=== PATIENT | male | born 1965 | race African-American/Black ===

== ENCOUNTER 2016-10-30 20:41 | Emergency (ER) | payer SELFPAY ==
[2016-10-31 00:26] LABS: ABSOLUTE LYMPHOCYTES (AUTO) 1.7 10^3/uL (0.5-4.7); ABSOLUTE MONOCYTES (AUTO) 0.7 10^3/uL (0.1-1.4); ABSOLUTE NEUT (AUTO) 7.3 10^3/uL (1.7-8.2); BASOPHILS % (AUTO) 0.4 % (0-2); EOSINOPHILS % (AUTO) 0.1 % (0-6); HEMOGLOBIN 15.7 g/dL (13.5-17.0); HGB HCT DIFFERENCE 2.1; LYMPHOCYTES % (AUTO) 17.1 % (13-45); MEAN CORPUSCULAR HEMOGLOBIN 32.5 pg (27.0-33.4); MEAN CORPUSCULAR HGB CONC 34.8 g/dL (32.0-36.0); MEAN CORPUSCULAR VOLUME 93 fl (80-97); MONOCYTES % (AUTO) 7.4 % (3-13); RED BLOOD COUNT 4.83 10^6/uL (4.35-5.55); RED CELL DISTRIBUTION WIDTH 14.6 % (11.5-14.0); WHITE BLOOD COUNT 9.8 10^3/uL (4.0-10.5)
[2016-10-31 00:48] LABS: ALANINE AMINOTRANSFERASE 27 U/L (21-72); ALBUMIN 4.7 g/dL (3.5-5.0); ALKALINE PHOSPHATASE 91 U/L (38-126); ANION GAP 13 (5-19); ASPARTATE AMINO TRANSFERASE 24 U/L (17-59); BILIRUBIN,DIRECT 0.2 mg/dL (0.0-0.4); BILIRUBIN,TOTAL 0.9 mg/dL (0.2-1.3); BLOOD UREA NITROGEN 14 mg/dL (7-20); CALCIUM 10.4 mg/dL (8.4-10.2); CARBON DIOXIDE 29 mmol/L (22-30); CHLORIDE 95 mmol/L (98-107); CREATINE KINASE 149 U/L (55-170); CREATININE RESULT 1.24 mg/dL (0.52-1.25); GLUCOSE 182 mg/dL (75-110); POTASSIUM 3.9 mmol/L (3.6-5.0); SODIUM 136.6 mmol/L (137-145); TOTAL PROTEIN 8.2 g/dL (6.3-8.2)
[2016-10-31 00:56] LABS: CREATINE KINASE MB 0.85 ng/mL (<4.55)
[2016-10-31 01:10] LABS: TROPONIN I 0.093 ng/mL
[2016-10-31] MEDS ORDERED: NORMAL SALINE 1000 ML 1,000 ML IV ONE (02:14)
[2016-10-31] MEDS ORDERED: ONDANSETRON HCL INJ/PF 4 MG/2 ML SDV IV ONE (02:18)
[2016-10-31] MEDS ORDERED: HYDROMORPHONE HCL INJ/PF 2 MG/ML AMPULE IV ONE (02:18)
[2016-10-31 02:29] LABS: LIPASE 417.6 U/L (23-300)
--- NOTE | 2016-10-31 03:04 | ER Document Report ---
ED General - General Chief Complaint: Chest Pain Stated Complaint: CHEST AND ABDOMINAL PAIN TRAVEL OUTSIDE OF THE [place] IN LAST 30 DAYS: No - Related Data Allergies/Adverse Reactions: No Known Allergies Allergy (Verified 10/30/16 22:40) Past Medical History - Social History Smoking Status: Current Every Day Smoker Family History: Reviewed & Not Pertinent Patient has suicidal ideation: No Patient has homicidal ideation: No - Past Medical History Cardiac Medical History: Reports: Hx Hypertension Renal/ Medical History: Denies: Hx Peritoneal Dialysis GI Medical History: Reports: Hx Gastroesophageal Reflux Disease, Hx Ulcer Psychiatric Medical History: Denies: Hx Depression Surgical Hx: Negative - Immunizations Immunizations up to date: Yes Hx Diphtheria, Pertussis, Tetanus Vaccination: Yes Physical Exam - Vital signs Vitals: Temp Pulse Resp BP Pulse Ox 98.2 F 75 14 133/89 H 98 10/30/16 22:41 10/30/16 22:41 10/30/16 22:41 10/30/16 22:41 10/30/16 22:41 Course - Vital Signs Vital signs: Temp Pulse Resp BP Pulse Ox 98.2 F 75 14 137/88 H 95 10/30/16 22:41 10/30/16 22:41 10/31/16 04:34 10/31/16 04:34 10/31/16 04:34 - Laboratory Result Diagrams: 10/31/16 00:07 10/31/16 00:07 Laboratory results interpreted by me: 10/31/16 10/31/16 10/31/16 00:07 00:07 00:07 RDW 14.6 H Sodium 136.6 L Chloride 95 L Glucose 182 H Calcium 10.4 H Lipase 417.6 H Discharge - Discharge Clinical Impression: Alcohol abuse, Gastritis and duodenitis Pancreatitis Qualifiers: Chronicity: acute Pancreatitis type: alcohol induced Acute pancreatitis complication: no infection or necrosis Qualified Code(s): K85.20 - Alcohol induced acute pancreatitis without necrosis or infection Condition: Stable Disposition: HOME, SELF-CARE Instructions: Clear Liquid Diet ([facility]), Prilosec (Acid Pump Inhibitor) ([facility]) Additional Instructions: Pancreatitis Pancreatitis is an inflammation of the pancreas, an organ at the back of your abdomen. The pancreas produces insulin and enzymes that digest your food. Pancreatitis can be caused by gallstones in the bile duct, by alcohol or viruses, or by excess fat or calcium in the blood stream. Occasionally, pancreatitis occurs when a stomach ulcer maxwell through into the pancreas. We try to find the cause of pancreatitis, but some tests can't be done until the pancreas heals. The usual symptoms of pancreatitis are pain in the pit of the stomach that goes straight through to the back, vomiting, and low-grade fever. Severe cases require hospital admission, but many patients with mild pancreatitis do well at home. You will probably need medicine for pain and for vomiting. Sometimes we prescribe medicine to decrease stomach acid secretion and to decrease flow of pancreatic juices. Start with a diet of clear liquids (soda pop, juices). When the pain is decreasing, you can add some simple starches (potato, toast, applesauce). Avoid proteins and fats until you are completely painfree. When you're better, your doctor may suggest treatment to prevent future pancreatitis (such as gallbladder removal). Avoid alcohol forever. Get immediate treatment for any future episodes. Contact your doctor at once or return here if you have increasing pain, shortness of breath, general swelling, increasing size of the abdomen, continued vomiting, muscle spasms, or other new symptoms. Gastritis You have an inflammation of the stomach called gastritis. This commonly causes upper abdominal pain, nausea, and vomiting. In severe cases, bleeding of the stomach lining can occur. Gastritis can be caused by bacteria or viruses , alcohol, or stomach-irritating drugs. Begin with sips of clear liquids. Take increasing amounts of fluid over the first 24 hours. Then start small amounts of bland foods (such as dry toast , applesauce, mashed potato). Gradually resume your usual diet. You should take antacids every two hours until the pain has subsided. Acid -suppressing drugs may be prescribed as well. Avoid aspirin, caffeine, tobacco , and alcohol. If the abdominal pain worsens, or there is evidence of major bleeding in the stomach (such as black, tarry stool, bloody or black vomit, or lightheadedness), you should return immediately. Call the doctor if you aren't improved in 24 to 36 hours. Prescriptions: Tramadol HCl 50 mg PO Q4HP PRN #30 tablet PRN Reason: Ondansetron [Zofran Odt 4 mg Tablet] 1 tab PO Q8HP PRN #15 tab.rapdis PRN Reason: For Nausea/Vomiting Omeprazole 40 mg PO DAILY #30 capsule.
[2016-10-31] MEDS ORDERED: LANSOPRAZOLE 30 MG TAB.RAP.DR PO ONE (04:43)
[2016-10-31] MEDS ORDERED: TRAMADOL HCL 50 MG TABLET PO ONE (04:43)
[2016-10-31 05:26] VITALS: BP 138/89
--- NOTE | 2016-10-31 22:10 | EKG REPORT ---
SEVERITY:- ABNORMAL ECG - SINUS RHYTHM PROBABLE LEFT ATRIAL ABNORMALITY NONSPECIFIC T ABNORMALITIES, DIFFUSE LEADS : Confirmed by: Marly Ko MD 31-Oct-2016 22:09:24
--- NOTE | 2016-11-01 15:35 | EKG REPORT ---
SEVERITY:- ABNORMAL ECG - SINUS RHYTHM PROBABLE LEFT ATRIAL ABNORMALITY NONSPECIFIC T ABNORMALITIES, ANT-LAT LEADS : Confirmed by: Marly Ko MD 01-Nov-2016 15:34:19
== END 2016-10-31 05:25 | disposition home or self-care (01) ==
LOC: ER 20:41
DX: K85.20 Alcohol induced acute pancreatitis without necrosis or infection (principal); F10.10 Alcohol abuse, uncomplicated; K29.70 Gastritis, unspecified, without bleeding; K29.80 Duodenitis without bleeding; R10.9 Unspecified abdominal pain; F17.200 Nicotine dependence, unspecified, uncomplicated
CPT/HCPCS: 93005 ×2; 99285; 96374; 96375; 36415; 82553; 82150; 82550; 83690; 85025; 80053; 84484; 71020; 74177; 93010 ×2; J1170; J2405; J7030

== ENCOUNTER 2016-12-31 10:31 | Emergency (ER) | payer SELFPAY ==
[2016-12-31] MEDS ORDERED: ONDANSETRON 4 MG TAB.RAPDIS PO ONE (10:51)
[2016-12-31] MEDS ORDERED: NORMAL SALINE 1000 ML 1,000 ML IV ONE (10:52)
--- NOTE | 2016-12-31 10:53 | ER Document Report ---
ED Medical Screen (RME) - General Chief Complaint: Epigastric Pain Stated Complaint: CHEST PAIN Time Seen by Provider: 12/31/16 10:50 Mode of Arrival: Ambulatory Information source: Patient Notes: 28-year-old male presents to ED for chest pain stomach pain taking a nausea and vomiting decreased urine and bowel movement due to nausea and vomiting. States that he stays in the stomach. He has a history of pancreatitis but has been drinking over the weekend. This has not had follow-up since his pancreatitis. I have greeted and performed a rapid initial assessment of this patient. A comprehensive ED assessment and evaluation of the patient, analysis of test results and completion of medical decision making process will be conducted by an additional ED providers. TRAVEL OUTSIDE OF THE [place] IN LAST 30 DAYS: No - Related Data Allergies/Adverse Reactions: No Known Allergies Allergy (Verified 12/31/16 10:35) Past Medical History - Past Medical History Cardiac Medical History: Reports: Hx Hypertension Renal/ Medical History: Denies: Hx Peritoneal Dialysis GI Medical History: Reports: Hx Gastroesophageal Reflux Disease, Hx Ulcer Psychiatric Medical History: Denies: Hx Depression - Immunizations Immunizations up to date: Yes Hx Diphtheria, Pertussis, Tetanus Vaccination: Yes Physical Exam - Vital signs Vitals: Temp Pulse Resp BP Pulse Ox 98.0 F 77 20 140/97 H 97 12/31/16 10:35 12/31/16 10:35 12/31/16 10:35 12/31/16 10:35 12/31/16 10:35 Course - Vital Signs Vital signs: Temp Pulse Resp BP Pulse Ox 98.0 F 77 20 140/97 H 97 12/31/16 10:35 12/31/16 10:35 12/31/16 10:35 12/31/16 10:35 12/31/16 10:35
--- NOTE | 2016-12-31 11:40 | RADIOLOGY REPORT (SQ) ---
EXAM DESCRIPTION: ACUTE ABDOMEN SERIES COMPLETED DATE/TIME: 12/31/2016 11:21 am REASON FOR STUDY: abdominal pain chest pain pancreatitis COMPARISON: None. NUMBER OF VIEWS: Three views. TECHNIQUE: Frontal chest, supine abdomen and upright abdomen radiographic images acquired. LIMITATIONS: None. FINDINGS: CHEST: Lungs clear of infiltrates. FREE AIR: None. No abnormal gas collections. BOWEL GAS PATTERN: Nonobstructive pattern. No dilated loops or air fluid levels. CALCIFICATIONS: No suspicious calcifications. HARDWARE: None in the abdomen. SOFT TISSUES: No gross mass or suggestion of organomegaly. BONES: No acute fracture. No worrisome bone lesions. OTHER: No other significant finding. IMPRESSION: NO RADIOGRAPHIC EVIDENCE FOR ACUTE ABDOMINAL DISEASE. TECHNICAL DOCUMENTATION: JOB ID: [id number] [employer]- All Rights Reserved
[2016-12-31 12:16] LABS: ABSOLUTE LYMPHOCYTES (AUTO) 2.1 10^3/uL (0.5-4.7); ABSOLUTE MONOCYTES (AUTO) 1.2 10^3/uL (0.1-1.4); ABSOLUTE NEUT (AUTO) 9.8 10^3/uL (1.7-8.2); BASOPHILS % (AUTO) 0.3 % (0-2); EOSINOPHILS % (AUTO) 0.4 % (0-6); HEMATOCRIT 48.3 % (37.9-51.0); HEMOGLOBIN 16.2 g/dL (13.5-17.0); HGB HCT DIFFERENCE 0.3; LYMPHOCYTES % (AUTO) 15.8 % (13-45); MEAN CORPUSCULAR HEMOGLOBIN 32.9 pg (27.0-33.4); MEAN CORPUSCULAR HGB CONC 33.5 g/dL (32.0-36.0); MEAN CORPUSCULAR VOLUME 98 fl (80-97); MONOCYTES % (AUTO) 8.9 % (3-13); RED BLOOD COUNT 4.92 10^6/uL (4.35-5.55); RED CELL DISTRIBUTION WIDTH 14.2 % (11.5-14.0); SEGMENTED NEUTROPHILS % (AUTO) 74.6 % (42-78); WHITE BLOOD COUNT 13.1 10^3/uL (4.0-10.5)
[2016-12-31 12:36] LABS: ALANINE AMINOTRANSFERASE 26 U/L (21-72); ALBUMIN 4.5 g/dL (3.5-5.0); ALKALINE PHOSPHATASE 94 U/L (38-126); ANION GAP 16 (5-19); ASPARTATE AMINO TRANSFERASE 21 U/L (17-59); BILIRUBIN,DIRECT 0.4 mg/dL (0.0-0.4); BILIRUBIN,TOTAL 1.1 mg/dL (0.2-1.3); BLOOD UREA NITROGEN 11 mg/dL (7-20); CALCIUM 10.3 mg/dL (8.4-10.2); CARBON DIOXIDE 27 mmol/L (22-30); CHLORIDE 96 mmol/L (98-107); CREATINE KINASE 105 U/L (55-170); CREATININE RESULT 1.06 mg/dL (0.52-1.25); GLUCOSE 112 mg/dL (75-110); LIPASE 357.7 U/L (23-300); POTASSIUM 4.1 mmol/L (3.6-5.0); SODIUM 138.9 mmol/L (137-145); TOTAL PROTEIN 8.6 g/dL (6.3-8.2)
[2016-12-31 12:43] LABS: APPEARANCE,URINE SLIGHTLY-CLOUDY; BILIRUBIN,URINE NEGATIVE (NEGATIVE); GLUCOSE, URINE NEGATIVE (NEGATIVE); KETONES,URINE 20 mg/dL (NEGATIVE); LEUKOCYTE ESTERASE,URINE NEGATIVE (NEGATIVE); NITRITE,URINE NEGATIVE (NEGATIVE); PROTEIN,URINE >=500 mg/dL (NEGATIVE); URINE SPECIFIC GRAVITY 1.029; UROBILINOGEN,URINE NEGATIVE mg/dL (<2.0)
[2016-12-31 12:47] LABS: CREATINE KINASE MB 0.98 ng/mL (<4.55)
[2016-12-31 12:49] LABS: TROPONIN I 0.098 ng/mL
[2016-12-31] MEDS ORDERED: MORPHINE SULFATE 10 MG/ML INJ IV ONE ×2 (14:16→16:05)
[2016-12-31] MEDS ORDERED: ONDANSETRON HCL INJ/PF 4 MG/2 ML SDV IV ONE (14:22)
--- NOTE | 2016-12-31 14:23 | ER Document Report ---
ED GI/ - General Chief Complaint: Epigastric Pain Stated Complaint: CHEST PAIN Time Seen by Provider: 12/31/16 10:50 Mode of Arrival: Ambulatory Information source: Patient Notes: Patient is a 51-year-old -Swedish male with a history of pancreatitis who presents to the ER today for upper abdominal pain and nausea and vomiting he denies any 4 days. Patient states that he drank 3 shots this week and has not been drinking for a long time which he thinks caused his symptoms. Abnormal bowel movements, diarrhea. He denies any fevers or chills. TRAVEL OUTSIDE OF THE [place] IN LAST 30 DAYS: No - Related Data Allergies/Adverse Reactions: No Known Allergies Allergy (Verified 12/31/16 10:35) Past Medical History - General Information source: Patient - Social History Smoking Status: Former Smoker Chew tobacco use (# tins/day): No Frequency of alcohol use: None Drug Abuse: None Family History: Reviewed & Not Pertinent Patient has suicidal ideation: No Patient has homicidal ideation: No - Past Medical History Cardiac Medical History: Reports: Hx Hypertension Renal/ Medical History: Denies: Hx Peritoneal Dialysis GI Medical History: Reports: Hx Gastroesophageal Reflux Disease, Hx Ulcer Psychiatric Medical History: Denies: Hx Depression - Immunizations Immunizations up to date: Yes Hx Diphtheria, Pertussis, Tetanus Vaccination: Yes Review of Systems - Review of Systems Constitutional: No symptoms reported EENT: No symptoms reported Cardiovascular: No symptoms reported Respiratory: No symptoms reported Gastrointestinal: See HPI Genitourinary: No symptoms reported Male Genitourinary: No symptoms reported Musculoskeletal: No symptoms reported Skin: No symptoms reported Hematologic/Lymphatic: No symptoms reported Neurological/Psychological: No symptoms reported Physical Exam - Vital signs Vitals: Temp Pulse Resp BP Pulse Ox 98.0 F 77 20 140/97 H 97 12/31/16 10:35 12/31/16 10:35 12/31/16 10:35 12/31/16 10:35 12/31/16 10:35 - Notes Notes: PHYSICAL EXAMINATION: GENERAL: Uncomfortable appearing, but in no acute distress. HEAD: Atraumatic, normocephalic. EYES: Pupils equal round and reactive to light, extraocular movements intact, sclera anicteric, conjunctiva are normal. NECK: Normal range of motion, supple without lymphadenopathy LUNGS: CTAB and equal. No wheezes rales or rhonchi. HEART: Regular rate and rhythm without murmurs ABDOMEN: Soft, right upper quadrant, left upper quadrant epigastric no tenderness. No guarding, no rebound BACK: no vertebral tenderness, normal ROM GI/: no CVA tenderness EXTREMITIES: Normal range of motion, no pitting edema. No cyanosis. NEUROLOGICAL: Cranial nerves grossly intact. Normal sensory/motor exams. PSYCH: Normal mood, normal affect. SKIN: Warm, Dry, normal turgor, no rashes or lesions noted Course - Re-evaluation Re-evalutation: 12/31/16 16:07 Troponin is elevated at 0.098, however this is patient's norm compared to all previous troponins. His lipase is elevated and he is tender in the epigastric, left upper quadrant, right upper quadrant area. Due to right upper quadrant tenderness and patient still having his gallbladder I did do a right upper quadrant ultrasound which was negative for any acute pathology to the gallbladder. Patient feels much better after pain medication and nausea medication. He passed the p.o. challenge. I educated him about a clear liquid diet for a couple of days for this. 12/31/16 16:08 - Vital Signs Vital signs: Temp Pulse Resp BP Pulse Ox 98.0 F 79 20 140/97 H 97 12/31/16 10:36 12/31/16 10:36 12/31/16 10:36 12/31/16 10:36 12/31/16 10:36 - Laboratory Result Diagrams: 12/31/16 12:00 12/31/16 12:00 Laboratory results interpreted by me: 12/31/16 12/31/16 12/31/16 12:00 12:00 12:00 WBC 13.1 H MCV 98 H RDW 14.2 H Absolute Neutrophils 9.8 H Chloride 96 L Glucose 112 H Calcium 10.3 H Total Protein 8.6 H Lipase 357.7 H Urine Protein >=500 H Urine Ketones 20 H Discharge - Discharge Clinical Impression: Pancreatitis Qualifiers: Chronicity: acute Pancreatitis type: alcohol induced Qualified Code(s): K85.2 - Alcohol induced acute pancreatitis Condition: Stable Disposition: HOME, SELF-CARE Instructions: Pancreatitis ([facility]) Additional Instructions: Return immediately for any new or worsening symptoms. Follow up with primary care provider, call tomorrow to make followup appointment. Prescriptions: Ondansetron [Zofran Odt 4 mg Tablet] 1 - 2 tab PO Q4H PRN #30 tab.rapdis PRN Reason: For Nausea/Vomiting Oxycodone HCl/Acetaminophen [Percocet 5-325 mg Tablet] 1 - 2 tab PO Q4H PRN #15 tablet PRN Reason: Referrals: [facility] [Provider Group] - Follow up as needed
--- NOTE | 2016-12-31 15:27 | RADIOLOGY REPORT (SQ) ---
EXAM DESCRIPTION: U/S ABDOMEN LIMITED W/O DOP COMPLETED DATE/TIME: 12/31/2016 3:05 pm REASON FOR STUDY: ruq pain, pancreatitis COMPARISON: 01/16/2016 TECHNIQUE: Dynamic and static grayscale images acquired of the abdomen and recorded on PACS. Myriamo cam selected color Doppler and spectral images recorded. LIMITATIONS: None. FINDINGS: PANCREAS: The pancreas is slightly heterogeneous. The pancreatic duct is dilated, measuri ng 5.4 mm at its largest. LIVER: 17 cm. No masses. Echotexture normal. LIVER VASCULATURE: Normal directional flow of the main portal vein and hepatic veins. GALLBLADDER: No stones. Normal wall thickness. No pericholecystic fluid. ULTRASOUND-DETECTED THOMAS'S SIGN: Negative. INTRAHEPATIC DUCTS AND COMMON DUCT: The common bile duct is borderline at 6 mm. INFERIOR VENA CAVA: Normal flow. AORTA: No aneurysm. RIGHT KIDNEY: Normal size, 12 cm. Normal echogenicity. No solid or suspicious masses. No hydronephro sis. No calcifications. PERITONEAL AND RIGHT PLEURAL SPACE: No ascites or effusions. OTHER: No other significant findings. IMPRESSION: 1. There is dilatation of the pancreatic duct once again. Consider CT for further eval uation if clinically indicated. 2. The common bile duct is borderline. TECHNICAL DOCUMENTATION: JOB ID: [id number] [employer]- All Rights Reserved
[2016-12-31 16:51] VITALS: BP 151/99
== END 2016-12-31 16:47 | disposition home or self-care (01) ==
LOC: ER 10:31
DX: K85.20 Alcohol induced acute pancreatitis without necrosis or infection (principal); R10.13 Epigastric pain; R11.2 Nausea with vomiting, unspecified; R19.7 Diarrhea, unspecified; Z87.891 Personal history of nicotine dependence; I10 Essential (primary) hypertension
CPT/HCPCS: 96376; 99284; 96374; 96375; 36415; 82553; 82550; 83690; 85025; 80053; 81001; 84484; 74022; 76705; S0119; J2270; J2405; J7030

== ENCOUNTER 2017-03-01 20:32 | Emergency (ER) | payer SELFPAY ==
[2017-03-01] MEDS ORDERED: NORMAL SALINE 1000 ML 1,000 ML IV ONE (22:17)
[2017-03-01] MEDS ORDERED: MORPHINE SULFATE 10 MG/ML INJ IV ONE (22:17)
[2017-03-01] MEDS ORDERED: DIAZEPAM INJ 10 MG/2 ML DISP.SYRIN IV ONE (22:18)
--- NOTE | 2017-03-01 22:19 | ER Document Report ---
ED GI/ - General Mode of Arrival: Ambulatory Information source: Patient TRAVEL OUTSIDE OF THE [place] IN LAST 30 DAYS: No - HPI Patient complains to provider of: Groin pain Onset: Other - x3 days Timing/Duration: Persistent Pain Level: 4 Location: Other - right groin Associated symptoms: None Similar symptoms previously: Yes <DAVE HICKMAN - Last Filed: 03/01/17 22:13> <LESLY BLAKE - Last Filed: 03/01/17 23:28> - General Chief Complaint: Groin Pain Stated Complaint: ABDOMINAL PAIN Time Seen by Provider: 03/01/17 22:06 Notes: Patient is a 51 year old male that presents to the emergency department today with complaints of "large hernia" in the right groin. Patient states that he has had the hernia for approximately 4 years but it had been easily reducible. Patient states that it would "come out" every couple weeks but recently it has been a daily occurrence. Patient states for the last three days he has been unable to reduce the hernia and he has had associated pain. 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 Lives with: Family Family History: Reviewed & Not Pertinent Patient has suicidal ideation: No Patient has homicidal ideation: No - Past Medical History Cardiac Medical History: Reports: Hx Hypertension - no meds GI Medical History: Reports: Hx Gastroesophageal Reflux Disease, Hx Ulcer Surgical Hx: Negative - Immunizations Immunizations up to date: Yes Hx Diphtheria, Pertussis, Tetanus Vaccination: Yes <DAVE HICKMAN - Last Filed: 03/01/17 22:13> Review of Systems - Review of Systems Constitutional: No symptoms reported EENT: No symptoms reported Cardiovascular: No symptoms reported Respiratory: No symptoms reported Gastrointestinal: See HPI, Other - right groin pain, hernia Genitourinary: No symptoms reported Male Genitourinary: No symptoms reported Musculoskeletal: No symptoms reported Skin: No symptoms reported Hematologic/Lymphatic: No symptoms reported Neurological/Psychological: No symptoms reported -: Yes All other systems reviewed and negative <DAVE HICKMAN - Last Filed: 03/01/17 22:13> Physical Exam <DAVE HICKMAN - Last Filed: 03/01/17 22:13> <LESLY BLAKE - Last Filed: 03/01/17 23:28> - Vital signs Vitals: Temp Pulse Resp BP Pulse Ox 98.3 F 64 12 168/114 H 99 03/01/17 21:20 03/01/17 21:20 03/01/17 21:20 03/01/17 21:20 03/01/17 21:20 - Notes Notes: Physical Exam: General: Alert, appears well. HEENT: Normocephalic. Atraumatic. PERRL. Extraocular movements intact. Oropharynx clear. Neck: Supple. Non-tender. Respiratory: No respiratory distress. Clear and equal breath sounds bilaterally. Cardiovascular: Regular rate and rhythm. Abdominal: No distension. Normal Bowel Sounds. Large, firm, irreducible tubular mass to right groin extending into right scrotum. Tenderness with palpation over the mass. Male Genitourinary: No testicular swelling or tenderness. Back: Non-tender. No deformity or step off. Extremities: Moves all four extremities. Upper extremities: Normal inspection. Normal ROM. Lower extremities: Normal inspection. No edema. Normal ROM. Neurological: Normal cognition. AAOx4. Normal speech. Psychological: Normal affect. Normal Mood. Skin: Warm. Dry. Normal color. (DAVE HICKMAN) Course - Consults Surgery Time consulted: 22:19 Consulted provider: will come to ER - Dr. Nam - requests pain meds, will come see patient <DAVE HICKMAN - Last Filed: 03/01/17 22:13> - Laboratory Result Diagrams: 03/01/17 22:48 03/01/17 22:48 <LESLY BLAKE - Last Filed: 03/01/17 23:28> - Re-evaluation Re-evalutation: 03/01/17 23:13 The patient was given pain medication and some Valium to help relax his muscles. Dr. Nam saw the patient and was eventually able to reduce the hernia. He requests that the patient follow up with [facility] Saturday morning. (LESLY BLAKE) - Vital Signs Vital signs: Temp Pulse Resp BP Pulse Ox 98.3 F 64 12 168/114 H 99 03/01/17 21:20 03/01/17 21:20 03/01/17 21:20 03/01/17 21:20 03/01/17 21:20 - Laboratory Laboratory results interpreted by me: 03/01/17 22:48 MCH 33.6 H RDW 14.5 H Discharge <DAVE HICKMAN - Last Filed: 03/01/17 22:13> <LESLY BLAKE - Last Filed: 03/01/17 23:28> - Discharge Clinical Impression: Right inguinal hernia High blood pressure Qualifiers: Hypertension type: essential hypertension Qualified Code(s): I10 - Essential ( primary) hypertension Condition: Stable Disposition: HOME, SELF-CARE Additional Instructions: Hernia: You have a hernia. A hernia forms at a weak spot in the abdominal wall. Bowel slips out of the abdominal cavity into the weak spot. Hernias tend to occur in the groin (especially in males), the fold of the thigh, the naval, or at a surgical scar. Surgical repair of the defect is usually necessary. The problem tends to get worse. It's important that you follow up as recommended. For now, you should avoid straining, heavy lifting, and vigorous exercise. Complications occur if the hernia becomes tightly stuck. You should come back immediately if the area becomes increasingly painful, swollen, or discolored, or if you develop abdominal pain and vomiting. High Blood Pressure, Requiring Treatment: Your blood pressure is high. This is called "hypertension." Your history and exam suggest that this is not a temporary problem. You need treatment of your blood pressure. If left untreated, high blood pressure greatly increases your risk of heart attack and stroke. Please don't ignore this problem. If you have blood pressure medicine but aren't using it regularly, start taking it again. Some simple things you can do to help are: Get some aerobic exercise for at least 20 minutes on a daily basis. (See your doctor before beginning any new exercise program.) Eat a low-fat diet. Lose excess weight. Avoid salty foods and avoid adding salt to any of the foods you eat. Avoid diet pills, decongestants, "energizing" herbs, and other medicines that elevate blood pressure. There are many different medicines that treat blood pressure. If your medication causes unpleasant side effects, call your doctor. There are others you can try. Treating hypertension is a life-long investment in your health. TAKE THE MEDICATION PRESCRIBED FOR HIGH BLOOD PRESSURE. FOLLOW UP WITH A LOCAL MEDICAL DOCTOR TO MANAGE YOUR HIGH BLOOD PRESSURE. DO NOT LET THE HERNIA REMAIN OUT WHEN YOU FIRST NOTICE IT DESCENDING. CALL [facility] SATURDAY MORNING FOR AN APPOINTMENT THIS WEEK. RETURN TO THE EMERGENCY ROOM IF ANY NEW OR WORSENING SYMPTOMS. Prescriptions: Lisinopril [Prinivil 10 mg Tablet] 10 mg PO DAILY #30 tablet Referrals: [facility] [Provider Group] - 03/04/17 Scribe Attestation: 03/01/17 23:15 I personally performed the services described in the documentation, reviewed and edited the documentation which was dictated to the scribe in my presence, and it accurately records my words and actions. (LESLY BLAKE) Scribe Documentation - Scribe Written by Mitra:: Mitra Wright, 03/01/2017 2222 acting as scribe for :: Cielo <DAVE HICKMAN - Last Filed: 03/01/17 22:13>
[2017-03-01] MEDS ORDERED: HYDROMORPHONE HCL INJ/PF 2 MG/ML AMPULE ONE (22:54)
[2017-03-01] MEDS ORDERED: LORAZEPAM INJ 2 MG/1 ML VIAL ONE (22:56)
[2017-03-01 23:17] LABS: ABSOLUTE EOSINOPHILS # (AUTO) 0.1 10^3/uL (0.0-0.6); ABSOLUTE LYMPHOCYTES (AUTO) 2.1 10^3/uL (0.5-4.7); ABSOLUTE MONOCYTES (AUTO) 0.6 10^3/uL (0.1-1.4); ABSOLUTE NEUT (AUTO) 5.1 10^3/uL (1.7-8.2); BASOPHILS % (AUTO) 0.4 % (0-2); EOSINOPHILS % (AUTO) 1.5 % (0-6); HEMATOCRIT 45.7 % (37.9-51.0); HGB HCT DIFFERENCE 2.3; LYMPHOCYTES % (AUTO) 26.5 % (13-45); MEAN CORPUSCULAR HEMOGLOBIN 33.6 pg (27.0-33.4); MEAN CORPUSCULAR VOLUME 96 fl (80-97); MONOCYTES % (AUTO) 7.7 % (3-13); RED BLOOD COUNT 4.76 10^6/uL (4.35-5.55); RED CELL DISTRIBUTION WIDTH 14.5 % (11.5-14.0); SEGMENTED NEUTROPHILS % (AUTO) 63.9 % (42-78); WHITE BLOOD COUNT 7.9 10^3/uL (4.0-10.5)
[2017-03-01] MEDS ORDERED: LISINOPRIL 10 MG TABLET PO ONE (23:27)
[2017-03-01 23:50] LABS: ALANINE AMINOTRANSFERASE 21 U/L (21-72); ALBUMIN 3.8 g/dL (3.5-5.0); ALKALINE PHOSPHATASE 99 U/L (38-126); ANION GAP 9 (5-19); ASPARTATE AMINO TRANSFERASE 22 U/L (17-59); BILIRUBIN,DIRECT 0.3 mg/dL (0.0-0.4); BILIRUBIN,TOTAL 0.6 mg/dL (0.2-1.3); BLOOD UREA NITROGEN 11 mg/dL (7-20); CALCIUM 9.4 mg/dL (8.4-10.2); CARBON DIOXIDE 27 mmol/L (22-30); CHLORIDE 105 mmol/L (98-107); GLUCOSE 127 mg/dL (75-110); POTASSIUM 3.8 mmol/L (3.6-5.0); SODIUM 141.3 mmol/L (137-145); TOTAL PROTEIN 7.3 g/dL (6.3-8.2)
--- NOTE | 2017-03-02 00:17 | CONSULTATION REPORT E ---
Consultation Report NAME: BEKAH HEIN : 1965 AGE: 51Y DATE: 03/01/2017 TO: WILMAN DOS SANTOS M.D. FROM: LESLY BLAKE M.D. Requesting Physician REASON FOR CONSULTATION: Incarcerated right inguinal hernia that the ER was unable to reduce. HISTORY OF PRESENT ILLNESS: This is a 51-year-old -Filipino male who has known right inguinal hernia for the past 5 years. In the past he would notice a lump in the right groin but he could easily push it back in. In the past 3 days, however, he was unable to reduce and it is getting to get bigger and with a lot of pain, that is why he came to the emergency room. The ER doctor tried to reduce it, was unable to reduce it and he consulted me. PAST HISTORY: History of alcoholic pancreatitis. ALLERGIES: None known. PAST SURGERIES: No previous operations in the past. SOCIAL HISTORY: He smokes about a half a pack a day. Drinks about half a pint of gin everyday, but denies any history of withdrawal when he stops drinking. Denies recreational drug use. 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 FAMILY HISTORY: Noncontributory. REVIEW OF SYSTEMS: Occasional cough but nonproductive. No visual problems or hearing problems. No chest pains, no shortness of breath. GI: Pains in the right groin for the past 3 days but no nausea or vomiting. No diarrhea, no constipation. No dysuria. The rest of the systems unremarkable. PHYSICAL EXAMINATION: GENERAL: Well-developed, well-nourished, 51-year-old male alert and oriented complaining of pains in the right groin. HEENT: Neck is supple, no thyromegaly. LUNGS: Clear. HEART: Regular sinus rhythm. ABDOMEN: Soft. The right inguinal area has a moderately enlarged incarcerated inguinal hernia that is quite tender. IMPRESSION: Incarcerated right inguinal hernia. PLAN: The patient was given IV morphine and valium. The patient then was placed on Trendelenburg position. With gentle manipulation and after several minutes the hernia was finally reduced. The patient was advised not to do any lifting or straining. If it comes back then just go back to the emergency room otherwise just go to the surgical clinic Saturday, will schedule as an elective repair of the right inguinal hernia. Incidental findings is that his blood pressure is 177/115. He said he takes lisinopril 2.5 mg daily. Blood pressure will be managed by the ER physician. DICTATING PHYSICIAN: WILMAN DOS SANTOS M.D. [id number] PHY#: [id number] ID: [id number] JOB#: [id number] ACCT: [id number] cc:WILMAN DOS SANTOS M.D. >
[2017-03-02 00:25] VITALS: BP 165/98
== END 2017-03-01 23:28 | disposition home or self-care (01) ==
LOC: ER 20:32
DX: K40.90 Unilateral inguinal hernia, without obstruction or gangrene, not specified as recurrent (principal); I10 Essential (primary) hypertension; F17.210 Nicotine dependence, cigarettes, uncomplicated
CPT/HCPCS: 99284; 96361; 96374; 96375; 36415; 85025; 80053; J3360; J2270; J7030

== ENCOUNTER 2018-01-06 08:06 | Observation (INO) | payer SELFPAY ==
[2018-01-06 09:17] LABS: ABSOLUTE LYMPHOCYTES (AUTO) 1.7 10^3/uL (0.5-4.7); ABSOLUTE MONOCYTES (AUTO) 0.5 10^3/uL (0.1-1.4); ABSOLUTE NEUT (AUTO) 6.7 10^3/uL (1.7-8.2); BASOPHILS % (AUTO) 0.2 % (0-2); EOSINOPHILS % (AUTO) 0.2 % (0-6); HEMATOCRIT 45.4 % (37.9-51.0); HEMOGLOBIN 15.9 g/dL (13.5-17.0); LYMPHOCYTES % (AUTO) 18.9 % (13-45); MEAN CORPUSCULAR HEMOGLOBIN 34.2 pg (27.0-33.4); MEAN CORPUSCULAR HGB CONC 34.9 g/dL (32.0-36.0); MEAN CORPUSCULAR VOLUME 98 fl (80-97); MONOCYTES % (AUTO) 5.2 % (3-13); PLATELET COUNT 305 10^3/uL (150-450); RED BLOOD COUNT 4.64 10^6/uL (4.35-5.55); RED CELL DISTRIBUTION WIDTH 13.2 % (11.5-14.0); SEGMENTED NEUTROPHILS % (AUTO) 75.5 % (42-78); TOTAL CELLS COUNTED % (AUTO) 100 %; WHITE BLOOD COUNT 8.9 10^3/uL (4.0-10.5)
[2018-01-06 09:33] LABS: APPEARANCE,URINE CLEAR; BILIRUBIN,URINE NEGATIVE (NEGATIVE); COLOR,URINE AMBER; GLUCOSE, URINE NEGATIVE (NEGATIVE); KETONES,URINE 20 mg/dL (NEGATIVE); LEUKOCYTE ESTERASE,URINE NEGATIVE (NEGATIVE); NITRITE,URINE NEGATIVE (NEGATIVE); PROTEIN,URINE >=500 mg/dL (NEGATIVE)
[2018-01-06 09:40] LABS: ALANINE AMINOTRANSFERASE 18 U/L (21-72); ALBUMIN 4.4 g/dL (3.5-5.0); ALKALINE PHOSPHATASE 70 U/L (38-126); ANION GAP 15 (5-19); ASPARTATE AMINO TRANSFERASE 20 U/L (17-59); BILIRUBIN,DIRECT 0.5 mg/dL (0.0-0.4); BILIRUBIN,TOTAL 0.9 mg/dL (0.2-1.3); BLOOD UREA NITROGEN 13 mg/dL (7-20); CALCIUM 10.8 mg/dL (8.4-10.2); CARBON DIOXIDE 30 mmol/L (22-30); CHLORIDE 98 mmol/L (98-107); GLUCOSE 122 mg/dL (75-110); LIPASE 168.6 U/L (23-300); POTASSIUM 3.8 mmol/L (3.6-5.0); SODIUM 142.7 mmol/L (137-145); TOTAL PROTEIN 7.9 g/dL (6.3-8.2)
--- NOTE | 2018-01-06 10:06 | ER Document Report ---
ED GI/ - General Chief Complaint: Groin Pain Stated Complaint: ABDOMINAL PAIN Time Seen by Provider: 01/06/18 09:54 Notes: Patient is complaining of pain in a hernia that he has in the right groin. He says he has had this hernia for about 3 years. It used to be easily reduced by the patient whenever it will come out with coughing or pushing a lawn more or straining with bowel movement. However, about 2-3 months ago, patient found the hernia would not go back again completely to flat location. Then, in the past 4 or 5 days, he has had abdominal pain on the right side as well as vomiting 4 or 5 times a day over the weekend. Patient says his last bowel movement was Saturday. He is unable to reduce the hernia at all now. Patient has had no prior abdominal surgeries. TRAVEL OUTSIDE OF THE [place] IN LAST 30 DAYS: No - Related Data Allergies/Adverse Reactions: No Known Allergies Allergy (Verified 01/06/18 08:06) Past Medical History - Social History Smoking Status: Current Every Day Smoker Frequency of alcohol use: Occasional Drug Abuse: Cocaine Family History: Reviewed & Not Pertinent Patient has suicidal ideation: No Patient has homicidal ideation: No - Past Medical History Cardiac Medical History: Reports: Hx Hypertension - no meds GI Medical History: Reports: Hx Gastroesophageal Reflux Disease, Hx Ulcer Past Surgical History: Denies: Hx Abdominal Surgery - Immunizations Immunizations up to date: Yes Hx Diphtheria, Pertussis, Tetanus Vaccination: Yes Review of Systems - Review of Systems Notes: REVIEW OF SYSTEMS: CONSTITUTIONAL : Denies fever. EENT: Denies eye, ear, nose or mouth or throat pain or other symptoms. CARDIOVASCULAR: Denies chest pain. RESPIRATORY: Denies cough, chest congestion, or shortness of breath. GASTROINTESTINAL: See HPI. GENITOURINARY: Denies difficulty or painful urinating, urinary frequency, blood in urine. MUSCULOSKELETAL: Denies back or neck pain. Denies joint pain or swelling. SKIN: Denies rash or skin lesions. NEUROLOGICAL: Denies LOC or altered mental status. Denies headache. Denies sensory loss or motor deficits. ALL OTHER SYSTEMS REVIEWED AND NEGATIVE. Physical Exam - Vital signs Vitals: Temp Pulse Resp BP Pulse Ox 97.9 F 74 14 170/99 H 99 01/06/18 08:10 01/06/18 08:10 01/06/18 08:10 01/06/18 08:10 01/06/18 08:10 Interpretation: Hypertensive - Mild - Notes Notes: PHYSICAL EXAMINATION: GENERAL: Well-appearing, in no acute distress. Slightly hypertensive, otherwise vital signs are normal. HEAD: Atraumatic, normocephalic. EYES: Pupils equal round and reactive to light, extraocular movements intact. NECK: Normal range of motion, supple. LUNGS: Breath sounds clear and equal bilaterally. HEART: Regular rate and rhythm without murmurs. ABDOMEN: Soft, mild tenderness on the right side of the abdomen. No guarding or rebound. No masses. Patient has a fairly large right inguinal hernia which is soft to the touch, but I cannot reduce it with gentle firm constant pressure. Testicles are nontender. BACK: No tenderness throughout entire back. EXTREMITIES: Normal range of motion without pain. NEUROLOGICAL: Normal speech, normal gait. Normal sensory, motor, and reflex exams. Awake, alert, and oriented x3. Cranial nerves normal. PSYCH: Normal mood, normal affect. SKIN: Warm, dry, no rashes. Course - Re-evaluation Re-evalutation: 01/06/18 10:10 Spoke with surgeon traffic sign erection supervisor, Dr. Carlisle, and he will see the patient. 01/06/18 10:[address] Carlisle and he will be going to the operating room. - Vital Signs Vital signs: Temp Pulse Resp BP Pulse Ox 97.9 F 74 14 170/99 H 99 01/06/18 08:10 01/06/18 08:10 01/06/18 08:10 01/06/18 08:10 01/06/18 08:10 - Laboratory Result Diagrams: 01/06/18 08:48 01/06/18 08:48 Laboratory results interpreted by me: 01/06/18 01/06/18 01/06/18 08:48 08:48 08:48 MCV 98 H MCH 34.2 H Glucose 122 H Calcium 10.8 H Direct Bilirubin 0.5 H ALT 18 L Urine Protein >=500 H Urine Ketones 20 H Urine Urobilinogen 4.0 H Discharge - Discharge Clinical Impression: Incarcerated right inguinal hernia Condition: Stable Disposition: ADMITTED INPATIENT Admitting Provider: Surgicalist Unit Admitted: OR
[2018-01-06] MEDS ORDERED: RINGERS SOLUTION,LACTATED 1,000 ML IV PRN (10:30)
[2018-01-06] MEDS ORDERED: CEFAZOLIN 1 GM/D5W RTU 1 GM/50 ML RTUPB IV PRN (10:30)
[2018-01-06] MEDS ORDERED: FENTANYL CITRATE INJ/PF 100 MCG/2 ML AMPUL ONE (10:40)
[2018-01-06] MEDS ORDERED: PROPOFOL INJ 200 MG/20 ML VIAL IV ONE (10:40)
[2018-01-06] MEDS ORDERED: MIDAZOLAM 2 MG/2 ML INJ ONE (10:40)
--- NOTE | 2018-01-06 10:40 | PDOC H&P ---
History of Present Illness Patient complains of: Abdominal pain nausea vomiting History of Present Illness: BEKAH HEIN is a 52 year old male Who presents to the emergency department via ground rescue complaining of a 3 day history of abdominal pain nausea vomiting and inability to reduce the known right inguinal hernia. Patient has a remote history of pancreatitis. He does drink alcohol daily but none for the last 3 days. Had 8 episodes of vomiting and has had nothing to eat or drink for approximately 3 days. He is seen in the emergency department where he is found to have. He is hemodynamically stable. Surgery was consulted and he was advised admission. Patient is never had a colonoscopy Past Medical History Cardiac Medical History: Reports: Hypertension - no meds Pulmonary Medical History: Reports: Other - Chronic smoker GI Medical History: Reports: None, Gastroesophageal Reflux Disease, Other - History of pancreatitis GI History Note: Never had a colonoscopy Past Surgical History Past Surgical History: Reports: None Social History Smoking Status: Current Every Day Smoker Frequency of Alcohol Use: Social Amount of Alcoholic Beverages Per Day: Drinks a few shots after work during the week daily Hx Recreational Drug Use: No Hx Prescription Drug Abuse: No Family History Family History: Reviewed & Not Pertinent Parental Family History Reviewed: Yes Children Family History Reviewed: Yes Sibling(s) Family History Reviewed.: Yes Medication/Allergy Home Medications: Amlodipine Besylate [Norvasc 10 mg Tablet] 10 mg PO DAILY #30 tablet 10/29/15 Lisinopril [Prinivil 10 mg Tablet] 10 mg PO DAILY #30 tablet 10/29/15 Oxycodone HCl/Acetaminophen [Percocet 5-325 mg Tablet] 1 tab PO Q4HP PRN #12 tablet 10/29/15 Ondansetron [Zofran Odt 4 mg Tablet] 4 mg PO Q4HP PRN #30 tab.rapdis 01/16/16 Oxycodone HCl 5 mg PO Q6 #20 tablet 01/16/16 Omeprazole 40 mg PO DAILY #30 capsule. 10/31/16 Ondansetron [Zofran Odt 4 mg Tablet] 1 tab PO Q8HP PRN #15 tab.rapdis 10/31/16 Tramadol HCl 50 mg PO Q4HP PRN #30 tablet 10/31/16 Ondansetron [Zofran Odt 4 mg Tablet] 1 - 2 tab PO Q4H PRN #30 tab.rapdis Oxycodone HCl/Acetaminophen [Percocet 5-325 mg Tablet] 1 - 2 tab PO Q4H PRN #15 tablet 12/31/16 Lisinopril [Prinivil 10 mg Tablet] 10 mg PO DAILY #30 tablet 03/01/17 Allergies/Adverse Reactions: No Known Allergies Allergy (Verified 01/06/18 08:06) Review of Systems Constitutional: ABSENT: chills, fever(s), headache(s), weight gain, weight loss Eyes: ABSENT: visual disturbances Ears: ABSENT: hearing changes Gastrointestinal: PRESENT: as per HPI, bloating Neurological: ABSENT: abnormal gait, abnormal speech, confusion, dizziness, focal weakness, syncope Psychiatric: ABSENT: anxiety, depression, homidical ideation, suicidal ideation Physical Exam Vital Signs: Temp Pulse Resp BP Pulse Ox 97.9 F 74 14 170/99 H 99 01/06/18 08:10 01/06/18 08:10 01/06/18 08:10 01/06/18 08:10 01/06/18 08:10 Intake & Output 01/05/18 01/06/18 01/07/18 06:59 06:59 06:59 Weight 76.4 kg General appearance: PRESENT: no acute distress Head exam: PRESENT: normocephalic Eye exam: PRESENT: EOMI Neck exam: PRESENT: full ROM Respiratory exam: PRESENT: clear to auscultation malini Cardiovascular exam: PRESENT: RRR Pulses: PRESENT: normal carotid pulses, normal radial pulses, normal femoral pulses GI/Abdominal exam: PRESENT: soft - Soft, nontender no peritoneal signs no rigidity. Rectal exam: PRESENT: deferred Gentrourinary exam: PRESENT: other - Chronically incarcerated right inguinal hernia; unable to reduce with patient relaxed in supine position. Neurological exam: PRESENT: alert, awake, oriented to person, oriented to place , oriented to time Psychiatric exam: PRESENT: appropriate affect Results Laboratory Results: 01/06/18 08:48 01/06/18 08:48 01/06/18 01/06/18 01/06/18 08:48 08:48 08:48 WBC 8.9 RBC 4.64 Hgb 15.9 Hct 45.4 MCV 98 H MCH 34.2 H MCHC 34.9 RDW 13.2 Plt Count 305 Seg Neutrophils % 75.5 Lymphocytes % 18.9 Monocytes % 5.2 Eosinophils % 0.2 Basophils % 0.2 Absolute Neutrophils 6.7 Absolute Lymphocytes 1.7 Absolute Monocytes 0.5 Absolute Eosinophils 0.0 Absolute Basophils 0.0 Sodium 142.7 Potassium 3.8 Chloride 98 Carbon Dioxide 30 Anion Gap 15 BUN 13 Creatinine 1.01 Est GFR ( Amer) > 60 Est GFR (Non-Af Amer) > 60 Glucose 122 H Calcium 10.8 H Total Bilirubin 0.9 AST 20 ALT 18 L Alkaline Phosphatase 70 Total Protein 7.9 Albumin 4.4 Lipase 168.6 Urine Color GENEVIEVE Urine Appearance CLEAR Urine pH 5.0 Ur Specific [place] 1.040 Urine Protein >=500 H Urine Glucose (UA) NEGATIVE Urine Ketones 20 H Urine Blood NEGATIVE Urine Nitrite NEGATIVE Ur Leukocyte Esterase NEGATIVE Urine WBC (Auto) 1 Urine RBC (Auto) 1 Assessment & Plan - Diagnosis (1) Incarcerated right inguinal hernia Is this a current diagnosis for this admission?: Yes Plan: Patient is found physical examination to have a incarcerated, nonreducible right inguinal. Gastrointestinal symptoms of abdominal pain nausea vomiting right inguinal hernia. Low clinical suspicion for other intra-abdominal pathology. Recommendations: 1. Admit, keep n.p.o. IV fluid hydration. 2. Set patient up for operative repair, open, general anesthesia, with postoperative Exparel. Risks benefits and alternatives of planned procedure were explained to the patient. He believes he understands and agrees to proceed. (2) Hypertension Qualifiers: Hypertension type: essential hypertension Qualified Code(s): I10 - Essential (primary) hypertension Is this a current diagnosis for this admission?: Yes (3) Alcohol consumption four to six days per week Is this a current diagnosis for this admission?: Yes (4) Smoker Is this a current diagnosis for this admission?: Yes - Time Time Spent: 50 to 70 Minutes Critical Time spent with patient: 15-24 minutes Medications reviewed and adjusted accordingly: Yes Anticipated discharge: Home - Inpatient Certification Based on my medical assessment, after consideration of the patient's comorbidities, presenting symptoms, or acuity I expect that the services needed warrant INPATIENT care.: Yes I certify that my determination is in accordance with my understanding of Medicare's requirements for reasonable and necessary INPATIENT services [42 CFR 412.3e].: Yes Medical Necessity: Need For IV Fluids, Need for Pain Control, Need for IV Antibiotics, Need for Surgery
[2018-01-06] MEDS ORDERED: ACETAMINOPHEN 1,000 MG/100 ML RTUPB IV ONE (10:41)
[2018-01-06] MEDS ORDERED: MORPHINE SULFATE 10 MG/ML INJ ONE (10:41)
[2018-01-06] MEDS ORDERED: BUPIVACAINE INJ/PF LIPOSOME/PF 266 MG/20 ML SDV ONE (10:42)
[2018-01-06] MEDS ORDERED: BUPIVACAINE HCL 0.25 % INJ/PF (2.5 MG/1 ML) 30 ML VIAL ONE (10:42)
[2018-01-06] MEDS ORDERED: CEFAZOLIN INJ 1 GM VIAL ONE (10:57)
--- NOTE | 2018-01-06 11:18 | RADIOLOGY REPORT (SQ) ---
EXAM DESCRIPTION: CHEST 2 VIEWS COMPLETED DATE/TIME: 01/06/2018 10:58 am REASON FOR STUDY: Preop COMPARISON: Two-view chest 10/31/2016 AP chest 10/24/2015 EXAM PARAMETERS: NUMBER OF VIEWS: two views TECHNIQUE: Digital Frontal and Lateral radiographic views of the chest acquired. RADIATION DOSE: NA LIMITATIONS: none FINDINGS: LUNGS AND PLEURA: No opacities, masses or pneumothorax. No pleural effusion. MEDIASTINUM AND HILAR STRUCTURES: No masses or contour abnormalities. HEART AND VASCULAR STRUCTURES: Heart normal size. No evidence for failure. BONES: No acute findings. HARDWARE: None in the chest. OTHER: No other significant finding. IMPRESSION: NO ACUTE RADIOGRAPHIC FINDING IN THE CHEST. TECHNICAL DOCUMENTATION: JOB ID: [id number] [employer]- All Rights Reserved Reading location - IP/workstation name: [email or web address]
[2018-01-06] MEDS ORDERED: PROMETHAZINE HCL INJ 25 MG/1 ML VIAL IV PRN (12:09)
[2018-01-06] MEDS ORDERED: FENTANYL CITRATE INJ/PF 100 MCG/2 ML AMPUL IV PRN ×3 (12:09)
[2018-01-06] MEDS ORDERED: DIPHENHYDRAMINE HCL 50 MG/ML VIAL IV PRN (12:09)
[2018-01-06] MEDS ORDERED: MICROFIBRILLAR COLLAGEN 1 GM PACK ONE (12:44)
[2018-01-06] MEDS ORDERED: KETOROLAC TROMETHAMINE 10 MG TABLET PO PRN (13:44)
[2018-01-06] MEDS ORDERED: ONDANSETRON HCL INJ/PF 4 MG/2 ML SDV IV PRN (13:44)
--- NOTE | 2018-01-06 13:58 | Operative Report ---
Operative Report DATE OF SURGERY: 01/06/18 PREOPERATIVE DIAGNOSIS: Incarcerated right inguinal hernia symptomatic POSTOPERATIVE DIAGNOSIS: Same, sliding, indirect OPERATION: 1. Right inguinal exploration. 2. Appendectomy. 3. Right inguinal herniorrhaphy with plug and overlay mesh repair SURGEON: JAYLENE BELL ANESTHESIA: GA TISSUE REMOVED OR ALTERED: Fragments of hernia sac; appendix COMPLICATIONS: None ESTIMATED BLOOD LOSS: 50 cc INTRAOPERATIVE FINDINGS: See below PROCEDURE: Right inguinal area was marked in the preop holding area; patient was then taken to the main operating room where general anesthesia was induced. Attention was directed to the right inguinal area. Using a combination of [place], and gentle but consistent pressure, we were able to nearly completely reduce the incarcerated right inguinal hernia. Bilateral testicles could be appreciated. The right inguinal area was clipped of hair, prepped and draped sterile fashion. Surgical plan surgical timeout were conducted. Anatomical landmarks identified, skin anesthetized with quarter percent Marc[place]. A standard 5 cm right inguinal herniorrhaphy incision was made with a knife. Subcutaneous tissue, Hilary's fascia divided as encountered. External oblique aponeurosis any status quarter percent Marcaine. Fibers open along the direction of their anatomic orientation, with the ilioinguinal nerve immediately identified and spared throughout the dissection. This was an extremely dense large fibrotic mass of tissue occupying the contents of the inguinal floor, extending down to the right hemiscrotum. Using a combination of blunt, sharp, and gentle electrocautery dissection, I was able to bluntly mobilize all of these structures. Once we had them wrapped within a Nel loop drain, I was able to begin interrogating the contents therein. there was a significant amount of scar tissue, as manifested by varying layers of dense longitudinally oriented fibrotic tissue. Amongst this tissue was in fact the indirect hernia sac. We identified it, and began to isolated from the after mentioned scar tissue which took a fair amount of time. Eventually we had the hernia sac suspended from its point of origination, that was lateral to the epigastric vessels. There was a very large mouth hernia. During the process, the sac was opened. It was found to contain a sliding component including the cecum, with the attendant appendix. The appendix was not acutely inflamed but it was elongated. These 2 structures were intimately adhesed to the peritoneal lining making up the wall of the hernia. Therefore I felt that amputation of the appendix was the most appropriate thing to free it up from the hernia wall, as well as mobilizing the lateral and posterior attachments of the cecum. The appendix was grasped with [place], mesoappendix taken down between 2-0 Vicryl sutures clamps. The appendix was amputated at its base between 2 also clamps, and stump oversewed with 3-0 PDS suture. Meticulous clearing of the lateral posterior cecal attachments continued until we have enough of the lateral and posterior peritoneal wall to complete closure. The terminal ileum and cecum were in good shape, so he proceeded to tack those structures back into the peritoneal cavity. We now secured the hernia sac by amputating two thirds of it and passing off to pathology. The rim of peritoneum was motorized as there was a significant amount of odorous oozing throughout the dissection. The peritoneal opening was now closed with a running 2-0 Vicryl suture. I now interrogated the floor the inguinal canal. Medially the floor was intact. [place] that a plug overlay mesh combination prosthesis would be appropriate for the repair. There was no evidence of contamination foul smell pus stool etc. so I felt that a pelvic mass would be appropriate A medium size Bard plug and mesh prosthesis were brought onto the field after checking for expiration. The plug component was inverted into the 4 of the inguinal to the inferior epigastric vessels, in opposition to the oversewn stump of the peritoneum. It was secured to the floor the inguinal canal with 3-0 PDS sutures. We now turned the overlying mesh to the appropriate configuration, and sewed to Poupart's ligament, conjoined tendon with the 2 leaves abutting each other laterally, with the opening designed to accommodate the cord structures and residual scar tissue. The new internal ring was felt to be of satisfactory tension and size without too much compression on the cord structures. Of note due to the significant amount of ooze throughout the dissection primarily due to the extensive scar tissue, I did use some Avitene throughout the mesh fixation. External oblique aponeurosis was closed with a 2-0 Vicryl Hilary's fascia with 2-0 Vicryl skin with 3-0 Vicryl, Dermabond glue applied. 20 cc of full-strength Exparel deployed into subcutaneous tissues. Patient tolerated the procedure well, extubated, taken recovery in stable condition.
[2018-01-06] MEDS ORDERED: HYDRALAZINE HCL INJ/PF 20 MG/1 ML SDV IV PRN (16:28)
[2018-01-06] MEDS: DOCUSATE SODIUM 100 MG CAPSULE PO SCH (17:29)
[2018-01-06] MEDS ORDERED: PANTOPRAZOLE SODIUM 40 MG VIAL IV SCH (18:00)
[2018-01-06] MEDS ORDERED: LISINOPRIL 10 MG TABLET PO SCH (18:00)
--- NOTE | 2018-01-06 20:12 | PDOC CONSULTATION ---
Consultation Consult Date: 01/06/18 Consult reason:: Hypertension History of Present Illness Admission Date/PCP: 01/06/18 10:46 Patient complains of: Abdominal pain History of Present Illness: BEKAH HEIN is a 52 year old male With past medical history significant for pancreatitis secondary to alcohol abuse, alcohol abuse, GERD, hypertension and tobacco abuse. Patient presented with abdominal pain and ultimately received a hernia repair per surgery. He describes ongoing alcohol use and drinking up to half a pint of gin per day. Describes ongoing tobacco use with smoking half a pack of cigarettes per day. Patient's blood pressure is roughly 160s over 90s at present. He also has proteinuria on his urinalysis. He admits to being on lisinopril in the past. This would be an ideal drug for him. He did not have a good reason why he discontinued this. Also complains of burning sensation and discomfort consistent with his acid reflux history. We will start pantoprazole on him for this. He was counseled at length about his drinking history and his single episode of acute pancreatitis at this point. Alcoholics Anonymous was encouraged. Will monitor patient's blood pressure on his new lisinopril and make recommendations for dose titration or other medications. Past Medical History Cardiac Medical History: Reports: Hypertension Pulmonary Medical History: Reports: Other - Chronic smoker GI Medical History: Reports: None, Gastroesophageal Reflux Disease, Other - History of pancreatitis GI History Note: History of acute pancreatitis Past Surgical History Past Surgical History: Status post hernia repair, boil removal procedure described Past Surgical History: Reports: None Social History Lives with: Family Smoking Status: Current Every Day Smoker Frequency of Alcohol Use: Social Amount of Alcoholic Beverages Per Day: History of half a pint of gin per day, describes decreasing this somewhat Hx Recreational Drug Use: Yes - Daily marijuana use Drugs: Marijuana Hx Prescription Drug Abuse: No - Advance Directive Resuscitation Status: Full Code Family History Family History: Hypertension Family History: Father had hypertension and mother had breast cancer and renal failure. Parental Family History Reviewed: Yes Children Family History Reviewed: No Sibling(s) Family History Reviewed.: No Medication/Allergy Home Medications: No Home Medications 01/06/18 Allergies/Adverse Reactions: No Known Allergies Allergy (Verified 01/06/18 08:06) Review of Systems Constitutional: ABSENT: fever(s), headache(s), night sweats Eyes: ABSENT: visual disturbances Ears: ABSENT: hearing changes Nose, Mouth, and Throat: ABSENT: mouth pain, sore throat Cardiovascular: ABSENT: edema, orthropnea Respiratory: ABSENT: dyspnea, hemoptysis Gastrointestinal: ABSENT: abdominal pain, diarrhea, hematemesis Genitourinary: ABSENT: difficulty urinating, dysuria Musculoskeletal: ABSENT: deformity, joint swelling Integumentary: ABSENT: lesions, pruritus Neurological: ABSENT: focal weakness, frequent falls, memory loss Psychiatric: ABSENT: anxiety, depression Endocrine: ABSENT: cold intolerance, heat intolerance Hematologic/Lymphatic: ABSENT: easy bruising, lymphadenopathy Physical Exam Vital Signs: Temp Pulse Resp BP Pulse Ox 98.3 F 75 16 159/97 H 98 01/06/18 18:48 01/06/18 18:48 01/06/18 18:48 01/06/18 18:48 01/06/18 18:48 Intake & Output 01/05/18 01/06/18 01/07/18 06:59 06:59 06:59 Intake Total 1250 Output Total 550 Balance 700 General appearance: PRESENT: no acute distress, cooperative Head exam: PRESENT: atraumatic, normocephalic Eye exam: PRESENT: EOMI, nystagmus, PERRLA Ear exam: PRESENT: normal external ear exam. ABSENT: bleeding Mouth exam: PRESENT: moist, neck supple Throat exam: ABSENT: tonsillar exudate, tonsillogmegaly Neck exam: PRESENT: full ROM. ABSENT: JVD, tenderness Respiratory exam: PRESENT: symmetrical. ABSENT: crackles, prolonged expiratory phas, rales, rhonchi, wheezes Cardiovascular exam: PRESENT: RRR, +S1, +S2 Pulses: PRESENT: normal carotid pulses, normal dorsalis pedis pul Vascular exam: PRESENT: normal capillary refill. ABSENT: pallor GI/Abdominal exam: PRESENT: soft, other - Mild tenderness around surgical site. ABSENT: ascites, distended, firm, rebound, rigid Extremities exam: ABSENT: calf tenderness, joint swelling Musculoskeletal exam: PRESENT: ambulatory, full ROM Neurological exam: PRESENT: alert, oriented to person, oriented to place, oriented to time, oriented to situation Psychiatric exam: ABSENT: agitated, anxious, flat affect Focused psych exam: ABSENT: catatonic, delusional Skin exam: ABSENT: dry, pallor, petechiae Results Impressions: Chest X-Ray 01/06/18 10:30 IMPRESSION: NO ACUTE RADIOGRAPHIC FINDING IN THE CHEST. Assessment & Plan - Diagnosis (1) Hypertension Qualifiers: Hypertension type: essential hypertension Qualified Code(s): I10 - Essential (primary) hypertension Is this a current diagnosis for this admission?: Yes Plan: Starting lisinopril, monitor his blood pressure. Patient with proteinuria on his urinalysis. prn hydralazine IV with use parameters (2) Alcohol consumption four to six days per week Is this a current diagnosis for this admission?: Yes Plan: Monitor for any signs of withdrawal. Mentating well during exam. Denies history of DTs or seizures with alcohol stopping (3) Incarcerated right inguinal hernia Is this a current diagnosis for this admission?: Yes Plan: Surgery is his primary team. Status post hernia repair now. (4) Smoker Is this a current diagnosis for this admission?: Yes Plan: Nicotine patch. Encourage to stop smoking. (5) Pancreatitis Qualifiers: Chronicity: acute Pancreatitis type: alcohol induced Plan: Alcohol cessation encouraged. Patient without any significant epigastric tenderness during exam. Diet per surgical team. (6) GERD (gastroesophageal reflux disease) Plan: We will give patient daily pantoprazole. - Time Time Spent: 30 to 50 Minutes - Inpatient Certification Based on my medical assessment, after consideration of the patient's comorbidities, presenting symptoms, or acuity I expect that the services needed warrant INPATIENT care.: Yes I certify that my determination is in accordance with my understanding of Medicare's requirements for reasonable and necessary INPATIENT services [42 CFR 412.3e].: Yes Medical Necessity: Need for Surgery
[2018-01-06] MEDS: KETOROLAC TROMETHAMINE INJ/PF 30 MG/1 ML SDV IV PRN (20:18)
[2018-01-07] MEDS: KETOROLAC TROMETHAMINE INJ/PF 30 MG/1 ML SDV IV PRN (04:54)
[2018-01-07 09:01] VITALS: BP 139/84
[2018-01-07] MEDS: DOCUSATE SODIUM 100 MG CAPSULE PO SCH (09:09)
--- NOTE | 2018-01-07 11:45 | PDOC PROGRESS REPORT ---
Subjective Progress Note for:: 01/07/18 Subjective:: Feels well. Tolerating a diet well. No nausea or vomiting. Mild right groin discomfort. Reason For Visit: INCARCERATED RIGHT INGUINAL HERNIA Physical Exam Vital Signs: Temp Pulse Resp BP Pulse Ox 98.1 F 70 18 139/84 H 99 01/07/18 08:00 01/07/18 08:00 01/07/18 08:00 01/07/18 08:00 01/07/18 08:00 Intake & Output 01/06/18 01/07/18 01/08/18 06:59 06:59 06:59 Intake Total 1750 Output Total 550 Balance 1200 Weight 95.3 kg General appearance: PRESENT: no acute distress, cooperative Respiratory exam: PRESENT: clear to auscultation malini Cardiovascular exam: PRESENT: RRR GI/Abdominal exam: PRESENT: other - Soft, nondistended, nontender to palpation other than mild groin tenderness. Dressings are intact there is no surrounding erythema there is some diffuse right groin swelling along with right scrotal swelling. Patient does have mild right testicular swelling as well. Extremities exam: PRESENT: other - No swelling and no tenderness Results Impressions: Chest X-Ray 01/06/18 10:30 IMPRESSION: NO ACUTE RADIOGRAPHIC FINDING IN THE CHEST. Assessment & Plan - Diagnosis (1) Incarcerated right inguinal hernia Is this a current diagnosis for this admission?: Yes Plan: Sliding variety. Involving cecum and appendix. Status post appendectomy and hernia repair with mesh. Patient looks very good. Will discharge patient home.
[2018-01-07] MEDS ORDERED: SUCCINYLCHOLINE CHLORIDE INJ 200 MG/10 ML VIAL ONE ×2 (12:03→12:04)
[2018-01-07] MEDS ORDERED: ONDANSETRON HCL INJ/PF 4 MG/2 ML SDV ONE ×2 (12:03→12:04)
[2018-01-07] MEDS ORDERED: LIDOCAINE 2% INJ-PF (20 MG/ML) 2 ML AMPUL ONE ×2 (12:03→12:04)
[2018-01-07] MEDS ORDERED: PHENYLEPHRINE HCL INJ/PF 10 MG/1 ML SDV ONE (12:03)
[2018-01-07] MEDS ORDERED: ROCURONIUM BROMIDE INJ 50 MG/5 ML VIAL IV ONE (12:04)
--- NOTE | 2018-01-07 12:25 | DISCHARGE SUMMARY E ---
Discharge Summary NAME: BEKAH HEIN : 1965 AGE: 52Y ADMITTED: 01/06/2018 DISCHARGED: 01/07/2018 FINAL DIAGNOSES: 1. Sliding incarcerated right inguinal hernia. 2. Hypertension. 3. Alcohol dependency. 4. Gastroesophageal reflux disease. PROCEDURE PERFORMED DURING HOSPITALIZATION: Appendectomy and right inguinal hernia repair with mesh, performed by Dr. Avi Carlisle on 01/06/2018. HOSPITAL COURSE: The patient underwent the above-mentioned procedure. He was noted with hypertension, for which he was placed on Lisinopril 10 mg daily. Alcohol counseling was made to the patient. Hospitalist had seen the patient in consultation and felt that he was stable from a medical standpoint to go home. The patient was tolerating a diet well with some postoperative swelling of his right groin as well as his right scrotum and his right testicle at the time of discharge, but he was feeling quite well. The patient has now been discharged to home in good condition. He will follow up at caregiver clinic in 1 week for his hypertension. He is also recommended to follow up with caregiver clinic in about a month to check up on his urine to reevaluate his proteinuria. His is to follow up with Dr. Carlisle or Mckayla Carrion next week. He was encouraged to stay active, but avoid strenuous activity. He is to keep the scrotum elevated when he is lying in bed. He may shower tomorrow. He is to follow a low-sodium diet. DISCHARGE MEDICATIONS: His discharge medications are: 1. Lisinopril 10 mg daily. 2. Colace. 3. Pantoprazole 40 mg daily. 4. Percocet 1 p.o. q. 4 hours p.r.n. pain. DICTATING PHYSICIAN: OLIVER MEZA M.D. [id number] PHY#: [id number] ID: [id number] JOB#: [id number] ACCT: [id number] cc:AVI CARLISLE M.D. OLIVER MEZA M.D. VICENTE YOUNG M.D. >
--- NOTE | 2018-01-07 19:08 | PDOC PROGRESS REPORT ---
Subjective Progress Note for:: 01/07/18 Subjective:: OK to d/c home from Medicine's point of view. Placed Lisinopril, Pantoprazole and docusate on chart for d/c. Pain medicine per surgery. Instructed patient to f/u with Care clinic in the next 7 days for BP monitoring. Needs a UA in one month for proteinuria. Reason For Visit: INCARCERATED RIGHT INGUINAL HERNIA Physical Exam Vital Signs: Temp Pulse Resp BP Pulse Ox 98.1 F 70 18 139/84 H 99 01/07/18 08:00 01/07/18 08:00 01/07/18 08:00 01/07/18 08:00 01/07/18 08:00 Intake & Output 01/06/18 01/07/18 01/08/18 06:59 06:59 06:59 Intake Total 1750 Output Total 550 Balance 1200 Weight 95.3 kg General appearance: PRESENT: no acute distress, cooperative Head exam: PRESENT: atraumatic, normocephalic Eye exam: PRESENT: EOMI, PERRLA. ABSENT: nystagmus Ear exam: PRESENT: normal external ear exam. ABSENT: bleeding Mouth exam: PRESENT: moist, neck supple Throat exam: ABSENT: tonsillar erythema, tonsillar exudate Neck exam: PRESENT: full ROM. ABSENT: tenderness, thyromegaly Respiratory exam: ABSENT: accessory muscle use, rales, rhonchi, wheezes Cardiovascular exam: PRESENT: RRR, +S1, +S2 Pulses: PRESENT: normal radial pulses, normal dorsalis pedis pul Vascular exam: PRESENT: normal capillary refill. ABSENT: pallor GI/Abdominal exam: PRESENT: normal bowel sounds, soft. ABSENT: ascites, mass, rigid Extremities exam: ABSENT: calf tenderness, joint swelling, pedal edema Musculoskeletal exam: PRESENT: full ROM, normal inspection Neurological exam: PRESENT: alert, oriented to person, oriented to place, oriented to time, oriented to situation Psychiatric exam: ABSENT: agitated, anxious, flat affect Focused psych exam: ABSENT: catatonic, delusional, pressured speech Skin exam: PRESENT: normal color. ABSENT: mottled Results Impressions: Chest X-Ray 01/06/18 10:30 IMPRESSION: NO ACUTE RADIOGRAPHIC FINDING IN THE CHEST. Assessment & Plan - Diagnosis (1) Hypertension Qualifiers: Hypertension type: essential hypertension Qualified Code(s): I10 - Essential (primary) hypertension Is this a current diagnosis for this admission?: Yes Plan: improved control today. continue Lisinopril 10mg daily, f/u with PCP in one week for BP monitoring. f/u with PCP in one month for check on his proteinuria. (2) Alcohol consumption four to six days per week Is this a current diagnosis for this admission?: Yes Plan: no signs of alcohol withdrawal. (3) Incarcerated right inguinal hernia Is this a current diagnosis for this admission?: Yes Plan: s/p hernia repair, doing well. No significant pain described during exam today. (4) Smoker Is this a current diagnosis for this admission?: Yes Plan: encouraged cessation (5) Pancreatitis Qualifiers: Chronicity: acute Pancreatitis type: alcohol induced Is this a current diagnosis for this admission?: Yes Plan: encouraged alcohol cessation. (6) GERD (gastroesophageal reflux disease) Is this a current diagnosis for this admission?: Yes Plan: Will give pantoprazole for home use. - Time Time Spent with patient: 15-24 minutes - Inpatient Certification Based on my medical assessment, after consideration of the patient's comorbidities, presenting symptoms, or acuity I expect that the services needed warrant INPATIENT care.: Yes I certify that my determination is in accordance with my understanding of Medicare's requirements for reasonable and necessary INPATIENT services [42 CFR 412.3e].: Yes - Plan Summary Plan Summary: ok to go home with 1 week f/u with her PCP for BP monitoring. 1 month f/u recommended for assessment of proteinuria.
== END 2018-01-07 12:30 | disposition home or self-care (01) ==
LOC: ER 08:06 → EH 10:46 → INTOOBSV 10:46 → 2N 14:22
PROVIDERS: ATTEND Surgery
PROC: 0DTJ0ZZ Resection of Appendix, Open Approach (ICD-10-PCS; 2018-01-06)
PROC: 0YU50JZ Supplement Right Inguinal Region with Synthetic Substitute, Open Approach (ICD-10-PCS; principal; 2018-01-06 11:00)
DX: K40.30 Unilateral inguinal hernia, with obstruction, without gangrene, not specified as recurrent (principal); I10 Essential (primary) hypertension; F10.20 Alcohol dependence, uncomplicated; K21.9 Gastro-esophageal reflux disease without esophagitis; R80.9 Proteinuria, unspecified; K36 Other appendicitis; F17.210 Nicotine dependence, cigarettes, uncomplicated; K85.20 Alcohol induced acute pancreatitis without necrosis or infection; F14.10 Cocaine abuse, uncomplicated; Z84.1 Family history of disorders of kidney and ureter; Z82.49 Family history of ischemic heart disease and other diseases of the circulatory system; Z79.899 Other long term (current) drug therapy; Z87.11 Personal history of peptic ulcer disease
CPT/HCPCS: 49507; 44950; 99284; 36415; 83690; 85025; 80053; 81001; 88302 ×2; 88304 ×2; 71046; G0378 ×3; C1781; J2250; J0690; J3010; J0360; J1885 ×2; J2270; J2370; S0164; J0330; J2405; J3490 ×2; J2704; J0131; C9290; 840

== ENCOUNTER 2018-03-18 12:04 | Inpatient (IN) | payer SELFPAY ==
[2018-03-18] MEDS ORDERED: ASPIRIN 81 MG TABLET, CHEWABLE PO ONE (12:15)
[2018-03-18] MEDS ORDERED: ONDANSETRON 4 MG TAB.RAPDIS PO ONE (13:27)
--- NOTE | 2018-03-18 13:28 | ER Document Report ---
ED Medical Screen (RME) - General Chief Complaint: Abdominal Pain Stated Complaint: NAUSEA Time Seen by Provider: 03/18/18 13:01 TRAVEL OUTSIDE OF THE [place] IN LAST 30 DAYS: No - HPI Notes: 03/18/18 13:27 n/v this am then developed cp. - Related Data Allergies/Adverse Reactions: No Known Allergies Allergy (Verified 01/06/18 08:06) Past Medical History - Social History Chew tobacco use (# tins/day): No Frequency of alcohol use: Social Drug Abuse: None - Past Medical History Cardiac Medical History: Reports: Hx Hypertension Renal/ Medical History: Denies: Hx Peritoneal Dialysis GI Medical History: Reports: Hx Gastroesophageal Reflux Disease, Hx Ulcer Psychiatric Medical History: Past Surgical History: Denies: Hx Abdominal Surgery - Immunizations Immunizations up to date: Yes Hx Diphtheria, Pertussis, Tetanus Vaccination: Yes History of Influenza Vaccine for 04/2017 - 09/2017 Season: No Review of Systems - Review of Systems Cardiovascular: Chest pain Gastrointestinal: Abdominal pain, Nausea, Vomiting Physical Exam - Vital signs Vitals: Temp Pulse Resp BP Pulse Ox 98 F 64 20 153/93 H 98 03/18/18 12:24 03/18/18 12:24 03/18/18 12:24 03/18/18 12:24 03/18/18 12:24 - General General appearance: Appears well In distress: None - Respiratory Respiratory status: No respiratory distress Chest status: Nontender Breath sounds: Normal Chest palpation: Normal Course - Vital Signs Vital signs: Temp Pulse Resp BP Pulse Ox 98 F 64 20 153/93 H 98 03/18/18 12:24 03/18/18 12:24 03/18/18 12:24 03/18/18 12:24 03/18/18 12:24
[2018-03-18 13:45] LABS: ABSOLUTE MONOCYTES (AUTO) 0.4 10^3/uL (0.1-1.4); BASOPHILS % (AUTO) 0.3 % (0-2); EOSINOPHILS % (AUTO) 0.1 % (0-6); HEMATOCRIT 43.7 % (37.9-51.0); HEMOGLOBIN 14.9 g/dL (13.5-17.0); LYMPHOCYTES % (AUTO) 8.7 % (13-45); MEAN CORPUSCULAR HEMOGLOBIN 33.4 pg (27.0-33.4); MEAN CORPUSCULAR VOLUME 98 fl (80-97); MONOCYTES % (AUTO) 3.5 % (3-13); PLATELET COUNT 293 10^3/uL (150-450); RED BLOOD COUNT 4.45 10^6/uL (4.35-5.55); RED CELL DISTRIBUTION WIDTH 13.9 % (11.5-14.0); SEGMENTED NEUTROPHILS % (AUTO) 87.4 % (42-78); TOTAL CELLS COUNTED % (AUTO) 100 %; WHITE BLOOD COUNT 11.4 10^3/uL (4.0-10.5)
--- NOTE | 2018-03-18 13:50 | RADIOLOGY REPORT (SQ) ---
EXAM DESCRIPTION: CHEST SINGLE VIEW COMPLETED DATE/TIME: 03/18/2018 1:17 pm REASON FOR STUDY: rme COMPARISON: Chest film 10/31/2016, 12/31/2016, 01/06/2018 EXAM PARAMETERS: NUMBER OF VIEWS: One view. TECHNIQUE: Single frontal radiographic view of the chest acquired. RADIATION DOSE: NA LIMITATIONS: None. FINDINGS: LUNGS AND PLEURA: No opacities, masses or pneumothorax. No pleural effusion. MEDIASTINUM AND HILAR STRUCTURES: No masses. Contour normal. HEART AND VASCULAR STRUCTURES: Heart normal in size. Normal vasculature. BONES: No acute findings. HARDWARE: None in the chest. OTHER: No other significant finding. IMPRESSION: NO ACUTE RADIOGRAPHIC FINDING IN THE CHEST. TECHNICAL DOCUMENTATION: JOB ID: [id number] [employer]- All Rights Reserved Reading location - IP/workstation name: [email or web address]
[2018-03-18 13:51] LABS: APPEARANCE,URINE CLEAR; BILIRUBIN,URINE NEGATIVE (NEGATIVE); COLOR,URINE YELLOW; GLUCOSE, URINE 150 mg/dL (NEGATIVE); KETONES,URINE NEGATIVE (NEGATIVE); LEUKOCYTE ESTERASE,URINE NEGATIVE (NEGATIVE); NITRITE,URINE NEGATIVE (NEGATIVE); PROTEIN,URINE 30 mg/dL (NEGATIVE); URINE SPECIFIC GRAVITY 1.016; UROBILINOGEN,URINE NEGATIVE mg/dL (<2.0)
[2018-03-18 13:58] LABS: ALANINE AMINOTRANSFERASE 31 U/L (21-72); ALBUMIN 3.8 g/dL (3.5-5.0); ALKALINE PHOSPHATASE 76 U/L (38-126); ANION GAP 14 (5-19); ASPARTATE AMINO TRANSFERASE 33 U/L (17-59); BILIRUBIN,DIRECT 0.3 mg/dL (0.0-0.4); BILIRUBIN,TOTAL 0.5 mg/dL (0.2-1.3); BLOOD UREA NITROGEN 9 mg/dL (7-20); CALCIUM 8.8 mg/dL (8.4-10.2); CARBON DIOXIDE 23 mmol/L (22-30); CHLORIDE 106 mmol/L (98-107); CREATINE KINASE 129 U/L (55-170); GLUCOSE 153 mg/dL (75-110); LIPASE 1964.7 U/L (23-300); POTASSIUM 3.6 mmol/L (3.6-5.0); SODIUM 143.3 mmol/L (137-145); TOTAL PROTEIN 7.3 g/dL (6.3-8.2)
[2018-03-18 14:08] LABS: CREATINE KINASE MB 0.75 ng/mL (<4.55)
[2018-03-18 14:17] LABS: TROPONIN I 0.063 ng/mL
--- NOTE | 2018-03-18 15:05 | ER Document Report ---
ED General - General Chief Complaint: Abdominal Pain Stated Complaint: NAUSEA Time Seen by Provider: 03/18/18 13:01 Mode of Arrival: Ambulatory Information source: Patient, [facility] Records Notes: 52-year-old male with hypertension, reflux, alcohol use, previous history of pancreatitis presents with complaint of abdominal pain, chest pain, nausea and vomiting. Patient states that abdominal pain started this morning. It is located in the epigastric region with radiation up to his left chest. He describes it as a stabbing pain in his abdomen and a pressure-like pain in his chest. Patient states chest pain has been intermittent since vomiting. She has had 3 episodes of vomiting since this morning. He denies any blood in his emesis. Last bowel movement this morning. He denies any black or bloody stools. He does admit to heavy drinking this weekend. She states that he had several shots of liquor. He denies any daily alcohol use or history of alcohol withdrawal. Patient denies fever but admits to chills and sweats. He denies sick contacts, recent travel, recent antibiotic use. TRAVEL OUTSIDE OF THE [place] IN LAST 30 DAYS: No - HPI Onset: This morning Onset/Duration: Gradual, Persistent, Worse Quality of pain: Pressure, Stabbing Severity: Moderate Associated symptoms: Chest pain, Nausea, Vomiting, Sweating. denies: Diarrhea Exacerbated by: Denies Relieved by: Denies Similar symptoms previously: Yes Recently seen / treated by doctor: No - Related Data Allergies/Adverse Reactions: No Known Allergies Allergy (Verified 01/06/18 08:06) Past Medical History - General Information source: Patient, [facility] Records - Social History Smoking Status: Current Every Day Smoker Cigarette use (# per day): Yes - Half pack per day Chew tobacco use (# tins/day): No Smoking Education Provided: Yes - 4 Minutes of smoking cessation provided Frequency of alcohol use: Social Drug Abuse: None Lives with: Family Family History: Hypertension Patient has suicidal ideation: No Patient has homicidal ideation: No - Past Medical History Cardiac Medical History: Reports: Hx Hypertension Renal/ Medical History: Denies: Hx Peritoneal Dialysis GI Medical History: Reports: Hx Gastroesophageal Reflux Disease, Hx Ulcer Psychiatric Medical History: Past Surgical History: Denies: Hx Abdominal Surgery - Immunizations Immunizations up to date: Yes Hx Diphtheria, Pertussis, Tetanus Vaccination: Yes Review of Systems - Review of Systems Notes: REVIEW OF SYSTEMS: CONSTITUTIONAL : Denies fever, Denies recent illness. Denies weight loss, recent hospitalizations. EENT: Denies visual changes, eye pain. Denies nasal or sinus congestion or discharge. Denies sore throat, oral lesions, difficulty swallowing. CARDIOVASCULAR: Denies palpitations. Denies lower extremity edema. RESPIRATORY: Denies cough, cold, or chest congestion. Denies shortness of breath, wheezing. GASTROINTESTINAL: Denies abdominal distention. Denies diarrhea. Denies blood in vomitus, stools, or per rectum. Denies black, tarry stools. Denies constipation. GENITOURINARY: Denies difficulty urinating, painful urination, frequency, blood in urine, or vaginal discharge. MUSCULOSKELETAL: Denies back or neck pain or stiffness. Denies joint pain or swelling. SKIN: Denies rash, lesions or sores. HEMATOLOGIC : Denies easy bruising or bleeding. LYMPHATIC: Denies swollen glands. NEUROLOGICAL: Denies confusion or altered mental status. Denies passing out or loss of consciousness. Denies dizziness or lightheadedness. Denies headache. Denies weakness or paralysis. Denies problems difficulty with ambulation, slurred speech. Denies sensory loss, numbness, or tingling. Denies seizures. PSYCHIATRIC: Denies anxiety or stress. Denies depression, suicidal ideation, or homicidal ideation. Denies visual or auditory hallucinations. Physical Exam - Vital signs Vitals: Temp Pulse Resp BP Pulse Ox 98 F 64 20 153/93 H 98 03/18/18 12:24 03/18/18 12:24 03/18/18 12:24 03/18/18 12:24 03/18/18 12:24 - Notes Notes: PHYSICAL EXAMINATION: GENERAL: Well-appearing, well-nourished and in no acute distress. HEAD: Atraumatic, normocephalic. EYES: Pupils equal round and reactive to light, extraocular movements intact, sclera anicteric, conjunctiva are normal. ENT: Nares patent, oropharynx clear without exudates. Moist mucous membranes. NECK: Normal range of motion, supple without lymphadenopathy LUNGS: Breath sounds clear to auscultation bilaterally and equal. No wheezes rales or rhonchi. HEART: Regular rate and rhythm without murmurs ABDOMEN: Tenderness with palpation in the epigastric region without guarding or rebound. No masses appreciated. Musculoskeletal: Normal range of motion, no pitting or edema. No cyanosis. NEUROLOGICAL: Cranial nerves grossly intact. Normal speech, normal gait. Normal sensory, motor exams PSYCH: Normal mood, normal affect. SKIN: Warm, Dry, normal turgor, no rashes or lesions noted. Course - Re-evaluation Re-evalutation: Laboratory 03/18/18 03/18/18 03/18/18 13:00 13:35 13:35 WBC 11.4 H RBC 4.45 Hgb 14.9 Hct 43.7 MCV 98 H MCH 33.4 MCHC 34.0 RDW 13.9 Plt Count 293 Seg Neutrophils % 87.4 H Lymphocytes % 8.7 L Monocytes % 3.5 Eosinophils % 0.1 Basophils % 0.3 Absolute Neutrophils 10.0 H Absolute Lymphocytes 1.0 Absolute Monocytes 0.4 Absolute Eosinophils 0.0 Absolute Basophils 0.0 Sodium 143.3 Potassium 3.6 Chloride 106 Carbon Dioxide 23 Anion Gap 14 BUN 9 Creatinine 0.83 Est GFR ( Amer) > 60 Est GFR (Non-Af Amer) > 60 Glucose 153 H Calcium 8.8 Total Bilirubin 0.5 Direct Bilirubin 0.3 Neonat Total Bilirubin Not Reportable Neonat Direct Bilirubin Not Reportable Neonat Indirect Bili Not Reportable AST 33 ALT 31 Alkaline Phosphatase 76 Creatine Kinase 129 CK-MB (CK-2) Troponin I Total Protein 7.3 Albumin 3.8 Triglycerides Lipase 1964.7 H Urine Color YELLOW Urine Appearance CLEAR Urine pH 6.0 Ur Specific [place] 1.016 Urine Protein 30 H Urine Glucose (UA) 150 H Urine Ketones NEGATIVE Urine Blood NEGATIVE Urine Nitrite NEGATIVE Urine Bilirubin NEGATIVE Urine Urobilinogen NEGATIVE Ur Leukocyte Esterase NEGATIVE Urine WBC (Auto) 1 Urine RBC (Auto) 1 U Hyaline Cast (Auto) 3 Squamous Epi Cells Auto <1 Urine Mucus (Auto) RARE Urine Ascorbic Acid NEGATIVE 03/18/18 03/18/18 03/18/18 13:35 13:35 16:21 WBC RBC Hgb Hct MCV MCH MCHC RDW Plt Count Seg Neutrophils % Lymphocytes % Monocytes % Eosinophils % Basophils % Absolute Neutrophils Absolute Lymphocytes Absolute Monocytes Absolute Eosinophils Absolute Basophils Sodium Potassium Chloride Carbon Dioxide Anion Gap BUN Creatinine Est GFR ( Amer) Est GFR (Non-Af Amer) Glucose Calcium Total Bilirubin Direct Bilirubin Neonat Total Bilirubin Neonat Direct Bilirubin Neonat Indirect Bili AST ALT Alkaline Phosphatase Creatine Kinase CK-MB (CK-2) 0.75 Troponin I 0.063 0.053 Total Protein Albumin Triglycerides 93 Lipase Urine Color Urine Appearance Urine pH Ur Specific [place] Urine Protein Urine Glucose (UA) Urine Ketones Urine Blood Urine Nitrite Urine Bilirubin Urine Urobilinogen Ur Leukocyte Esterase Urine WBC (Auto) Urine RBC (Auto) U Hyaline Cast (Auto) Squamous Epi Cells Auto Urine Mucus (Auto) Urine Ascorbic Acid 03/18/18 19:40 WBC RBC Hgb Hct MCV MCH MCHC RDW Plt Count Seg Neutrophils % Lymphocytes % Monocytes % Eosinophils % Basophils % Absolute Neutrophils Absolute Lymphocytes Absolute Monocytes Absolute Eosinophils Absolute Basophils Sodium Potassium Chloride Carbon Dioxide Anion Gap BUN Creatinine Est GFR ( Amer) Est GFR (Non-Af Amer) Glucose Calcium Total Bilirubin Direct Bilirubin Neonat Total Bilirubin Neonat Direct Bilirubin Neonat Indirect Bili AST ALT Alkaline Phosphatase Creatine Kinase CK-MB (CK-2) Troponin I 0.059 Total Protein Albumin Triglycerides Lipase Urine Color Urine Appearance Urine pH Ur Specific [place] Urine Protein Urine Glucose (UA) Urine Ketones Urine Blood Urine Nitrite Urine Bilirubin Urine Urobilinogen Ur Leukocyte Esterase Urine WBC (Auto) Urine RBC (Auto) U Hyaline Cast (Auto) Squamous Epi Cells Auto Urine Mucus (Auto) Urine Ascorbic Acid Abdomen Ultrasound 03/18/18 00:00 IMPRESSION: The pancreas is slightly heterogeneous. There is no peripancreatic fluid. Pancreatitis cannot be diagnosed on this basis. Consider CT if clinically indicated. Chest X-Ray 03/18/18 12:15 IMPRESSION: NO ACUTE RADIOGRAPHIC FINDING IN THE CHEST. 03/18/18 23:37 52-year-old male with hypertension, reflux, alcohol use, previous history of pancreatitis presents with complaint of abdominal pain, chest pain, nausea and vomiting. Patient states that abdominal pain started this morning. It is located in the epigastric region with radiation up to his left chest. He describes it as a stabbing pain in his abdomen and a pressure-like pain in his chest. Patient states chest pain has been intermittent since vomiting. She has had 3 episodes of vomiting since this morning. He denies any blood in his emesis. Last bowel movement this morning. He denies any black or bloody stools. He does admit to heavy drinking this weekend. She states that he had several shots of liquor. He denies any daily alcohol use or history of alcohol withdrawal. Patient denies fever but admits to chills and sweats. No signs reviewed upon arrival. Patient is afebrile, hypertensive. Patient has mild epigastric abdominal tenderness with palpation. Significant laboratory findings include a lipase of almost 2000. Patient has an elevated but indeterminate troponin which appears to be his baseline when reviewing previous labs. Patient did receive IV fluids, Dilaudid, Zofran during his ED course. He was accepted by the hospitalist for admission for pancreatitis. 03/18/18 23:37 - Vital Signs Vital signs: Temp Pulse Resp BP Pulse Ox 98.7 F 75 14 165/97 H 99 03/18/18 21:10 03/18/18 21:10 03/18/18 21:10 03/18/18 21:10 03/18/18 21:10 - Laboratory Result Diagrams: 03/18/18 13:35 03/18/18 13:35 Laboratory results interpreted by me: 03/18/18 03/18/18 03/18/18 13:00 13:35 13:35 WBC 11.4 H MCV 98 H Seg Neutrophils % 87.4 H Lymphocytes % 8.7 L Absolute Neutrophils 10.0 H Glucose 153 H Lipase 1964.7 H Urine Protein 30 H Urine Glucose (UA) 150 H - Diagnostic Test Radiology reviewed: Image reviewed, Reports reviewed - EKG Interpretation by Me EKG shows normal: Sinus rhythm Rate: Normal Rhythm: NSR Voltage: Consistant with LVH Discharge - Discharge Clinical Impression: Epigastric abdominal pain, Alcohol use, Tobacco use Pancreatitis Qualifiers: Chronicity: acute Pancreatitis type: alcohol induced Acute pancreatitis complication: unspecified Qualified Code(s): K85.20 - Alcohol induced acute pancreatitis without necrosis or infection Hypertension Qualifiers: Hypertension type: unspecified Qualified Code(s): I10 - Essential (primary) hypertension Nausea & vomiting Qualifiers: Vomiting type: unspecified Vomiting Intractability: non-intractable Qualified Code(s): R11.2 - Nausea with vomiting, unspecified Chest pain Qualifiers: Chest pain type: unspecified Qualified Code(s): R07.9 - Chest pain, unspecified Condition: Good Disposition: ADMITTED INPATIENT Admitting Provider: Hospitalist Unit Admitted: Medical Floor
[2018-03-18] MEDS ORDERED: HYDROMORPHONE HCL INJ/PF 2 MG/ML AMPULE IV ONE (15:10)
[2018-03-18] MEDS ORDERED: METOPROLOL TARTRATE PF/INJ 5 MG/5 ML SDV IV ONE (15:11)
[2018-03-18] MEDS ORDERED: NORMAL SALINE 1000 ML 1,000 ML IV ONE (15:15)
[2018-03-18] MEDS ORDERED: ACETAMINOPHEN 650 MG SUPP.RECT PR PRN (15:36)
[2018-03-18] MEDS ORDERED: DEXTROSE 40% GEL 15 GM TUBE PO PRN ×2 (15:36)
[2018-03-18] MEDS ORDERED: PROMETHAZINE HCL INJ 25 MG/1 ML VIAL IV PRN (15:36)
[2018-03-18] MEDS ORDERED: ONDANSETRON HCL INJ/PF 4 MG/2 ML SDV IV PRN (15:36)
[2018-03-18] MEDS ORDERED: GLUCAGON,HUMAN RECOMB 1 MG INJ SUBCUT PRN (15:36)
[2018-03-18] MEDS ORDERED: DEXTROSE 50%-WATER 25 GM/50 ML DISP.SYRIN IV PRN ×2 (15:36)
[2018-03-18] MEDS: DEXTROSE 5%-LACTATED RINGERS 1,000 ML IV PRN (16:18)
[2018-03-18] MEDS: ENOXAPARIN SODIUM INJ 40 MG/0.4 ML DISP.SYRIN SUBCUT SCH (16:19)
--- NOTE | 2018-03-18 16:29 | PDOC H&P ---
History of Present Illness Admission Date/PCP: 03/18/18 15:29 History of Present Illness: BEKAH HEIN is a 52 year old male who carries a past medical history positive for hypertension and hyperlipidemia. He states that this morning he developed pain in his left side and in the left upper region of his periumbilical area. He has also had diarrhea. He denies fevers or chills. He has had nausea and vomiting. He states that he has had this problem twice before. Once was 1 1/2 years ago and again about 3 months ago following surgery for a hernia surgery. He describes the pain as being sharp, 5-7 in intensity. It does not radiate. There are no palliative of provocative factors. Past Medical History Cardiac Medical History: Reports: Hyperlipidema, Hypertension GI Medical History: Reports: Gastroesophageal Reflux Disease Psychiatric Medical History: Past Surgical History Past Surgical History: Reports: Appendectomy, Herniorrhaphy Social History Information Source: Patient Lives with: Family Smoking Status: Current Every Day Smoker Cigarettes Packs Per Day: 0.5 Amount of Alcoholic Beverages Per Day: 1 pint of hard liquaor every other day. Last Alcohol Use: 03/17/18 Hx Recreational Drug Use: Yes - Daily marijuana use Drugs: Marijuana Hx Prescription Drug Abuse: No Family History Family History: CAD - Father, Hypertension, Other - Mother with cancer Parental Family History Reviewed: Yes Children Family History Reviewed: Yes Sibling(s) Family History Reviewed.: Yes Medication/Allergy Home Medications: Docusate Sodium [Stool Softener] 100 mg PO BID 03/18/18 Lisinopril [Lisinopril] 10 mg PO QPM 03/18/18 Allergies/Adverse Reactions: No Known Allergies Allergy (Verified 01/06/18 08:06) Review of Systems Constitutional: ABSENT: chills, fever(s), weakness Eyes: ABSENT: visual disturbances Ears: ABSENT: hearing changes Nose, Mouth, and Throat: ABSENT: mouth pain, sore throat, vertigo Cardiovascular: PRESENT: chest pain. ABSENT: dyspnea on exertion, orthropnea, palpitations Respiratory: ABSENT: cough, dyspnea, hemoptysis, sputum Gastrointestinal: PRESENT: abdominal pain, diarrhea, nausea, vomiting. ABSENT: constipation, dysphagia, heartburn, hematemesis, hematochezia, melena Genitourinary: ABSENT: dysuria, hematuria, nocturia Musculoskeletal: ABSENT: back pain, deformity, joint swelling Integumentary: ABSENT: erythema, lesions, pruritus Neurological: ABSENT: abnormal gait, confusion, convulsions, dizziness, focal weakness, frequent falls, lack of coordination Psychiatric: ABSENT: anxiety, hallucinations, homidical ideation Endocrine: ABSENT: cold intolerance, flushing, heat intolerance, polydipsia, polyphagia, polyuria Hematologic/Lymphatic: ABSENT: as per HPI Physical Exam Vital Signs: Temp Pulse Resp BP Pulse Ox 98 F 64 15 144/92 H 94 03/18/18 12:24 03/18/18 12:24 03/18/18 15:40 03/18/18 15:40 03/18/18 15:40 General appearance: PRESENT: cooperative, mild distress Head exam: PRESENT: atraumatic, normocephalic Eye exam: PRESENT: EOMI, PERRLA, other - no scleral injection. ABSENT: scleral icterus Ear exam: PRESENT: normal external ear exam. ABSENT: bleeding, drainage Mouth exam: PRESENT: moist, neck supple, tongue midline. ABSENT: laceration Throat exam: ABSENT: post pharyngeal erythema, tonsillar erythema, tonsillar exudate, tonsillogmegaly Neck exam: ABSENT: lymphadenopathy, meningismus, tenderness, thyromegaly, tracheostomy Respiratory exam: PRESENT: other - No increased work of breathing. No wheezes, rales, or rhonchi. No tactile fremtus. ABSENT: accessory muscle use Cardiovascular exam: PRESENT: RRR. ABSENT: diastolic murmur, gallop, rubs, systolic murmur Pulses: PRESENT: normal carotid pulses, normal femoral pulses, normal dorsalis pedis pul GI/Abdominal exam: PRESENT: organolmegaly, soft, tenderness - upper left quadrant of periumbilical area.. ABSENT: mass, Ochoa's sign Rectal exam: PRESENT: deferred Extremities exam: ABSENT: clubbing, pedal edema, tenderness Musculoskeletal exam: PRESENT: normal inspection. ABSENT: dislocation, tenderness Neurological exam: PRESENT: alert, awake, oriented to person, oriented to place , oriented to time, oriented to situation, CN II-XII grossly intact, motor sensory deficit. ABSENT: abnormal gait Skin exam: PRESENT: dry, intact, warm Results Impressions: Chest X-Ray 03/18/18 12:15 IMPRESSION: NO ACUTE RADIOGRAPHIC FINDING IN THE CHEST. Assessment & Plan - Diagnosis (1) Alcohol use Is this a current diagnosis for this admission?: Yes (2) Chest pain Qualifiers: Chest pain type: unspecified Qualified Code(s): R07.9 - Chest pain, unspecified Is this a current diagnosis for this admission?: Yes (3) Epigastric abdominal pain Is this a current diagnosis for this admission?: Yes (4) Hypertension Qualifiers: Hypertension type: unspecified Qualified Code(s): I10 - Essential (primary ) hypertension Is this a current diagnosis for this admission?: Yes (5) Nausea & vomiting Qualifiers: Vomiting type: unspecified Vomiting Intractability: non-intractable Qualified Code(s): R11.2 - Nausea with vomiting, unspecified Is this a current diagnosis for this admission?: Yes (6) Pancreatitis Qualifiers: Chronicity: acute Pancreatitis type: alcohol induced Acute pancreatitis complication: unspecified Qualified Code(s): K85.20 - Alcohol induced acute pancreatitis without necrosis or infection Is this a current diagnosis for this admission?: Yes - Time Time Spent: 50 to 70 Minutes Medications reviewed and adjusted accordingly: Yes Anticipated discharge: Home
[2018-03-18] MEDS: HYDRALAZINE HCL 25 MG TABLET PO PRN (18:16)
[2018-03-18] MEDS: HYDROMORPHONE HCL INJ/PF 2 MG/ML AMPULE IV PRN ×2 (19:11→23:12)
--- NOTE | 2018-03-18 22:18 | EKG REPORT ---
SEVERITY:- ABNORMAL ECG - SINUS RHYTHM PROBABLE LEFT ATRIAL ABNORMALITY LVH WITH SECONDARY REPOLARIZATION ABNORMALITY : Confirmed by: Christi Castillo 18-Mar-2018 22:18:37
--- NOTE | 2018-03-18 22:26 | RADIOLOGY REPORT (SQ) ---
EXAM DESCRIPTION: U/S ABDOMEN LIMITED W/O DOP COMPLETED DATE/TIME: 03/18/2018 9:45 pm REASON FOR STUDY: pancreatitis COMPARISON: 12/31/2016 TECHNIQUE: Dynamic and static grayscale images acquired of the abdomen and recorded on PACS. Willa levy selected color Doppler and spectral images recorded. LIMITATIONS: None. FINDINGS: PANCREAS: The pancreas of slightly heterogeneous. There is no peripancreatic fluid. No m ass is seen. LIVER: No masses. Echotexture normal. LIVER VASCULATURE: Normal directional flow of the main portal vein and hepatic veins. GALLBLADDER: No stones. Normal wall thickness. No pericholecystic fluid. ULTRASOUND-DETECTED THOMAS'S SIGN: Negative. INTRAHEPATIC DUCTS AND COMMON DUCT: CBD and intrahepatic ducts normal caliber. No filling defects. INFERIOR VENA CAVA: Not imaged. AORTA: Proximal and mid aorta are normal. The distal aorta was obscured by gas. RIGHT KIDNEY: Normal size. Normal echogenicity. No solid or suspicious masses. No hydronephrosis. No calcifications. PERITONEAL AND RIGHT PLEURAL SPACE: No ascites or effusions. OTHER: No other significant findings. IMPRESSION: The pancreas is slightly heterogeneous. There is no peripancreatic fluid. Pancreatitis cannot be diagnosed on this basis. Consider CT if clinically indicated. TECHNICAL DOCUMENTATION: JOB ID: [id number] [employer]- All Rights Reserved Reading location - IP/workstation name: [email or web address] [email or web address]
[2018-03-19] MEDS: HYDROMORPHONE HCL INJ/PF 2 MG/ML AMPULE IV PRN ×5 (04:06→23:59)
[2018-03-19] MEDS: DEXTROSE 5%-LACTATED RINGERS 1,000 ML IV PRN ×3 (04:07→22:32)
[2018-03-19 07:44] LABS: ABSOLUTE LYMPHOCYTES (AUTO) 1.7 10^3/uL (0.5-4.7); ABSOLUTE MONOCYTES (AUTO) 0.9 10^3/uL (0.1-1.4); ABSOLUTE NEUT (AUTO) 9.6 10^3/uL (1.7-8.2); BASOPHILS % (AUTO) 0.2 % (0-2); EOSINOPHILS % (AUTO) 0.1 % (0-6); HEMATOCRIT 41.7 % (37.9-51.0); HEMOGLOBIN 14.4 g/dL (13.5-17.0); LYMPHOCYTES % (AUTO) 13.6 % (13-45); MEAN CORPUSCULAR HEMOGLOBIN 34.1 pg (27.0-33.4); MEAN CORPUSCULAR HGB CONC 34.6 g/dL (32.0-36.0); MEAN CORPUSCULAR VOLUME 98 fl (80-97); MONOCYTES % (AUTO) 7.4 % (3-13); PLATELET COUNT 279 10^3/uL (150-450); RED BLOOD COUNT 4.24 10^6/uL (4.35-5.55); RED CELL DISTRIBUTION WIDTH 14.1 % (11.5-14.0); SEGMENTED NEUTROPHILS % (AUTO) 78.7 % (42-78); TOTAL CELLS COUNTED % (AUTO) 100 %; WHITE BLOOD COUNT 12.2 10^3/uL (4.0-10.5)
[2018-03-19 08:02] LABS: ALANINE AMINOTRANSFERASE 25 U/L (21-72); ALBUMIN 3.5 g/dL (3.5-5.0); ALKALINE PHOSPHATASE 70 U/L (38-126); ANION GAP 11 (5-19); ASPARTATE AMINO TRANSFERASE 18 U/L (17-59); BILIRUBIN,DIRECT 0.2 mg/dL (0.0-0.4); BILIRUBIN,TOTAL 0.7 mg/dL (0.2-1.3); BLOOD UREA NITROGEN 5 mg/dL (7-20); CARBON DIOXIDE 28 mmol/L (22-30); CHLORIDE 99 mmol/L (98-107); CHOLESTEROL 149.03 mg/dL (0-200); GLUCOSE 127 mg/dL (75-110); POTASSIUM 3.3 mmol/L (3.6-5.0); SODIUM 138.3 mmol/L (137-145); TOTAL PROTEIN 6.7 g/dL (6.3-8.2); TRIGLYCERIDES 75 mg/dL (<150)
[2018-03-19 08:13] LABS: DIRECT LDL 81 mg/dL (<100)
[2018-03-19 08:14] LABS: LIPASE 2953.1 U/L (23-300)
[2018-03-19] MEDS: ENOXAPARIN SODIUM INJ 40 MG/0.4 ML DISP.SYRIN SUBCUT SCH (11:06)
[2018-03-19] MEDS: HYDRALAZINE HCL 25 MG TABLET PO PRN (17:01)
--- NOTE | 2018-03-19 18:10 | PDOC PROGRESS REPORT ---
Subjective Progress Note for:: 03/19/18 Subjective:: The patient states that although his pain is better than upon presentation in the ED, he continues to have severe abdominal pain. he does not want to advance his diet. Reason For Visit: PANCREATITIS Physical Exam Vital Signs: Temp Pulse Resp BP Pulse Ox 100.2 F 72 20 160/98 H 98 03/19/18 16:51 03/19/18 16:51 03/19/18 16:51 03/19/18 16:51 03/19/18 16:51 Intake & Output 03/18/18 03/19/18 03/20/18 06:59 06:59 06:59 Intake Total 1320 1050 Output Total 600 Balance 720 1050 Weight 76.9 kg General appearance: PRESENT: no acute distress, cooperative, well-developed, well-nourished Respiratory exam: PRESENT: other - No increased work of breathing. No wheezes, rales, or rhonchi. No tactile fremitus. Cardiovascular exam: PRESENT: RRR, other - No lateral PMI. No thrills.. ABSENT : gallop, rubs, systolic murmur Pulses: PRESENT: normal dorsalis pedis pul GI/Abdominal exam: PRESENT: distended, guarding, hypoactive bowel sounds, tenderness. ABSENT: hernia, mass, organolmegaly Rectal exam: PRESENT: deferred Musculoskeletal exam: PRESENT: normal inspection. ABSENT: deformity, dislocation, tenderness Neurological exam: PRESENT: alert, awake, oriented to person, oriented to place , oriented to time, oriented to situation, CN II-XII grossly intact. ABSENT: motor sensory deficit Psychiatric exam: PRESENT: appropriate affect, normal mood Skin exam: PRESENT: dry, intact, warm Results Laboratory Results: 03/19/18 06:46 03/19/18 06:46 03/19/18 03/19/18 06:46 06:46 WBC 12.2 H RBC 4.24 L Hgb 14.4 Hct 41.7 MCV 98 H MCH 34.1 H MCHC 34.6 RDW 14.1 H Plt Count 279 Seg Neutrophils % 78.7 H Lymphocytes % 13.6 Monocytes % 7.4 Eosinophils % 0.1 Basophils % 0.2 Absolute Neutrophils 9.6 H Absolute Lymphocytes 1.7 Absolute Monocytes 0.9 Absolute Eosinophils 0.0 Absolute Basophils 0.0 Sodium 138.3 Potassium 3.3 L Chloride 99 Carbon Dioxide 28 Anion Gap 11 BUN 5 L Creatinine 0.86 Est GFR ( Amer) > 60 Est GFR (Non-Af Amer) > 60 Glucose 127 H Calcium 9.0 Magnesium 1.4 L Total Bilirubin 0.7 AST 18 ALT 25 Alkaline Phosphatase 70 Total Protein 6.7 Albumin 3.5 Triglycerides 75 Cholesterol 149.03 LDL Cholesterol Direct 81 VLDL Cholesterol 15.0 HDL Cholesterol 52 Lipase 2953.1 H 03/18/18 03/18/18 03/19/18 16:21 19:40 01:30 Troponin I 0.053 0.059 0.062 03/19/18 06:46 Sodium 138.3 Potassium 3.3 L Chloride 99 Carbon Dioxide 28 Anion Gap 11 BUN 5 L Creatinine 0.86 Est GFR (Non-Af Amer) > 60 Glucose 127 H Calcium 9.0 Magnesium 1.4 L Total Bilirubin 0.7 Direct Bilirubin 0.2 AST 18 ALT 25 Alkaline Phosphatase 70 Total Protein 6.7 Albumin 3.5 Triglycerides 75 Cholesterol 149.03 LDL Cholesterol Direct 81 VLDL Cholesterol 15.0 HDL Cholesterol 52 Lipase 2953.1 H Impressions: Abdomen Ultrasound 03/18/18 00:00 IMPRESSION: The pancreas is slightly heterogeneous. There is no peripancreatic fluid. Pancreatitis cannot be diagnosed on this basis. Consider CT if clinically indicated. Chest X-Ray 03/18/18 12:15 IMPRESSION: NO ACUTE RADIOGRAPHIC FINDING IN THE CHEST. Assessment & Plan - Diagnosis (1) Alcohol use Is this a current diagnosis for this admission?: Yes Plan: Possibly behind pancreatitis. (2) Chest pain Qualifiers: Chest pain type: unspecified Qualified Code(s): R07.9 - Chest pain, unspecified Is this a current diagnosis for this admission?: Yes Plan: Actually due to epigastric abdominal pain from pancreatitis. (3) Epigastric abdominal pain Is this a current diagnosis for this admission?: Yes Plan: The patient continues to require IV narcotics. (4) Hypertension Qualifiers: Hypertension type: essential hypertension Qualified Code(s): I10 - Essential (primary) hypertension Is this a current diagnosis for this admission?: Yes Plan: Stable on current regimen. (5) Nausea & vomiting Qualifiers: Vomiting type: unspecified Vomiting Intractability: non-intractable Qualified Code(s): R11.2 - Nausea with vomiting, unspecified Is this a current diagnosis for this admission?: Yes Plan: Resolved. (6) Pancreatitis Qualifiers: Chronicity: acute Pancreatitis type: alcohol induced Acute pancreatitis complication: unspecified Qualified Code(s): K85.20 - Alcohol induced acute pancreatitis without necrosis or infection Is this a current diagnosis for this admission?: Yes Plan: Continue NPO status for now. - Time Time Spent with patient: 25-34 minutes
[2018-03-20] MEDS: DEXTROSE 5%-LACTATED RINGERS 1,000 ML IV PRN (06:40)
[2018-03-20] MEDS: HYDROMORPHONE HCL INJ/PF 2 MG/ML AMPULE IV PRN ×2 (06:40→23:58)
[2018-03-20] MEDS: HYDRALAZINE HCL 25 MG TABLET PO PRN (11:35)
[2018-03-20 11:38] LABS: ALANINE AMINOTRANSFERASE 25 U/L (21-72); ALBUMIN 3.1 g/dL (3.5-5.0); ALKALINE PHOSPHATASE 66 U/L (38-126); ANION GAP 11 (5-19); ASPARTATE AMINO TRANSFERASE 17 U/L (17-59); BILIRUBIN,DIRECT 0.3 mg/dL (0.0-0.4); BLOOD UREA NITROGEN 5 mg/dL (7-20); CALCIUM 9.1 mg/dL (8.4-10.2); CARBON DIOXIDE 30 mmol/L (22-30); CHLORIDE 96 mmol/L (98-107); GLUCOSE 105 mg/dL (75-110); LIPASE 584.4 U/L (23-300); POTASSIUM 3.4 mmol/L (3.6-5.0); SODIUM 136.8 mmol/L (137-145); TOTAL PROTEIN 6.4 g/dL (6.3-8.2)
[2018-03-20] MEDS ORDERED: MAGNESIUM SULFATE INJ 8 MEQ/2 ML IV ONE (12:43)
[2018-03-20] MEDS ORDERED: MAGNESIUM SULFATE/D5W 1 GM/100 ML RTUPB IV ONE ×2 (13:30→16:59)
--- NOTE | 2018-03-20 17:34 | PDOC PROGRESS REPORT ---
Subjective Progress Note for:: 03/20/18 Subjective:: The patient states that he is feeling better and that he is interested in a clear liquid diet. Reason For Visit: PANCREATITIS Physical Exam Vital Signs: Temp Pulse Resp BP Pulse Ox 99.3 F 74 16 144/73 H 97 03/20/18 16:00 03/20/18 16:00 03/20/18 16:00 03/20/18 16:00 03/20/18 16:00 Intake & Output 03/19/18 03/20/18 03/21/18 06:59 06:59 06:59 Intake Total 1320 3050 536 Output Total 600 Balance 720 3050 536 Weight 76.9 kg General appearance: PRESENT: no acute distress, cooperative GI/Abdominal exam: PRESENT: normal bowel sounds, soft. ABSENT: distended, hernia, mass, organolmegaly, tenderness Extremities exam: ABSENT: clubbing, pedal edema, tenderness Musculoskeletal exam: PRESENT: full ROM, normal inspection. ABSENT: deformity, dislocation, tenderness Neurological exam: PRESENT: alert, awake, oriented to person, oriented to place , oriented to time, oriented to situation, CN II-XII grossly intact. ABSENT: motor sensory deficit Psychiatric exam: PRESENT: appropriate affect, normal mood Skin exam: PRESENT: dry, intact, warm Results Laboratory Results: 03/19/18 06:46 03/20/18 10:43 03/20/18 10:43 Sodium 136.8 L Potassium 3.4 L Chloride 96 L Carbon Dioxide 30 Anion Gap 11 BUN 5 L Creatinine 0.89 Est GFR ( Amer) > 60 Est GFR (Non-Af Amer) > 60 Glucose 105 Calcium 9.1 Total Bilirubin 1.0 AST 17 ALT 25 Alkaline Phosphatase 66 Total Protein 6.4 Albumin 3.1 L Lipase 584.4 H 03/18/18 03/18/18 03/19/18 16:21 19:40 01:30 Troponin I 0.053 0.059 0.062 03/19/18 03/20/18 06:46 10:43 Sodium 138.3 136.8 L Potassium 3.3 L 3.4 L Chloride 99 96 L Carbon Dioxide 28 30 Anion Gap 11 11 BUN 5 L 5 L Creatinine 0.86 0.89 Est GFR (Non-Af Amer) > 60 > 60 Glucose 127 H 105 Calcium 9.0 9.1 Magnesium 1.4 L Total Bilirubin 0.7 1.0 Direct Bilirubin 0.2 0.3 AST 18 17 ALT 25 25 Alkaline Phosphatase 70 66 Total Protein 6.7 6.4 Albumin 3.5 3.1 L Triglycerides 75 Cholesterol 149.03 LDL Cholesterol Direct 81 VLDL Cholesterol 15.0 HDL Cholesterol 52 Lipase 2953.1 H 584.4 H Impressions: Abdomen Ultrasound 03/18/18 00:00 IMPRESSION: The pancreas is slightly heterogeneous. There is no peripancreatic fluid. Pancreatitis cannot be diagnosed on this basis. Consider CT if clinically indicated. Chest X-Ray 03/18/18 12:15 IMPRESSION: NO ACUTE RADIOGRAPHIC FINDING IN THE CHEST. Assessment & Plan - Diagnosis (1) Alcohol use Is this a current diagnosis for this admission?: Yes Plan: Possibly behind pancreatitis. (2) Chest pain Qualifiers: Chest pain type: unspecified Qualified Code(s): R07.9 - Chest pain, unspecified Is this a current diagnosis for this admission?: Yes Plan: Actually due to epigastric abdominal pain from pancreatitis. (3) Epigastric abdominal pain Is this a current diagnosis for this admission?: Yes Plan: Resolved. Start clear liquid diet. (4) Hypertension Qualifiers: Hypertension type: essential hypertension Qualified Code(s): I10 - Essential (primary) hypertension Is this a current diagnosis for this admission?: Yes Plan: Stable on current regimen. (5) Nausea & vomiting Qualifiers: Vomiting type: unspecified Vomiting Intractability: non-intractable Qualified Code(s): R11.2 - Nausea with vomiting, unspecified Is this a current diagnosis for this admission?: Yes Plan: Resolved. (6) Pancreatitis Qualifiers: Chronicity: acute Pancreatitis type: alcohol induced Acute pancreatitis complication: unspecified Qualified Code(s): K85.20 - Alcohol induced acute pancreatitis without necrosis or infection Is this a current diagnosis for this admission?: Yes Plan: Continue NPO status for now. - Time Time Spent with patient: 25-34 minutes Medications reviewed and adjusted accordingly: Yes - Plan Summary Plan Summary: Advance diet as tolerated.
[2018-03-20] MEDS: ENOXAPARIN SODIUM INJ 40 MG/0.4 ML DISP.SYRIN SUBCUT SCH (18:28)
[2018-03-20] MEDS: POTASSI CL 20 MEQ/50 ML RIDER 20 MEQ/50 ML RTUPB IV SCH ×3 (19:39→23:59)
[2018-03-20] MEDS ORDERED: POTASSI CL 20 MEQ/50 ML RIDER 20 MEQ/50 ML RTUPB IV ONE ×2 (20:38→23:54)
[2018-03-21] MEDS: DEXTROSE 5%-LACTATED RINGERS 1,000 ML IV PRN (00:01)
[2018-03-21] MEDS: HYDROMORPHONE HCL INJ/PF 2 MG/ML AMPULE IV PRN (05:30)
[2018-03-21] MEDS: ENOXAPARIN SODIUM INJ 40 MG/0.4 ML DISP.SYRIN SUBCUT SCH (10:00)
[2018-03-21] MEDS: HYDRALAZINE HCL 25 MG TABLET PO PRN (12:53)
[2018-03-21] MEDS: HYDROCODONE/ACETAMINOPHEN 7.5-325 MG TABLET PO PRN ×3 (12:53→23:33)
--- NOTE | 2018-03-21 15:24 | Physician Advisory Note ---
Physician Advisor ProgressNote .: [facility] have reviewed the medical record for this patient. Physician Advisor Statement: Nice documentation of Cp due to epigastric pain due to acute pancreatitis due to EtOH, w/associated N/V. Causality nicely spelled out. Denies daily EtOH, but admits to 1 pint of liquor every 2 days, along w/daily THC/tobacco. Please consider documenting, if you agree: 1. "suspected protein-calorie malnutrition [state mild, mod, or severe] with BMI 24.8, low Mag/K/Na/BUN/albumin & Alcoholism, ____[?wt loss, ?appetite loss , ]" [if possible, give specifics on intake, wt loss, loss of SQ fat & muscle mass, diminished hand cupola tapper strength, & clinical importance such as (A) nutritional assessment ordered, (B) modified diet or supplements ordered, (C) additional labs ordered, (D) prolonged wound healing time, (E) delayed infxn clearance] 2. Do you believe pt has "Alcohol dependence", or ...? Thanks! CK
[2018-03-22] MEDS: HYDROCODONE/ACETAMINOPHEN 7.5-325 MG TABLET PO PRN ×2 (03:41→16:57)
--- NOTE | 2018-03-22 06:09 | PDOC PROGRESS REPORT ---
Subjective Progress Note for:: 03/21/18 Subjective:: The patient's abdominal pain continues to improve. No new complaints. Reason For Visit: PANCREATITIS Physical Exam Vital Signs: Temp Pulse Resp BP Pulse Ox 98.2 F 59 L 20 159/97 H 97 03/22/18 00:05 03/22/18 00:05 03/22/18 00:05 03/22/18 00:05 03/22/18 00:05 Intake & Output 03/20/18 03/21/18 03/22/18 06:59 06:59 06:59 Intake Total 3050 2005 165 Balance 3050 2005 165 Weight 80.6 kg General appearance: PRESENT: no acute distress, cooperative Respiratory exam: PRESENT: other - No increased work of breathing.. ABSENT: rales, rhonchi, wheezes Cardiovascular exam: PRESENT: RRR. ABSENT: gallop, rubs, systolic murmur GI/Abdominal exam: PRESENT: normal bowel sounds, soft. ABSENT: hernia, mass, organolmegaly, tenderness Rectal exam: PRESENT: deferred Extremities exam: ABSENT: clubbing, tenderness, +1 edema Musculoskeletal exam: PRESENT: normal inspection. ABSENT: deformity, dislocation, tenderness Results Laboratory Results: 03/19/18 06:46 03/20/18 10:43 03/18/18 03/18/18 03/19/18 16:21 19:40 01:30 Troponin I 0.053 0.059 0.062 Impressions: Abdomen Ultrasound 03/18/18 00:00 IMPRESSION: The pancreas is slightly heterogeneous. There is no peripancreatic fluid. Pancreatitis cannot be diagnosed on this basis. Consider CT if clinically indicated. Chest X-Ray 03/18/18 12:15 IMPRESSION: NO ACUTE RADIOGRAPHIC FINDING IN THE CHEST. Assessment & Plan - Diagnosis (1) Alcohol use Is this a current diagnosis for this admission?: Yes (2) Chest pain Qualifiers: Chest pain type: unspecified Qualified Code(s): R07.9 - Chest pain, unspecified Is this a current diagnosis for this admission?: Yes (3) Epigastric abdominal pain Is this a current diagnosis for this admission?: Yes Plan: Resolved. Continue to advance diet. (4) Hypertension Qualifiers: Hypertension type: essential hypertension Qualified Code(s): I10 - Essential (primary) hypertension Is this a current diagnosis for this admission?: Yes (5) Nausea & vomiting Qualifiers: Vomiting type: unspecified Vomiting Intractability: non-intractable Qualified Code(s): R11.2 - Nausea with vomiting, unspecified Is this a current diagnosis for this admission?: Yes (6) Pancreatitis Qualifiers: Chronicity: acute Pancreatitis type: alcohol induced Acute pancreatitis complication: unspecified Qualified Code(s): K85.20 - Alcohol induced acute pancreatitis without necrosis or infection Is this a current diagnosis for this admission?: Yes Plan: Advance diet as tolerated. At the current time, without evidence for hypertriglyceridemia or medication as a cause of the patient's pancreatitis, I must advise abstinence from alcohol to try to avoid future recurrences. - Time Time Spent with patient: 25-34 minutes Medications reviewed and adjusted accordingly: Yes
[2018-03-22] MEDS: ENOXAPARIN SODIUM INJ 40 MG/0.4 ML DISP.SYRIN SUBCUT SCH (11:05)
[2018-03-22] MEDS ORDERED: DOCUSATE SODIUM 100 MG CAPSULE PO ONE (14:30)
[2018-03-22] MEDS ORDERED: BISACODYL 10 MG SUPP.RECT PR ONE (14:30)
[2018-03-22 18:15] VITALS: BP 148/90
--- NOTE | 2018-03-22 19:04 | PDOC DISCHARGE SUMMARY ---
General - Admit/Disc Date/PCP Admission Date/Primary Care Provider: 03/18/18 15:29 Discharge Date: 03/22/18 - Discharge Diagnosis (1) Alcohol use Is this a current diagnosis for this admission?: Yes (2) Chest pain Is this a current diagnosis for this admission?: Yes (3) Epigastric abdominal pain Is this a current diagnosis for this admission?: Yes (4) Hypertension Is this a current diagnosis for this admission?: Yes (5) Nausea & vomiting Is this a current diagnosis for this admission?: Yes (6) Pancreatitis Is this a current diagnosis for this admission?: Yes - Additional Information Resuscitation Status: Full Code Discharge Diet: As Tolerated, Regular Discharge Activity: Activity As Tolerated, Balance Activity w/Rest, Slowly Increase Activity History of Present Illness History of Present Illness: BEKAH HEIN is a 52 year old male who carries a past medical history positive for hypertension and hyperlipidemia. He states that this morning he developed pain in his left side and in the left upper region of his periumbilical area. He has also had diarrhea. He denies fevers or chills. He has had nausea and vomiting. He states that he has had this problem twice before. Once was 1 1/2 years ago and again about 3 months ago following surgery for a hernia surgery. He describes the pain as being sharp, 5-7 in intensity. It does not radiate. There are no palliative of provocative factors. Hospital Course Hospital Course: The patient was admitted to a medical bed. He as made NPO. He was given antiemetics and pain control. A lipid panel was checked and his triglycerides were only 75. The patient's diet was advanced to clears once his requirements for IV narcotics declined. He was then advanced as tolerated and taken off of IV narcotics. Today the patient was tolerating a regular diet. He did reveal that he had not had a BM for 3 days. He was given stool softeners and he has had a BM . He will be discharged to home in good condition. The patient did reveal to me on our first meeting that he drinks quite a bit. I do believe that this is the likely cause of the patient's recurrent pancreatitis. Physical Exam Vital Signs: Temp Pulse Resp BP Pulse Ox 98.4 F 55 L 16 148/90 H 97 03/22/18 18:08 03/22/18 18:08 03/22/18 18:08 03/22/18 18:08 03/22/18 18:08 Intake & Output 03/21/18 03/22/18 03/23/18 06:59 06:59 06:59 Intake Total 2005 1649 Balance 2005 1649 Weight 80.6 kg 88.56 kg General appearance: PRESENT: no acute distress, cooperative Respiratory exam: PRESENT: other - No increased work of breathing. No wheezes, rales, or rhonchi. Cardiovascular exam: PRESENT: RRR. ABSENT: gallop, rubs, systolic murmur GI/Abdominal exam: PRESENT: normal bowel sounds, soft. ABSENT: hernia, mass, Ochoa's sign, organolmegaly, tenderness Extremities exam: ABSENT: clubbing, pedal edema, tenderness Musculoskeletal exam: PRESENT: normal inspection. ABSENT: deformity, dislocation, tenderness Neurological exam: PRESENT: alert, awake, oriented to person, oriented to place , oriented to time, oriented to situation, CN II-XII grossly intact. ABSENT: motor sensory deficit Skin exam: PRESENT: dry, intact, warm Results Laboratory Results: 03/19/18 06:46 03/20/18 10:43 03/18/18 03/18/18 03/19/18 16:21 19:40 01:30 Troponin I 0.053 0.059 0.062 Impressions: Abdomen Ultrasound 03/18/18 00:00 IMPRESSION: The pancreas is slightly heterogeneous. There is no peripancreatic fluid. Pancreatitis cannot be diagnosed on this basis. Consider CT if clinically indicated. Chest X-Ray 03/18/18 12:15 IMPRESSION: NO ACUTE RADIOGRAPHIC FINDING IN THE CHEST. Qualifiers - * PATIENT BEING DISCHARGED WITH ANY OF THE FOLLOWING DIAGNOSIS: No
== END 2018-03-22 18:55 | disposition home or self-care (01) | DRG 440 ==
LOC: ER 12:04 → EH 15:29 → 4W 20:45 → 5 03-20 17:19
PROVIDERS: ADMIT Internal Medicine; ATTEND Internal Medicine
DX: K85.20 Alcohol induced acute pancreatitis without necrosis or infection (principal); I10 Essential (primary) hypertension; E78.5 Hyperlipidemia, unspecified; K21.9 Gastro-esophageal reflux disease without esophagitis; F17.210 Nicotine dependence, cigarettes, uncomplicated; Z82.49 Family history of ischemic heart disease and other diseases of the circulatory system; Z90.49 Acquired absence of other specified parts of digestive tract; Z79.899 Other long term (current) drug therapy; Z72.89 Other problems related to lifestyle
CPT/HCPCS: 36415; 71045; 76705; 80053; 80061; 81001; 82550; 82553; 83690; 83735; 84478; 84484; 85025; 93005; 93010; 96374; 96375; 99285; 99406; J1170; J1650; J2405; J3480; J3490; J7030; S0119

== ENCOUNTER 2018-07-24 07:53 | Inpatient (IN) | payer SELFPAY ==
[2018-07-24 08:41] LABS: ABSOLUTE LYMPHOCYTES (AUTO) 1.7 10^3/uL (0.5-4.7); ABSOLUTE MONOCYTES (AUTO) 0.8 10^3/uL (0.1-1.4); ABSOLUTE NEUT (AUTO) 9.6 10^3/uL (1.7-8.2); BASOPHILS % (AUTO) 0.4 % (0-2); HEMATOCRIT 43.6 % (37.9-51.0); HEMOGLOBIN 15.3 g/dL (13.5-17.0); LYMPHOCYTES % (AUTO) 13.9 % (13-45); MEAN CORPUSCULAR HEMOGLOBIN 33.9 pg (27.0-33.4); MEAN CORPUSCULAR VOLUME 97 fl (80-97); MONOCYTES % (AUTO) 6.4 % (3-13); PLATELET COUNT 258 10^3/uL (150-450); RED BLOOD COUNT 4.51 10^6/uL (4.35-5.55); RED CELL DISTRIBUTION WIDTH 13.9 % (11.5-14.0); SEGMENTED NEUTROPHILS % (AUTO) 79.3 % (42-78); TOTAL CELLS COUNTED % (AUTO) 100 %; WHITE BLOOD COUNT 12.2 10^3/uL (4.0-10.5)
[2018-07-24 09:02] LABS: ALANINE AMINOTRANSFERASE 20 U/L (21-72); ALBUMIN 4.3 g/dL (3.5-5.0); ALKALINE PHOSPHATASE 94 U/L (38-126); ANION GAP 9 (5-19); APPEARANCE,URINE SLIGHTLY-CLOUDY; ASPARTATE AMINO TRANSFERASE 37 U/L (17-59); BILIRUBIN,DIRECT 0.3 mg/dL (0.0-0.4); BILIRUBIN,URINE SMALL (NEGATIVE); BLOOD UREA NITROGEN 12 mg/dL (7-20); CALCIUM 9.8 mg/dL (8.4-10.2); CARBON DIOXIDE 30 mmol/L (22-30); CHLORIDE 99 mmol/L (98-107); COLOR,URINE AMBER; GLUCOSE 137 mg/dL (75-110); GLUCOSE, URINE NEGATIVE (NEGATIVE); KETONES,URINE 20 mg/dL (NEGATIVE); LEUKOCYTE ESTERASE,URINE NEGATIVE (NEGATIVE); NITRITE,URINE NEGATIVE (NEGATIVE); POTASSIUM 3.7 mmol/L (3.6-5.0); PROTEIN,URINE >=500 mg/dL (NEGATIVE); TOTAL PROTEIN 8.2 g/dL (6.3-8.2); URINE SPECIFIC GRAVITY 1.035
[2018-07-24] MEDS ORDERED: NORMAL SALINE 1000 ML 1,000 ML IV ONE (09:11)
[2018-07-24] MEDS ORDERED: MORPHINE SULFATE 10 MG/ML INJ IV ONE ×3 (09:21→15:01)
[2018-07-24] MEDS ORDERED: ONDANSETRON HCL INJ/PF 4 MG/2 ML SDV IV ONE (09:21)
[2018-07-24] MEDS ORDERED: LISINOPRIL 10 MG TABLET PO ONE (09:22)
[2018-07-24 09:25] LABS: LIPASE 6282.6 U/L (23-300)
--- NOTE | 2018-07-24 10:23 | EKG REPORT ---
SEVERITY:- ABNORMAL ECG - SINUS RHYTHM PROBABLE LEFT ATRIAL ABNORMALITY LEFT VENTRICULAR HYPERTROPHY : Confirmed by: Christi Castillo 24-Jul-2018 10:22:00
--- NOTE | 2018-07-24 10:25 | RADIOLOGY REPORT (SQ) ---
EXAM DESCRIPTION: ACUTE ABDOMEN SERIES COMPLETED DATE/TIME: 07/24/2018 10:10 am REASON FOR STUDY: epig, RUQ pain COMPARISON: None. NUMBER OF VIEWS: Three views. TECHNIQUE: Frontal chest, supine abdomen and upright/decubitus abdomen radiographic images acquired. LIMITATIONS: None. FINDINGS: CHEST: Lungs clear of infiltrates. FREE AIR: None. No abnormal gas collections. BOWEL GAS PATTERN: Nonobstructive pattern. No dilated loops or air fluid levels. CALCIFICATIONS: No suspicious calcifications. HARDWARE: None in the abdomen. SOFT TISSUES: No gross mass or suggestion of organomegaly. BONES: No acute fracture. No worrisome bone lesions. OTHER: No other significant finding. IMPRESSION: NO RADIOGRAPHIC EVIDENCE FOR ACUTE ABDOMINAL DISEASE. TECHNICAL DOCUMENTATION: JOB ID: [id number] [employer]- All Rights Reserved Reading location - IP/workstation name: [email or web address]
--- NOTE | 2018-07-24 10:26 | ER Document Report ---
ED GI/ - General Chief Complaint: Vomiting Stated Complaint: STOMACH AND CHEST PAIN Time Seen by Provider: 07/24/18 08:06 Mode of Arrival: Ambulatory Information source: Patient Notes: Patient presents with a 2-day history of epigastric abdominal pain and nausea and vomiting. Patient states she is vomited 9 times today. Patient states he has a history of pancreatitis and suspects the same today. Patient does acknowledge a history of alcohol use but states that he only drinks on the we ekends now. Patient denies any diarrhea symptoms. Patient denies any fever. TRAVEL OUTSIDE OF THE [place] IN LAST 30 DAYS: No - HPI Patient complains to provider of: Abdominal pain, Vomiting Onset: Other - 2 days Timing/Duration: Worse Quality of pain: No pain Pain Level: 5 Location: Epigastric, RUQ Associated symptoms: Nausea, Vomiting. denies: Diarrhea, Fever, Urinary hesitancy, Urinary frequency Exacerbated by: Denies Relieved by: Denies Similar symptoms previously: Yes Recently seen / treated by doctor: No - Related Data Allergies/Adverse Reactions: No Known Allergies Allergy (Verified 07/24/18 07:56) Past Medical History - General Information source: Patient - Social History Smoking Status: Current Every Day Smoker Chew tobacco use (# tins/day): No Frequency of alcohol use: Occasional Drug Abuse: Marijuana Occupation: [employer] Family History: Hypertension Patient has suicidal ideation: No Patient has homicidal ideation: No - Past Medical History Cardiac Medical History: Reports: Hx Hypercholesterolemia, Hx Hypertension Renal/ Medical History: Denies: Hx Peritoneal Dialysis GI Medical History: Reports: Hx Gastroesophageal Reflux Disease, Hx Ulcer Psychiatric Medical History: Past Surgical History: Reports: Hx Abdominal Surgery - hernia repair, Hx Appendectomy, Hx Herniorrhaphy - Immunizations Immunizations up to date: Yes Hx Diphtheria, Pertussis, Tetanus Vaccination: Yes Review of Systems - Review of Systems Constitutional: No symptoms reported. denies: Fever, Recent illness EENT: No symptoms reported Cardiovascular: No symptoms reported. denies: Chest pain Respiratory: No symptoms reported. denies: Cough, Short of breath Gastrointestinal: Abdominal pain, Nausea, Vomiting, Poor fluid intake. denies: Diarrhea, Constipation Genitourinary: No symptoms reported. denies: Dysuria Male Genitourinary: No symptoms reported Musculoskeletal: No symptoms reported. denies: Back pain Skin: No symptoms reported Hematologic/Lymphatic: No symptoms reported Neurological/Psychological: No symptoms reported Physical Exam - Vital signs Vitals: Temp Pulse Resp BP Pulse Ox 98.1 F 75 16 175/102 H 100 07/24/18 07:58 07/24/18 07:58 07/24/18 07:58 07/24/18 07:58 07/24/18 07:58 - General General appearance: Appears well, Alert In distress: Mild - HEENT Head: Normocephalic, Atraumatic Eyes: Normal Conjunctiva: Normal Nasal: Normal Mouth/Lips: Normal Mucous membranes: Dry Neck: Normal, Supple. No: Lymphadenopathy - Respiratory Respiratory status: No respiratory distress Chest status: Nontender Breath sounds: Normal. No: Rales, Rhonchi, Stridor, Wheezing Chest palpation: Normal - Cardiovascular Rhythm: Regular Heart sounds: S1 appreciated, S2 appreciated Murmur: No - Abdominal Inspection: Normal Distension: No distension Bowel sounds: Normal Tenderness: Tender - epigastric, RUQ Organomegaly: No organomegaly - Back Back: Normal, Nontender. No: CVA tenderness - Extremities General upper extremity: Normal inspection, Nontender, Normal ROM General lower extremity: Normal inspection, Nontender, Normal ROM - Neurological Neuro grossly intact: Yes Cognition: Normal [place] Coma Scale Eye Opening: Spontaneous [place] Coma Scale Verbal: Oriented Rmeedios Coma Scale Motor: Obeys Commands Remedios Coma Scale Total: 15 - Psychological Associated symptoms: Normal affect, Normal mood - Skin Skin Temperature: Warm Skin Moisture: Dry Skin Color: Normal Course - Re-evaluation Re-evalutation: 07/24/18 12:[address] Briones regarding patient presentation and ultrasound report. Recommends consultation with radiologist to see if they noted any pancreatic ductal dilatation on his previous ultrasound report. Consulted with Dr. Marino who states that patient's previous ultrasound was not a good study and she could not assess whether or not patient had pancreatic ductal dilatation on his previous ultrasound. Recommend CT imaging with IV contrast to further evaluate the pancreas. Patient does have elevated troponin in the indeterminate range, patient chronically has elevated troponin and suspect that this is likely a result of his chronic untreated hypertension. Patient denies any chest pain symptoms. 07/24/18 13:[address] Sanchez but regarding patient presentation and need for admission. Agrees to accept patient to the telemetry floor. 07/24/18 18:13 - Vital Signs Vital signs: Temp Pulse Resp BP Pulse Ox 98.6 F 75 18 154/95 H 97 07/24/18 15:55 07/24/18 15:55 07/24/18 15:55 07/24/18 15:55 07/24/18 15:55 - Laboratory Result Diagrams: 07/24/18 08:30 07/24/18 08:30 Laboratory results interpreted by me: 07/24/18 07/24/18 07/24/18 08:30 08:30 08:30 WBC 12.2 H MCH 33.9 H Seg Neutrophils % 79.3 H Absolute Neutrophils 9.6 H Glucose 137 H ALT 20 L Lipase 6282.6 H Urine Protein >=500 H Urine Ketones 20 H Urine Bilirubin SMALL H Urine Urobilinogen 2.0 H 07/24/18 13:13 Labs- Entire Visit 07/24/18 07/24/18 07/24/18 08:30 08:30 08:30 WBC 12.2 H RBC 4.51 Hgb 15.3 Hct 43.6 MCV 97 MCH 33.9 H MCHC 35.0 RDW 13.9 Plt Count 258 Seg Neutrophils % 79.3 H Lymphocytes % 13.9 Monocytes % 6.4 Eosinophils % 0.0 Basophils % 0.4 Absolute Neutrophils 9.6 H Absolute Lymphocytes 1.7 Absolute Monocytes 0.8 Absolute Eosinophils 0.0 Absolute Basophils 0.0 Sodium 138.0 Potassium 3.7 Chloride 99 Carbon Dioxide 30 Anion Gap 9 BUN 12 Creatinine 0.81 Est GFR ( Amer) > 60 Est GFR (Non-Af Amer) > 60 Glucose 137 H Calcium 9.8 Total Bilirubin 1.0 Direct Bilirubin 0.3 Neonat Total Bilirubin Not Reportable Neonat Direct Bilirubin Not Reportable Neonat Indirect Bili Not Reportable AST 37 ALT 20 L Alkaline Phosphatase 94 Troponin I 0.072 Total Protein 8.2 Albumin 4.3 Lipase 6282.6 H Urine Color Urine Appearance Urine pH Ur Specific [place] Urine Protein Urine Glucose (UA) Urine Ketones Urine Blood Urine Nitrite Urine Bilirubin Urine Urobilinogen Ur Leukocyte Esterase Urine WBC (Auto) Urine RBC (Auto) U Hyaline Cast (Auto) Urine Mucus (Auto) Urine Ascorbic Acid 07/24/18 08:30 WBC RBC Hgb Hct MCV MCH MCHC RDW Plt Count Seg Neutrophils % Lymphocytes % Monocytes % Eosinophils % Basophils % Absolute Neutrophils Absolute Lymphocytes Absolute Monocytes Absolute Eosinophils Absolute Basophils Sodium Potassium Chloride Carbon Dioxide Anion Gap BUN Creatinine Est GFR ( Amer) Est GFR (Non-Af Amer) Glucose Calcium Total Bilirubin Direct Bilirubin Neonat Total Bilirubin Neonat Direct Bilirubin Neonat Indirect Bili AST ALT Alkaline Phosphatase Troponin I Total Protein Albumin Lipase Urine Color GENEVIEVE Urine Appearance SLIGHTLY-CLOUDY Urine pH 5.0 Ur Specific [place] 1.035 Urine Protein >=500 H Urine Glucose (UA) NEGATIVE Urine Ketones 20 H Urine Blood NEGATIVE Urine Nitrite NEGATIVE Urine Bilirubin SMALL H Urine Urobilinogen 2.0 H Ur Leukocyte Esterase NEGATIVE Urine WBC (Auto) 2 Urine RBC (Auto) 10 U Hyaline Cast (Auto) 2 Urine Mucus (Auto) MANY Urine Ascorbic Acid NEGATIVE - Diagnostic Test Radiology reviewed: Reports reviewed Discharge - Discharge Clinical Impression: Epigastric abdominal pain Pancreatitis Qualifiers: Chronicity: acute Pancreatitis type: alcohol induced Acute pancreatitis complication: unspecified Qualified Code(s): K85.20 - Alcohol induced acute pancreatitis without necrosis or infection Nausea & vomiting Qualifiers: Vomiting type: unspecified Vomiting Intractability: non-intractable Qualified C ode(s): R11.2 - Nausea with vomiting, unspecified Condition: Stable Disposition: ADMITTED INPATIENT Admitting Provider: Hospitalist Unit Admitted: Telemetry
--- NOTE | 2018-07-24 11:22 | RADIOLOGY REPORT (SQ) ---
EXAM DESCRIPTION: U/S ABDOMEN LIMITED W/O DOP COMPLETED DATE/TIME: 07/24/2018 11:10 am REASON FOR STUDY: epig pain, RUQ pain COMPARISON: 03/18/2018 TECHNIQUE: Dynamic and static grayscale images acquired of the abdomen and recorded on PACS. Willa levy selected color Doppler and spectral images recorded. LIMITATIONS: None. FINDINGS: PANCREAS: No masses. No peripancreatic inflammatory changes. . Pancreatic duct is dilat ed at 6.2 mm. LIVER: No masses. Echotexture normal. LIVER VASCULATURE: Normal directional flow of the main portal vein and hepatic veins. GALLBLADDER: No stones. Normal wall thickness. No pericholecystic fluid. ULTRASOUND-DETECTED THOMAS'S SIGN: Negative. INTRAHEPATIC DUCTS AND COMMON DUCT: CBD and intrahepatic ducts normal caliber. No filling defects. INFERIOR VENA CAVA: Normal flow. AORTA: No aneurysm. RIGHT KIDNEY: Normal size. Normal echogenicity. No solid or suspicious masses. No hydronephrosis. No calcifications. PERITONEAL AND RIGHT PLEURAL SPACE: No ascites or effusions. OTHER: No other significant findings. IMPRESSION: Pancreatic duct dilatation. No masses or inflammatory changes. TECHNICAL DOCUMENTATION: JOB ID: [id number] [employer]- All Rights Reserved Reading location - IP/workstation name: [email or web address]
--- NOTE | 2018-07-24 12:57 | RADIOLOGY REPORT (SQ) ---
EXAM DESCRIPTION: CT ABD/PELVIS WITH IV ONLY COMPLETED DATE/TIME: 07/24/2018 12:46 pm REASON FOR STUDY: pancreatitis, dilated pancreatic duct COMPARISON: None. TECHNIQUE: CT scan of the abdomen and pelvis performed using helical scanning technique with dynamic intravenous contrast injection. No oral contrast. Images reviewed with lung, soft tissue, and bone windows. Reconstructed coronal and sagittal MPR images reviewed. Delayed images for evaluation of the urinary system also acquired. All images stored on PACS. All CT scanners at this facility use dose modulation, iterative reconstruction, and/or weight based d osing when appropriate to reduce radiation dose to as low as reasonably achievable (ALARA). [facility]: Dose Right [facility]: CareDose [facility]: Dose Right [facility]: Teradose 4D [facility]: The Daily Caller CONTRAST TYPE AND DOSE: contrast/concentration: Isovue 350.00 mg/ml; Total Contrast Delivered: 94.0 ml; Total Saline Delivered: 71.0 ml RENAL FUNCTION: GFR > 60. RADIATION DOSE: CT Rad equipment meets quality standard of care and radiation dose reduction techniq ues were employed. CTDIvol: 5.9 - 8.2 mGy. DLP: 756 mGy-cm.. LIMITATIONS: None. FINDINGS: LOWER CHEST: No significant findings. No nodules or infiltrates. LIVER: Normal size. No masses. No dilated ducts. SPLEEN: Normal size. No focal lesions. PANCREAS: Punctate calcification pancreatic head. Peripancreatic inflammatory changes. Mild dilatat ion of the pancreatic duct. No pancreatic mass or pseudocyst. GALLBLADDER: No identified stones by CT criteria. No inflammatory changes to suggest cholecystitis. ADRENAL GLANDS: No significant masses or asymmetry. RIGHT KIDNEY AND URETER: No solid masses. No significant calcifications. No hydronephrosis or hyd roureter. LEFT KIDNEY AND URETER: No solid masses. No significant calcifications. No hydronephrosis or hydr oureter. AORTA AND VESSELS: No aneurysm. No dissection. Renal arteries, SMA, celiac without stenosis. RETROPERITONEUM: No retroperitoneal adenopathy, hemorrhage or masses. BOWEL AND PERITONEAL CAVITY: No masses or inflammatory changes. No free fluid or peritoneal masses. APPENDIX: Surgically absent. PELVIS: No mass. No free fluid. Normal bladder. ABDOMINAL WALL: No masses. No hernias. BONES: No significant or acute findings. OTHER: No other significant finding. IMPRESSION: Acute on chronic pancreatitis. TECHNICAL DOCUMENTATION: JOB ID: [id number] Quality ID # [id number]: Final reports with documentation of one or more dose reduction techniques (e.g., Au tomated exposure control, adjustment of the mA and/or kV according to patient size, use of iterative reconstruction technique) 2010 [employer]- All Rights Reserved Reading location - IP/workstation name: [email or web address]
[2018-07-24] MEDS ORDERED: ONDANSETRON HCL INJ/PF 4 MG/2 ML SDV IV PRN (13:41)
[2018-07-24] MEDS ORDERED: NICOTINE 21 MG/24 HR PATCH.TD24 TD ONE (13:49)
[2018-07-24] MEDS ORDERED: LORAZEPAM INJ 2 MG/1 ML VIAL IV PRN (13:50)
--- NOTE | 2018-07-24 14:11 | PDOC H&P ---
History of Present Illness Admission Date/PCP: 07/24/2018 History of Present Illness: BEKAH HEIN is a 52 year old male history of alcohol abuse, previous admissions for pancreatitis, hypertension came to the emergency room with complaints of severe abdominal pain since last night. According to the patient pain started on Saturday that was 3 days ago initially slow in onset the pain is gradually worsening and which was so intense last night he started throwing up nauseated having the hiccups pain scale according to him is 14 / 10 and he decided to come to the emergency room for further evaluation. He admitted drinking little bit amount of alcohol on that is on . Denies any chest pains denies any shortness of breath denies any cough. Has any headaches denies any loss of consciousness. Has any anxiety spells. In the emergency room ultrasound of the abdomen was done and later on CT abdomen was done and confirmed to have acute on chronic pancreatitis. Medical consult was called for admission. I went to talk to the patient in the emergency room patient is alert and awake communicating very well able to give a complete proper history. Past Medical History Cardiac Medical History: Reports: Hyperlipidema, Hypertension GI Medical History: Reports: Gastroesophageal Reflux Disease Psychiatric Medical History: Past Surgical History Past Surgical History: Reports: Appendectomy, Herniorrhaphy Social History Smoking Status: Current Every Day Smoker Frequency of Alcohol Use: Heavy Hx Recreational Drug Use: Yes Drugs: Marijuana Hx Prescription Drug Abuse: No - Advance Directive Resuscitation Status: Full Code Family History Family History: Hypertension Parental Family History Reviewed: Yes Children Family History Reviewed: Yes Sibling(s) Family History Reviewed.: Yes Medication/Allergy Home Medications: No Home Medications 07/24/18 Allergies/Adverse Reactions: No Known Allergies Allergy (Verified 07/24/18 07:56) Review of Systems Constitutional: ABSENT: fever(s), headache(s), weight gain, weight loss Eyes: ABSENT: visual disturbances Ears: ABSENT: hearing changes Nose, Mouth, and Throat: ABSENT: sore throat Cardiovascular: ABSENT: chest pain, orthropnea, palpitations Respiratory: ABSENT: cough, dyspnea, hemoptysis Gastrointestinal: PRESENT: nausea, vomiting, other - Complains of persistent nausea and vomiting's but denies any blood in the vomitus.. ABSENT: coffee ground emesis, diarrhea, dysphagia, heartburn Neurological: ABSENT: confusion, dizziness, focal weakness, frequent falls, paresthesias Psychiatric: PRESENT: anxiety. ABSENT: depression, hallucinations Physical Exam Vital Signs: Temp Pulse Resp BP Pulse Ox 98.1 F 57 L 15 169/108 H 100 07/24/18 07:58 07/24/18 10:31 07/24/18 12:01 07/24/18 12:01 07/24/18 12:01 Intake & Output 07/23/18 07/24/18 07/25/18 06:59 06:59 06:59 Intake Total 1000 Balance 1000 Weight 81.8 kg General appearance: PRESENT: mild distress Head exam: PRESENT: atraumatic Eye exam: PRESENT: PERRLA Neck exam: ABSENT: carotid bruit, JVD, lymphadenopathy, thyromegaly Respiratory exam: PRESENT: clear to auscultation malini. ABSENT: rales, rhonchi, wheezes Cardiovascular exam: PRESENT: RRR. ABSENT: diastolic murmur, rubs, systolic murmur GI/Abdominal exam: PRESENT: normal bowel sounds, other - On palpation complaining of severe pain in the epigastric region even with gentle palpation is complaining of pain 10 x 10 and with associated voluntary guarding and rigidity. Neurological exam: PRESENT: alert, awake, oriented to person, oriented to place, oriented to time, oriented to situation, CN II-XII grossly intact. ABSENT: motor sensory deficit Psychiatric exam: PRESENT: appropriate affect, normal mood. ABSENT: homicidal ideation, suicidal ideation Results Laboratory Results: 07/24/18 08:30 07/24/18 08:30 07/24/18 07/24/18 07/24/18 08:30 08:30 08:30 WBC 12.2 H RBC 4.51 Hgb 15.3 Hct 43.6 MCV 97 MCH 33.9 H MCHC 35.0 RDW 13.9 Plt Count 258 Seg Neutrophils % 79.3 H Lymphocytes % 13.9 Monocytes % 6.4 Eosinophils % 0.0 Basophils % 0.4 Absolute Neutrophils 9.6 H Absolute Lymphocytes 1.7 Absolute Monocytes 0.8 Absolute Eosinophils 0.0 Absolute Basophils 0.0 Sodium 138.0 Potassium 3.7 Chloride 99 Carbon Dioxide 30 Anion Gap 9 BUN 12 Creatinine 0.81 Est GFR ( Amer) > 60 Est GFR (Non-Af Amer) > 60 Glucose 137 H Calcium 9.8 Total Bilirubin 1.0 AST 37 ALT 20 L Alkaline Phosphatase 94 Total Protein 8.2 Albumin 4.3 Lipase 6282.6 H Urine Color GENEVIEVE Urine Appearance SLIGHTLY-CLOUDY Urine pH 5.0 Ur Specific [place] 1.035 Urine Protein >=500 H Urine Glucose (UA) NEGATIVE Urine Ketones 20 H Urine Blood NEGATIVE Urine Nitrite NEGATIVE Ur Leukocyte Esterase NEGATIVE Urine WBC (Auto) 2 Urine RBC (Auto) 10 07/24/18 08:30 Troponin I 0.072 Impressions: Abdomen Ultrasound 07/24/18 09:20 IMPRESSION: Pancreatic duct dilatation. No masses or inflammatory changes. Acute Abdomen Series 07/24/18 09:21 IMPRESSION: NO RADIOGRAPHIC EVIDENCE FOR ACUTE ABDOMINAL DISEASE. Abdomen/Pelvis CT 07/24/18 12:06 IMPRESSION: Acute on chronic pancreatitis. Assessment & Plan - Diagnosis (1) Acute on chronic pancreatitis Is this a current diagnosis for this admission?: Yes Plan: 07/24/2018-the plan for acute on chronic pancreatitis is to keep the patient n.p.o. plan to put him in telemetry as inpatient. He is going to be on IV fluids normal saline 125 cc/h, IV Dilaudid 2 mg every 6 hours as needed for pain. Going to follow-up with regular lipase levels. Initial lipase is 6280. I am going to check his alcohol levels. Started him on a banana bag. I also placed him on Ativan 1 mg IV every 6 as needed for anxiety and agitation. CT abdomen and pelvis shows acute on chronic pancreatitis but there is no evidence of pseudocyst. Watch for DTs. (2) Hypertension Qualifiers: Hypertension type: essential hypertension Qualified Code(s): I10 - Es sential (primary) hypertension Is this a current diagnosis for this admission?: Yes Plan: 07/24/2018 patient has history of hypertension. He is not following up with any primary care physician he is off the antihypertensive medications for more than 2 years. I am going to put him on hydralazine 10 mg IV every 6 as needed to manage the blood pressure. Patient's latest blood pressure is 169/108. The high blood pressure may be secondary to the pain patient is having right now. Blood pressures can be well controlled with better pain management and hydralazine IV as needed (3) Smoker Is this a current diagnosis for this admission?: Yes Plan: 07/24/2018-patient is a patient has history of chronic smoking. He is requesting nicotine patches. I put the order for nicotine patch daily. - Time Time Spent: 50 to 70 Minutes Critical Time spent with patient: 15-24 minutes Medications reviewed and adjusted accordingly: Yes Anticipated discharge: Home
[2018-07-24] MEDS: HYDRALAZINE HCL INJ/PF 20 MG/1 ML SDV IV PRN (15:06)
[2018-07-24] MEDS: NORMAL SALINE 1000 ML 1,000 ML IV PRN ×2 (15:08→15:35)
[2018-07-24] MEDS ORDERED: ENOXAPARIN SODIUM INJ 40 MG/0.4 ML DISP.SYRIN SUBCUT ONE (16:00)
[2018-07-24] MEDS: HYDROMORPHONE HCL INJ/PF 2 MG/ML AMPULE IV SCH ×2 (17:41→23:46)
[2018-07-24] MEDS ORDERED: NORMAL SALINE 1000 ML 1,000 ML with POTASSIUM CHLORIDE 20 MEQ, MAGNESIUM SULFATE 8 MEQ,... IV SCH ×5 (18:00)
[2018-07-24 21:19] LABS: URINE AMPHETAMINES SCREEN NEGATIVE; URINE BARBITURATES SCREEN NEGATIVE; URINE BENZODIAZEPINES SCREEN NEGATIVE; URINE COCAINE SCREEN NEGATIVE; URINE METHADONE SCREEN NEGATIVE; URINE PHENCYCLIDINE SCREEN NEGATIVE
[2018-07-24 21:31] LABS: URINE MARIJUANA (THC) SCREEN UNCONFIRMED POSITIVE
[2018-07-24] MEDS: PANTOPRAZOLE SODIUM 40 MG VIAL IV SCH (21:37)
[2018-07-25 03:20] LABS: ABSOLUTE LYMPHOCYTES (AUTO) 1.6 10^3/uL (0.5-4.7); ABSOLUTE MONOCYTES (AUTO) 0.8 10^3/uL (0.1-1.4); BASOPHILS % (AUTO) 0.3 % (0-2); EOSINOPHILS % (AUTO) 0.1 % (0-6); HEMATOCRIT 41.7 % (37.9-51.0); HEMOGLOBIN 14.5 g/dL (13.5-17.0); LYMPHOCYTES % (AUTO) 14.3 % (13-45); MEAN CORPUSCULAR HEMOGLOBIN 33.5 pg (27.0-33.4); MEAN CORPUSCULAR HGB CONC 34.8 g/dL (32.0-36.0); MEAN CORPUSCULAR VOLUME 96 fl (80-97); MONOCYTES % (AUTO) 7.1 % (3-13); PLATELET COUNT 219 10^3/uL (150-450); RED BLOOD COUNT 4.34 10^6/uL (4.35-5.55); RED CELL DISTRIBUTION WIDTH 13.9 % (11.5-14.0); SEGMENTED NEUTROPHILS % (AUTO) 78.2 % (42-78); TOTAL CELLS COUNTED % (AUTO) 100 %; WHITE BLOOD COUNT 11.5 10^3/uL (4.0-10.5)
[2018-07-25 04:00] LABS: AMYLASE 501 U/L (30-110); ANION GAP 8 (5-19); BLOOD UREA NITROGEN 12 mg/dL (7-20); CALCIUM 9.1 mg/dL (8.4-10.2); CARBON DIOXIDE 28 mmol/L (22-30); CHLORIDE 102 mmol/L (98-107); CHOLESTEROL 193.25 mg/dL (0-200); GLUCOSE 117 mg/dL (75-110); POTASSIUM 3.6 mmol/L (3.6-5.0); SODIUM 137.5 mmol/L (137-145); TRIGLYCERIDES 106 mg/dL (<150)
[2018-07-25 04:09] LABS: LIPASE 2381.7 U/L (23-300)
[2018-07-25 04:11] LABS: DIRECT LDL 135 mg/dL (<100)
[2018-07-25 04:35] LABS: INTERNATIONAL RATION (INR) 0.86; PROTHROMBIN TIME 12.2 SEC (11.4-15.4)
[2018-07-25] MEDS: HYDROMORPHONE HCL INJ/PF 2 MG/ML AMPULE IV SCH ×4 (05:32→23:46)
[2018-07-25] MEDS: PANTOPRAZOLE SODIUM 40 MG VIAL IV SCH ×2 (11:00→21:11)
[2018-07-25] MEDS: ENOXAPARIN SODIUM INJ 40 MG/0.4 ML DISP.SYRIN SUBCUT SCH (11:00)
--- NOTE | 2018-07-25 14:08 | PDOC PROGRESS REPORT ---
Subjective Progress Note for:: 07/25/18 Subjective:: [id number] male admitted for acute on chronic pancreatitis. No acute events in the last 24 hours. Patient is afebrile. Reason For Visit: ACUTE ON CHRONIC PANCREATITIS Physical Exam Vital Signs: Temp Pulse Resp BP Pulse Ox 97.9 F 73 19 133/83 H 98 07/25/18 12:22 07/25/18 12:22 07/25/18 12:22 07/25/18 12:22 07/25/18 12:22 Intake & Output 07/24/18 07/25/18 07/26/18 06:59 06:59 06:59 Intake Total 2056 Output Total 400 Balance 1656 Weight 81.8 kg General appearance: PRESENT: no acute distress Head exam: PRESENT: atraumatic Eye exam: PRESENT: PERRLA Mouth exam: PRESENT: moist Neck exam: ABSENT: carotid bruit, JVD, lymphadenopathy, thyromegaly Respiratory exam: PRESENT: clear to auscultation malini. ABSENT: rales, rhonchi, wheezes Cardiovascular exam: PRESENT: RRR. ABSENT: diastolic murmur, rubs, systolic murmur GI/Abdominal exam: PRESENT: other - Abdominal examination on gentle palpation of the epigastric region is complaining of moderate to severe tenderness. Neurological exam: PRESENT: alert, awake, oriented to person, oriented to place, oriented to time, oriented to situation, CN II-XII grossly intact. ABSENT: motor sensory deficit Psychiatric exam: PRESENT: appropriate affect, normal mood. ABSENT: homicidal ideation, suicidal ideation Results Laboratory Results: 07/25/18 03:14 07/25/18 03:14 07/25/18 07/25/18 03:14 03:14 WBC 11.5 H RBC 4.34 L Hgb 14.5 Hct 41.7 MCV 96 MCH 33.5 H MCHC 34.8 RDW 13.9 Plt Count 219 Seg Neutrophils % 78.2 H Lymphocytes % 14.3 Monocytes % 7.1 Eosinophils % 0.1 Basophils % 0.3 Absolute Neutrophils 9.0 H Absolute Lymphocytes 1.6 Absolute Monocytes 0.8 Absolute Eosinophils 0.0 Absolute Basophils 0.0 Sodium 137.5 Potassium 3.6 Chloride 102 Carbon Dioxide 28 Anion Gap 8 BUN 12 Creatinine 0.87 Est GFR ( Amer) > 60 Est GFR (Non-Af Amer) > 60 Glucose 117 H Calcium 9.1 Magnesium 1.6 Triglycerides 106 Cholesterol 193.25 LDL Cholesterol Direct 135 H VLDL Cholesterol 21.0 HDL Cholesterol 43 Amylase 501 H Lipase 2381.7 H 07/24/18 07/24/18 07/24/18 08:30 15:14 21:17 Troponin I 0.072 0.067 0.058 07/25/18 03:14 Troponin I 0.063 Impressions: Abdomen Ultrasound 07/24/18 09:20 IMPRESSION: Pancreatic duct dilatation. No masses or inflammatory changes. Acute Abdomen Series 07/24/18 09:21 IMPRESSION: NO RADIOGRAPHIC EVIDENCE FOR ACUTE ABDOMINAL DISEASE. Abdomen/Pelvis CT 07/24/18 12:06 IMPRESSION: Acute on chronic pancreatitis. Assessment & Plan - Diagnosis (1) Acute on chronic pancreatitis Is this a current diagnosis for this admission?: Yes Plan: 07/24/2018-the plan for acute on chronic pancreatitis is to keep the patient n.p.o. plan to put him in telemetry as inpatient. He is going to be on IV fluids normal saline 125 cc/h, IV Dilaudid 2 mg every 6 hours as needed for pain. Going to follow-up with regular lipase levels. Initial lipase is 6280. I am going to check his alcohol levels. Started him on a banana bag. I also placed him on Ativan 1 mg IV every 6 as needed for anxiety and agitation. CT abdomen and pelvis shows acute on chronic pancreatitis but there is no evidence of pseudocyst. Watch for DTs. 07/25/2018-initial lipase is 6400 and repeat lipase today came down to 2300. We are going to do the daily lipase levels. Patient is n.p.o. still and is on IV Ativan 1 mg every 6 for anxiety and also on Dilaudid 2 mg every 6 as needed for pain. At 125 cc/h. To continue the present management. (2) Hypertension Qualifiers: Hypertension type: essential hypertension Qualified Code(s): I10 - Essential (primary) hypertension Is this a current diagnosis for this admission?: Yes Plan: 07/24/2018 patient has history of hypertension. He is not following up with any primary care physician he is off the antihypertensive medications for more than 2 years. I am going to put him on hydralazine 10 mg IV every 6 as needed to manage the blood pressure. Patient's latest blood pressure is 169/108. The high blood pressure may be secondary to the pain patient is having right now. Blood pressures can be well controlled with better pain management and hydralazine IV as needed 07/25/2018-blood pressure today is 141/89. Pulse rate is 70. Patient is on hydralazine 10 mg IV every 6 as needed for high blood pressure more than 150/90. (3) Smoker Is this a current diagnosis for this admission?: Yes Plan: 07/24/2018-patient is a patient has history of chronic smoking. He is requesting nicotine patches. I put the order for nicotine patch daily. 07/25/2018 patient history of chronic smoking smokes more than a pack per day. Smoking counseling was provided for more than 10 minutes. - Time Time Spent with patient: 15-24 minutes Smoking Cessation Education: over 10 minutes Medications reviewed and adjusted accordingly: Yes Anticipated discharge: Home
[2018-07-25] MEDS: NORMAL SALINE 1000 ML 1,000 ML IV PRN (17:42)
[2018-07-25] MEDS ORDERED: NICOTINE 14 MG/24 HR PATCH.TD24 TD PRN (18:44)
[2018-07-25] MEDS: NICOTINE 21 MG/24 HR PATCH.TD24 TD SCH (19:58)
[2018-07-25] MEDS: HYDRALAZINE HCL INJ/PF 20 MG/1 ML SDV IV PRN (21:14)
[2018-07-26] MEDS: HYDROMORPHONE HCL INJ/PF 2 MG/ML AMPULE IV SCH ×2 (05:08→12:06)
[2018-07-26 05:50] LABS: ABSOLUTE LYMPHOCYTES (AUTO) 1.6 10^3/uL (0.5-4.7); ABSOLUTE MONOCYTES (AUTO) 1.1 10^3/uL (0.1-1.4); ABSOLUTE NEUT (AUTO) 9.3 10^3/uL (1.7-8.2); BASOPHILS % (AUTO) 0.3 % (0-2); EOSINOPHILS % (AUTO) 0.3 % (0-6); HEMOGLOBIN 13.2 g/dL (13.5-17.0); LYMPHOCYTES % (AUTO) 13.4 % (13-45); MEAN CORPUSCULAR HGB CONC 34.7 g/dL (32.0-36.0); MEAN CORPUSCULAR VOLUME 98 fl (80-97); MONOCYTES % (AUTO) 9.4 % (3-13); PLATELET COUNT 218 10^3/uL (150-450); RED BLOOD COUNT 3.89 10^6/uL (4.35-5.55); RED CELL DISTRIBUTION WIDTH 13.7 % (11.5-14.0); SEGMENTED NEUTROPHILS % (AUTO) 76.6 % (42-78); TOTAL CELLS COUNTED % (AUTO) 100 %; WHITE BLOOD COUNT 12.1 10^3/uL (4.0-10.5)
[2018-07-26 06:08] LABS: AMYLASE 179 U/L (30-110); ANION GAP 10 (5-19); BLOOD UREA NITROGEN 9 mg/dL (7-20); CARBON DIOXIDE 28 mmol/L (22-30); CHLORIDE 99 mmol/L (98-107); GLUCOSE 86 mg/dL (75-110); POTASSIUM 3.2 mmol/L (3.6-5.0); SODIUM 136.5 mmol/L (137-145)
[2018-07-26] MEDS: NICOTINE 21 MG/24 HR PATCH.TD24 TD SCH (09:01)
[2018-07-26] MEDS: ENOXAPARIN SODIUM INJ 40 MG/0.4 ML DISP.SYRIN SUBCUT SCH (09:01)
[2018-07-26] MEDS: PANTOPRAZOLE SODIUM 40 MG VIAL IV SCH (09:02)
[2018-07-26] MEDS: NORMAL SALINE 1000 ML 1,000 ML IV PRN (09:09)
[2018-07-26] MEDS ORDERED: LORAZEPAM INJ 2 MG/1 ML VIAL IV PRN (12:33)
--- NOTE | 2018-07-26 12:35 | PDOC PROGRESS REPORT ---
Subjective Progress Note for:: 07/26/18 Subjective:: [id number]-old male admitted for acute on chronic pancreatitis. No acute events in the last 24 hours. Patient is afebrile. 07/26/2018-no acute events in the last 24 hours. Lipase levels came down to 490. She is afebrile. No evidence of any alcohol withdrawal symptoms. Reason For Visit: ACUTE ON CHRONIC PANCREATITIS Physical Exam Vital Signs: Temp Pulse Resp BP Pulse Ox 97.9 F 80 16 144/84 H 99 07/26/18 07:50 07/26/18 07:50 07/26/18 07:50 07/26/18 07:50 07/26/18 07:50 Intake & Output 07/25/18 07/26/18 07/27/18 06:59 06:59 06:59 Intake Total 2055 2022 Output Total 400 Balance 1655 2022 Weight 81.8 kg 81.8 kg General appearance: PRESENT: no acute distress Head exam: PRESENT: atraumatic Eye exam: PRESENT: PERRLA Mouth exam: PRESENT: moist Neck exam: ABSENT: carotid bruit, JVD, lymphadenopathy, thyromegaly Respiratory exam: PRESENT: clear to auscultation malini. ABSENT: rales, rhonchi, wheezes Cardiovascular exam: PRESENT: RRR. ABSENT: diastolic murmur, rubs, systolic murmur GI/Abdominal exam: PRESENT: normal bowel sounds, soft. ABSENT: distended, guarding, mass, organolmegaly, rebound, tenderness Neurological exam: PRESENT: alert, awake, oriented to person, oriented to place, oriented to time, oriented to situation, CN II-XII grossly intact. ABSENT: motor sensory deficit Psychiatric exam: PRESENT: appropriate affect, normal mood. ABSENT: homicidal ideation, suicidal ideation Results Laboratory Results: 07/26/18 04:14 07/26/18 04:14 07/26/18 07/26/18 04:14 04:14 WBC 12.1 H RBC 3.89 L Hgb 13.2 L Hct 38.0 MCV 98 H MCH 34.0 H MCHC 34.7 RDW 13.7 Plt Count 218 Seg Neutrophils % 76.6 Lymphocytes % 13.4 Monocytes % 9.4 Eosinophils % 0.3 Basophils % 0.3 Absolute Neutrophils 9.3 H Absolute Lymphocytes 1.6 Absolute Monocytes 1.1 Absolute Eosinophils 0.0 Absolute Basophils 0.0 Sodium 136.5 L Potassium 3.2 L Chloride 99 Carbon Dioxide 28 Anion Gap 10 BUN 9 Creatinine 0.85 Est GFR ( Amer) > 60 Est GFR (Non-Af Amer) > 60 Glucose 86 Calcium 9.0 Magnesium 1.7 Amylase 179 H Lipase 493.0 H 07/24/18 07/24/18 07/24/18 08:30 15:14 21:17 Troponin I 0.072 0.067 0.058 07/25/18 03:14 Troponin I 0.063 Impressions: Abdomen Ultrasound 07/24/18 09:20 IMPRESSION: Pancreatic duct dilatation. No masses or inflammatory changes. Acute Abdomen Series 07/24/18 09:21 IMPRESSION: NO RADIOGRAPHIC EVIDENCE FOR ACUTE ABDOMINAL DISEASE. Abdomen/Pelvis CT 07/24/18 12:06 IMPRESSION: Acute on chronic pancreatitis. Assessment & Plan - Diagnosis (1) Acute on chronic pancreatitis Is this a current diagnosis for this admission?: Yes Plan: 07/24/2018-the plan for acute on chronic pancreatitis is to keep the patient n.p.o. plan to put him in telemetry as inpatient. He is going to be on IV fluids normal saline 125 cc/h, IV Dilaudid 2 mg every 6 hours as needed for pain. Going to follow-up with regular lipase levels. Initial lipase is 6280. I am going to check his alcohol levels. Started him on a banana bag. I also placed him on Ativan 1 mg IV every 6 as needed for anxiety and agitation. CT abdomen and pelvis shows acute on chronic pancreatitis but there is no evidence of pseudocyst. Watch for DTs. 07/25/2018-initial lipase is 6400 and repeat lipase today came down to 2300. We are going to do the daily lipase levels. Patient is n.p.o. still and is on IV Ativan 1 mg every 6 for anxiety and also on Dilaudid 2 mg every 6 as needed for pain. At 125 cc/h. To continue the present management. 07/26/2018-latest lipase level is 493. Patient is afebrile. Pain is much improved. Plan is to discontinue IV fluids, start on cardiac diet, decrease his pain medication from 2 mg IV every 6 hours to 1 mg IV every 8 hours. I am also going to decrease the dose of IV Ativan. If the symptoms are continued to improve may be I will discharge him tomorrow. (2) Hypertension Qualifiers: Hypertension type: essential hypertension Qualified Code(s): I10 - Essential (primary) hypertension Is this a current diagnosis for this admission?: Yes Plan: 07/24/2018 patient has history of hypertension. He is not following up with any primary care physician he is off the antihypertensive medications for more than 2 years. I am going to put him on hydralazine 10 mg IV every 6 as needed to manage the blood pressure. Patient's latest blood pressure is 169/108. The high blood pressure may be secondary to the pain patient is having right now. Blood pressures can be well controlled with better pain management and hydralazine IV as needed 07/25/2018-blood pressure today is 141/89. Pulse rate is 70. Patient is on hydralazine 10 mg IV every 6 as needed for high blood pressure more than 150/90. 07/26/2018 patient blood pressure today is 144/84. He is on lisinopril 10 mg p.o. daily at home. I am going to restart the lisinopril today. Also stop IV fluids today. Hopefully his blood pressures will be improved by tomorrow. (3) Smoker Is this a current diagnosis for this admission?: Yes Plan: 07/24/2018-patient is a patient has history of chronic smoking. He is requesting nicotine patches. I put the order for nicotine patch daily. 07/25/2018 patient history of chronic smoking smokes more than a pack per day. Smoking counseling was provided for more than 10 minutes. 07/26/2018 patient is a chronic smoker and counseling was provided about smoking cessation. (4) Alcohol use Is this a current diagnosis for this admission?: Yes Plan: 07/26/2018-patient has long history of alcohol abuse. Counseling was provided about cutting down the alcohol intake. Also advised him to follow-up with AA classes. - Time Time Spent with patient: 15-24 minutes Smoking Cessation Education: over 10 minutes Medications reviewed and adjusted accordingly: Yes Anticipated discharge: Home
[2018-07-26] MEDS: HYDROMORPHONE HCL INJ/PF 2 MG/ML AMPULE IV PRN (18:32)
[2018-07-26] MEDS: FAMOTIDINE 20 MG TABLET PO SCH (21:55)
[2018-07-27] MEDS: HYDROMORPHONE HCL INJ/PF 2 MG/ML AMPULE IV PRN (02:01)
[2018-07-27 06:01] LABS: ABSOLUTE EOSINOPHILS # (AUTO) 0.1 10^3/uL (0.0-0.6); ABSOLUTE LYMPHOCYTES (AUTO) 1.5 10^3/uL (0.5-4.7); ABSOLUTE MONOCYTES (AUTO) 0.7 10^3/uL (0.1-1.4); ABSOLUTE NEUT (AUTO) 5.5 10^3/uL (1.7-8.2); BASOPHILS % (AUTO) 0.4 % (0-2); EOSINOPHILS % (AUTO) 1.6 % (0-6); HEMATOCRIT 34.3 % (37.9-51.0); HEMOGLOBIN 12.2 g/dL (13.5-17.0); LYMPHOCYTES % (AUTO) 18.6 % (13-45); MEAN CORPUSCULAR HEMOGLOBIN 34.6 pg (27.0-33.4); MEAN CORPUSCULAR HGB CONC 35.5 g/dL (32.0-36.0); MEAN CORPUSCULAR VOLUME 98 fl (80-97); MONOCYTES % (AUTO) 9.4 % (3-13); PLATELET COUNT 223 10^3/uL (150-450); RED BLOOD COUNT 3.52 10^6/uL (4.35-5.55); RED CELL DISTRIBUTION WIDTH 13.5 % (11.5-14.0); TOTAL CELLS COUNTED % (AUTO) 100 %; WHITE BLOOD COUNT 7.9 10^3/uL (4.0-10.5)
[2018-07-27 06:29] LABS: AMYLASE 78 U/L (30-110); ANION GAP 8 (5-19); BLOOD UREA NITROGEN 9 mg/dL (7-20); CALCIUM 9.1 mg/dL (8.4-10.2); CARBON DIOXIDE 31 mmol/L (22-30); CHLORIDE 98 mmol/L (98-107); GLUCOSE 100 mg/dL (75-110); LIPASE 329.1 U/L (23-300); POTASSIUM 3.4 mmol/L (3.6-5.0); SODIUM 136.6 mmol/L (137-145)
[2018-07-27] MEDS ORDERED: POTASSIUM CHLORIDE 10 MEQ CAPSULE.ER PO ONE ×2 (09:27→10:00)
[2018-07-27] MEDS: NICOTINE 21 MG/24 HR PATCH.TD24 TD SCH (09:45)
[2018-07-27] MEDS: FAMOTIDINE 20 MG TABLET PO SCH (09:45)
[2018-07-27] MEDS: ENOXAPARIN SODIUM INJ 40 MG/0.4 ML DISP.SYRIN SUBCUT SCH (09:46)
[2018-07-27] MEDS ORDERED: LISINOPRIL 10 MG TABLET PO SCH (10:00)
[2018-07-27] MEDS ORDERED: OXYCODONE-ACETAMINOPHEN 5-325 MG TABLET PO PRN (11:40)
[2018-07-27] MEDS ORDERED: PROMETHAZINE HCL 25 MG TABLET PO PRN (11:46)
[2018-07-27 12:16] VITALS: BP 142/97
[2018-07-27] MEDS: HYDRALAZINE HCL INJ/PF 20 MG/1 ML SDV IV PRN (12:27)
--- NOTE | 2018-07-27 15:56 | PDOC DISCHARGE SUMMARY ---
General - Admit/Disc Date/PCP Admission Date/Primary Care Provider: 07/24/18 13:59 Discharge Date: 07/27/18 - Discharge Diagnosis (1) Acute on chronic pancreatitis Is this a current diagnosis for this admission?: Yes Summary: 07/24/2018-the plan for acute on chronic pancreatitis is to keep the patient n.p.o. plan to put him in telemetry as inpatient. He is going to be on IV flui ds normal saline 125 cc/h, IV Dilaudid 2 mg every 6 hours as needed for pain. Going to follow-up with regular lipase levels. Initial lipase is 6280. I am going to check his alcohol levels. Started him on a banana bag. I also placed him on Ativan 1 mg IV every 6 as needed for anxiety and agitation. CT abdomen and pelvis shows acute on chronic pancreatitis but there is no evidence of pseudocyst. Watch for DTs. 07/25/2018-initial lipase is 6400 and repeat lipase today came down to 2300. We are going to do the daily lipase levels. Patient is n.p.o. still and is on IV Ativan 1 mg every 6 for anxiety and also on Dilaudid 2 mg every 6 as needed for pain. At 125 cc/h. To continue the present management. 07/26/2018-latest lipase level is 493. Patient is afebrile. Pain is much impro radha. Plan is to discontinue IV fluids, start on cardiac diet, decrease his pain medication from 2 mg IV every 6 hours to 1 mg IV every 8 hours. I am also going to decrease the dose of IV Ativan. If the symptoms are continued to improve may be I will discharge him tomorrow. 07/27/2018-patient was admitted with acute on chronic pancreatitis. Pain was much improved. Able to tolerate oral feeds. We will gradually taper off the IV fluids and pain medications. He is going home on Percocet 10/325 mg every 4 as needed for pain for 3 days. Advised him to follow-up with primary care physician. Also advised to cut down alcohol intake. (2) Hypertension Is this a current diagnosis for this admission?: Yes Summary: 07/24/2018 patient has history of hypertension. He is not following up with any primary care physician he is off the antihypertensive medications for more than 2 years. I am going to put him on hydralazine 10 mg IV every 6 as needed to manage the blood pressure. Patient's latest blood pressure is 169/108. The high blood pressure may be secondary to the pain patient is having right now. Blood pressures can be well controlled with better pain management and hydralazine IV as needed 07/25/2018-blood pressure today is 141/89. Pulse rate is 70. Patient is on hydralazine 10 mg IV every 6 as needed for high blood pressure more than 150/90. 07/26/2018 patient blood pressure today is 144/84. He is on lisinopril 10 mg p.o. daily at home. I am going to restart the lisinopril today. Also stop IV fluids today. Hopefully his blood pressures will be improved by tomorrow. 07/27/2018-patient blood pressure is 144/100. He was on lisinopril 10 mg daily it was increased to 20 mg p.o. daily. I gave the prescription for lisinopril. Low-salt diet was advised. And advised him to follow-up with primary care physician in 3-5 days. (3) Smoker Is this a current diagnosis for this admission?: Yes Summary: 07/24/2018-patient is a patient has history of chronic smoking. He is requesting nicotine patches. I put the order for nicotine patch daily. 07/25/2018 patient history of chronic smoking smokes more than a pack per day. Smoking counseling was provided for more than 10 minutes. 07/26/2018 patient is a chronic smoker and counseling was provided about smoking cessation. 07/27/2018-smoking counseling was provided for more than 10 minutes. Strongly advised him to quit smoking. (4) Alcohol use Is this a current diagnosis for this admission?: Yes Summary: 07/26/2018-patient has long history of alcohol abuse. Counseling was provided about cutting down the alcohol intake. Also advised him to follow-up with AA classes. 07/27/2018-patient was strongly advised to cut down alcohol intake. Also advised him to follow-up with the alcohol Anonymous classes. - Additional Information Resuscitation Status: Full Code Discharge Diet: Cardiac Discharge Activity: Activity As Tolerated Prescriptions: Lisinopril [Prinivil 10 mg Tablet] 20 mg PO DAILY #30 tablet Oxycodone HCl/Acetaminophen [Percocet 5-325 mg Tablet] 2 tab PO Q6HP PRN #20 tablet PRN Reason: Promethazine HCl [Phenergan 25 mg Tablet] 12.5 mg PO Q4HP PRN #20 tablet PRN Reason: Home Medications: Lisinopril [Prinivil 10 mg Tablet] 20 mg PO DAILY #30 tablet 07/27/18 Oxycodone HCl/Acetaminophen [Percocet 5-325 mg Tablet] 2 tab PO Q6HP PRN #20 tablet 07/27/18 Promethazine HCl [Phenergan 25 mg Tablet] 12.5 mg PO Q4HP PRN #20 tablet History of Present Illness History of Present Illness: BEKAH HEIN is a 52 year old male history of alcohol abuse, previous admissions for pancreatitis, hypertension came to the emergency room with complaints of severe abdominal pain since last night. According to the patient pain started on Saturday that was 3 days ago initially slow in onset the pain is gradually worsening and which was so intense last night he started throwing up nauseated having the hiccups pain scale according to him is 14 / 10 and he decided to come to the emergency room for further evaluation. He admitted drinking little bit amount of alcohol on that is on . Denies any chest pains denies any shortness of breath denies any cough. Has any headaches denies any loss of consciousness. Has any anxiety spells. In the emergency room ultrasound of the abdomen was done and later on CT abdomen was done and confirmed to have acute on chronic pancreatitis. Medical consult was called for admission. I went to talk to the patient in the emergency room patient is alert and awake communicating very well able to give a complete proper history. Physical Exam Vital Signs: Temp Pulse Resp BP Pulse Ox 97.9 F 73 16 142/97 H 100 07/27/18 13:00 07/27/18 13:00 07/27/18 13:00 07/27/18 13:00 07/27/18 13:00 Intake & Output 07/26/18 07/27/18 07/28/18 06:59 06:59 06:59 Intake Total 2022 1580 840 Balance 2022 1580 840 Weight 81.8 kg 79.4 kg General appearance: PRESENT: no acute distress Head exam: PRESENT: atraumatic Eye exam: PRESENT: PERRLA Mouth exam: PRESENT: moist Neck exam: ABSENT: carotid bruit, JVD, lymphadenopathy, thyromegaly Respiratory exam: PRESENT: clear to auscultation malini. ABSENT: rales, rhonchi, wheezes Cardiovascular exam: PRESENT: RRR. ABSENT: diastolic murmur, rubs, systolic murmur GI/Abdominal exam: PRESENT: normal bowel sounds, soft. ABSENT: distended, guarding, mass, organolmegaly, rebound, tenderness Neurological exam: PRESENT: alert, awake, oriented to person, oriented to place, oriented to time, oriented to situation, CN II-XII grossly intact. ABSENT: motor sensory deficit Psychiatric exam: PRESENT: appropriate affect, normal mood. ABSENT: homicidal ideation, suicidal ideation Results Laboratory Results: 07/27/18 04:34 07/27/18 04:34 07/27/18 07/27/18 04:34 04:34 WBC 7.9 RBC 3.52 L Hgb 12.2 L Hct 34.3 L MCV 98 H MCH 34.6 H MCHC 35.5 RDW 13.5 Plt Count 223 Seg Neutrophils % 70.0 Lymphocytes % 18.6 Monocytes % 9.4 Eosinophils % 1.6 Basophils % 0.4 Absolute Neutrophils 5.5 Absolute Lymphocytes 1.5 Absolute Monocytes 0.7 Absolute Eosinophils 0.1 Absolute Basophils 0.0 Sodium 136.6 L Potassium 3.4 L Chloride 98 Carbon Dioxide 31 H Anion Gap 8 BUN 9 Creatinine 0.90 Est GFR ( Amer) > 60 Est GFR (Non-Af Amer) > 60 Glucose 100 Calcium 9.1 Magnesium 1.7 Amylase 78 Lipase 329.1 H 07/24/18 07/24/18 07/24/18 08:30 15:14 21:17 Troponin I 0.072 0.067 0.058 07/25/18 03:14 Troponin I 0.063 Impressions: Abdomen Ultrasound 07/24/18 09:20 IMPRESSION: Pancreatic duct dilatation. No masses or inflammatory changes. Acute Abdomen Series 07/24/18 09:21 IMPRESSION: NO RADIOGRAPHIC EVIDENCE FOR ACUTE ABDOMINAL DISEASE. Abdomen/Pelvis CT 07/24/18 12:06 IMPRESSION: Acute on chronic pancreatitis. Qualifiers - * PATIENT BEING DISCHARGED WITH ANY OF THE FOLLOWING DIAGNOSIS: No VTE patient discharged on overlapping Therapy?: Yes
[2018-07-28] MEDS ORDERED: LISINOPRIL 10 MG TABLET PO SCH (10:00)
== END 2018-07-27 13:37 | disposition home or self-care (01) | DRG 440 ==
LOC: ER 07:53 → EH 13:59 → 4S 15:27
PROVIDERS: ADMIT Internal Medicine; ATTEND Internal Medicine
PROC: HZ2ZZZZ Detoxification Services for Substance Abuse Treatment (ICD-10-PCS; principal; 2018-07-24)
PROC: 3E0234Z Introduction of Serum, Toxoid and Vaccine into Muscle, Percutaneous Approach (ICD-10-PCS; 2018-07-27)
PROC: 3E02340 Introduction of Influenza Vaccine into Muscle, Percutaneous Approach (ICD-10-PCS; 2018-07-27)
DX: K85.20 Alcohol induced acute pancreatitis without necrosis or infection (principal); K86.0 Alcohol-induced chronic pancreatitis; I10 Essential (primary) hypertension; F10.10 Alcohol abuse, uncomplicated; Y90.0 Blood alcohol level of less than 20 mg/100 ml; E78.00 Pure hypercholesterolemia, unspecified; K21.9 Gastro-esophageal reflux disease without esophagitis; F17.210 Nicotine dependence, cigarettes, uncomplicated; Z23 Encounter for immunization; Z79.899 Other long term (current) drug therapy; Z82.49 Family history of ischemic heart disease and other diseases of the circulatory system
CPT/HCPCS: 36415; 71045; 74022; 74177; 76705; 80048; 80053; 80061; 80307; 81001; 82150; 83690; 83735; 84484; 85025; 85610; 90471; 90686; 93005; 93010; 96361; 96374; 96375; 96376; 99285; G0008; J0360; J1170; J1650; J2270; J2405; J3411; J3475; J3480; J3490; J7030; S0164

== ENCOUNTER → 2018-08-21 | Outpatient (CLI) | payer OTHER ==
[2018-08-21 11:25] LABS: ALANINE AMINOTRANSFERASE 17 U/L (21-72); ALBUMIN 3.8 g/dL (3.5-5.0); ALKALINE PHOSPHATASE 70 U/L (38-126); ANION GAP 8 (5-19); ASPARTATE AMINO TRANSFERASE 19 U/L (17-59); BILIRUBIN,DIRECT 0.1 mg/dL (0.0-0.4); BILIRUBIN,TOTAL 0.5 mg/dL (0.2-1.3); BLOOD UREA NITROGEN 15 mg/dL (7-20); CALCIUM 9.5 mg/dL (8.4-10.2); CARBON DIOXIDE 26 mmol/L (22-30); CHLORIDE 106 mmol/L (98-107); GLUCOSE 157 mg/dL (75-110); PHOSPHORUS 3.3 mg/dL (2.5-4.5); POTASSIUM 4.7 mmol/L (3.6-5.0); SODIUM 139.9 mmol/L (137-145); TOTAL PROTEIN 6.7 g/dL (6.3-8.2)
[2018-08-21 12:30] LABS: FOLATE 5.58 ng/mL (>2.76)
== END ==
LOC: CCC 09:48
DX: E61.2 Magnesium deficiency (principal); I10 Essential (primary) hypertension; D75.89 Other specified diseases of blood and blood-forming organs
CPT/HCPCS: 36415; 80048; 80076; 82607; 82746; 83036; 83735; 84100

== ENCOUNTER 2018-09-17 13:56 | Inpatient (IN) | payer SELFPAY ==
--- NOTE | 2018-09-17 15:20 | ER Document Report ---
ED Medical Screen (RME) - General Chief Complaint: Chest Pain Stated Complaint: BACK PAIN Time Seen by Provider: 09/17/18 15:15 Primary Care Provider: [facility] [Primary Care Provider] - Follow up as needed Mode of Arrival: Ambulatory Information source: Patient, [facility] Records Notes: 53-year-old male with hypertension, hyperlipidemia, GERD, alcoholism, history of pancreatitis presents with epigastric abdominal pain that started 1 day prior to arrival. Patient describes the pain as sharp, constant with radiation to his back. He has had multiple episodes of nausea, vomiting. He describes his emesis as green and black. He denies any black or bloody stools. He does admit to recent drinking 3 days ago. I have greeted and performed a rapid initial assessment of this patient. A comprehensive ED assessment and evaluation of the patient, analysis of test results and completion of medical decision making process we will be contacted by additional ED providers. PHYSICAL EXAMINATION: Vital signs reviewed GENERAL: Well-appearing, well-nourished and in no acute distress. LUNGS: No respiratory distress Musculoskeletal: Normal range of motion NEUROLOGICAL: Normal speech, normal gait. PSYCH: Normal mood, normal affect. SKIN: Warm, Dry, normal turgor, no rashes or lesions noted. TRAVEL OUTSIDE OF THE [place] IN LAST 30 DAYS: No - HPI Onset: Yesterday Onset/Duration: Sudden Quality of pain: Sharp, Stabbing Severity: Moderate Associated Symptoms: Abdominal pain, Nausea, Vomiting Exacerbated by: Food Relieved by: Denies Similar symptoms previously: Yes Recently seen / treated by doctor: No - Related Data Smoking: Cigarettes Frequency of alcohol use: Heavy Drug Abuse: Marijuana Allergies/Adverse Reactions: No Known Allergies Allergy (Verified 09/17/18 14:01) Past Medical History - Social History Chew tobacco use (# tins/day): No Frequency of alcohol use: Heavy Drug Abuse: Marijuana - Past Medical History Cardiac Medical History: Reports: Hx Hypercholesterolemia, Hx Hypertension Renal/ Medical History: Denies: Hx Peritoneal Dialysis GI Medical History: Reports: Hx Gastroesophageal Reflux Disease, Hx Ulcer Psychiatric Medical History: Past Surgical History: Reports: Hx Abdominal Surgery - hernia repair, Hx Appendectomy, Hx Herniorrhaphy - Immunizations Immunizations up to date: Yes Hx Diphtheria, Pertussis, Tetanus Vaccination: Yes History of Influenza Vaccine for 04/2017 - 09/2017 Season: No Physical Exam - Vital signs Vitals: Temp Pulse Resp BP Pulse Ox 99.1 F 85 16 133/96 H 98 09/17/18 14:15 09/17/18 14:15 09/17/18 14:15 09/17/18 14:15 09/17/18 14:15 Course - Vital Signs Vital signs: Temp Pulse Resp BP Pulse Ox 99.1 F 85 16 133/96 H 98 09/17/18 14:15 09/17/18 14:15 09/17/18 14:15 09/17/18 14:15 09/17/18 14:15 Doctor's Discharge - Discharge Referrals: [facility] [Primary Care Provider] - Follow up as needed
[2018-09-17] MEDS ORDERED: NORMAL SALINE 1000 ML 1,000 ML IV ONE (15:22)
[2018-09-17] MEDS ORDERED: ONDANSETRON HCL INJ/PF 4 MG/2 ML SDV IV ONE ×2 (15:23→19:28)
[2018-09-17] MEDS ORDERED: PANTOPRAZOLE SODIUM 40 MG VIAL IV ONE (15:23)
[2018-09-17 16:28] LABS: ABSOLUTE BASOPHILS # (AUTO) 0.1 10^3/uL (0.0-0.2); ABSOLUTE LYMPHOCYTES (AUTO) 1.1 10^3/uL (0.5-4.7); ABSOLUTE MONOCYTES (AUTO) 0.8 10^3/uL (0.1-1.4); ABSOLUTE NEUT (AUTO) 13.1 10^3/uL (1.7-8.2); BASOPHILS % (AUTO) 0.4 % (0-2); HEMATOCRIT 47.3 % (37.9-51.0); HEMOGLOBIN 16.9 g/dL (13.5-17.0); LYMPHOCYTES % (AUTO) 7.4 % (13-45); MEAN CORPUSCULAR HEMOGLOBIN 34.5 pg (27.0-33.4); MEAN CORPUSCULAR HGB CONC 35.6 g/dL (32.0-36.0); MEAN CORPUSCULAR VOLUME 97 fl (80-97); MONOCYTES % (AUTO) 5.5 % (3-13); PLATELET COUNT 309 10^3/uL (150-450); RED BLOOD COUNT 4.89 10^6/uL (4.35-5.55); RED CELL DISTRIBUTION WIDTH 14.3 % (11.5-14.0); SEGMENTED NEUTROPHILS % (AUTO) 86.7 % (42-78); TOTAL CELLS COUNTED % (AUTO) 100 %; WHITE BLOOD COUNT 15.2 10^3/uL (4.0-10.5)
[2018-09-17 16:31] LABS: APPEARANCE,URINE SLIGHTLY-CLOUDY; BILIRUBIN,URINE NEGATIVE (NEGATIVE); COLOR,URINE AMBER; GLUCOSE, URINE NEGATIVE (NEGATIVE); KETONES,URINE 20 mg/dL (NEGATIVE); LEUKOCYTE ESTERASE,URINE NEGATIVE (NEGATIVE); NITRITE,URINE NEGATIVE (NEGATIVE); PROTEIN,URINE >=500 mg/dL (NEGATIVE); URINE SPECIFIC GRAVITY 1.029
[2018-09-17 16:50] LABS: ALANINE AMINOTRANSFERASE 6 U/L (21-72); ALBUMIN 5.1 g/dL (3.5-5.0); ALKALINE PHOSPHATASE 117 U/L (38-126); ANION GAP 14 (5-19); ASPARTATE AMINO TRANSFERASE 28 U/L (17-59); BILIRUBIN,DIRECT 0.4 mg/dL (0.0-0.4); BILIRUBIN,TOTAL 1.1 mg/dL (0.2-1.3); BLOOD UREA NITROGEN 15 mg/dL (7-20); CALCIUM 10.5 mg/dL (8.4-10.2); CARBON DIOXIDE 32 mmol/L (22-30); CHLORIDE 95 mmol/L (98-107); GLUCOSE 131 mg/dL (75-110); LIPASE 1875.8 U/L (23-300); POTASSIUM 3.7 mmol/L (3.6-5.0); SODIUM 140.7 mmol/L (137-145); TOTAL PROTEIN 8.8 g/dL (6.3-8.2); URINE AMPHETAMINES SCREEN NEGATIVE; URINE BARBITURATES SCREEN NEGATIVE; URINE BENZODIAZEPINES SCREEN NEGATIVE; URINE COCAINE SCREEN UNCONFIRMED POSITIVE; URINE MARIJUANA (THC) SCREEN UNCONFIRMED POSITIVE; URINE METHADONE SCREEN NEGATIVE; URINE PHENCYCLIDINE SCREEN NEGATIVE
[2018-09-17] MEDS ORDERED: MORPHINE SULFATE 10 MG/ML INJ IV ONE (17:00)
--- NOTE | 2018-09-17 18:09 | ER Document Report ---
ED Cardiac - General Chief Complaint: Chest Pain Stated Complaint: BACK PAIN Time Seen by Provider: 09/17/18 18:09 Primary Care Provider: [facility] [Primary Care Provider] - Follow up as needed Mode of Arrival: Ambulatory Information source: Patient Notes: HISTORY OF PRESENT ILLNESS: Patient is a 53-year-old male with a past medical history of hypertension, chronic alcohol abuse, and crack cocaine abuse who presents with chest pain as well as abdominal pain that began 3 days ago. Patient reports drinking "about a shot of liquor every day," reports having several drinks over the weekend when the symptoms started. Location: Left chest, epigastric Onset: Gradual 3 days ago Alleviation: None Provocation: Eating Quality: Burning, tightness Radiation: Around to the back Severity: Moderate Timing: Constant History of CAD: None Associated symptoms: Nausea but no vomiting, denies shortness of breath or cough, no fevers or chills REVIEW OF SYSTEMS: CONSTITUTIONAL : Denies fever or chills, no sweats. Denies recent illness. EENT: Denies eye, ear, throat, or mouth pain or symptoms. Denies nasal or sinus congestion. CARDIOVASCULAR: Positive for chest pain. Denies swelling of the legs. RESPIRATORY: Denies cough, cold, or chest congestion. Denies shortness of breath or difficulty breathing. Denies wheezing. GASTROINTESTINAL: Positive for abdominal pain. Positive for nausea but denies vomiting or diarrhea. Denies constipation. GENITOURINARY: Denies difficulty urinating, painful urination, burning, frequency, or blood in urine. MUSCULOSKELETAL: Denies neck or back pain or joint pain or swelling. SKIN: Denies rash or skin lesions. HEMATOLOGIC : Denies easy bruising or bleeding. LYMPHATIC: Denies swollen, enlarged glands. NEUROLOGICAL: Denies altered mental status or loss of consciousness. Denies headache. Denies weakness or paralysis or loss of use of either side. Denies problems with gait or speech. Denies sensory or motor loss. PSYCHIATRIC: Denies anxiety or stress or depression. All other systems reviewed and negative. PHYSICAL EXAMINATION: GENERAL: Well-appearing, well-nourished and in no acute distress. HEAD: Atraumatic, normocephalic. No scalp deformity, depression, or crepitance. EYES: Pupils are 3 mm and equal/round/reactive to light, extraocular movements intact, sclera anicteric, conjunctiva are normal. ENT: Nares patent bilaterally, oropharynx. Moist mucous membranes. No tonsil hypertrophy. NECK: Normal range of motion, supple without lymphadenopathy. LUNGS: Breath sounds present, equal, and clear to auscultation bilaterally. No wheezes, rales, or rhonchi. HEART: Regular rate and rhythm without murmurs, rubs, or gallops. 2+ peripheral pulses. Normal capillary refill. ABDOMEN: Soft and nondistended, mild to moderate epigastric tenderness without peritoneal signs. Normoactive bowel sounds. No guarding, no rebound. No masses appreciated. BACK: Normal contour, no midline tenderness. Rectal exam deferred. GENITAL/PELVIC: Deferred. EXTREMITIES: Normal range of motion, no pitting or edema. No cyanosis. NEUROLOGICAL: No focal neurological deficits. Moves all extremities s pontaneously and on command. PSYCH: Normal mood, normal affect. No suicidal thoughts/ideations. No homocidal thoughts/ideations. No hallucinations. SKIN: Warm, dry, normal turgor, no rashes or lesions noted. ASSESSMENT AND PLAN: This patient is a 53-year-old male who presents with chest pain and abdominal pain in the setting of being a chronic alcoholic as well as smoking crack cocaine. He denies known history of cardiac workup in the past. 1. Will obtain labs, cardiac enzymes, urine with drug screen, and admit to the hospital. 2. Will give aspirin. TRAVEL OUTSIDE OF THE [place] IN LAST 30 DAYS: No - Related Data Allergies/Adverse Reactions: No Known Allergies Allergy (Verified 09/17/18 14:01) Past Medical History - General Information source: Patient, [facility] Records - Social History Smoking Status: Current Every Day Smoker Chew tobacco use (# tins/day): No Frequency of alcohol use: Heavy Drug Abuse: Cocaine, Marijuana Lives with: Family Family History: Hypertension Patient has suicidal ideation: No Patient has homicidal ideation: No - Past Medical History Cardiac Medical History: Reports: Hx Hypercholesterolemia, Hx Hypertension Pulmonary Medical History: Reports: None EENT Medical History: Reports: None Neurological Medical History: Reports: None Endocrine Medical History: Reports: None Renal/ Medical History: Reports: None. Denies: Hx Peritoneal Dialysis Malignancy Medical History: Reports None GI Medical History: Reports: Hx Gastroesophageal Reflux Disease, Hx Ulcer Musculoskeletal Medical History: Reports None Skin Medical History: Reports None Psychiatric Medical History: Reports: None Traumatic Medical History: Reports: None Infectious Medical History: Reports: None Past Surgical History: Reports: Hx Abdominal Surgery - hernia repair, Hx Jonh endectomy, Hx Herniorrhaphy - Immunizations Immunizations up to date: Yes Hx Diphtheria, Pertussis, Tetanus Vaccination: Yes History of Influenza Vaccine for 04/2017 - 09/2017 Season: No Physical Exam - Vital signs Vitals: Temp Pulse Resp BP Pulse Ox 99.1 F 85 16 133/96 H 98 09/17/18 14:15 09/17/18 14:15 09/17/18 14:15 09/17/18 14:15 09/17/18 14:15 Course - Re-evaluation Re-evalutation: 09/17/18 19:20 Cardiac enzymes are mildly elevated but below the cutoff for an acute AL, there are no EKG changes. Lab work overall is unremarkable other than mildly elevated white blood cell count. Urine drug screen is positive for both marijuana and cocaine. Patient will be admitted to the hospital. - Vital Signs Vital signs: Temp Pulse Resp BP Pulse Ox 99.1 F 85 19 134/94 H 97 09/17/18 14:15 09/17/18 14:15 09/17/18 18:01 09/17/18 18:01 09/17/18 18:01 - Laboratory Result Diagrams: 09/17/18 15:52 09/17/18 15:52 Laboratory results interpreted by me: 09/17/18 09/17/18 09/17/18 15:52 15:52 15:52 WBC 15.2 H MCH 34.5 H RDW 14.3 H Seg Neutrophils % 86.7 H Lymphocytes % 7.4 L Absolute Neutrophils 13.1 H Chloride 95 L Carbon Dioxide 32 H Glucose 131 H Calcium 10.5 H ALT 6 L Total Protein 8.8 H Albumin 5.1 H Lipase 1875.8 H Urine Protein >=500 H Urine Ketones 20 H Urine Urobilinogen 2.0 H - Diagnostic Test Radiology reviewed: Image reviewed, Reports reviewed - EKG Interpretation by Me EKG shows normal: Sinus rhythm Rate: Normal Rhythm: NSR [place]/QRS: No: Right axis deviation, Left axis deviation, RBBB, LBBB, IVCD, LAHB/LAFB, LPHB/LPFB, Bifasicular block Voltage: No: Increased voltage, Consistant with LVH, Decreased voltage, Throughout, Limb leads P Waves: No: KIMI, LAE, Absent, AV Dissociation, Other Heart block present: No: 1st Degree, Mobitz 1, Mobitz 2, CHB (3rd degree block) When compared to previous EKG there are: No significant change - Consults Dr. Saha Time consulted: 20:21 - will admit Consulted provider: will come to ER Discharge - Discharge Clinical Impression: Acute on chronic pancreatitis, Polysubstance abuse Chest pain Qualifiers: Chest pain type: unspecified Qualified Code(s): R07.9 - Chest pain, unspecified Condition: Stable Disposition: ADMITTED INPATIENT Admitting Provider: Hospitalist Unit Admitted: Medical Floor [facility]: [facility] [Primary [facility]] - Follow up as needed
--- NOTE | 2018-09-17 18:41 | EKG REPORT ---
SEVERITY:- BORDERLINE ECG - SINUS RHYTHM PROBABLE LEFT ATRIAL ABNORMALITY : Confirmed by: Bandar Nunez MD 17-Sep-2018 18:40:32
[2018-09-17] MEDS ORDERED: ASPIRIN 325 MG TABLET PO ONE (18:57)
[2018-09-17] MEDS ORDERED: ONDANSETRON HCL INJ/PF 4 MG/2 ML SDV IV PRN (21:03)
[2018-09-17] MEDS ORDERED: MAGNESIUM HYDROXIDE SUSP 30 ML UDCUP PO PRN (21:03)
[2018-09-17] MEDS ORDERED: MAG HYDROX/AL HYDROX/SIMETH SUSP 30 ML UDCUP PO PRN (21:03)
[2018-09-17] MEDS ORDERED: ONDANSETRON 4 MG TAB.RAPDIS PO PRN (21:03)
[2018-09-17] MEDS ORDERED: ACETAMINOPHEN 650 MG SUPP.RECT PR PRN (21:10)
[2018-09-17] MEDS ORDERED: ALBUTEROL SULFATE 0.083% NEB 2.5 MG/3 ML AMPUL NEB PRN (21:10)
[2018-09-17] MEDS ORDERED: LABETALOL HCL INJ 20 MG/4 ML DISP.SYRIN IV PRN (21:10)
[2018-09-17] MEDS ORDERED: NICOTINE 21 MG/24 HR PATCH.TD24 TD PRN (21:10)
[2018-09-17] MEDS ORDERED: NITROGLYCERIN 0.4 MG/TAB 25 TAB/BOTTLE SL PRN (21:10)
[2018-09-17] MEDS ORDERED: HYDRALAZINE HCL INJ/PF 20 MG/1 ML SDV IV PRN (21:10)
[2018-09-17] MEDS ORDERED: ACETAMINOPHEN 325 MG TABLET PO PRN (21:10)
[2018-09-17 22:19] LABS: CREATINE KINASE MB 0.6 ng/mL (<4.55); TROPONIN I 0.074 ng/mL
[2018-09-17] MEDS: NALBUPHINE HCL INJ 10 MG/1 ML AMPULE IV PRN (22:50)
[2018-09-17] MEDS: METOCLOPRAMIDE HCL INJ/PF 10 MG/2 ML SDV IV SCH (22:50)
[2018-09-17] MEDS: FAMOTIDINE INJ/PF 20 MG/2 ML SDV IV SCH (22:50)
[2018-09-17] MEDS: SUCRALFATE SUSP 1 GM/10 ML UDCUP PO SCH (22:51)
[2018-09-17] MEDS: HEPARIN SOD (PORCINE) 5,000 UNIT/ML 1 ML SYRINGE SUBCUT SCH (22:52)
[2018-09-18] MEDS: LEVALBUTEROL HCL NEB 1.25 MG/3 ML AMPUL NEB SCH ×3 (00:16→15:52)
[2018-09-18] MEDS: IPRATROPIUM BROMIDE 0.02% NEB 0.5 MG/2.5 ML AMPUL NEB SCH ×3 (00:16→15:52)
--- NOTE | 2018-09-18 01:55 | PDOC H&P ---
History of Present Illness Admission Date/PCP: 09/17/18 20:36 [facility] Patient complains of: Abdominal pain History of Present Illness: BEKAH HEIN is a 53 year old male who presented to the emergency room with a 4- day history of abdominal pain. Patient admits that he was at a [employer] last Saturday night and drank 5 shots of liquor. He has a history of chronically recurrent alcoholic pancreatitis and on Saturday he developed nausea and vomiting followed shortly thereafter by moderately intense abdominal pain. He has continued to have nausea and vomiting since the onset of symptoms and has been unable to eat due to the nausea and vomiting associated with any oral intake. His abdominal pain has also continued and he describes it now, as a n onradiating, constant, gradually worsening, severely intense gripping pressure sensation in his upper abdomen with pain being present in the area between the nipples from the lower chest down to his belly button. He states that the pain is been so intense that the only relief he is gotten from it has been by smoking marijuana and smoking crack cocaine. He has not identified any other aggravating or ameliorating factors for his pain. He admits several prior similar episodes due to recurrent alcoholic pancreatitis. In the emergency room he was found to have an elevated lipase approximately 1800 and he was noted to have persistent nausea and vomiting requiring IV antiemetics. With these fi ndings patient was admitted for further evaluation and treatment. Past Medical History Cardiac Medical History: Reports: Hyperlipidema, Hypertension Denies: Atrial Fibrillation, Congestive Heart Failure, Coronary Artery Disease Pulmonary Medical History: Denies: Asthma, Chronic Obstructive Pulmonary Disease (COPD) EENT Medical History: Reports: None Neurological Medical History: Denies: Hemorrhagic CVA, Ischemic CVA, Seizures Endocrine Medical History: Denies: Diabetes Mellitus Type 1, Diabetes Mellitus Type 2, Hyperthyroidism, Hypothyroidism Renal/ Medical History: Denies: Chronic Kidney Disease, Nephrolithiasis Malignancy Medical History: Reports: None GI Medical History: Reports: Gastroesophageal Reflux Disease, Other - Pancreatitis Denies: Cirrhosis, Hepatitis Musculoskeltal Medical History: Denies: Arthritis, Gout Skin Medical History: Denies: Eczema, Psoriasis Psychiatric Medical History: Reports: Alcohol Dependency, Substance Abuse, Tobacco Dependency Traumatic Medical History: Reports: None Hematology: Denies: Anemia, Bleeding Tendencies Infectious Medical History: Reports: None Past Surgical History Past Surgical History: Reports: Appendectomy, Herniorrhaphy Social History Information Source: Patient Lives with: Family Smoking Status: Current Every Day Smoker Frequency of Alcohol Use: Heavy - Drinks 1 or 2 shots of hard liquor daily Hx Recreational Drug Use: Yes Drugs: Cocaine - Crack cocaine, Marijuana Hx Prescription Drug Abuse: No - Advance Directive Resuscitation Status: Full Code Surrogate healthcare decision maker:: Taniya Babin Family History Family History: Hypertension, Malignancy. denies: CAD, DM Parental Family History Reviewed: Yes Children Family History Reviewed: No Sibling(s) Family History Reviewed.: Yes Medication/Allergy Home Medications: Hydrochlorothiazide [Hydrodiuril 25 mg Tablet] 25 mg PO DAILY 09/17/18 Lisinopril [Prinivil 10 mg Tablet] 20 mg PO DAILY 09/17/18 Promethazine HCl [Phenergan 25 mg Tablet] 25 mg PO Q4HP PRN 09/17/18 Allergies/Adverse Reactions: No Known Allergies Allergy (Verified 09/17/18 14:01) Review of Systems Constitutional: PRESENT: as per HPI, anorexia. ABSENT: chills, fever(s) Eyes: ABSENT: visual disturbances, other - Eye pain Ears: ABSENT: hearing changes, other - Ear pain Nose, Mouth, and Throat: ABSENT: mouth pain, sore throat Cardiovascular: PRESENT: as per HPI, chest pain. ABSENT: dyspnea on exertion, edema, orthropnea, palpitations Respiratory: ABSENT: cough, dyspnea Gastrointestinal: PRESENT: as per HPI, abdominal pain, nausea, vomiting. ABSENT: constipation, diarrhea Genitourinary: ABSENT: dysuria, hematuria Musculoskeletal: ABSENT: deformity, joint swelling Integumentary: ABSENT: pruritus, rash Neurological: ABSENT: confusion, convulsions, memory loss Psychiatric: ABSENT: anxiety, depression Endocrine: ABSENT: cold intolerance, heat intolerance Hematologic/Lymphatic: ABSENT: easy bleeding, easy bruising Physical Exam Vital Signs: Temp Pulse Resp BP Pulse Ox 99.1 F 85 22 H 139/95 H 96 09/17/18 14:15 09/17/18 14:15 09/17/18 20:01 09/17/18 20:01 09/17/18 20:01 Intake & Output 09/15/18 09/16/18 09/17/18 23:59 23:59 23:59 Intake Total 1999 Balance 1999 Weight 76.9 kg General appearance: PRESENT: cooperative, mild distress - Secondary to abdominal pain Head exam: PRESENT: atraumatic, normocephalic Eye exam: PRESENT: conjunctiva pink, EOMI. ABSENT: scleral icterus Ear exam: PRESENT: normal external ear exam. ABSENT: bleeding, drainage Mouth exam: PRESENT: dry mucosa, neck supple Neck exam: ABSENT: thyromegaly, tracheal deviation Respiratory exam: PRESENT: clear to auscultation malini, symmetrical, unlabored Cardiovascular exam: PRESENT: RRR. ABSENT: clicks, gallop, rubs Pulses: PRESENT: normal radial pulses, normal dorsalis pedis pul Vascular exam: PRESENT: normal capillary refill. ABSENT: pallor GI/Abdominal exam: PRESENT: normal bowel sounds, soft, tenderness - Marked epigastric tenderness on palpation reproducing pain of chief complaint. ABSENT: rebound Rectal exam: PRESENT: deferred Extremities exam: ABSENT: joint swelling, pedal edema Musculoskeletal exam: PRESENT: full ROM, normal inspection Neurological exam: PRESENT: alert, awake, oriented to person, oriented to place, oriented to time, oriented to situation, CN II-XII grossly intact. ABSENT: motor sensory deficit Psychiatric exam: PRESENT: appropriate affect, normal mood Skin exam: PRESENT: dry, intact, warm. ABSENT: jaundice, rash, urticaria Results Laboratory Results: 09/17/18 15:52 09/17/18 15:52 09/17/18 09/17/18 09/17/18 15:52 15:52 15:52 WBC 15.2 H RBC 4.89 Hgb 16.9 Hct 47.3 MCV 97 MCH 34.5 H MCHC 35.6 RDW 14.3 H Plt Count 309 Seg Neutrophils % 86.7 H Lymphocytes % 7.4 L Monocytes % 5.5 Eosinophils % 0.0 Basophils % 0.4 Absolute Neutrophils 13.1 H Absolute Lymphocytes 1.1 Absolute Monocytes 0.8 Absolute Eosinophils 0.0 Absolute Basophils 0.1 Sodium 140.7 Potassium 3.7 Chloride 95 L Carbon Dioxide 32 H Anion Gap 14 BUN 15 Creatinine 1.21 Est GFR ( Amer) > 60 Est GFR (Non-Af Amer) > 60 Glucose 131 H Calcium 10.5 H Total Bilirubin 1.1 AST 28 ALT 6 L Alkaline Phosphatase 117 Total Protein 8.8 H Albumin 5.1 H Lipase 1875.8 H Urine Color GENEVIEVE Urine Appearance SLIGHTLY-CLOUDY Urine pH 5.0 Ur Specific [place] 1.029 Urine Protein >=500 H Urine Glucose (UA) NEGATIVE Urine Ketones 20 H Urine Blood NEGATIVE Urine Nitrite NEGATIVE Ur Leukocyte Esterase NEGATIVE Urine WBC (Auto) 1 Urine RBC (Auto) 2 09/17/18 15:52 Troponin I 0.065 Assessment & Plan - Diagnosis (1) Acute on chronic pancreatitis Is this a current diagnosis for this admission?: Yes Plan: Patient will receive IV fluids and IV antiemetics as well as Nubain 10 mg IV every 3 hours as needed for abdominal pain. He will be treated with early feeding utilizing a low-fat diet and will receive Reglan 10 mg IV 1 hour before meals and at bedtime as well as famotidine 10 mg IV 1 hour before meals and at bedtime and sucralfate 1 g p.o. 1 hour before meals and at bedtime with Pancreaze 10 1 tablet p.o. with the first 1 or 2 bites of each meal. Patient's pancreatic enzymes will be followed on a regular basis daily. (2) Hypertension Qualifiers: Hypertension type: essential hypertension Qualified Code(s): I10 - Essential (primary) hypertension Is this a current diagnosis for this admission?: Yes Plan: Patient will be treated for hypertension utilizing an appropriate antihypertensive regimen. Initially he will be given IV antihypertensive agents with the use of labetalol and/or hydralazine to control his blood pressure. Further intervention will be engaged if required. Once patient is able to tolerate oral medications he will be started on oral antihypertensive agent at the discretion of his hospitalist. (3) Tobacco use disorder, severe, dependence Is this a current diagnosis for this admission?: Yes Plan: Patient has been advised to discontinue use of tobacco products as well as to discontinue the use of alcohol products. Smoking cessation counseling was given briefly and a nicotine patch is available for the patient's use. (4) Polysubstance abuse Is this a current diagnosis for this admission?: Yes Plan: Patient was advised strongly against utilizing tobacco, cocaine and alcohol. Short discussion of patient's health risks associated with such drug use was undertaken and the patient seemed to understand. Despite his understanding and acknowledgment of the potential hazards he did express little hope that he would change his ways. - Time Time Spent: 30 to 50 Minutes Critical Time spent with patient: Less than 15 minutes Smoking Cessation Education: 3 to 10 minutes Medications reviewed and adjusted accordingly: Yes Anticipated discharge: Home - Inpatient Certification Based on my medical assessment, after consideration of the patient's comorbidities, presenting symptoms, or acuity I expect that the services needed warrant INPATIENT care.: Yes I certify that my determination is in accordance with my understanding of Medicare's requirements for reasonable and necessary INPATIENT services [42 CFR 412.3e].: Yes Medical Necessity: Need Close Monitoring Due to Risk of Patient Decompensation, Need For IV Fluids, Need For Continuous Telemetry Monitoring
[2018-09-18 05:03] LABS: ABSOLUTE BASOPHILS # (AUTO) 0.1 10^3/uL (0.0-0.2); ABSOLUTE LYMPHOCYTES (AUTO) 1.9 10^3/uL (0.5-4.7); ABSOLUTE MONOCYTES (AUTO) 1.2 10^3/uL (0.1-1.4); ABSOLUTE NEUT (AUTO) 11.1 10^3/uL (1.7-8.2); BASOPHILS % (AUTO) 0.4 % (0-2); EOSINOPHILS % (AUTO) 0.1 % (0-6); HEMATOCRIT 41.5 % (37.9-51.0); LYMPHOCYTES % (AUTO) 13.4 % (13-45); MEAN CORPUSCULAR HEMOGLOBIN 34.1 pg (27.0-33.4); MEAN CORPUSCULAR HGB CONC 34.7 g/dL (32.0-36.0); MEAN CORPUSCULAR VOLUME 98 fl (80-97); MONOCYTES % (AUTO) 8.1 % (3-13); PLATELET COUNT 242 10^3/uL (150-450); RED BLOOD COUNT 4.23 10^6/uL (4.35-5.55); RED CELL DISTRIBUTION WIDTH 13.9 % (11.5-14.0); TOTAL CELLS COUNTED % (AUTO) 100 %; WHITE BLOOD COUNT 14.2 10^3/uL (4.0-10.5)
[2018-09-18 05:36] LABS: HEMOGLOBIN 14.4 g/dL (13.5-17.0)
[2018-09-18 05:54] LABS: ALANINE AMINOTRANSFERASE 16 U/L (21-72); ALKALINE PHOSPHATASE 83 U/L (38-126); ANION GAP 11 (5-19); ASPARTATE AMINO TRANSFERASE 22 U/L (17-59); BILIRUBIN,DIRECT 0.2 mg/dL (0.0-0.4); BILIRUBIN,TOTAL 0.9 mg/dL (0.2-1.3); BLOOD UREA NITROGEN 16 mg/dL (7-20); CALCIUM 9.1 mg/dL (8.4-10.2); CARBON DIOXIDE 29 mmol/L (22-30); CHLORIDE 98 mmol/L (98-107); CREATINE KINASE 167 U/L (55-170); GLUCOSE 104 mg/dL (75-110); POTASSIUM 3.8 mmol/L (3.6-5.0)
[2018-09-18 06:06] LABS: CREATINE KINASE MB 0.46 ng/mL (<4.55); TROPONIN I 0.072 ng/mL
[2018-09-18 06:17] LABS: FREE T3 3.93 pg/mL (2.77-5.27); FREE T4 (FREE THYROXINE) 1.05 ng/dL (0.78-2.19)
[2018-09-18 06:25] LABS: THYROID STIMULATING HORMONE 1.89 uIU/mL (0.47-4.68)
[2018-09-18] MEDS: HEPARIN SOD (PORCINE) 5,000 UNIT/ML 1 ML SYRINGE SUBCUT SCH ×3 (07:11→21:41)
--- NOTE | 2018-09-18 07:41 | EKG REPORT ---
SEVERITY:- BORDERLINE ECG - SINUS RHYTHM PROBABLE LEFT ATRIAL ABNORMALITY : Confirmed by: Bandar Nunez MD 18-Sep-2018 07:40:34
[2018-09-18] MEDS: FAMOTIDINE INJ/PF 20 MG/2 ML SDV IV SCH ×4 (07:51→21:41)
[2018-09-18] MEDS: NALBUPHINE HCL INJ 10 MG/1 ML AMPULE IV PRN ×3 (07:51→20:32)
[2018-09-18] MEDS: METOCLOPRAMIDE HCL INJ/PF 10 MG/2 ML SDV IV SCH ×4 (07:51→21:42)
[2018-09-18 08:38] LABS: APPEARANCE,URINE SLIGHTLY-CLOUDY; BILIRUBIN,URINE NEGATIVE (NEGATIVE); COLOR,URINE AMBER; GLUCOSE, URINE NEGATIVE (NEGATIVE); KETONES,URINE TRACE mg/dL (NEGATIVE); LEUKOCYTE ESTERASE,URINE NEGATIVE (NEGATIVE); NITRITE,URINE NEGATIVE (NEGATIVE); PROTEIN,URINE 100 mg/dL (NEGATIVE); UROBILINOGEN,URINE NEGATIVE mg/dL (<2.0)
[2018-09-18 08:52] LABS: URINE AMPHETAMINES SCREEN NEGATIVE; URINE BARBITURATES SCREEN NEGATIVE; URINE BENZODIAZEPINES SCREEN NEGATIVE; URINE METHADONE SCREEN NEGATIVE; URINE PHENCYCLIDINE SCREEN NEGATIVE
--- NOTE | 2018-09-18 09:31 | PDOC PROGRESS REPORT ---
Subjective Progress Note for:: 09/18/18 Subjective:: 53-year-old male admitted with acute pancreatitis lipase level is 1872 last night. No acute events since admission. Patient is afebrile. Able to tolerate the low-fat diet. Portably in the bed communicating well. Denies any nausea or vomitings but is still complaining of pain with pain medications as per the patient pain is well controlled. Reason For Visit: ACUTE ALCOHOLIC PANCREATITIS Physical Exam Vital Signs: Temp Pulse Resp BP Pulse Ox 98.4 F 79 20 129/79 H 97 09/18/18 08:08 09/18/18 08:08 09/18/18 08:08 09/18/18 08:08 09/18/18 08:08 Intake & Output 09/17/18 09/18/18 09/19/18 06:59 06:59 06:59 Intake Total 1999 Balance 1999 Weight 78.2 kg General appearance: PRESENT: no acute distress Head exam: PRESENT: atraumatic Eye exam: PRESENT: PERRLA Mouth exam: PRESENT: moist, tongue midline Neck exam: ABSENT: carotid bruit, JVD, lymphadenopathy, thyromegaly Respiratory exam: PRESENT: clear to auscultation malini. ABSENT: rales, rhonchi, wheezes Cardiovascular exam: PRESENT: RRR. ABSENT: diastolic murmur, rubs, systolic murmur GI/Abdominal exam: PRESENT: normal bowel sounds, soft, tenderness, other - Mild epigastric tenderness on palpation present.. ABSENT: distended, guarding, mass, organolmegaly, rebound Extremities exam: PRESENT: full ROM. ABSENT: calf tenderness, clubbing, pedal edema Neurological exam: PRESENT: alert, awake, oriented to person, oriented to place, oriented to time, oriented to situation, CN II-XII grossly intact. ABSENT: motor sensory deficit Psychiatric exam: PRESENT: appropriate affect, normal mood. ABSENT: homicidal ideation, suicidal ideation Results Laboratory Results: 09/18/18 04:18 09/18/18 05:26 09/17/18 09/17/18 09/17/18 15:52 15:52 15:52 WBC 15.2 H RBC 4.89 Hgb 16.9 Hct 47.3 MCV 97 MCH 34.5 H MCHC 35.6 RDW 14.3 H Plt Count 309 Seg Neutrophils % 86.7 H Lymphocytes % 7.4 L Monocytes % 5.5 Eosinophils % 0.0 Basophils % 0.4 Absolute Neutrophils 13.1 H Absolute Lymphocytes 1.1 Absolute Monocytes 0.8 Absolute Eosinophils 0.0 Absolute Basophils 0.1 Sodium 140.7 Potassium 3.7 Chloride 95 L Carbon Dioxide 32 H Anion Gap 14 BUN 15 Creatinine 1.21 Est GFR ( Amer) > 60 Est GFR (Non-Af Amer) > 60 Glucose 131 H Calcium 10.5 H Magnesium Total Bilirubin 1.1 AST 28 ALT 6 L Alkaline Phosphatase 117 Total Protein 8.8 H Albumin 5.1 H Triglycerides Cholesterol LDL Cholesterol Direct VLDL Cholesterol HDL Cholesterol Amylase Lipase 1875.8 H TSH Free T4 Free T3 pg/mL Urine Color GENEVIEVE Urine Appearance SLIGHTLY-CLOUDY Urine pH 5.0 Ur Specific [place] 1.029 Urine Protein >=500 H Urine Glucose (UA) NEGATIVE Urine Ketones 20 H Urine Blood NEGATIVE Urine Nitrite NEGATIVE Ur Leukocyte Esterase NEGATIVE Urine WBC (Auto) 1 Urine RBC (Auto) 2 09/18/18 09/18/18 09/18/18 04:18 04:18 04:18 WBC 14.2 H RBC 4.23 L Hgb 14.4 D Hct 41.5 MCV 98 H MCH 34.1 H MCHC 34.7 RDW 13.9 Plt Count 242 Seg Neutrophils % 78.0 Lymphocytes % 13.4 Monocytes % 8.1 Eosinophils % 0.1 Basophils % 0.4 Absolute Neutrophils 11.1 H Absolute Lymphocytes 1.9 Absolute Monocytes 1.2 Absolute Eosinophils 0.0 Absolute Basophils 0.1 Sodium Cancelled Potassium Cancelled Chloride Cancelled Carbon Dioxide Cancelled Anion Gap Cancelled BUN Cancelled Creatinine Cancelled Est GFR ( Amer) Cancelled Est GFR (Non-Af Amer) Cancelled Glucose Cancelled Calcium Cancelled Magnesium Cancelled Total Bilirubin Cancelled AST Cancelled ALT Cancelled Alkaline Phosphatase Cancelled Total Protein Cancelled Albumin Cancelled Triglycerides Cancelled Cholesterol Cancelled LDL Cholesterol Direct Cancelled VLDL Cholesterol Cancelled HDL Cholesterol Cancelled Amylase Cancelled Lipase Cancelled TSH Cancelled Free T4 Cancelled Free T3 pg/mL Cancelled Urine Color Urine Appearance Urine pH Ur Specific [place] Urine Protein Urine Glucose (UA) Urine Ketones Urine Blood Urine Nitrite Ur Leukocyte Esterase Urine WBC (Auto) Urine RBC (Auto) 09/18/18 09/18/18 09/18/18 05:26 05:26 08:10 WBC RBC Hgb Hct MCV MCH MCHC RDW Plt Count Seg Neutrophils % Lymphocytes % Monocytes % Eosinophils % Basophils % Absolute Neutrophils Absolute Lymphocytes Absolute Monocytes Absolute Eosinophils Absolute Basophils Sodium 138.0 Potassium 3.8 Chloride 98 Carbon Dioxide 29 Anion Gap 11 BUN 16 Creatinine 1.08 Est GFR ( Amer) > 60 Est GFR (Non-Af Amer) > 60 Glucose 104 Calcium 9.1 Magnesium Total Bilirubin 0.9 AST 22 ALT 16 L Alkaline Phosphatase 83 Total Protein 7.0 Albumin 4.0 Triglycerides Cholesterol LDL Cholesterol Direct VLDL Cholesterol HDL Cholesterol Amylase Lipase TSH 1.89 Free T4 1.05 Free T3 pg/mL 3.93 Urine Color GENEVIEVE Urine Appearance SLIGHTLY-CLOUDY Urine pH 5.0 Ur Specific [place] 1.030 Urine Protein 100 H Urine Glucose (UA) NEGATIVE Urine Ketones TRACE H Urine Blood NEGATIVE Urine Nitrite NEGATIVE Ur Leukocyte Esterase NEGATIVE Urine WBC (Auto) 3 Urine RBC (Auto) 3 09/17/18 09/17/18 09/17/18 15:52 21:42 21:42 Creatine Kinase 183 H CK-MB (CK-2) 0.60 Troponin I 0.065 0.074 09/18/18 09/18/18 09/18/18 04:18 04:18 05:26 Creatine Kinase Cancelled 167 CK-MB (CK-2) Cancelled Troponin I Cancelled 09/18/18 05:26 Creatine Kinase CK-MB (CK-2) 0.46 Troponin I 0.072 Assessment & Plan - Diagnosis (1) Acute on chronic pancreatitis Is this a current diagnosis for this admission?: Yes Plan: Patient will receive IV fluids and IV antiemetics as well as Nubain 10 mg IV every 3 hours as needed for abdominal pain. He will be treated with early feeding utilizing a low-fat diet and will receive Reglan 10 mg IV 1 hour before meals and at bedtime as well as famotidine 10 mg IV 1 hour before meals and at bedtime and sucralfate 1 g p.o. 1 hour before meals and at bedtime with Pancreaze 10 1 tablet p.o. with the first 1 or 2 bites of each meal. Patient's pancreatic enzymes will be followed on a regular basis daily. 09/18/2018-patient able to tolerate the low-fat diet this morning he is off the IV fluids. Is getting IV Nubain for pain and antiemetics. As per the patient pain is well controlled. He is also receiving sucralfate 1 g p.o. before meals and at bedtime. And is to repeat the lipase levels tomorrow continue the present management for today and requested for CT abdomen pelvis with p.o. IV contrast for pancreatitis. (2) Hypertension Qualifiers: Hypertension type: essential hypertension Qualified Code(s): I10 - Essential (primary) hypertension Is this a current diagnosis for this admission?: Yes Plan: Patient will be treated for hypertension utilizing an appropriate antihypertensive regimen. Initially he will be given IV antihypertensive agents with the use of labetalol and/or hydralazine to control his blood pressure. Further intervention will be engaged if required. Once patient is able to tolerate oral medications he will be started on oral antihypertensive agent at the discretion of his hospitalist. 09/18/2018-patient has history of hypertension today's blood pressure is 129/79 well controlled. His home medications will be resumed today. Currently is on labetalol/hydralazine IV as needed to control blood pressure. (3) Tobacco use disorder, severe, dependence Is this a current diagnosis for this admission?: Yes Plan: 09/18/2018-patient has history of chronic smoking smoking counseling was provided today patient was strongly advised to quit smoking he is already on nicotine patches. (4) Polysubstance abuse Is this a current diagnosis for this admission?: Yes Plan: Patient was advised strongly against utilizing tobacco, cocaine and alcohol. Short discussion of patient's health risks associated with such drug use was undertaken and the patient seemed to understand. Despite his understanding and acknowledgment of the potential hazards he did express little hope that he would change his ways. 09/18/2018 urine drug screen is positive for cocaine and marijuana. Is also admitted for heavy alcohol consumption. Counseling was provided against using tobacco cocaine and alcohol. - Time Time Spent with patient: 15-24 minutes Smoking Cessation Education: over 10 minutes Medications reviewed and adjusted accordingly: Yes Anticipated discharge: Home
[2018-09-18 09:41] LABS: URINE COCAINE SCREEN UNCONFIRMED POSITIVE; URINE MARIJUANA (THC) SCREEN UNCONFIRMED POSITIVE
[2018-09-18] MEDS ORDERED: LISINOPRIL 10 MG TABLET PO SCH (10:00)
[2018-09-18] MEDS: SUCRALFATE SUSP 1 GM/10 ML UDCUP PO SCH ×4 (10:38→21:41)
[2018-09-18] MEDS: LIPASE/PROTEASE/AMYLASE 1 CAP CAPSULE.DR PO SCH ×3 (10:38→17:39)
[2018-09-18] MEDS: DOCUSATE SODIUM 100 MG CAPSULE PO SCH ×2 (10:38→17:38)
[2018-09-18 11:37] LABS: CREATINE KINASE MB 0.43 ng/mL (<4.55); TROPONIN I 0.069 ng/mL
--- NOTE | 2018-09-18 15:15 | RADIOLOGY REPORT (SQ) ---
EXAM DESCRIPTION: CT ABD/PELVIS WITH IV ORAL COMPLETED DATE/TIME: 09/18/2018 1:15 pm REASON FOR STUDY: pancreatitis COMPARISON: 10/24/2015 07/24/2018 TECHNIQUE: CT scan of the abdomen and pelvis performed using helical scanning technique with dynamic intravenous contrast injection. Oral contrast. Images reviewed with lung, soft tissue, and bone win dows. Reconstructed coronal and sagittal MPR images reviewed. Delayed images for evaluation of the ur inary system also acquired. All images stored on PACS. All CT scanners at this facility use dose modulation, iterative reconstruction, and/or weight based d osing when appropriate to reduce radiation dose to as low as reasonably achievable (ALARA). [facility]: Dose Right [facility]: CareDose [facility]: Dose Right [facility]: Teradose 4D [facility]: Quick Hang CONTRAST TYPE AND DOSE: contrast/concentration: Isovue 350.00 mg/ml; Total Contrast Delivered: 89.0 ml; Total Saline Delivered: 70.0 ml RENAL FUNCTION: BUN 16 creatinine 1.08 RADIATION DOSE: CT Rad equipment meets quality standard of care and radiation dose reduction techniq ues were employed. CTDIvol: 5.4 - 6.3 mGy. DLP: 610 mGy-cm.. LIMITATIONS: None. FINDINGS: LOWER CHEST: No significant findings. No nodules or infiltrates. LIVER: Normal size. No masses. No dilated ducts. SPLEEN: Normal size. No focal lesions. PANCREAS: There is peripancreatic stranding. There is thickening of the anterior renal fascia on the left. No definable fluid collection. No significant pancreatic ductal dilatation. There are few s mall calcifications in the head of the pancreas. GALLBLADDER: No identified stones by CT criteria. No inflammatory changes to suggest cholecystitis. ADRENAL GLANDS: No significant masses or asymmetry. RIGHT KIDNEY AND URETER: No solid masses. No significant calcifications. No hydronephrosis or hyd roureter. LEFT KIDNEY AND URETER: No solid masses. No significant calcifications. No hydronephrosis or hydr oureter. AORTA AND VESSELS: No aneurysm. No dissection. Renal arteries, SMA, celiac without stenosis. RETROPERITONEUM: No retroperitoneal adenopathy, hemorrhage or masses. BOWEL AND PERITONEAL CAVITY: No masses or inflammatory changes. No free fluid or peritoneal masses. APPENDIX: Not identified. PELVIS: No mass. No free fluid. Normal bladder. ABDOMINAL WALL: No masses. No hernias. BONES: No significant or acute findings. OTHER: No other significant finding. IMPRESSION: Acute pancreatitis. There is evidence of chronic pancreatitis. There is no pancreatic pseudocyst. TECHNICAL DOCUMENTATION: JOB ID: [id number] Quality ID # [id number]: Final reports with documentation of one or more dose reduction techniques (e.g., Au tomated exposure control, adjustment of the mA and/or kV according to patient size, use of iterative reconstruction technique) 2010 [employer]- All Rights Reserved Reading location - IP/workstation name: [email or web address]
[2018-09-18] MEDS: POTASSI CL 20 MEQ/NS 1L 1,000 ML IV PRN ×2 (15:44→21:52)
[2018-09-19] MEDS: LEVALBUTEROL HCL NEB 1.25 MG/3 ML AMPUL NEB SCH ×2 (00:07→07:38)
[2018-09-19] MEDS: IPRATROPIUM BROMIDE 0.02% NEB 0.5 MG/2.5 ML AMPUL NEB SCH ×2 (00:07→07:38)
[2018-09-19] MEDS: NALBUPHINE HCL INJ 10 MG/1 ML AMPULE IV PRN ×2 (01:54→08:08)
[2018-09-19 05:27] LABS: ALANINE AMINOTRANSFERASE < 6 U/L (21-72); ALBUMIN 3.1 g/dL (3.5-5.0); ALKALINE PHOSPHATASE 64 U/L (38-126); AMYLASE 90 U/L (30-110); ANION GAP 6 (5-19); ASPARTATE AMINO TRANSFERASE 15 U/L (17-59); BILIRUBIN,DIRECT 0.2 mg/dL (0.0-0.4); BILIRUBIN,TOTAL 0.4 mg/dL (0.2-1.3); BLOOD UREA NITROGEN 8 mg/dL (7-20); CALCIUM 8.6 mg/dL (8.4-10.2); CARBON DIOXIDE 30 mmol/L (22-30); CHLORIDE 102 mmol/L (98-107); GLUCOSE 133 mg/dL (75-110); LIPASE 477.2 U/L (23-300); POTASSIUM 3.6 mmol/L (3.6-5.0); SODIUM 137.5 mmol/L (137-145); TOTAL PROTEIN 5.8 g/dL (6.3-8.2)
[2018-09-19] MEDS: POTASSI CL 20 MEQ/NS 1L 1,000 ML IV PRN (05:33)
[2018-09-19] MEDS: HEPARIN SOD (PORCINE) 5,000 UNIT/ML 1 ML SYRINGE SUBCUT SCH (05:34)
[2018-09-19 07:45] LABS: ABSOLUTE LYMPHOCYTES (AUTO) 1.3 10^3/uL (0.5-4.7); ABSOLUTE NEUT (AUTO) 7.5 10^3/uL (1.7-8.2); BASOPHILS % (AUTO) 0.2 % (0-2); EOSINOPHILS % (AUTO) 0.3 % (0-6); HEMATOCRIT 34.9 % (37.9-51.0); MEAN CORPUSCULAR HEMOGLOBIN 34.2 pg (27.0-33.4); MEAN CORPUSCULAR HGB CONC 34.6 g/dL (32.0-36.0); MEAN CORPUSCULAR VOLUME 99 fl (80-97); MONOCYTES % (AUTO) 9.9 % (3-13); PLATELET COUNT 214 10^3/uL (150-450); RED BLOOD COUNT 3.52 10^6/uL (4.35-5.55); RED CELL DISTRIBUTION WIDTH 13.8 % (11.5-14.0); SEGMENTED NEUTROPHILS % (AUTO) 76.6 % (42-78); TOTAL CELLS COUNTED % (AUTO) 100 %; WHITE BLOOD COUNT 9.7 10^3/uL (4.0-10.5)
[2018-09-19 07:49] LABS: HEMOGLOBIN 12.1 g/dL (13.5-17.0)
[2018-09-19] MEDS ORDERED: HYDROCHLOROTHIAZIDE 12.5 MG TABLET PO SCH (08:00)
[2018-09-19] MEDS: SUCRALFATE SUSP 1 GM/10 ML UDCUP PO SCH (08:07)
[2018-09-19] MEDS: LIPASE/PROTEASE/AMYLASE 1 CAP CAPSULE.DR PO SCH (08:07)
[2018-09-19] MEDS: METOCLOPRAMIDE HCL INJ/PF 10 MG/2 ML SDV IV SCH (08:08)
[2018-09-19] MEDS: FAMOTIDINE INJ/PF 20 MG/2 ML SDV IV SCH (08:08)
[2018-09-19 10:01] VITALS: BP 142/82
--- NOTE | 2018-09-19 11:20 | PDOC DISCHARGE SUMMARY ---
General - Admit/Disc Date/PCP Admission Date/Primary Care Provider: 09/17/18 20:36 [facility] Discharge Date: 09/19/17 - Discharge Diagnosis (1) Acute on chronic pancreatitis Is this a current diagnosis for this admission?: Yes Summary: Patient will receive IV fluids and IV antiemetics as well as Nubain 10 mg IV every 3 hours as needed for abdominal pain. He will be treated with early feeding utilizing a low-fat diet and will receive Reglan 10 mg IV 1 hour before meals and at bedtime as well as famotidine 10 mg IV 1 hour before meals and at bedtime and sucralfate 1 g p.o. 1 hour before meals and at bedtime with Pancreaze 10 1 tablet p.o. with the first 1 or 2 bites of each meal. Patient's pancreatic enzymes will be followed on a regular basis daily. 09/18/2018-patient able to tolerate the low-fat diet this morning he is off the IV fluids. Is getting IV Nubain for pain and antiemetics. As per the patient pain is well controlled. He is also receiving sucralfate 1 g p.o. before meals and at bedtime. And is to repeat the lipase levels tomorrow continue the present management for today and requested for CT abdomen pelvis with p.o. IV contrast for pancreatitis. 09/19/2017-patient was admitted with acute on chronic pancreatitis most likely secondary to heavy alcohol use. His urine drug screen is also positive for cocaine, marijuana, opioids. CT abdomen pelvis was done and it confirmed acute pancreatitis. Lipase came down to 477. Patient is pain-free. Patient is okay to go home today. Given the prescription for Percocet 5/325 every 6 as needed for a few days. Patient was strongly advised to quit alcohol abuse. (2) Hypertension Is this a current diagnosis for this admission?: Yes Summary: Patient will be treated for hypertension utilizing an appropriate antihyperte nsive regimen. Initially he will be given IV antihypertensive agents with the use of labetalol and/or hydralazine to control his blood pressure. Further intervention will be engaged if required. Once patient is able to tolerate oral medications he will be started on oral antihypertensive agent at the discretion of his hospitalist. 09/18/2018-patient has history of hypertension today's blood pressure is 129/79 well controlled. His home medications will be resumed today. Currently is on labetalol/hydralazine IV as needed to control blood pressure. 09/19/2018-patient blood pressure today . Well controlled. Patient is discharged on lisinopril 10 mg p.o. daily. (3) Tobacco use disorder, severe, dependence Is this a current diagnosis for this admission?: Yes Summary: 09/19/2018-patient is a chronic smoker smokes more than 1 pack/day. Strongly advised to quit smoking. Smoking counseling was provided for more than 10 minutes. Offered nicotine patches but patient refused. (4) Polysubstance abuse Is this a current diagnosis for this admission?: Yes Summary: Patient was advised strongly against utilizing tobacco, cocaine and alcohol. Short discussion of patient's health risks associated with such drug use was undertaken and the patient seemed to understand. Despite his understanding and acknowledgment of the potential hazards he did express little hope that he would change his ways. 09/18/2018 urine drug screen is positive for cocaine and marijuana. Is also admitted for heavy alcohol consumption. Counseling was provided against using tobacco cocaine and alcohol. 09/19/2018-urine drug screen is positive for cocaine, marijuana, opioids. He is also admitting heavy alcohol user. Counseling was provided agonist polysubstance use. - Additional Information Resuscitation Status: Full Code Discharge Diet: Cardiac Discharge Activity: Activity As Tolerated Prescriptions: Lipase/Protease/Amylase [Pancreaze-10 Capsule.] 1 cap PO MEALS #30 capsule. Lisinopril [Prinivil 10 mg Tablet] 20 mg PO DAILY #30 tablet Oxycodone HCl/Acetaminophen [Percocet 5-325 mg Tablet] 1 tab PO ASDIR PRN #15 tab PRN Reason: Home Medications: Lisinopril [Prinivil 10 mg Tablet] 20 mg PO DAILY 09/17/18 Promethazine HCl [Phenergan 25 mg Tablet] 25 mg PO Q4HP PRN 09/17/18 Lipase/Protease/Amylase [Pancreaze-10 Capsule.] 1 cap PO MEALS #30 capsule. 09/19/18 Lisinopril [Prinivil 10 mg Tablet] 20 mg PO DAILY #30 tablet 09/19/18 Oxycodone HCl/Acetaminophen [Percocet 5-325 mg Tablet] 1 tab PO ASDIR PRN #15 tab 02/22/19 History of Present Illness History of Present Illness: BEKAH HEIN is a 53 year old male 53 year old male who presented to the emergency room with a 4-day history of abdominal pain. Patient admits that he was at a libertarian last Saturday night and drank 5 shots of liquor. He has a history of chronically recurrent alcoholic pancreatitis and on Saturday he developed nausea and vomiting followed shortly thereafter by moderately intense abdominal pain. He has continued to have nausea and vomiting since the onset of symptoms and has been unable to eat due to the nausea and vomiting associated with any oral intake. His abdominal pain has also continued and he describes it now, as a nonradiating, constant, gradually worsening, severely intense gripping pressure sensation in his upper abdomen with pain being present in the area between the nipples from the lower chest down to his belly button. He states that the pain is been so intense that the only relief he is gotten from it has been by smoking marijuana and smoking crack cocaine. He has not identified any other aggravating or ameliorating factors for his pain. He admits several prior similar episodes due to recurrent alcoholic pancreatitis. In the emergency room he was found to have an elevated lipase approximately 1800 and he was noted to have persistent nausea and vomiting requiring IV antiemetics. With these findings patient was admitted for further evaluation and treatment. Physical Exam Vital Signs: Temp Pulse Resp BP Pulse Ox 98.9 F 74 16 142/82 H 95 09/19/18 09:59 09/19/18 09:59 09/19/18 09:59 09/19/18 09:59 09/19/18 09:59 Intake & Output 09/18/18 09/19/18 09/20/18 06:59 06:59 06:59 Intake Total 1999 2973 Balance 1999 2974 Weight 78.2 kg 78 kg General appearance: PRESENT: no acute distress Head exam: PRESENT: atraumatic Eye exam: PRESENT: PERRLA Mouth exam: PRESENT: moist, tongue midline Neck exam: ABSENT: carotid bruit, JVD, lymphadenopathy, thyromegaly Respiratory exam: PRESENT: clear to auscultation malini. ABSENT: rales, rhonchi, wheezes Cardiovascular exam: PRESENT: RRR. ABSENT: diastolic murmur, rubs, systolic murmur GI/Abdominal exam: PRESENT: normal bowel sounds, soft. ABSENT: distended, guarding, mass, organolmegaly, rebound, tenderness Extremities exam: PRESENT: full ROM. ABSENT: calf tenderness, clubbing, pedal edema Neurological exam: PRESENT: alert, awake, oriented to person, oriented to place, oriented to time, oriented to situation, CN II-XII grossly intact. ABSENT: motor sensory deficit Psychiatric exam: PRESENT: appropriate affect, normal mood. ABSENT: homicidal ideation, suicidal ideation Results Laboratory Results: 09/19/18 07:00 09/19/18 04:29 09/19/18 09/19/18 09/19/18 04:29 04:29 07:00 WBC Cancelled 9.7 RBC Cancelled 3.52 L Hgb Cancelled 12.1 L D Hct Cancelled 34.9 L MCV Cancelled 99 H MCH Cancelled 34.2 H MCHC Cancelled 34.6 RDW Cancelled 13.8 Plt Count Cancelled 214 Seg Neutrophils % Cancelled 76.6 Lymphocytes % Cancelled 13.0 Monocytes % Cancelled 9.9 Eosinophils % Cancelled 0.3 Basophils % Cancelled 0.2 Absolute Neutrophils Cancelled 7.5 Absolute Lymphocytes Cancelled 1.3 Absolute Monocytes Cancelled 1.0 Absolute Eosinophils Cancelled 0.0 Absolute Basophils Cancelled 0.0 Sodium 137.5 Potassium 3.6 Chloride 102 Carbon Dioxide 30 Anion Gap 6 BUN 8 Creatinine 0.98 Est GFR ( Amer) > 60 Est GFR (Non-Af Amer) > 60 Glucose 133 H Calcium 8.6 Magnesium 1.8 Total Bilirubin 0.4 AST 15 L ALT < 6 L Alkaline Phosphatase 64 Total Protein 5.8 L Albumin 3.1 L Amylase 90 Lipase 477.2 H 09/17/18 09/17/18 09/17/18 15:52 21:42 21:42 Creatine Kinase 183 H CK-MB (CK-2) 0.60 Troponin I 0.065 0.074 09/18/18 09/18/18 09/18/18 04:18 04:18 05:26 Creatine Kinase Cancelled 167 CK-MB (CK-2) Cancelled Troponin I Cancelled 09/18/18 09/18/18 09/18/18 05:26 10:35 10:35 Creatine Kinase 150 CK-MB (CK-2) 0.46 0.43 Troponin I 0.072 0.069 Impressions: Abdomen/Pelvis CT 09/18/18 00:00 IMPRESSION: Acute pancreatitis. There is evidence of chronic pancreatitis. There is no pancreatic pseudocyst. Qualifiers - * PATIENT BEING DISCHARGED WITH ANY OF THE FOLLOWING DIAGNOSIS: No VTE patient discharged on overlapping Therapy?: No
== END 2018-09-19 10:10 | disposition home or self-care (01) | DRG 440 ==
LOC: ER 13:56 → EH 20:36 → 4N 22:28
PROVIDERS: ADMIT Emergency Medicine; ATTEND Emergency Medicine
DX: K85.20 Alcohol induced acute pancreatitis without necrosis or infection (principal); K86.0 Alcohol-induced chronic pancreatitis; E78.5 Hyperlipidemia, unspecified; I10 Essential (primary) hypertension; K21.9 Gastro-esophageal reflux disease without esophagitis; F10.20 Alcohol dependence, uncomplicated; F14.10 Cocaine abuse, uncomplicated; F17.200 Nicotine dependence, unspecified, uncomplicated; F12.10 Cannabis abuse, uncomplicated; Z90.49 Acquired absence of other specified parts of digestive tract; Z82.49 Family history of ischemic heart disease and other diseases of the circulatory system; Z83.3 Family history of diabetes mellitus; Z79.899 Other long term (current) drug therapy
CPT/HCPCS: 36415; 74177; 80048; 80053; 80076; 80307; 81001; 82150; 82550; 82553; 83690; 83735; 84439; 84443; 84481; 84484; 85025; 93005; 93010; 94640; 96361; 96374; 96375; 96376; 99285; J1644; J2270; J2300; J2405; J2765; J3480; J3490; J7030; S0028

== ENCOUNTER 2019-02-21 19:23 | Inpatient (IN) | payer SELFPAY ==
[2019-02-21] MEDS ORDERED: NORMAL SALINE 1000 ML 1,000 ML IV ONE (19:48)
--- NOTE | 2019-02-21 19:53 | ER Document Report ---
ED Medical Screen (RME) - General Chief Complaint: Abdominal Pain >50 Stated Complaint: VOMITING, ABDOMINAL PAIN Time Seen by Provider: 02/21/19 19:40 Primary Care Provider: [facility] [Primary Care Provider] - Follow up as needed Notes: Patient is a 53-year-old male who presents the emergency department with a chief complaint of abdominal pain, nausea, and vomiting. His symptoms started and his pain has gotten progressively worse. He states that he has had some right red blood in his stool and coffee-ground emesis. Patient has a history of alcoholic pancreatitis, hypertension, hernia surgery, and appendectomy. Patient's last alcoholic beverage was on . Patient also admits to marijuana use. Exam: Tender mid upper abdomen. I have greeted and performed a rapid initial assessment of this patient. A comprehensive ED assessment and evaluation of the patient, analysis of test results and completion of medical decision making process will be conducted by an additional ED providers. TRAVEL OUTSIDE OF THE [place] IN LAST 30 DAYS: No - Related Data Allergies/Adverse Reactions: No Known Allergies Allergy (Verified 09/17/18 14:01) Past Medical History - Social History Chew tobacco use (# tins/day): No Frequency of alcohol use: Heavy Drug Abuse: Marijuana - Past Medical History Cardiac Medical History: Reports: Hx Hypercholesterolemia, Hx Hypertension Denies: Hx Atrial Fibrillation, Hx Congestive Heart Failure, Hx Coronary Artery Disease Pulmonary Medical History: Denies: Hx Asthma, Hx COPD Neurological Medical History: Denies: Hx Seizures Endocrine Medical History: Denies: Hx Diabetes Mellitus Type 1, Hx Diabetes Mellitus Type 2, Hx Hyperthyroidism, Hx Hypothyroidism Renal/ Medical History: Denies: Hx Peritoneal Dialysis GI Medical History: Reports: Hx Gastroesophageal Reflux Disease, Hx Ulcer. Denies: Hx Cirrhosis, Hx Hepatitis Musculoskeltal Medical History: Denies Hx Arthritis, Denies Hx Gout Skin Medical History: Denies Hx Eczema, Denies Hx Psoriasis Psychiatric Medical History: Infectious Medical History: Denies: Hx Hepatitis Past Surgical History: Reports: Hx Abdominal Surgery - inguinal hernia, Hx Appendectomy, Hx Herniorrhaphy - Immunizations Immunizations up to date: Yes Hx Diphtheria, Pertussis, Tetanus Vaccination: Yes History of Influenza Vaccine for 04/2017 - 09/2017 Season: No Physical Exam - Vital signs Vitals: Temp Pulse Resp BP 98.2 F 58 L 16 151/94 H 02/21/19 19:26 02/21/19 19:26 02/21/19 19:26 02/21/19 19:26 Course - Vital Signs Vital signs: Temp Pulse Resp BP Pulse Ox 98.2 F 58 L 16 151/94 H 02/21/19 19:26 02/21/19 19:26 02/21/19 19:26 02/21/19 19:26 Doctor's Discharge - Discharge Referrals: [facility] [Primary Care Provider] - Follow up as needed
[2019-02-21] MEDS ORDERED: MORPHINE SULFATE 10 MG/ML INJ IV ONE (19:55)
[2019-02-21] MEDS ORDERED: ONDANSETRON HCL INJ/PF 4 MG/2 ML SDV IV ONE (19:55)
[2019-02-21 20:14] LABS: ABSOLUTE BASOPHILS # (AUTO) 0.1 10^3/uL (0.0-0.2); ABSOLUTE LYMPHOCYTES (AUTO) 1.6 10^3/uL (0.5-4.7); ABSOLUTE MONOCYTES (AUTO) 0.5 10^3/uL (0.1-1.4); ABSOLUTE NEUT (AUTO) 8.3 10^3/uL (1.7-8.2); BASOPHILS % (AUTO) 0.6 % (0-2); EOSINOPHILS % (AUTO) 0.1 % (0-6); HEMATOCRIT 44.2 % (37.9-51.0); HEMOGLOBIN 15.5 g/dL (13.5-17.0); MEAN CORPUSCULAR HEMOGLOBIN 34.2 pg (27.0-33.4); MEAN CORPUSCULAR HGB CONC 35.1 g/dL (32.0-36.0); MEAN CORPUSCULAR VOLUME 98 fl (80-97); MONOCYTES % (AUTO) 4.7 % (3-13); PLATELET COUNT 310 10^3/uL (150-450); RED BLOOD COUNT 4.53 10^6/uL (4.35-5.55); RED CELL DISTRIBUTION WIDTH 13.3 % (11.5-14.0); SEGMENTED NEUTROPHILS % (AUTO) 79.6 % (42-78); TOTAL CELLS COUNTED % (AUTO) 100 %; WHITE BLOOD COUNT 10.4 10^3/uL (4.0-10.5)
--- NOTE | 2019-02-21 20:21 | ER Document Report ---
ED GI/ - General Chief Complaint: Abdominal Pain >50 Stated Complaint: VOMITING, ABDOMINAL PAIN Time Seen by Provider: 02/21/19 19:40 Mode of Arrival: Ambulatory Information source: Patient Notes: Patient is a 53-year-old male presented to the emergency department chief complaint of left upper quadrant abdominal pain over the last 3 days. Last night the patient began vomiting which has continued into today. Patient does report a history of pancreatitis, he states he drinks a half a pint of liquor per day. He also reports history of hypertension. He denies any known fever but does report having some chills. He denies any diarrhea. He denies any alleviating or exacerbating factors. His primary care provider is the [facility]. TRAVEL OUTSIDE OF THE [place] IN LAST 30 DAYS: No - Related Data Allergies/Adverse Reactions: No Known Allergies Allergy (Verified 09/17/18 14:01) Past Medical History - General Information source: Patient - Social History Smoking Status: Current Every Day Smoker Chew tobacco use (# tins/day): No Frequency of alcohol use: Heavy Drug Abuse: Marijuana Family History: Hypertension, Malignancy. denies: CAD, DM Patient has suicidal ideation: No Patient has homicidal ideation: No - Past Medical History Cardiac Medical History: Reports: Hx Hypercholesterolemia, Hx Hypertension Denies: Hx Atrial Fibrillation, Hx Congestive Heart Failure, Hx Coronary Artery Disease Pulmonary Medical History: Denies: Hx Asthma, Hx COPD Neurological Medical History: Denies: Hx Seizures Endocrine Medical History: Denies: Hx Diabetes Mellitus Type 1, Hx Diabetes Mellitus Type 2, Hx Hyperthyroidism, Hx Hypothyroidism Renal/ Medical History: Denies: Hx Peritoneal Dialysis GI Medical History: Reports: Hx Gastroesophageal Reflux Disease, Hx Ulcer. Denies: Hx Cirrhosis, Hx Hepatitis Musculoskeletal Medical History: Denies Hx Arthritis, Denies Hx Gout Skin Medical History: Denies Hx Eczema, Denies Hx Psoriasis Psychiatric Medical History: Infectious Medical History: Denies: Hx Hepatitis Past Surgical History: Reports: Hx Abdominal Surgery - inguinal hernia, Hx Appendectomy, Hx Herniorrhaphy - Immunizations Immunizations up to date: Yes Hx Diphtheria, Pertussis, Tetanus Vaccination: Yes Review of Systems - Review of Systems Constitutional: No symptoms reported EENT: No symptoms reported Cardiovascular: No symptoms reported Respiratory: No symptoms reported Gastrointestinal: Abdominal pain, Nausea, Vomiting, Blood in vomit - Possible hematemesis Genitourinary: No symptoms reported Male Genitourinary: No symptoms reported Musculoskeletal: No symptoms reported Skin: No symptoms reported Hematologic/Lymphatic: No symptoms reported Neurological/Psychological: No symptoms reported Physical Exam - Vital signs Vitals: Temp Pulse Resp BP 98.2 F 58 L 16 151/94 H 02/21/19 19:26 02/21/19 19:26 02/21/19 19:26 02/21/19 19:26 - Notes Notes: PHYSICAL EXAMINATION: GENERAL: Well-appearing, well-nourished and in no acute distress. HEAD: Atraumatic, normocephalic. EYES: Pupils equal round and reactive to light, extraocular movements intact, sclera anicteric, conjunctiva are normal. ENT: Nares patent, oropharynx clear without exudates. Moist mucous membranes. NECK: Normal range of motion, supple without lymphadenopathy LUNGS: Breath sounds clear to auscultation bilaterally and equal. No wheezes rales or rhonchi. HEART: Regular rate and rhythm without murmurs ABDOMEN: Soft, tenderness to palpation in the left upper quadrant. Nondistended abdomen. No guarding, no rebound. No masses appreciated. Musculoskeletal: Normal range of motion, no pitting or edema. No cyanosis. NEUROLOGICAL: Cranial nerves grossly intact. Normal speech. Normal sensory, motor exams PSYCH: Normal mood, normal affect. SKIN: Warm, Dry, normal turgor, no rashes or lesions noted. Course - Re-evaluation Re-evalutation: Laboratory 02/21/19 02/21/19 02/21/19 20:00 20:00 20:00 WBC 10.4 RBC 4.53 Hgb 15.5 Hct 44.2 MCV 98 H MCH 34.2 H MCHC 35.1 RDW 13.3 Plt Count 310 Seg Neutrophils % 79.6 H Lymphocytes % 15.0 Monocytes % 4.7 Eosinophils % 0.1 Basophils % 0.6 Absolute Neutrophils 8.3 H Absolute Lymphocytes 1.6 Absolute Monocytes 0.5 Absolute Eosinophils 0.0 Absolute Basophils 0.1 Sodium 136.9 L Potassium 3.4 L Chloride 99 Carbon Dioxide 27 Anion Gap 11 BUN 9 Creatinine 0.91 Est GFR ( Amer) > 60 Est GFR (Non-Af Amer) > 60 Glucose 121 H Calcium 10.1 Total Bilirubin 1.1 Direct Bilirubin 0.4 Neonat Total Bilirubin Not Reportable Neonat Direct Bilirubin Not Reportable Neonat Indirect Bili Not Reportable AST 25 ALT 17 L Alkaline Phosphatase 99 Creatine Kinase 126 CK-MB (CK-2) 0.70 Troponin I 0.075 Total Protein 7.9 Albumin 4.3 Lipase 660.7 H Blood Type Antibody Screen 02/21/19 20:00 WBC RBC Hgb Hct MCV MCH MCHC RDW Plt Count Seg Neutrophils % Lymphocytes % Monocytes % Eosinophils % Basophils % Absolute Neutrophils Absolute Lymphocytes Absolute Monocytes Absolute Eosinophils Absolute Basophils Sodium Potassium Chloride Carbon Dioxide Anion Gap BUN Creatinine Est GFR ( Amer) Est GFR (Non-Af Amer) Glucose Calcium Total Bilirubin Direct Bilirubin Neonat Total Bilirubin Neonat Direct Bilirubin Neonat Indirect Bili AST ALT Alkaline Phosphatase Creatine Kinase CK-MB (CK-2) Troponin I Total Protein Albumin Lipase Blood Type O POSITIVE Antibody Screen NEGATIVE Chest X-Ray 02/21/19 19:47 IMPRESSION: No acute findings. No focal lung consolidation. Abdomen/Pelvis CT 02/21/19 21:00 IMPRESSION: Inflammatory changes and enlargement of the pancreatic head and uncinate process concerning for acute pancreatitis. This appears similar to the previous examination. The possibility of an underlying pancreatic mass cannot be excluded on the basis of this examination. Consider further evaluation with MRI/MRCP. There is persistent ductal dilatation within the pancreas Calcifications in the head of the pancreas consistent with chronic calcific pancreatitis Enlarged prostate Labs as recorded above. Of note patient does have elevated troponin of 0.075, and looking through patient's previous records here at [facility] this appears to be where patient's baseline troponin level is. His lipase is elevated at 660. He continues to complain of pain and nausea despite medicating him here in the emergency department. I did consult hospitalist, Dr. Saha who accepted him for observation on the medical floor. All of this was discussed with patient and his significant other at the bedside, they verbalized understanding and agreement with this plan. - Vital Signs Vital signs: Temp Pulse Resp BP Pulse Ox 98.2 F 58 L 16 151/94 H 02/21/19 19:26 02/21/19 19:26 02/21/19 19:26 02/21/19 19:26 - Laboratory Result Diagrams: 02/21/19 20:00 02/21/19 20:00 Laboratory results interpreted by me: 02/21/19 02/21/19 20:00 20:00 MCV 98 H MCH 34.2 H Seg Neutrophils % 79.6 H Absolute Neutrophils 8.3 H Sodium 136.9 L Potassium 3.4 L Glucose 121 H ALT 17 L Lipase 660.7 H - EKG Interpretation by Me EKG shows normal: Sinus rhythm Rate: Normal When compared to previous EKG there are: No significant change Discharge - Discharge Clinical Impression: Alcoholic pancreatitis Qualifiers: Chronicity: acute Acute pancreatitis complication: unspecified Qualified Code(s): K85.20 - Alcohol induced acute pancreatitis without necrosis or infection Vomiting Qualifiers: Vomiting type: unspecified Vomiting Intractability: unspecified Nausea presence: unspecified Qualified Code(s): R11.10 - Vomiting, unspecified Condition: Stable Disposition: ADMITTED OBSERVATION Admitting Provider: Yifan (Hospitalist) Unit Admitted: Medical Floor
[2019-02-21 20:31] LABS: ALANINE AMINOTRANSFERASE 17 U/L (21-72); ALBUMIN 4.3 g/dL (3.5-5.0); ALKALINE PHOSPHATASE 99 U/L (38-126); ANION GAP 11 (5-19); ASPARTATE AMINO TRANSFERASE 25 U/L (17-59); BILIRUBIN,DIRECT 0.4 mg/dL (0.0-0.4); BILIRUBIN,TOTAL 1.1 mg/dL (0.2-1.3); BLOOD UREA NITROGEN 9 mg/dL (7-20); CALCIUM 10.1 mg/dL (8.4-10.2); CARBON DIOXIDE 27 mmol/L (22-30); CHLORIDE 99 mmol/L (98-107); CREATINE KINASE 126 U/L (55-170); GLUCOSE 121 mg/dL (75-110); POTASSIUM 3.4 mmol/L (3.6-5.0); TOTAL PROTEIN 7.9 g/dL (6.3-8.2)
[2019-02-21 20:43] LABS: CREATINE KINASE MB 0.7 ng/mL (<4.55)
--- NOTE | 2019-02-21 20:52 | RADIOLOGY REPORT (SQ) ---
EXAM DESCRIPTION: XR CHEST 1 VIEW COMPLETED DATE/TME: 02/21/2019 19:47 CLINICAL HISTORY: 53 years, Male, Vomiting Comparison: None FINDINGS: No focal lung consolidation. No pleural effusion. No pneumothorax. Cardiac and mediastinal silhouette is unremarkable. No acute osseous abnormality. Soft tissues are unremarkable. IMPRESSION: No acute findings. No focal lung consolidation.
[2019-02-21 20:55] LABS: TROPONIN I 0.075 ng/mL
[2019-02-21] MEDS ORDERED: HYDROMORPHONE HCL INJ/PF 2 MG/ML AMPULE IV ONE (21:24)
--- NOTE | 2019-02-21 22:21 | RADIOLOGY REPORT (SQ) ---
EXAM DESCRIPTION: CT ABDOMEN PELVIS WITH IV CONTRAST COMPLETED DATE/TME: 02/21/2019 21:00 CLINICAL HISTORY: 53 years Male LUQ pain, vomiting COMPARISON: 09/18/2018. TECHNIQUE: Contiguous axial images obtained through the abdomen and pelvis following IV contrast. Reformatted images obtained. This exam was performed according to our department optimization program which includes automated exposure control, adjustment of the mA and/or kv according to patient size and/or use of iterative reconstruction technique. FINDINGS: The liver appears unremarkable. Spleen is unremarkable. There are calcifications in the pancreas consistent with chronic calcific pancreatitis. There is dilatation of the pancreatic duct and there are inflammatory changes surrounding the head and uncinate process consistent with pancreatitis. This appears similar to the previous examination. No evidence of pancreatic necrosis or pseudocyst. No adrenal masses. The kidneys appear unremarkable. No hydronephrosis. The gallbladder is visualized. No aneurysmal dilatation of the aorta. No bowel obstruction. The appendix is not seen. No significant free fluid noted. Enlarged prostate. IMPRESSION: Inflammatory changes and enlargement of the pancreatic head and uncinate process concerning for acute pancreatitis. This appears similar to the previous examination. The possibility of an underlying pancreatic mass cannot be excluded on the basis of this examination. Consider further evaluation with MRI/MRCP. There is persistent ductal dilatation within the pancreas Calcifications in the head of the pancreas consistent with chronic calcific pancreatitis Enlarged prostate
--- NOTE | 2019-02-21 23:15 | EKG REPORT ---
SEVERITY:- ABNORMAL ECG - SINUS RHYTHM PROBABLE LEFT ATRIAL ABNORMALITY LVH WITH SECONDARY REPOLARIZATION ABNORMALITY : Confirmed by: Christi Castillo 21-Feb-2019 23:14:32
[2019-02-21] MEDS ORDERED: MAG HYDROX/AL HYDROX/SIMETH SUSP 30 ML UDCUP PO PRN (23:45)
[2019-02-21] MEDS ORDERED: ONDANSETRON HCL INJ/PF 4 MG/2 ML SDV IV PRN (23:45)
[2019-02-21] MEDS ORDERED: MAGNESIUM HYDROXIDE SUSP 30 ML UDCUP PO PRN (23:45)
[2019-02-21] MEDS ORDERED: METOPROLOL TARTRATE PF/INJ 5 MG/5 ML SDV IV PRN (23:51)
[2019-02-21] MEDS ORDERED: LEVALBUTEROL HCL NEB 0.63 MG/3 ML AMPUL NEB PRN (23:51)
[2019-02-21] MEDS ORDERED: ACETAMINOPHEN 325 MG TABLET PO PRN (23:51)
[2019-02-21] MEDS ORDERED: NICOTINE 21 MG/24 HR PATCH.TD24 TD PRN (23:51)
[2019-02-21] MEDS ORDERED: DIAZEPAM INJ 10 MG/2 ML DISP.SYRIN IV PRN (23:51)
[2019-02-22] MEDS: NALBUPHINE HCL INJ 10 MG/1 ML AMPULE IV PRN ×5 (01:16→17:00)
[2019-02-22] MEDS: HYDRALAZINE HCL INJ/PF 20 MG/1 ML SDV IV PRN ×2 (02:06→08:16)
[2019-02-22] MEDS: RINGERS SOLUTION,LACTATED 1,000 ML IV PRN (02:10)
--- NOTE | 2019-02-22 02:20 | PDOC H&P ---
History of Present Illness Admission Date/PCP: 02/21/2019 22:59 [facility] Patient complains of: Abdominal pain History of Present Illness: BEKAH HEIN is a 53 year old male who presented to the emergency room with a 3- day history of abdominal pain. Patient admits constant, severe, sharp/boring left upper abdominal pain, without radiation, beginning 3 days ago. Patient ad mits his pain has been accompanied by nausea and vomiting. Patient also admits the associated symptom of episodic chills without fever. He denies other accompanying or associated symptoms. He admits a prior similar episode due to alcoholic pancreatitis. He continues to drink a pint of liquor per day. He has not identified any aggravating or ameliorating factors for his abdominal pain. In the emergency room he was found to have a lipase of 660 and an otherwise unremarkable laboratory evaluation. He was subsequently admitted to observation status for further evaluation and treatment. Past Medical History Cardiac Medical History: Reports: Hyperlipidema, Hypertension Denies: Atrial Fibrillation, Congestive Heart Failure, Coronary Artery Disease Pulmonary Medical History: Denies: Asthma, Chronic Obstructive Pulmonary Disease (COPD) EENT Medical History: Denies: Cataracts, Ears - Hearing aids Neurological Medical History: Denies: Hemorrhagic CVA, Ischemic CVA, Multiple Sclerosis, Seizures Endocrine Medical History: Denies: Diabetes Mellitus Type 1, Diabetes Mellitus Type 2, Hyperthyroidism, Hypothyroidism, Obesity Renal/ Medical History: Denies: Chronic Kidney Disease, Nephrolithiasis Malignancy Medical History: Reports: None GI Medical History: Reports: Gastroesophageal Reflux Disease, Other - Alcoholic pancreatitis Denies: Cirrhosis, Crohn's Disease, Hepatitis, Ulcerative Colitis Musculoskeltal Medical History: Denies: Arthritis, Gout Skin Medical History: Denies: Eczema, Psoriasis Psychiatric Medical History: Reports: Alcohol Dependency, Substance Abuse, Tobacco Dependency Traumatic Medical History: Reports: None Hematology: Denies: Anemia, Bleeding Tendencies Infectious Medical History: Reports: None Past Surgical History Past Surgical History: Reports: Appendectomy, Herniorrhaphy Social History Information Source: Patient Smoking Status: Current Every Day Smoker Frequency of Alcohol Use: Heavy - Drinks 1 pint of hard liquor daily Hx Recreational Drug Use: Yes Drugs: Cocaine - Crack cocaine, Marijuana Hx Prescription Drug Abuse: No - Advance Directive Resuscitation Status: Full Code Surrogate healthcare decision maker:: Taniya Babin Family History Family History: Hypertension, Malignancy. denies: CAD, DM Parental Family History Reviewed: Yes Children Family History Reviewed: No Sibling(s) Family History Reviewed.: Yes Medication/Allergy Home Medications: Lisinopril [Prinivil 10 mg Tablet] 20 mg PO DAILY 09/17/18 Promethazine HCl [Phenergan 25 mg Tablet] 25 mg PO Q4HP PRN 09/17/18 Lipase/Protease/Amylase [Pancreaze-10 Capsule.] 1 cap PO MEALS #30 capsule. 09/19/18 Lisinopril [Prinivil 10 mg Tablet] 20 mg PO DAILY #30 tablet 09/19/18 Oxycodone HCl/Acetaminophen [Percocet 5-325 mg Tablet] 1 tab PO ASDIR PRN #15 tab 09/19/18 Allergies/Adverse Reactions: No Known Allergies Allergy (Verified 09/17/18 14:01) Review of Systems Constitutional: PRESENT: as per HPI, chills. ABSENT: fever(s) Eyes: ABSENT: visual disturbances, other - Eye pain Ears: ABSENT: hearing changes, other - Ear pain Nose, Mouth, and Throat: ABSENT: mouth pain, sore throat Cardiovascular: ABSENT: chest pain, palpitations Respiratory: ABSENT: cough, dyspnea Gastrointestinal: PRESENT: as per HPI, abdominal pain, nausea, vomiting. ABSENT: constipation, diarrhea, hematemesis, hematochezia, melena Genitourinary: ABSENT: dysuria, hematuria Musculoskeletal: ABSENT: back pain, joint swelling, muscle weakness Integumentary: ABSENT: pruritus, rash Neurological: ABSENT: confusion, convulsions, focal weakness, memory loss, syncope Psychiatric: ABSENT: anxiety, depression Endocrine: ABSENT: cold intolerance, heat intolerance Hematologic/Lymphatic: ABSENT: easy bleeding, easy bruising Physical Exam Vital Signs: Temp Pulse Resp BP Pulse Ox 98.2 F 58 L 16 151/94 H 02/21/19 19:26 02/21/19 19:26 02/21/19 19:26 02/21/19 19:26 Intake & Output 02/19/19 02/20/19 02/21/19 23:59 23:59 23:59 Intake Total 1000 Balance 1000 Weight 74 kg General appearance: PRESENT: cooperative, mild distress - Secondary to abdominal pain, other - Seems to be somewhat manipulative and passive-aggressive Head exam: PRESENT: atraumatic, normocephalic Eye exam: PRESENT: conjunctiva pink. ABSENT: conjunctival injection, scleral icterus Ear exam: PRESENT: normal external ear exam. ABSENT: bleeding, drainage Mouth exam: PRESENT: dry mucosa, neck supple Neck exam: ABSENT: JVD, thyromegaly, tracheal deviation Respiratory exam: PRESENT: clear to auscultation malini, symmetrical, unlabored Cardiovascular exam: PRESENT: RRR. ABSENT: clicks, gallop, rubs Pulses: PRESENT: normal radial pulses, normal dorsalis pedis pul Vascular exam: PRESENT: normal capillary refill. ABSENT: pallor GI/Abdominal exam: PRESENT: normal bowel sounds, soft, tenderness - Left upper quadrant and epigastrum with minimal tenderness on palpation Rectal exam: PRESENT: deferred Extremities exam: ABSENT: joint swelling, pedal edema Musculoskeletal exam: PRESENT: full ROM, normal inspection Neurological exam: PRESENT: alert, oriented to person, oriented to place, oriented to time, oriented to situation, CN II-XII grossly intact. ABSENT: motor sensory deficit Psychiatric exam: PRESENT: appropriate affect, normal mood, other - passive- aggressive/manipulative Skin exam: PRESENT: dry, intact, warm. ABSENT: jaundice, rash, urticaria Results Laboratory Results: 02/21/19 20:00 02/21/19 20:00 02/21/19 02/21/19 02/21/19 20:00 20:00 20:00 WBC 10.4 RBC 4.53 Hgb 15.5 Hct 44.2 MCV 98 H MCH 34.2 H MCHC 35.1 RDW 13.3 Plt Count 310 Seg Neutrophils % 79.6 H Lymphocytes % 15.0 Monocytes % 4.7 Eosinophils % 0.1 Basophils % 0.6 Absolute Neutrophils 8.3 H Absolute Lymphocytes 1.6 Absolute Monocytes 0.5 Absolute Eosinophils 0.0 Absolute Basophils 0.1 Sodium 136.9 L Potassium 3.4 L Chloride 99 Carbon Dioxide 27 Anion Gap 11 BUN 9 Creatinine 0.91 Est GFR ( Amer) > 60 Est GFR (Non-Af Amer) > 60 Glucose 121 H Calcium 10.1 Total Bilirubin 1.1 AST 25 ALT 17 L Alkaline Phosphatase 99 Total Protein 7.9 Albumin 4.3 Lipase 660.7 H Blood Type O POSITIVE Antibody Screen NEGATIVE 02/21/19 02/21/19 20:00 20:00 Creatine Kinase 126 CK-MB (CK-2) 0.70 Troponin I 0.075 Impressions: Chest X-Ray 02/21/19 19:47 IMPRESSION: No acute findings. No focal lung consolidation. Abdomen/Pelvis CT 02/21/19 21:00 IMPRESSION: Inflammatory changes and enlargement of the pancreatic head and uncinate process concerning for acute pancreatitis. This appears similar to the previous examination. The possibility of an underlying pancreatic mass cannot be excluded on the basis of this examination. Consider further evaluation with MRI/MRCP. There is persistent ductal dilatation within the pancreas Calcifications in the head of the pancreas consistent with chronic calcific pancreatitis Enlarged prostate Assessment and Plan - Diagnosis (1) Acute on chronic pancreatitis Is this a current diagnosis for this admission?: Yes Plan: Patient's pancreatitis will be treated with IV fluids and supportive and symptomatic therapy. Patient's pain associated with his pancreatitis will be treated with Nubain 10 mg IV every 3 hours PRN basis. Patient will be started on a diet in the morning and will also receive pancreatic enzyme supplementation with gastric acid suppression agents and gastric motility agents in order to mo re rapidly resolve his acute episode. This will be achieved utilizing Pancreaze, Reglan and famotidine. I have some suspicion that the patient is actually here drug-seeking or for other benefit. Daily laboratory evaluation will include a CBC, metabolic profile, magnesium level, lipase and amylase. (2) Alcohol abuse, continuous drinking behavior Is this a current diagnosis for this admission?: Yes Plan: Alcohol use cessation is advised. Patient will be observed closely for any signs of alcohol withdrawal during his hospital course. (3) Tobacco use disorder, severe, dependence Is this a current diagnosis for this admission?: Yes Plan: Smoking cessation is advised and counseled briefly at bedside. A nicotine replacement patch is available for the patient's use. (4) Hypertension Qualifiers: Hypertension type: essential hypertension Qualified Code(s): I10 - Essential (primary) hypertension Is this a current diagnosis for this admission?: Yes Plan: Patient be continued on his usual medications for hypertension. His blood pressure be assessed frequently during his hospital course. - Time Time Spent with patient: 15-24 minutes Smoking Cessation Education: 3 to 10 minutes Medications reviewed and adjusted accordingly: Yes Anticipated discharge: Home - Inpatient Certification Based on my medical assessment, after consideration of the patient's comorbidities, presenting symptoms, or acuity I expect that the services needed warrant INPATIENT care.: No I certify that my determination is in accordance with my understanding of Medicare's requirements for reasonable and necessary INPATIENT services [42 CFR 412.3e].: No Medical Necessity: Need Close Monitoring Due to Risk of Patient Decompensation, Need For IV Fluids, Need for Pain Control
--- NOTE | 2019-02-22 02:20 | ADVANCED CARE ---
- Diagnosis (1) Acute on chronic pancreatitis Diagnosis Current: Yes (2) Alcohol abuse, continuous drinking behavior Diagnosis Current: Yes (3) Tobacco use disorder, severe, dependence Diagnosis Current: Yes (4) Hypertension Diagnosis Current: Yes Attendance: The patient and myself. Resuscitation Status: Full Code Discussion: After brief discussion the patient is determined he wishes to remain full code resuscitation status for this admission. He further has named Taniya Babin to be his designated surrogate medical decision-maker. Care Planning Goals: 1. Patient will be full CODE STATUS for this admission. 2. Taniya Babin is his designated surrogate medical decision-maker. Document(s) Completed: Following entries remainder the patient's permanent medical record, current medical record and current medical orders via EMR entry: 1. Patient will be full CODE STATUS for this admission. 2. Taniya Babin is his designated surrogate medical decision-maker. Time Spent: 3 minutes
[2019-02-22 02:50] LABS: URINE AMPHETAMINES SCREEN NEGATIVE; URINE BARBITURATES SCREEN NEGATIVE; URINE BENZODIAZEPINES SCREEN NEGATIVE; URINE METHADONE SCREEN NEGATIVE
[2019-02-22 02:59] LABS: URINE PHENCYCLIDINE SCREEN NEGATIVE
[2019-02-22 03:02] LABS: URINE COCAINE SCREEN UNCONFIRMED POSITIVE; URINE MARIJUANA (THC) SCREEN UNCONFIRMED POSITIVE
[2019-02-22 05:18] LABS: ABSOLUTE LYMPHOCYTES (AUTO) 1.8 10^3/uL (0.5-4.7); ABSOLUTE MONOCYTES (AUTO) 0.8 10^3/uL (0.1-1.4); BASOPHILS % (AUTO) 0.2 % (0-2); HEMATOCRIT 41.7 % (37.9-51.0); HEMOGLOBIN 14.4 g/dL (13.5-17.0); LYMPHOCYTES % (AUTO) 13.5 % (13-45); MEAN CORPUSCULAR HEMOGLOBIN 33.8 pg (27.0-33.4); MEAN CORPUSCULAR HGB CONC 34.6 g/dL (32.0-36.0); MEAN CORPUSCULAR VOLUME 98 fl (80-97); MONOCYTES % (AUTO) 6.1 % (3-13); PLATELET COUNT 274 10^3/uL (150-450); RED BLOOD COUNT 4.27 10^6/uL (4.35-5.55); SEGMENTED NEUTROPHILS % (AUTO) 80.2 % (42-78); TOTAL CELLS COUNTED % (AUTO) 100 %; WHITE BLOOD COUNT 13.7 10^3/uL (4.0-10.5)
[2019-02-22 05:21] LABS: APPEARANCE,URINE CLEAR; BILIRUBIN,URINE NEGATIVE (NEGATIVE); COLOR,URINE YELLOW; GLUCOSE, URINE NEGATIVE (NEGATIVE); KETONES,URINE 20 mg/dL (NEGATIVE); LEUKOCYTE ESTERASE,URINE NEGATIVE (NEGATIVE); NITRITE,URINE NEGATIVE (NEGATIVE); PROTEIN,URINE 30 mg/dL (NEGATIVE); URINE SPECIFIC GRAVITY 1.049; UROBILINOGEN,URINE NEGATIVE mg/dL (<2.0)
[2019-02-22] MEDS: HEPARIN SOD (PORCINE) 5,000 UNIT/ML 1 ML VIAL SUBCUT SCH ×3 (05:25→21:18)
[2019-02-22 05:40] LABS: ALANINE AMINOTRANSFERASE 17 U/L (21-72); ALBUMIN 3.6 g/dL (3.5-5.0); ALKALINE PHOSPHATASE 82 U/L (38-126); AMYLASE 205 U/L (30-110); ANION GAP 11 (5-19); ASPARTATE AMINO TRANSFERASE 21 U/L (17-59); BILIRUBIN,DIRECT 0.3 mg/dL (0.0-0.4); BILIRUBIN,TOTAL 0.7 mg/dL (0.2-1.3); BLOOD UREA NITROGEN 7 mg/dL (7-20); CALCIUM 9.2 mg/dL (8.4-10.2); CARBON DIOXIDE 26 mmol/L (22-30); CHLORIDE 100 mmol/L (98-107); GLUCOSE 103 mg/dL (75-110); POTASSIUM 3.3 mmol/L (3.6-5.0); TOTAL PROTEIN 6.8 g/dL (6.3-8.2)
[2019-02-22] MEDS: FAMOTIDINE 20 MG TABLET PO SCH ×4 (08:11→21:17)
[2019-02-22] MEDS: DOCUSATE SODIUM 100 MG/10 ML UDC PO SCH ×2 (09:42→17:01)
[2019-02-22] MEDS: LIPASE/PROTEASE/AMYLASE 1 CAP CAPSULE.DR PO SCH ×3 (11:21→17:00)
[2019-02-22] MEDS: METOCLOPRAMIDE HCL 10 MG TABLET PO SCH ×4 (11:22→21:17)
[2019-02-22] MEDS ORDERED: DEXTROSE 40% GEL 15 GM TUBE PO PRN ×2 (12:07)
[2019-02-22] MEDS ORDERED: DEXTROSE 50%-WATER 25 GM/50 ML DISP.SYRIN IV PRN ×2 (12:07)
[2019-02-22] MEDS ORDERED: GLUCAGON,HUMAN RECOMB 1 MG INJ SUBCUT PRN (12:07)
--- NOTE | 2019-02-22 12:09 | Progress Note Acknowledgement ---
Progress Note Acknowledgement Progess Note Acknowledgement: I, the undersigned member of the medical staff with appropriate privileges and with supervisory authority over [ PAC], a dependent practice allied health professional, acknowledge that I have reviewed the progress notes entered on this patient, and in my professional judgment believe that the assessment made and/or any care evidenced was appropriate
--- NOTE | 2019-02-22 12:15 | PDOC PROGRESS REPORT ---
Subjective Progress Note for:: 02/22/19 Subjective:: [birth year]/[id number] male who was admitted last night through the emergency room for acute alcoholic pancreatitis. This is a second bout that the patient has had the first one was in September of this year. Patient states the last time he drank any alcohol was on 2 nights prior to admission. Patient urine drug screen has come positive for marijuana cocaine and opiates. Patient states the Nubain helps but only for about 2 hours. On admission patient's lipase was 660 is now 1078. White count on admission was 10.4 is now 13.7 magnesium levels low at 1.4 Patient had a clear diet on his tray he was made n.p.o. Magnesium will be replaced. Toradol will be added to his medications. CT scan on admission showed pancreatitis. Reason For Visit: ACUTE ON CHRONIC PANCREATITIS Physical Exam Vital Signs: Temp Pulse Resp BP Pulse Ox 98.0 F 73 17 178/99 H 99 02/22/19 09:19 02/22/19 09:19 02/22/19 09:19 02/22/19 09:19 02/22/19 09:19 Intake & Output 02/21/19 02/22/19 02/23/19 06:59 06:59 06:59 Intake Total 1000 Balance 1000 Weight 74.3 kg General appearance: PRESENT: mild distress Head exam: PRESENT: atraumatic, normocephalic Respiratory exam: PRESENT: clear to auscultation malini. ABSENT: rales, rhonchi, wheezes Cardiovascular exam: PRESENT: RRR. ABSENT: diastolic murmur, rubs, systolic murmur GI/Abdominal exam: PRESENT: tenderness - Generalized and epigastric region. ABSENT: guarding, rigid Neurological exam: PRESENT: alert, awake, oriented to person, oriented to place, oriented to time, oriented to situation, CN II-XII grossly intact. ABSENT: motor sensory deficit Psychiatric exam: PRESENT: appropriate affect, normal mood, other - Patient is not demanding at this point. ABSENT: homicidal ideation, suicidal ideation Results Laboratory Results: 02/22/19 04:23 02/22/19 04:23 02/21/19 02/21/19 02/21/19 20:00 20:00 20:00 WBC 10.4 RBC 4.53 Hgb 15.5 Hct 44.2 MCV 98 H MCH 34.2 H MCHC 35.1 RDW 13.3 Plt Count 310 Seg Neutrophils % 79.6 H Lymphocytes % 15.0 Monocytes % 4.7 Eosinophils % 0.1 Basophils % 0.6 Absolute Neutrophils 8.3 H Absolute Lymphocytes 1.6 Absolute Monocytes 0.5 Absolute Eosinophils 0.0 Absolute Basophils 0.1 Sodium 136.9 L Potassium 3.4 L Chloride 99 Carbon Dioxide 27 Anion Gap 11 BUN 9 Creatinine 0.91 Est GFR ( Amer) > 60 Est GFR (Non-Af Amer) > 60 Glucose 121 H Calcium 10.1 Magnesium Total Bilirubin 1.1 AST 25 ALT 17 L Alkaline Phosphatase 99 Total Protein 7.9 Albumin 4.3 Amylase Lipase 660.7 H Urine Color Urine Appearance Urine pH Ur Specific [place] Urine Protein Urine Glucose (UA) Urine Ketones Urine Blood Urine Nitrite Ur Leukocyte Esterase Urine WBC (Auto) Urine RBC (Auto) Blood Type O POSITIVE Antibody Screen NEGATIVE 02/22/19 02/22/19 02/22/19 01:20 04:23 04:23 WBC 13.7 H RBC 4.27 L Hgb 14.4 Hct 41.7 MCV 98 H MCH 33.8 H MCHC 34.6 RDW 13.0 Plt Count 274 Seg Neutrophils % 80.2 H Lymphocytes % 13.5 Monocytes % 6.1 Eosinophils % 0.0 Basophils % 0.2 Absolute Neutrophils 11.0 H Absolute Lymphocytes 1.8 Absolute Monocytes 0.8 Absolute Eosinophils 0.0 Absolute Basophils 0.0 Sodium 137.1 Potassium 3.3 L Chloride 100 Carbon Dioxide 26 Anion Gap 11 BUN 7 Creatinine 0.81 Est GFR ( Amer) > 60 Est GFR (Non-Af Amer) > 60 Glucose 103 Calcium 9.2 Magnesium 1.4 L Total Bilirubin 0.7 AST 21 ALT 17 L Alkaline Phosphatase 82 Total Protein 6.8 Albumin 3.6 Amylase 205 H Lipase 1078.5 H Urine Color YELLOW Urine Appearance CLEAR Urine pH 6.0 Ur Specific [place] 1.049 Urine Protein 30 H Urine Glucose (UA) NEGATIVE Urine Ketones 20 H Urine Blood NEGATIVE Urine Nitrite NEGATIVE Ur Leukocyte Esterase NEGATIVE Urine WBC (Auto) 0 Urine RBC (Auto) 1 Blood Type Antibody Screen 02/21/19 02/21/19 20:00 20:00 Creatine Kinase 126 CK-MB (CK-2) 0.70 Troponin I 0.075 Impressions: Chest X-Ray 02/21/19 19:47 IMPRESSION: No acute findings. No focal lung consolidation. Abdomen/Pelvis CT 02/21/19 21:00 IMPRESSION: Inflammatory changes and enlargement of the pancreatic head and uncinate process concerning for acute pancreatitis. This appears similar to the previous examination. The possibility of an underlying pancreatic mass cannot be excluded on the basis of this examination. Consider further evaluation with MRI/MRCP. There is persistent ductal dilatation within the pancreas Calcifications in the head of the pancreas consistent with chronic calcific pancreatitis Enlarged prostate Assessment and Plan - Diagnosis (1) Substance abuse Is this a current diagnosis for this admission?: Yes Plan: 02/22/2019 patient tested positive for cocaine marijuana and opiates (2) Alcoholic pancreatitis Qualifiers: Chronicity: acute Acute pancreatitis complication: unspecified Qualified Code(s): K85.20 - Alcohol induced acute pancreatitis without necrosis or infection Is this a current diagnosis for this admission?: Yes Plan: 02/22/2019 patient has had a previous episode of pancreatitis back in September of this year. Patient continues to drink alcohol. Last alcohol consumption was 2 days ago. Patient will be treated with IV fluids pain medication and n.p.o. (3) Alcohol use Is this a current diagnosis for this admission?: Yes Plan: 02/22/2019 patient states he drinks GIN. Last time was 2 nights ago - Time Time Spent with patient: 25-34 minutes
[2019-02-22] MEDS: KETOROLAC TROMETHAMINE INJ/PF 30 MG/1 ML SDV IV PRN ×2 (12:47→20:52)
[2019-02-22] MEDS: MAGNESIUM SULFATE/D5W 1 GM/100 ML RTUPB IV SCH ×2 (12:48→14:56)
[2019-02-22] MEDS: LORAZEPAM 1 MG TABLET PO SCH ×2 (14:57→21:17)
[2019-02-23] MEDS: NALBUPHINE HCL INJ 10 MG/1 ML AMPULE IV PRN ×3 (02:03→19:39)
[2019-02-23] MEDS: LORAZEPAM 1 MG TABLET PO SCH ×3 (05:05→21:30)
[2019-02-23] MEDS: KETOROLAC TROMETHAMINE INJ/PF 30 MG/1 ML SDV IV PRN ×3 (05:05→22:48)
[2019-02-23] MEDS: HEPARIN SOD (PORCINE) 5,000 UNIT/ML 1 ML VIAL SUBCUT SCH ×3 (05:06→21:30)
[2019-02-23] MEDS: LIPASE/PROTEASE/AMYLASE 1 CAP CAPSULE.DR PO SCH ×3 (09:30→19:35)
[2019-02-23] MEDS: METOCLOPRAMIDE HCL 10 MG TABLET PO SCH ×4 (09:30→21:30)
[2019-02-23] MEDS: FAMOTIDINE 20 MG TABLET PO SCH ×4 (09:30→21:30)
[2019-02-23] MEDS: DOCUSATE SODIUM 100 MG/10 ML UDC PO SCH (09:30)
[2019-02-23] MEDS ORDERED: LISINOPRIL 10 MG TABLET PO ONE (14:00)
[2019-02-23] MEDS: RINGERS SOLUTION,LACTATED 1,000 ML IV PRN (14:46)
[2019-02-23 15:01] LABS: ABSOLUTE LYMPHOCYTES (AUTO) 1.6 10^3/uL (0.5-4.7); ABSOLUTE MONOCYTES (AUTO) 0.7 10^3/uL (0.1-1.4); ABSOLUTE NEUT (AUTO) 5.7 10^3/uL (1.7-8.2); BASOPHILS % (AUTO) 0.2 % (0-2); EOSINOPHILS % (AUTO) 0.2 % (0-6); HEMATOCRIT 39.3 % (37.9-51.0); HEMOGLOBIN 13.7 g/dL (13.5-17.0); LYMPHOCYTES % (AUTO) 20.2 % (13-45); MEAN CORPUSCULAR HEMOGLOBIN 33.9 pg (27.0-33.4); MEAN CORPUSCULAR HGB CONC 34.9 g/dL (32.0-36.0); MEAN CORPUSCULAR VOLUME 97 fl (80-97); MONOCYTES % (AUTO) 8.6 % (3-13); PLATELET COUNT 252 10^3/uL (150-450); RED BLOOD COUNT 4.05 10^6/uL (4.35-5.55); RED CELL DISTRIBUTION WIDTH 13.3 % (11.5-14.0); SEGMENTED NEUTROPHILS % (AUTO) 70.8 % (42-78); TOTAL CELLS COUNTED % (AUTO) 100 %; WHITE BLOOD COUNT 8.1 10^3/uL (4.0-10.5)
[2019-02-23 15:24] LABS: ANION GAP 7 (5-19); BLOOD UREA NITROGEN 6 mg/dL (7-20); CALCIUM 9.2 mg/dL (8.4-10.2); CARBON DIOXIDE 32 mmol/L (22-30); CHLORIDE 95 mmol/L (98-107); GLUCOSE 102 mg/dL (75-110)
[2019-02-23] MEDS ORDERED: ONDANSETRON HCL INJ/PF 4 MG/2 ML SDV IV PRN (15:30)
[2019-02-23] MEDS: POTASSI CL 20 MEQ/50 ML RIDER 20 MEQ/50 ML RTUPB IV SCH ×2 (19:34→22:43)
[2019-02-23] MEDS: DOCUSATE SODIUM 100 MG CAPSULE PO SCH (19:35)
[2019-02-24] MEDS: HEPARIN SOD (PORCINE) 5,000 UNIT/ML 1 ML VIAL SUBCUT SCH ×3 (05:02→21:53)
[2019-02-24] MEDS: NALBUPHINE HCL INJ 10 MG/1 ML AMPULE IV PRN (05:02)
[2019-02-24] MEDS: LORAZEPAM 1 MG TABLET PO SCH ×3 (05:02→21:53)
--- NOTE | 2019-02-24 06:42 | PDOC PROGRESS REPORT ---
Subjective Progress Note for:: 02/23/19 Subjective:: 02/22/19, 53-year-old male who was admitted last night through the emergency room for acute alcoholic pancreatitis. This is a second bout that the patient has had the first one was in September of this year. Patient states the last time he drank any alcohol was on 2 nights prior to admission. Patient urine drug screen has come positive for marijuana cocaine and opiates. Patient states the Nubain helps but only for about 2 hours. On admission patient's lipase was 660 is now 1078. White count on admission was 10.4 is now 13.7 magnesium levels low at 1.4 Patient had a clear diet on his tray he was made n.p.o. Magnesium will be replaced. Toradol will be added to his medications. CT scan on admission showed pancreatitis. 02/23/2019 blood pressure slightly elevated 166/97 temp 95 sat 99% on room air patient's abdomen is soft much less tender than yesterday. Patient is complaining of being slightly hungry will start with clear liquid diet tonight as tomorrow as tolerated. We will repeat labs today patient is medically stable. Blood pressure will be addressed today. Prinivil 10 mg daily was added he was on this prior to admission Reason For Visit: ACUTE ON CHRONIC PANCREATITIS Physical Exam Vital Signs: Temp Pulse Resp BP Pulse Ox 98.5 F 64 16 166/97 H 99 02/23/19 11:24 02/23/19 11:24 02/23/19 11:24 02/23/19 11:24 02/23/19 11:24 Intake & Output 02/22/19 02/23/19 02/24/19 06:59 06:59 06:59 Intake Total 1000 500 Output Total 1625 900 Balance 1000 1125 -900 Weight 74.3 kg 76.5 kg General appearance: PRESENT: no acute distress, well-developed, well-nourished Respiratory exam: PRESENT: clear to auscultation malini. ABSENT: rales, rhonchi, wheezes Cardiovascular exam: PRESENT: RRR. ABSENT: diastolic murmur, rubs, systolic murmur GI/Abdominal exam: PRESENT: normal bowel sounds, soft. ABSENT: distended, guarding, mass, organolmegaly, rebound, tenderness Neurological exam: PRESENT: alert, awake, oriented to person, oriented to place, oriented to time, oriented to situation, CN II-XII grossly intact. ABSENT: motor sensory deficit Psychiatric exam: PRESENT: appropriate affect, normal mood. ABSENT: homicidal ideation, suicidal ideation Results Laboratory Results: 02/22/19 04:23 02/22/19 04:23 02/21/19 02/21/19 20:00 20:00 Creatine Kinase 126 CK-MB (CK-2) 0.70 Troponin I 0.075 Impressions: Chest X-Ray 02/21/19 19:47 IMPRESSION: No acute findings. No focal lung consolidation. Abdomen/Pelvis CT 02/21/19 21:00 IMPRESSION: Inflammatory changes and enlargement of the pancreatic head and uncinate process concerning for acute pancreatitis. This appears similar to the previous examination. The possibility of an underlying pancreatic mass cannot be excluded on the basis of this examination. Consider further evaluation with MRI/MRCP. There is persistent ductal dilatation within the pancreas Calcifications in the head of the pancreas consistent with chronic calcific pancreatitis Enlarged prostate Assessment and Plan - Diagnosis (1) Substance abuse Is this a current diagnosis for this admission?: Yes Plan: 02/22/2019 patient tested positive for cocaine marijuana and opiates 02/23/2019. Patient is being covered with Ativan for prophylactic alcohol withdrawal (2) Alcoholic pancreatitis Qualifiers: Chronicity: acute Acute pancreatitis complication: unspecified Qualified Code(s): K85.20 - Alcohol induced acute pancreatitis without necrosis or infection Is this a current diagnosis for this admission?: Yes Plan: 02/22/2019 patient has had a previous episode of pancreatitis back in September of this year. Patient continues to drink alcohol. Last alcohol consumption was 2 days ago. Patient will be treated with IV fluids pain medication and n.p.o. 02/23/2019. Patient's diet is being advanced tonight starting with clear liquids and advance tomorrow. Patient's abdomen is soft and with less pain today with palpation (3) Alcohol use Is this a current diagnosis for this admission?: Yes Plan: 02/22/2019 patient states he drinks GIN. Last time was 2 nights ago 02/23/2019 patient is being treated with Ativan every 8 hours prophylactically for alcohol withdrawals. Also for pain management (4) Hypomagnesemia Is this a current diagnosis for this admission?: Yes Plan: 02/23/2018. Patient's magnesium level was found to be low. After consulting with pharmacy patient was given magnesium sulfate IV replacement. Patient was asymptomatic from this problem. - Time Time Spent with patient: 25-34 minutes
[2019-02-24] MEDS: RINGERS SOLUTION,LACTATED 1,000 ML IV PRN (08:46)
[2019-02-24] MEDS: METOCLOPRAMIDE HCL 10 MG TABLET PO SCH ×4 (08:48→21:53)
[2019-02-24] MEDS: LIPASE/PROTEASE/AMYLASE 1 CAP CAPSULE.DR PO SCH ×3 (08:48→18:00)
[2019-02-24] MEDS: FAMOTIDINE 20 MG TABLET PO SCH ×4 (08:48→21:53)
[2019-02-24] MEDS ORDERED: RINGERS SOLUTION,LACTATED 1,000 ML IV PRN (10:41)
[2019-02-24 11:42] LABS: ANION GAP 8 (5-19); BLOOD UREA NITROGEN 7 mg/dL (7-20); CALCIUM 9.5 mg/dL (8.4-10.2); CARBON DIOXIDE 29 mmol/L (22-30); CHLORIDE 98 mmol/L (98-107); GLUCOSE 100 mg/dL (75-110); POTASSIUM 3.2 mmol/L (3.6-5.0)
[2019-02-24] MEDS: DOCUSATE SODIUM 100 MG CAPSULE PO SCH ×2 (12:26→18:00)
[2019-02-24] MEDS: HYDROCODONE/ACETAMINOPHEN 5-325 MG TABLET PO PRN (12:26)
[2019-02-24] MEDS ORDERED: POTASSIUM CHLORIDE 10 MEQ CAPSULE.ER PO ONE (13:00)
[2019-02-24] MEDS: KETOROLAC TROMETHAMINE INJ/PF 30 MG/1 ML SDV IV PRN (18:02)
--- NOTE | 2019-02-24 18:52 | PDOC PROGRESS REPORT ---
Subjective Progress Note for:: 02/24/19 Subjective:: This a 53-year-old male who presented with abdominal pain. He was admitted for acute and chronic pancreatitis. No acute event overnight. He is tolerating clear diet well. His abdominal pain continues to improve. Reduce IV fluids. Will advance to soft diet today. Reason For Visit: ACUTE ON CHRONIC PANCREATITIS Physical Exam Vital Signs: Temp Pulse Resp BP Pulse Ox 97.4 F 68 16 166/99 H 100 02/24/19 11:58 02/24/19 11:58 02/24/19 11:58 02/24/19 11:58 02/24/19 11:58 Intake & Output 02/23/19 02/24/19 02/25/19 06:59 06:59 06:59 Intake Total 1500 1420 500 Output Total 1625 1100 Balance -125 320 500 Weight 168 lb 10.458 oz 167 lb 1.766 oz General appearance: PRESENT: no acute distress, well-developed, well-nourished Head exam: PRESENT: atraumatic, normocephalic Eye exam: PRESENT: conjunctiva pink, EOMI, PERRLA. ABSENT: scleral icterus Ear exam: PRESENT: normal external ear exam Mouth exam: PRESENT: moist, tongue midline Neck exam: ABSENT: carotid bruit, JVD, lymphadenopathy, thyromegaly Respiratory exam: PRESENT: clear to auscultation malini. ABSENT: rales, rhonchi, wheezes Cardiovascular exam: PRESENT: RRR. ABSENT: diastolic murmur, rubs, systolic murmur Pulses: PRESENT: normal dorsalis pedis pul GI/Abdominal exam: PRESENT: normal bowel sounds, soft. ABSENT: distended, guarding, mass, organolmegaly, rebound, tenderness Rectal exam: PRESENT: deferred Extremities exam: PRESENT: full ROM. ABSENT: calf tenderness, clubbing, pedal edema Neurological exam: PRESENT: alert, awake, oriented to person, oriented to place, oriented to time, oriented to situation, CN II-XII grossly intact. ABSENT: motor sensory deficit Results Laboratory Results: 02/23/19 14:19 02/24/19 11:00 02/23/19 02/23/19 02/23/19 14:19 14:19 14:19 WBC 8.1 RBC 4.05 L Hgb 13.7 Hct 39.3 MCV 97 MCH 33.9 H MCHC 34.9 RDW 13.3 Plt Count 252 Seg Neutrophils % 70.8 Lymphocytes % 20.2 Monocytes % 8.6 Eosinophils % 0.2 Basophils % 0.2 Absolute Neutrophils 5.7 Absolute Lymphocytes 1.6 Absolute Monocytes 0.7 Absolute Eosinophils 0.0 Absolute Basophils 0.0 Sodium 134.1 L Potassium 3.0 L* Chloride 95 L Carbon Dioxide 32 H Anion Gap 7 BUN 6 L Creatinine 0.87 Est GFR ( Amer) > 60 Est GFR (Non-Af Amer) > 60 Glucose 102 Calcium 9.2 Magnesium 1.7 Lipase 02/23/19 02/24/19 14:19 11:00 WBC RBC Hgb Hct MCV MCH MCHC RDW Plt Count Seg Neutrophils % Lymphocytes % Monocytes % Eosinophils % Basophils % Absolute Neutrophils Absolute Lymphocytes Absolute Monocytes Absolute Eosinophils Absolute Basophils Sodium 135.4 L Potassium 3.2 L Chloride 98 Carbon Dioxide 29 Anion Gap 8 BUN 7 Creatinine 0.77 Est GFR ( Amer) > 60 Est GFR (Non-Af Amer) > 60 Glucose 100 Calcium 9.5 Magnesium Lipase 262.7 02/21/19 02/21/19 20:00 20:00 Creatine Kinase 126 CK-MB (CK-2) 0.70 Troponin I 0.075 Impressions: Chest X-Ray 02/21/19 19:47 IMPRESSION: No acute findings. No focal lung consolidation. Abdomen/Pelvis CT 02/21/19 21:00 IMPRESSION: Inflammatory changes and enlargement of the pancreatic head and uncinate process concerning for acute pancreatitis. This appears similar to the previous examination. The possibility of an underlying pancreatic mass cannot be excluded on the basis of this examination. Consider further evaluation with MRI/MRCP. There is persistent ductal dilatation within the pancreas Calcifications in the head of the pancreas consistent with chronic calcific pancreatitis Enlarged prostate Assessment and Plan - Diagnosis (1) Acute on chronic pancreatitis Is this a current diagnosis for this admission?: Yes Plan: Improving. Tolerating clear liquids. Will advance to soft diet today. Reduce IV fluids to 50 cc/h. (2) Hypokalemia Is this a current diagnosis for this admission?: Yes Plan: Replace with 40 meqs PO. Repeat potassium after replacement. (3) Hypertension Qualifiers: Hypertension type: essential hypertension Qualified Code(s): I10 - Essential (primary) hypertension Is this a current diagnosis for this admission?: Yes Plan: increase lisinopril to 20 mg daily. - Time Time Spent with patient: 15-24 minutes
[2019-02-25] MEDS: HYDROCODONE/ACETAMINOPHEN 5-325 MG TABLET PO PRN ×2 (03:15→11:27)
[2019-02-25] MEDS: LORAZEPAM 1 MG TABLET PO SCH (06:00)
[2019-02-25] MEDS: HEPARIN SOD (PORCINE) 5,000 UNIT/ML 1 ML VIAL SUBCUT SCH (06:00)
[2019-02-25 06:46] LABS: ANION GAP 7 (5-19); BLOOD UREA NITROGEN 7 mg/dL (7-20); CALCIUM 9.4 mg/dL (8.4-10.2); CARBON DIOXIDE 31 mmol/L (22-30); CHLORIDE 97 mmol/L (98-107); GLUCOSE 100 mg/dL (75-110); POTASSIUM 3.5 mmol/L (3.6-5.0)
[2019-02-25] MEDS: LIPASE/PROTEASE/AMYLASE 1 CAP CAPSULE.DR PO SCH ×2 (08:57→11:28)
[2019-02-25] MEDS: FAMOTIDINE 20 MG TABLET PO SCH ×2 (08:57→11:28)
[2019-02-25] MEDS: METOCLOPRAMIDE HCL 10 MG TABLET PO SCH ×2 (08:57→11:27)
[2019-02-25] MEDS: DOCUSATE SODIUM 100 MG CAPSULE PO SCH (09:18)
[2019-02-25] MEDS ORDERED: LISINOPRIL 10 MG TABLET PO SCH (10:00)
[2019-02-25] MEDS ORDERED: AMLODIPINE BESYLATE 10 MG TABLET PO ONE (12:30)
[2019-02-25 12:52] VITALS: BP 162/78
--- NOTE | 2019-02-25 19:34 | PDOC DISCHARGE SUMMARY ---
General - Admit/Disc Date/PCP Admission Date/Primary Care Provider: 02/21/19 23:45 [facility] Discharge Date: 02/25/19 - Discharge Diagnosis (1) Acute on chronic pancreatitis Is this a current diagnosis for this admission?: Yes (2) Hypokalemia Is this a current diagnosis for this admission?: Yes (3) Hypertension Is this a current diagnosis for this admission?: Yes - Additional Information Resuscitation Status: Full Code Discharge Diet: As Tolerated Discharge Activity: Activity As Tolerated, Balance Activity w/Rest Prescriptions: Amlodipine Besylate [Norvasc 5 mg Tablet] 5 mg PO DAILY #30 tablet Lisinopril [Prinivil] 20 mg PO DAILY #30 tablet Tramadol HCl [Ultram] 50 mg PO Q12HP PRN #8 tablet PRN Reason: for pain Home Medications: Amlodipine Besylate [Norvasc 5 mg Tablet] 5 mg PO DAILY #30 tablet 02/25/19 Lisinopril [Prinivil] 20 mg PO DAILY #30 tablet 02/25/19 Tramadol HCl [Ultram] 50 mg PO Q12HP PRN #8 tablet 02/25/19 History of Present Illness History of Present Illness: Admitting hospitalist's H&P: BEKAH HEIN is a 53 year old male who presented to the emergency room with a 3- day history of abdominal pain. Patient admits constant, severe, sharp/boring left upper abdominal pain, without radiation, beginning 3 days ago. Patient admits his pain has been accompanied by nausea and vomiting. Patient also admits the associated symptom of episodic chills without fever. He denies other accompanying or associated symptoms. He admits a prior similar episode due to alcoholic pancreatitis. He continues to drink a pint of liquor per day. He has not identified any aggravating or ameliorating factors for his abdominal pain. In the emergency room he was found to have a lipase of 660 and an otherwise unremarkable laboratory evaluation. He was subsequently admitted to observation status for further evaluation and treatment. Hospital Course Hospital Course: This a 53-year-old male who presented with abdominal pain. He was admitted for acute and chronic pancreatitis. Patient was initially made n.p.o. He was started on IV fluids and IV pain medications. He did significantly improved. His diet was gradually advanced and he was able to tolerate a solid diet. He was positive for cocaine and he did admit to using cocaine recently. He was counseled in length against cocaine use as it can potentially trigger acute pancreatitis as well. He verba lized understanding. His lisinopril was also increased and amlodipine was added to his regimen for his elevated blood pressures. Physical Exam Vital Signs: Temp Pulse Resp BP Pulse Ox 97.8 F 70 16 162/78 H 97 02/25/19 12:53 02/25/19 12:53 02/25/19 12:53 02/25/19 12:53 02/25/19 12:53 Intake & Output 02/24/19 02/25/19 02/26/19 06:59 06:59 06:59 Intake Total 1420 920 360 Output Total 1100 2200 825 Balance 320 -1280 -465 Weight 167 lb 1.766 oz 169 lb 5.04 oz General appearance: PRESENT: no acute distress, well-developed, well-nourished Head exam: PRESENT: atraumatic, normocephalic Eye exam: PRESENT: conjunctiva pink, EOMI, PERRLA. ABSENT: scleral icterus Ear exam: PRESENT: normal external ear exam Mouth exam: PRESENT: moist, tongue midline Neck exam: ABSENT: carotid bruit, JVD, lymphadenopathy, thyromegaly Respiratory exam: PRESENT: clear to auscultation malini. ABSENT: rales, rhonchi, wheezes Cardiovascular exam: PRESENT: RRR. ABSENT: diastolic murmur, rubs, systolic murmur Pulses: PRESENT: normal dorsalis pedis pul GI/Abdominal exam: PRESENT: normal bowel sounds, soft. ABSENT: distended, guarding, mass, organolmegaly, rebound, tenderness Rectal exam: PRESENT: deferred Extremities exam: PRESENT: full ROM. ABSENT: calf tenderness, clubbing, pedal edema Neurological exam: PRESENT: alert, awake, oriented to person, oriented to place, oriented to time, oriented to situation, CN II-XII grossly intact. ABSENT: motor sensory deficit Results Laboratory Results: 02/23/19 14:19 02/25/19 05:56 02/25/19 05:56 Sodium 135.0 L Potassium 3.5 L Chloride 97 L Carbon Dioxide 31 H Anion Gap 7 BUN 7 Creatinine 0.85 Est GFR ( Amer) > 60 Est GFR (Non-Af Amer) > 60 Glucose 100 Calcium 9.4 02/21/19 02/21/19 20:00 20:00 Creatine Kinase 126 CK-MB (CK-2) 0.70 Troponin I 0.075 Impressions: Chest X-Ray 02/21/19 19:47 IMPRESSION: No acute findings. No focal lung consolidation. Abdomen/Pelvis CT 02/21/19 21:00 IMPRESSION: Inflammatory changes and enlargement of the pancreatic head and uncinate process concerning for acute pancreatitis. This appears similar to the previous examination. The possibility of an underlying pancreatic mass cannot be excluded on the basis of this examination. Consider further evaluation with MRI/MRCP. There is persistent ductal dilatation within the pancreas Calcifications in the head of the pancreas consistent with chronic calcific pancreatitis Enlarged prostate Qualifiers - * PATIENT BEING DISCHARGED WITH ANY OF THE FOLLOWING DIAGNOSIS: No Acute Heart Failure - Is this a Heart Failure Patient?: No LVEF < 40%?: No- if no continue to question #3 3. Anticoagulant therapy for permanect/persistent/paraoxysmal Afib or Aflutter: N/A
== END 2019-02-25 13:02 | disposition home or self-care (01) | DRG 440 ==
LOC: ER 19:23 → EH 23:22 → OBSVTOIN 23:45 → 4N 02-22 02:00
PROVIDERS: ADMIT Emergency Medicine; ATTEND Emergency Medicine
DX: K85.20 Alcohol induced acute pancreatitis without necrosis or infection (principal); K86.0 Alcohol-induced chronic pancreatitis; E78.5 Hyperlipidemia, unspecified; E83.42 Hypomagnesemia; E87.6 Hypokalemia; I10 Essential (primary) hypertension; K21.9 Gastro-esophageal reflux disease without esophagitis; F10.20 Alcohol dependence, uncomplicated; F17.200 Nicotine dependence, unspecified, uncomplicated; F14.10 Cocaine abuse, uncomplicated; F12.10 Cannabis abuse, uncomplicated; F11.10 Opioid abuse, uncomplicated; Z90.49 Acquired absence of other specified parts of digestive tract; Z79.899 Other long term (current) drug therapy
CPT/HCPCS: 36415; 71045; 74177; 80048; 80053; 80307; 81001; 82150; 82550; 82553; 83690; 83735; 84132; 84484; 85025; 86850; 86900; 86901; 93005; 93010; 96361; 96374; 96375; 99285; J0360; J1170; J1644; J1885; J2270; J2300; J2405; J3475; J3480; J3490; J7030; J7120

== ENCOUNTER 2019-03-09 11:41 | Emergency (ER) | payer SELFPAY ==
--- NOTE | 2019-03-09 12:32 | ER Document Report ---
HPI - HPI Patient complains to provider of: htn Time Seen by Provider: 03/09/19 11:59 Onset: This morning Onset/Duration: Better Pain Level: Denies Context: Patient states that he checked his blood pressure today and it was 204/127. Patient states that he had some readings that were lower but became concerned and contacted his doctor who advised him to come here for evaluation. Patient denies any headache, chest pain, back pain, abdominal pain or any other symptoms. Patient reports having a new blood pressure medication added last week. Patient does have an appointment with his primary doctor this week for recheck of his blood pressure. Associated Symptoms: None Exacerbated by: Denies Relieved by: Denies Similar symptoms previously: No Recently seen / treated by doctor: No - ROS ROS below otherwise negative: Yes Systems Reviewed and Negative: Yes All other systems reviewed and negative - NEURO Neurology: DENIES: Headache, Weakness, Vision blurred, Dizzinesss / Vertigo - CARDIOVASCULAR Cardiovascular: DENIES: Chest pain - RESPIRATORY Respiratory: DENIES: Trouble Breathing, Coughing - GASTROINTESTINAL Gastrointestinal: DENIES: Abdominal Pain, Patient vomiting - REPRODUCTIVE Reproductive: DENIES: : - MUSCULOSKELETAL Musculoskeletal: DENIES: Back Pain, Neck Pain - DERM Skin Color: Normal Skin Problems: None Past Medical History - General Information source: Patient - Social History Smoking Status: Current Every Day Smoker Chew tobacco use (# tins/day): No Frequency of alcohol use: Heavy Drug Abuse: None 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 denies: CAD, DM Patient has suicidal ideation: No Patient has homicidal ideation: No - Past Medical History Cardiac Medical History: Reports: Hx Hypercholesterolemia, Hx Hypertension Neurological Medical History: Denies: Hx Seizures Renal/ Medical History: Denies: Hx Peritoneal Dialysis GI Medical History: Reports: Hx Gastroesophageal Reflux Disease, Hx Ulcer Skin Medical History: Denies Hx Eczema, Denies Hx Psoriasis Psychiatric Medical History: Infectious Medical History: Denies: Hx Hepatitis Past Surgical History: Reports: Hx Abdominal Surgery - inguinal hernia, Hx Appendectomy, Hx Herniorrhaphy - Immunizations Immunizations up to date: Yes Hx Diphtheria, Pertussis, Tetanus Vaccination: Yes Vertical Provider Document - CONSTITUTIONAL Agree With Documented VS: Yes Exam Limitations: No Limitations General Appearance: WD/WN, No Apparent Distress - INFECTION CONTROL TRAVEL OUTSIDE OF THE [place] IN LAST 30 DAYS: No - HEENT HEENT: Atraumatic, Normocephalic - NECK Neck: Normal Inspection, Supple. negative: Lymphadenopathy-Left, Lymphadenopathy-Right - RESPIRATORY Respiratory: Breath Sounds Normal, No Respiratory Distress, Chest Non-Tender. negative: Rales, Rhonchi, Wheezing - CARDIOVASCULAR Cardiovascular: Regular Rate, Regular Rhythm, No Murmur. negative: Tachycardia - GI/ABDOMEN Gastrointestinal: Abdomen Soft, Abdomen Non-Tender - BACK Back: Normal Inspection - MUSCULOSKELETAL/EXTREMETIES Musculoskeletal/Extremeties: MAEW, FROM, No Edema - NEURO Level of Consciousness: Awake, Alert, Appropriate Motor/Sensory: No Motor Deficit - DERM Integumentary: Warm, Dry, No Rash Course - Re-evaluation Re-evalutation: 03/09/19 12:29 Patient presents with asymptomatic hypertension. Patient states that he took his blood pressure with a friend's automatic cuff and had readings ranging from 120 systolic to 160, to 204 systolic. Patient states that he was speaking with the office staff from his doctor's office and they advised him to come here for evaluation. Patient's initial blood pressure here was 142/98. Patient denies any headache, chest pain, back pain, abdominal pain, urinary symptoms or visual symptoms. Patient with asymptomatic hypertension. Patient has been compliant with taking his blood pressure medication at home. Patient does have an appointment with his primary doctor this week for blood pressure recheck. Discussed with patient monitoring blood pressure, keeping a log and decrease in sodium in his diet. - Vital Signs Vital signs: Temp Pulse Resp BP Pulse Ox 98.2 F 73 18 142/98 H 98 03/09/19 11:54 03/09/19 11:54 03/09/19 11:54 03/09/19 11:54 03/09/19 11:54 Discharge - Discharge Clinical Impression: Hypertension Qualifiers: Hypertension type: unspecified Qualified Code(s): I10 - Essential (primary) hypertension Condition: Stable Disposition: HOME, SELF-CARE Instructions: High Blood Pressure ([facility]) Additional Instructions: Return immediately for any new or worsening symptoms Followup with your primary care provider, call tomorrow to make a followup appointment Limit sodium intake as well as smoking as both of these things can cause increases in your blood pressure. Keep a log of your blood pressure readings and present to your doctor this week when you see them again. Forms: Smoking Cessation Education, Return to Work Referrals: [facility] [Primary Care Provider] - Follow up in 3-5 days
[2019-03-09 12:54] VITALS: BP 160/120
== END 2019-03-09 12:57 | disposition home or self-care (01) ==
LOC: ER 11:41
DX: I10 Essential (primary) hypertension (principal); F17.200 Nicotine dependence, unspecified, uncomplicated
CPT/HCPCS: 99283

== ENCOUNTER 2019-04-16 02:35 | Emergency (ER) | payer SELFPAY ==
[2019-04-16 02:41] VITALS: BP 152/95
[2019-04-16] MEDS ORDERED: ONDANSETRON HCL INJ/PF 4 MG/2 ML SDV IV ONE (02:59)
[2019-04-16] MEDS ORDERED: ACETAMINOPHEN 325 MG TABLET PO ONE (03:21)
[2019-04-16 03:39] LABS: ABSOLUTE LYMPHOCYTES (AUTO) 1.7 10^3/uL (0.5-4.7); ABSOLUTE MONOCYTES (AUTO) 0.6 10^3/uL (0.1-1.4); ABSOLUTE NEUT (AUTO) 5.7 10^3/uL (1.7-8.2); BASOPHILS % (AUTO) 0.4 % (0-2); EOSINOPHILS % (AUTO) 0.4 % (0-6); HEMATOCRIT 42.3 % (37.9-51.0); HEMOGLOBIN 15.1 g/dL (13.5-17.0); LYMPHOCYTES % (AUTO) 20.7 % (13-45); MEAN CORPUSCULAR HEMOGLOBIN 34.4 pg (27.0-33.4); MEAN CORPUSCULAR HGB CONC 35.7 g/dL (32.0-36.0); MEAN CORPUSCULAR VOLUME 96 fl (80-97); MONOCYTES % (AUTO) 8.1 % (3-13); PLATELET COUNT 278 10^3/uL (150-450); RED BLOOD COUNT 4.39 10^6/uL (4.35-5.55); RED CELL DISTRIBUTION WIDTH 13.6 % (11.5-14.0); SEGMENTED NEUTROPHILS % (AUTO) 70.4 % (42-78); TOTAL CELLS COUNTED % (AUTO) 100 %
[2019-04-16 03:44] LABS: ALBUMIN 4.1 g/dL (3.5-5.0); ALKALINE PHOSPHATASE 93 U/L (38-126); ANION GAP 10 (5-19); ASPARTATE AMINO TRANSFERASE 29 U/L (17-59); BILIRUBIN,DIRECT 0.1 mg/dL (0.0-0.4); BILIRUBIN,TOTAL 1.2 mg/dL (0.2-1.3); BLOOD UREA NITROGEN 10 mg/dL (7-20); CALCIUM 9.9 mg/dL (8.4-10.2); CARBON DIOXIDE 28 mmol/L (22-30); CHLORIDE 99 mmol/L (98-107); GLUCOSE 129 mg/dL (75-110); POTASSIUM 3.2 mmol/L (3.6-5.0); TOTAL PROTEIN 7.3 g/dL (6.3-8.2)
--- NOTE | 2019-04-16 03:50 | ER Document Report ---
ED GI/ - General Chief Complaint: Foreign Body Stated Complaint: POSS FOREIGN BODY IN THROAT Time Seen by Provider: 04/16/19 03:49 Primary Care Provider: [facility] [Primary Care Provider] - Follow up as needed Mode of Arrival: Ambulatory Information source: Patient, Relative Notes: HISTORY OF PRESENT ILLNESS: Patient is a 53-year-old male with a past medical history of GERD and chronic alcohol abuse who presents with difficulty swallowing and the feeling as though something is stuck in his throat for the past couple days. Patient reports that sensation is getting worse, now he feels tenderness when he tries to swallow. He also reports he had a few episodes of bloody vomit that was mostly "phlegm." Location: Throat Onset: 2 days ago Alleviation: None Provocation: Movement Quality: Burning Radiation: None Severity: Mild to moderate Timing: Constant History of abdominal surgery: None Associated symptoms: Denies fevers or chills, no cough or congestion Last bowel movement: Today and normal REVIEW OF SYSTEMS: CONSTITUTIONAL : Denies fever or chills, no sweats. Denies recent illness. EENT: Positive for difficulty swallowing. Denies eye, ear, throat, or mouth pain or symptoms. Denies nasal or sinus congestion. CARDIOVASCULAR: Denies chest pain. Denies swelling of the legs. RESPIRATORY: Denies cough, cold, or chest congestion. Denies shortness of breath or difficulty breathing. Denies wheezing. GASTROINTESTINAL: Denies abdominal pain. Denies nausea, vomiting, or diarrhea. Denies constipation. GENITOURINARY: Denies difficulty urinating, painful urination, burning, frequency, or blood in urine. FEMALE GENITOURINARY: Denies vaginal bleeding, abnormal or irregular periods. MUSCULOSKELETAL: Denies neck or back pain or joint pain or swelling. SKIN: Denies rash or skin lesions. HEMATOLOGIC : Denies easy bruising or bleeding. LYMPHATIC: Denies swollen, enlarged glands. NEUROLOGICAL: Denies altered mental status or loss of consciousness. Denies headache. Denies weakness or paralysis or loss of use of either side. Denies problems with gait or speech. Denies sensory or motor loss. PSYCHIATRIC: Denies anxiety or stress or depression. All other systems reviewed and negative. PHYSICAL EXAMINATION: GENERAL: Well-appearing, well-nourished and in no acute distress. HEAD: Atraumatic, normocephalic. No scalp deformity, depression, or crepitance. EYES: Pupils are 3 mm and equal/round/reactive to light, extraocular movements intact, sclera anicteric, conjunctiva are normal. ENT: Nares patent bilaterally, oropharynx. Moist mucous membranes. No tonsil hypertrophy. NECK: Normal range of motion, supple without lymphadenopathy. LUNGS: Breath sounds present, equal, and clear to auscultation bilaterally. No wheezes, rales, or rhonchi. HEART: Regular rate and rhythm without murmurs, rubs, or gallops. 2+ peripheral pulses. Normal capillary refill. ABDOMEN: Soft, nontender, nondistended. Normoactive bowel sounds. No guarding, no rebound. No masses appreciated. BACK: Normal contour, no midline tenderness. Rectal exam deferred. GENITAL/PELVIC: Deferred. EXTREMITIES: Normal range of motion, no pitting or edema. No cyanosis. NEUROLOGICAL: No focal neurological deficits. Moves all extremities spontaneously and on command. PSYCH: Normal mood, normal affect. No suicidal thoughts/ideations. No homicidal thoughts/ideations. No hallucinations. SKIN: Warm, dry, normal turgor, no rashes or lesions noted. ASSESSMENT AND PLAN: This patient is a 53-year-old male who presents with difficulty swallowing. 1. Will obtain CT scan of the neck. 2. Will reassess. TRAVEL OUTSIDE OF THE [place] IN LAST 30 DAYS: No - HPI Patient complains to provider of: Other - Difficulty swallowing Onset: Yesterday Timing/Duration: Gradual Quality of pain: Achy Severity at maximum: Mild Severity in ED: Mild Pain Level: Denies Location: Other - Throat Sexual history: Active Associated symptoms: Blood in emesis Exacerbated by: Movement Relieved by: Denies Similar symptoms previously: No Recently seen / treated by doctor: No - Related Data Allergies/Adverse Reactions: No Known Allergies Allergy (Verified 03/09/19 11:49) Past Medical History - General Information source: Patient, Relative - Social History Smoking Status: Unknown if Ever Smoked Frequency of alcohol use: Heavy Drug Abuse: None Lives with: Family Family History: Hypertension, Malignancy. denies: CAD, DM Patient has suicidal ideation: No Patient has homicidal ideation: No - Past Medical History Cardiac Medical History: Reports: Hx Hypercholesterolemia, Hx Hypertension Denies: Hx Atrial Fibrillation, Hx Congestive Heart Failure, Hx Coronary Artery Disease Pulmonary Medical History: Reports: None Denies: Hx Asthma, Hx COPD EENT Medical History: Reports: None Neurological Medical History: Reports: None. Denies: Hx Seizures Endocrine Medical History: Reports: None. Denies: Hx Diabetes Mellitus Type 1, Hx Diabetes Mellitus Type 2, Hx Hyperthyroidism, Hx Hypothyroidism Renal/ Medical History: Reports: None. Denies: Hx Peritoneal Dialysis Malignancy Medical History: Reports None GI Medical History: Reports: Hx Gastroesophageal Reflux Disease, Hx Ulcer. Denies: Hx Cirrhosis, Hx Crohn's Disease, Hx Hepatitis, Hx Ulcerative Colitis Musculoskeletal Medical History: Reports None, Denies Hx Arthritis, Denies Hx Gout Skin Medical History: Reports None, Denies Hx Eczema, Denies Hx Psoriasis Psychiatric Medical History: Reports: None Traumatic Medical History: Reports: None Infectious Medical History: Reports: None. Denies: Hx Hepatitis Past Surgical History: Reports: Hx Abdominal Surgery - inguinal hernia, Hx Appendectomy, Hx Herniorrhaphy - Immunizations Immunizations up to date: Yes Hx Diphtheria, Pertussis, Tetanus Vaccination: Yes Review of Systems - Review of Systems Constitutional: No symptoms reported EENT: See HPI, Throat pain, Difficulty swallowing Cardiovascular: No symptoms reported Respiratory: No symptoms reported Gastrointestinal: No symptoms reported Genitourinary: No symptoms reported Male Genitourinary: No symptoms reported Musculoskeletal: No symptoms reported Skin: No symptoms reported Hematologic/Lymphatic: No symptoms reported Neurological/Psychological: No symptoms reported -: Yes All other systems reviewed and negative Physical Exam - Vital signs Vitals: Temp Pulse Resp BP Pulse Ox 98.1 F 78 18 152/95 H 100 04/16/19 02:39 04/16/19 02:39 04/16/19 02:39 04/16/19 02:39 04/16/19 02:39 Interpretation: Normal Course - Re-evaluation Re-evalutation: 04/16/19 06:23 CT scan shows possible fluid collection consistent with likely phlegmon formati on versus early abscess. ENT favors phlegmon given no discrete rim-enhancing abscess formation, plus the patient is nontoxic-appearing with no fever. Plan will be to give the patient IV Unasyn and have him follow-up with ENT in their office today. Will discharge the patient home with strict return precautions and follow-up with ENT. All results were explained to and discussed with the patient, and all questions addressed and answered. The patient voices both understanding and agreeing with the plan. - Vital Signs Vital signs: Temp Pulse Resp BP Pulse Ox 98.1 F 78 18 152/95 H 100 04/16/19 02:39 04/16/19 02:39 04/16/19 02:39 04/16/19 02:39 04/16/19 02:39 - Laboratory Result Diagrams: 04/16/19 03:11 04/16/19 03:11 Laboratory results interpreted by me: 04/16/19 04/16/19 04/16/19 03:11 03:11 04:20 MCH 34.4 H Potassium 3.2 L Glucose 129 H Urine Protein 100 H Urine Ketones 80 H Urine Bilirubin SMALL H Urine Urobilinogen 4.0 H - Diagnostic Test Radiology reviewed: Image reviewed, Reports reviewed - Consults Dr. Silverman (ENT) Time consulted: 06:05 - IV antibiotics and office follow-up today Consulted provider: follow-up in office Discharge - Discharge Clinical Impression: Dysphagia, pharyngeal Condition: Good Disposition: HOME, SELF-CARE Instructions: Dysphagia ([facility]) Additional Instructions: You have been evaluated in the Emergency Department for difficulty swallowing. While here, you had a CAT scan that revealed fluid in your throat that could be an early infection. While here, you received IV antibiotics and it is now safe to be discharged home. Please follow-up with ENT as instructed today in their office. Return to the Emergency Department if you experience difficulty breathing, inability to swallow, high fevers, swelling of the throat, or any other concerning symptoms. Prescriptions: Hydrocodone/Acetaminophen [Lortab 7.5-325 mg/15 ml Oral Soln] 10 ml PO Q6H PRN #200 ml PRN Reason: For Pain Penicillin V Potassium [Penicillin Vk 500 mg Tablet] 500 mg PO QID #28 tablet Referrals: [facility] [Primary Care Provider] - Follow up as needed ERNIE BARRETT MD [ACTIVE STAFF] - Follow up as needed SHERIDAN SILVERMAN DO [ASSOCIATE] - Follow up as needed Print Language: Divehi
[2019-04-16 04:38] LABS: APPEARANCE,URINE CLEAR; BILIRUBIN,URINE SMALL (NEGATIVE); COLOR,URINE AMBER; GLUCOSE, URINE NEGATIVE (NEGATIVE); KETONES,URINE 80 mg/dL (NEGATIVE); LEUKOCYTE ESTERASE,URINE NEGATIVE (NEGATIVE); NITRITE,URINE NEGATIVE (NEGATIVE); PROTEIN,URINE 100 mg/dL (NEGATIVE); URINE SPECIFIC GRAVITY 1.027
--- NOTE | 2019-04-16 05:19 | RADIOLOGY REPORT (SQ) ---
CLINICAL HISTORY: Foreign body sensation COMPARISON: None. TECHNIQUE: CT NECK CHEST WITHOUT IV CONTRAST on 04/16/2019 4:28 AM CDT This exam was performed according to our departmental dose-optimization program, which includes automated exposure control, adjustment of the mA and/or kV according to patient size and/or use of iterative reconstruction technique. FINDINGS: The visualized portions of the brain and orbits are normal. The oral cavity, oropharynx and nasopharynx are normal. There is suggestion of retropharyngeal fluid within the mid and lower neck. The hypopharynx is unremarkable. The parotid and submandibular glands are grossly within normal limits. No intrinsic mass lesions are seen. . The paranasal sinuses and mastoid air cells are clear. No definite pathologically enlarged lymph nodes are identified. The thyroid gland is normal in size and configuration. The thoracic inlet is normal. The superior mediastinum and lung apices are normal. No acute osseous abnormalities are identified. IMPRESSION: Suggestion of retropharyngeal fluid of unclear etiology or clinical significance. No definite radiopaque foreign body.
[2019-04-16] MEDS ORDERED: AMPICILLIN SOD/SULBACTAM 3 GM VIAL IV ONE (06:23)
[2019-04-16] MEDS ORDERED: MORPHINE SULFATE 10 MG/ML INJ IV ONE (06:38)
[2019-04-16] MEDS ORDERED: DEXAMETHASONE SOD PHOS INJ 10 MG/1 ML VIAL IV ONE (06:38)
== END 2019-04-16 08:03 | disposition home or self-care (01) ==
LOC: ER 02:35
DX: R13.13 Dysphagia, pharyngeal phase (principal); R09.89 Other specified symptoms and signs involving the circulatory and respiratory systems; K92.0 Hematemesis; R07.0 Pain in throat; I10 Essential (primary) hypertension; Z87.19 Personal history of other diseases of the digestive system
CPT/HCPCS: 36415; 85025; 80053; 81001; 70490; J0295; J2270; J2405; J1100

== ENCOUNTER 2019-04-22 11:54 | Day surgery (SDC) | payer OTHER ==
--- NOTE | 2019-04-22 11:22 | EKG REPORT ---
SEVERITY:- ABNORMAL ECG - SINUS RHYTHM PROBABLE LEFT ATRIAL ABNORMALITY LEFT VENTRICULAR HYPERTROPHY BORDERLINE T ABNORMALITIES, INFERIOR LEADS : Confirmed by: Christi Castillo 22-Apr-2019 11:21:27
[~2019-04-22 11:54] MED LIST: DEXAMETHASONE SOD PHOSPHATE INJ 4 MG/1 ML VIAL ONE; GLYCOPYRROLATE 1 MG/5 ML VIAL ONE; LIDOCAINE 2% INJ-PF (20 MG/ML) 2 ML AMPUL ONE; NEOSTIGMINE METHYLSULFATE 10 MG/10 ML VIAL ONE; ONDANSETRON HCL INJ/PF 4 MG/2 ML SDV ONE; ROCURONIUM BROMIDE INJ 50 MG/5 ML VIAL IV ONE
[2019-04-22] MEDS ORDERED: FENTANYL CITRATE INJ/PF 250 MCG/5 ML AMPULE ONE (12:43)
[2019-04-22] MEDS ORDERED: PROPOFOL INJ 200 MG/20 ML VIAL IV ONE (12:43)
[2019-04-22] MEDS ORDERED: MIDAZOLAM 2 MG/2 ML INJ ONE (12:43)
[2019-04-22] MEDS ORDERED: FENTANYL CITRATE INJ/PF 100 MCG/2 ML AMPUL IV PRN ×3 (12:45)
[2019-04-22] MEDS ORDERED: MEPERIDINE HCL/PF INJ 25 MG/1 ML DISP.SYRIN IV PRN (12:45)
[2019-04-22] MEDS ORDERED: PROMETHAZINE HCL INJ 25 MG/1 ML VIAL IV PRN ×2 (12:45)
[2019-04-22] MEDS ORDERED: OXYCODONE-ACETAMINOPHEN 5-325 MG TABLET PO PRN ×2 (12:45)
[2019-04-22] MEDS ORDERED: DIPHENHYDRAMINE HCL 50 MG/ML VIAL IV PRN (12:45)
[2019-04-22] MEDS ORDERED: COCAINE HCL 4% TOPICAL SOLN 4 ML ONE (13:01)
[2019-04-22] MEDS ORDERED: OXYMETAZOLINE HCL 0.05% NASAL SPRAY 15 ML BOTTLE ONE (13:01)
[2019-04-22] MEDS ORDERED: TRIAMCINOLONE ACETONIDE INJ 40 MG/1 ML VIAL ONE (13:01)
[2019-04-22] MEDS ORDERED: DEXAMETHASONE SOD PHOS INJ 10 MG/1 ML VIAL ONE (14:11)
[2019-04-22] MEDS ORDERED: HYDROCODONE/ACETAMINOPHEN 5-325 MG TABLET PO PRN (14:25)
[2019-04-22] MEDS ORDERED: ONDANSETRON HCL INJ/PF 4 MG/2 ML SDV IV PRN (14:25)
--- NOTE | 2019-04-22 14:37 | Operative Report ---
Operative Report-[facility] Operative Report: Date: 22 April 2019 History: Patient with leukoplakia right true vocal cord. Patient is a smoker. 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 Micro Direct Laryngoscopy 2. Excision right true vocal cord leukoplakia using the micro-flap technique Surgeon: Jonas Zaragoza MD, FACS, [facility] Anesethinba: GLENN Description of the procedure: After receiving informed consent, the patient was brought to the operating room and placed supine on the operating room table. After successful induction and intubation by anesthesia, the operating room table was turned 90. A head rape was placed. The patient was placed in a sniffing position. A mouthguard was placed to protect the dentition. An operating laryngoscope was placed atrau matically into the laryngeal inlet. The laryngoscope was then placed into suspension. The microscope was brought into the field and the larynx was visualized. Leukoplakia was noted along the superiomedial surface of the anterior one third of the right true vocal cord. Cottonoids soaked in 4% cocaine were placed into the laryngeal inlet to cover the vocal cords, prior to initiation of the procedure. The cottonoid was removed. A sickle knife was used to make an incision on the superior aspect of the right true vocal cord lateral to the area of leukoplakia. The incision extended anterior and posterior to the margins of the leukoplakia. Using a micro dissector a micro-flap was raised in the superficial layer of the lamina propria, superficial to the vocal ligament. This was extended anterior and posterior to the margins of the lesion. The vocal ligament was intact without evidence of invasion. Microscissors were used to incise the vocal cord mucosa posterior and anterior to the leukoplakia, removing the leukoplakia in toto. This will be sent for permanent histopathologic examination. A cottonoid soaked in 4% cocaine was placed over the excision site. Hemostasis was obtained. The patient was taken out of suspension and the laryngoscope removed. The patient was then given back to anesthesia who successfully extubated the patient without any complications. Estimated blood loss: Minimal Fluids: 500 mL The patient tolerated the procedure well without any complications. The patient was then transported to the post anesthesia care unit in stable condition with spontaneous respirations.
[2019-04-22] MEDS ORDERED: HYDROCODONE/ACETAMINOPHEN 5-325 MG TABLET ONE (15:03)
[2019-04-22 16:02] VITALS: BP 146/100
== END 2019-04-22 16:05 | disposition home or self-care (01) ==
LOC: OROUT 11:54
PROVIDERS: ATTEND Otolaryngology
DX: J38.3 Other diseases of vocal cords (principal); R23.4 Changes in skin texture; F17.210 Nicotine dependence, cigarettes, uncomplicated; I10 Essential (primary) hypertension
CPT/HCPCS: 93005; 88305 ×2; 88312 ×2; 93010; 00320; 31535; J2250; J3490 ×5; J1100 ×2; J3010; J2710; J2405; J2704; 320; J3301

== ENCOUNTER 2019-08-12 15:27 | Inpatient (IN) | payer OTHER ==
[2019-08-12] MEDS ORDERED: MORPHINE SULFATE 10 MG/ML INJ IV ONE (15:58)
--- NOTE | 2019-08-12 15:58 | ER Document Report ---
ED Medical Screen (RME) - General Chief Complaint: Chest Pain Stated Complaint: CHEST PAIN/VOMITING Time Seen by Provider: 08/12/19 15:49 Primary Care Provider: JOHN BILLS,JANAE [Primary Care Provider] - Follow up as needed Notes: Patient is a 53-year-old male with a past history of pancreatitis who presents to the emergency department with left-sided chest pain. His symptoms started yesterday. He also admits to vomiting yesterday. Patient admits to alcohol use. Exam: Tender epigastric area. I have greeted and performed a rapid initial assessment of this patient. A comprehensive ED assessment and evaluation of the patient, analysis of test results and completion of medical decision making process will be conducted by an additional ED providers. TRAVEL OUTSIDE OF THE [place] IN LAST 30 DAYS: No - Related Data Allergies/Adverse Reactions: No Known Allergies Allergy (Verified 08/12/19 15:48) Home Medications: PENICILLIN, LISINOPRIL AND LORTAB Past Medical History - Social History Chew tobacco use (# tins/day): No Frequency of alcohol use: Social Drug Abuse: None - Past Medical History Cardiac Medical History: Reports: Hx Hypercholesterolemia, Hx Hypertension Denies: Hx Atrial Fibrillation, Hx Congestive Heart Failure, Hx Coronary Artery Disease, Hx Heart Attack Pulmonary Medical History: Denies: Hx Asthma, Hx Bronchitis, Hx COPD, Hx Pneumonia Neurological Medical History: Denies: Hx Cerebrovascular Accident, Hx Seizures Endocrine Medical History: Denies: Hx Diabetes Mellitus Type 1, Hx Diabetes Mellitus Type 2, Hx Hyperthyroidism, Hx Hypothyroidism Renal/ Medical History: Denies: Hx Peritoneal Dialysis GI Medical History: Reports: Hx Gastroesophageal Reflux Disease, Hx Ulcer. Denies: Hx Cirrhosis, Hx Crohn's Disease, Hx Hepatitis, Hx Ulcerative Colitis Musculoskeltal Medical History: Denies Hx Arthritis, Denies Hx Gout Skin Medical History: Denies Hx Eczema, Denies Hx Psoriasis Psychiatric Medical History: Infectious Medical History: Denies: Hx Hepatitis Past Surgical History: Reports: Hx Abdominal Surgery - inguinal hernia, Hx Appendectomy, Hx Herniorrhaphy - Immunizations Immunizations up to date: Yes Hx Diphtheria, Pertussis, Tetanus Vaccination: Yes Physical Exam - Vital signs Vitals: Temp Pulse Resp BP Pulse Ox 97.4 F 71 18 198/107 H 98 08/12/19 15:36 08/12/19 15:36 08/12/19 15:36 08/12/19 15:36 08/12/19 15:36 Course - Vital Signs Vital signs: Temp Pulse Resp BP Pulse Ox 97.4 F 71 18 198/107 H 98 08/12/19 15:36 08/12/19 15:36 08/12/19 15:36 08/12/19 15:36 08/12/19 15:36 Doctor's Discharge - Discharge Referrals: [facility] [Primary Care Provider] - Follow up as needed
[2019-08-12] MEDS ORDERED: MORPHINE SULFATE 10 MG/ML INJ IM ONE (16:17)
--- NOTE | 2019-08-12 16:25 | RADIOLOGY REPORT (SQ) ---
EXAM DESCRIPTION: CHEST SINGLE VIEW COMPLETED DATE/TIME: 08/12/2019 4:16 pm REASON FOR STUDY: chest pain COMPARISON: AP view of the chest from 02/21/2019. EXAM PARAMETERS: NUMBER OF VIEWS: One view. TECHNIQUE: An AP view of the chest was obtained. RADIATION DOSE: NA LIMITATIONS: None. FINDINGS: LUNGS AND PLEURA: No consolidation, pleural effusion or pneumothorax. MEDIASTINUM AND HILAR STRUCTURES: No mediastinal or hilar contour abnormality. HEART AND VASCULAR STRUCTURES: The cardiac silhouette and pulmonary vasculature are within normal villatoro its. BONES: No acute findings. HARDWARE: None in the chest. OTHER: No other finding. IMPRESSION: No acute cardiopulmonary process. TECHNICAL DOCUMENTATION: JOB ID: [id number] [employer]- All Rights Reserved Reading location - IP/workstation name: [email or web address]
[2019-08-12 16:32] LABS: ABSOLUTE LYMPHOCYTES (AUTO) 1.5 10^3/uL (0.5-4.7); ABSOLUTE MONOCYTES (AUTO) 0.7 10^3/uL (0.1-1.4); ABSOLUTE NEUT (AUTO) 10.4 10^3/uL (1.7-8.2); BASOPHILS % (AUTO) 0.4 % (0-2); EOSINOPHILS % (AUTO) 0.2 % (0-6); HEMATOCRIT 44.7 % (37.9-51.0); HEMOGLOBIN 15.4 g/dL (13.5-17.0); LYMPHOCYTES % (AUTO) 11.5 % (13-45); MEAN CORPUSCULAR HEMOGLOBIN 33.6 pg (27.0-33.4); MEAN CORPUSCULAR HGB CONC 34.4 g/dL (32.0-36.0); MEAN CORPUSCULAR VOLUME 98 fl (80-97); MONOCYTES % (AUTO) 5.6 % (3-13); PLATELET COUNT 293 10^3/uL (150-450); RED BLOOD COUNT 4.57 10^6/uL (4.35-5.55); RED CELL DISTRIBUTION WIDTH 13.9 % (11.5-14.0); SEGMENTED NEUTROPHILS % (AUTO) 82.3 % (42-78); TOTAL CELLS COUNTED % (AUTO) 100 %; WHITE BLOOD COUNT 12.7 10^3/uL (4.0-10.5)
[2019-08-12 16:45] LABS: ALBUMIN 4.3 g/dL (3.5-5.0); ALKALINE PHOSPHATASE 109 U/L (38-126); ANION GAP 12 (5-19); ASPARTATE AMINO TRANSFERASE 30 U/L (17-59); BILIRUBIN,DIRECT 0.3 mg/dL (0.0-0.4); BILIRUBIN,TOTAL 1.1 mg/dL (0.2-1.3); BLOOD UREA NITROGEN 10 mg/dL (7-20); CALCIUM 10.2 mg/dL (8.4-10.2); CARBON DIOXIDE 28 mmol/L (22-30); CHLORIDE 96 mmol/L (98-107); CREATINE KINASE 88 U/L (55-170); GLUCOSE 145 mg/dL (75-110); TOTAL PROTEIN 8.2 g/dL (6.3-8.2)
[2019-08-12] MEDS ORDERED: NORMAL SALINE 1000 ML 2,000 ML IV ONE (17:32)
[2019-08-12] MEDS ORDERED: METOCLOPRAMIDE HCL INJ/PF 10 MG/2 ML SDV IV ONE (18:09)
[2019-08-12] MEDS ORDERED: DIPHENHYDRAMINE HCL 50 MG/ML VIAL IV ONE (18:10)
[2019-08-12] MEDS ORDERED: FENTANYL CITRATE INJ/PF 100 MCG/2 ML AMPUL IV ONE (18:10)
[2019-08-12] MEDS ORDERED: HYDRALAZINE HCL INJ/PF 20 MG/1 ML SDV IV ONE (18:15)
--- NOTE | 2019-08-12 19:14 | RADIOLOGY REPORT (SQ) ---
EXAM DESCRIPTION: CT ABD/PELVIS WITH IV ONLY COMPLETED DATE/TIME: 08/12/2019 7:02 pm REASON FOR STUDY: epig pain/pancreatitis COMPARISON: 02/21/2019 TECHNIQUE: CT scan of the abdomen and pelvis performed using helical scanning technique with dynamic intravenous contrast injection. No oral contrast. Images reviewed with lung, soft tissue, and bone windows. Reconstructed coronal and sagittal MPR images reviewed. Delayed images for evaluation of the urinary system also acquired. All images stored on PACS. All CT scanners at this facility use dose modulation, iterative reconstruction, and/or weight based d osing when appropriate to reduce radiation dose to as low as reasonably achievable (ALARA). [facility]: Dose Right [facility]: CareDose [facility]: Dose Right [facility]: Teradose 4D [facility]: Noteleaf CONTRAST TYPE AND DOSE: contrast/concentration: Isovue 350.00 mg/ml; Total Contrast Delivered: 85.0 ml; Total Saline Delivered: 67.0 ml RENAL FUNCTION: GFR > 60. RADIATION DOSE: CT Rad equipment meets quality standard of care and radiation dose reduction techniq ues were employed. CTDIvol: 5.3 - 7.0 mGy. DLP: 691 mGy-cm.. LIMITATIONS: None. FINDINGS: LOWER CHEST: No significant findings. No nodules or infiltrates. LIVER: Normal size. No masses. No dilated ducts. SPLEEN: Normal size. No focal lesions. PANCREAS: Inflammatory changes consistent with pancreatitis. Calcifications in the pancreatic head. No pseudocyst. No evidence of necrosis. Mild dilatation of the pancreatic duct. GALLBLADDER: No identified stones by CT criteria. No inflammatory changes to suggest cholecystitis. ADRENAL GLANDS: No significant masses or asymmetry. RIGHT KIDNEY AND URETER: No solid masses. No significant calcifications. No hydronephrosis or hyd roureter. LEFT KIDNEY AND URETER: No solid masses. No significant calcifications. No hydronephrosis or hydr oureter. AORTA AND VESSELS: No aneurysm. RETROPERITONEUM: No retroperitoneal adenopathy, hemorrhage or masses. BOWEL AND PERITONEAL CAVITY: No masses or inflammatory changes. No free fluid or peritoneal masses. APPENDIX: Not visualized. PELVIS: No mass. No free fluid. Normal bladder. ABDOMINAL WALL: No masses. No hernias. BONES: No significant or acute findings. OTHER: No other significant finding. IMPRESSION: Acute pancreatitis. TECHNICAL DOCUMENTATION: JOB ID: [id number] Quality ID # [id number]: Final reports with documentation of one or more dose reduction techniques (e.g., Au tomated exposure control, adjustment of the mA and/or kV according to patient size, use of iterative reconstruction technique) 2010 [employer]- All Rights Reserved Reading location - IP/workstation name: [email or web address]
--- NOTE | 2019-08-12 19:57 | ER Document Report ---
ED General - General Chief Complaint: Chest Pain Stated Complaint: CHEST PAIN/VOMITING Time Seen by Provider: 08/12/19 15:49 Primary Care Provider: [facility] [Primary Care Provider] - Follow up as needed TRAVEL OUTSIDE OF THE [place] IN LAST 30 DAYS: No - HPI Patient complains to provider of: epigastric pain Onset: Just prior to arrival Quality of pain: Sharp, Stabbing Severity: Severe Pain Level: 5 Context: 53 year old male with h/o pancreatitis presents with epigastric pain sharp and similar to previous pancreatitis. Drinks Etoh on occaision. No etoh in a day. No trauma. No h/o biliary disease. Exacerbated by: Denies Relieved by: Denies - Related Data Allergies/Adverse Reactions: No Known Allergies Allergy (Verified 08/12/19 15:48) Home Medications: PENICILLIN, LISINOPRIL AND LORTAB Past Medical History - Social History Smoking Status: Current Every Day Smoker Chew tobacco use (# tins/day): No Frequency of alcohol use: Social Drug Abuse: None Family History: Hypertension, Malignancy. denies: CAD, DM Patient has suicidal ideation: No Patient has homicidal ideation: No - Past Medical History Cardiac Medical History: Reports: Hx Hypercholesterolemia, Hx Hypertension Denies: Hx Atrial Fibrillation, Hx Congestive Heart Failure, Hx Coronary Ar nola Disease, Hx Heart Attack Pulmonary Medical History: Denies: Hx Asthma, Hx Bronchitis, Hx COPD, Hx Pneumonia Neurological Medical History: Denies: Hx Cerebrovascular Accident, Hx Seizures Endocrine Medical History: Denies: Hx Diabetes Mellitus Type 1, Hx Diabetes Mellitus Type 2, Hx Hyperthyroidism, Hx Hypothyroidism Renal/ Medical History: Denies: Hx Peritoneal Dialysis GI Medical History: Reports: Hx Gastroesophageal Reflux Disease, Hx Ulcer. Denies: Hx Cirrhosis, Hx Crohn's Disease, Hx Hepatitis, Hx Ulcerative Colitis Musculoskeletal Medical History: Denies Hx Arthritis, Denies Hx Gout Skin Medical History: Denies Hx Eczema, Denies Hx Psoriasis Psychiatric Medical History: Infectious Medical History: Denies: Hx Hepatitis Past Surgical History: Reports: Hx Abdominal Surgery - inguinal hernia, Hx Appendectomy, Hx Herniorrhaphy - Immunizations Immunizations up to date: Yes Hx Diphtheria, Pertussis, Tetanus Vaccination: Yes Review of Systems - Review of Systems Constitutional: No symptoms reported EENT: No symptoms reported Cardiovascular: No symptoms reported Respiratory: No symptoms reported Gastrointestinal: No symptoms reported Genitourinary: No symptoms reported Male Genitourinary: No symptoms reported Musculoskeletal: No symptoms reported Skin: No symptoms reported Hematologic/Lymphatic: No symptoms reported Neurological/Psychological: No symptoms reported Physical Exam - Vital signs Vitals: Temp Pulse Resp BP Pulse Ox 97.4 F 71 18 198/107 H 98 08/12/19 15:36 08/12/19 15:36 08/12/19 15:36 08/12/19 15:36 08/12/19 15:36 Interpretation: Normal - General General appearance: Appears well, Alert - HEENT Head: Normocephalic, Atraumatic Eyes: Normal Pupils: PERRL - Respiratory Respiratory status: No respiratory distress Chest status: Nontender Breath sounds: Normal Chest palpation: Normal - Cardiovascular Rhythm: Regular Heart sounds: Normal auscultation Murmur: No - Abdominal Inspection: Normal Distension: No distension Bowel sounds: Normal Tenderness: Tender - epigastric pain Organomegaly: No organomegaly - Back Back: Normal, Nontender - Extremities General upper extremity: Normal inspection, Nontender, Normal color, Normal ROM, Normal temperature General lower extremity: Normal inspection, Nontender, Normal color, Normal ROM, Normal temperature, Normal weight bearing. No: Petra's sign - Neurological Neuro grossly intact: Yes Cognition: Normal Orientation: AAOx4 [place] Coma Scale Eye Opening: Spontaneous Remedios Coma Scale Verbal: Oriented [place] Coma Scale Motor: Obeys Commands Remedios Coma Scale Total: 15 Speech: Normal Motor strength normal: LUE, RUE, LLE, RLE Sensory: Normal - Psychological Associated symptoms: Normal affect, Normal mood - Skin Skin Temperature: Warm Skin Moisture: Dry Skin Color: Normal Course - Re-evaluation Re-evalutation: 08/12/19 20:04 MDM 53 year old with recurrent pancreatitis. Nontoxic here. I have discussed with Dr. Alonso and he will see. - Vital Signs Vital signs: Temp Pulse Resp BP Pulse Ox 97.4 F 71 12 160/105 H 98 08/12/19 15:36 08/12/19 15:36 08/12/19 17:42 08/12/19 17:42 08/12/19 17:42 - Laboratory Result Diagrams: 08/12/19 16:10 08/12/19 16:10 Laboratory results interpreted by me: 08/12/19 08/12/19 16:10 16:10 WBC 12.7 H MCV 98 H MCH 33.6 H Lymph % (Auto) 11.5 L Absolute Neuts (auto) 10.4 H Seg Neutrophils % 82.3 H Sodium 135.6 L Chloride 96 L Glucose 145 H Lipase 4051.4 H - Diagnostic Test Radiology reviewed: Reports reviewed Discharge - Discharge Clinical Impression: Pancreatitis Qualifiers: Chronicity: acute Pancreatitis type: unspecified pancreatitis type Acute p ancreatitis complication: unspecified Qualified Code(s): K85.90 - Acute pancreatitis without necrosis or infection, unspecified Condition: Good Disposition: ADMITTED OBSERVATION Admitting Provider: Gavin (Hospitalist) Unit Admitted: Telemetry [facility]errals: [facility] [[facility] - Follow up as needed
[2019-08-12] MEDS ORDERED: ENALAPRILAT DIHYDRATE INJ/PF 1.25 MG/1 ML SDV IV ONE (20:06)
[2019-08-12] MEDS ORDERED: PROMETHAZINE HCL INJ 25 MG/1 ML VIAL IV PRN (20:14)
[2019-08-12] MEDS ORDERED: NORMAL SALINE 1000 ML 1,000 ML IV SCH (20:15)
[2019-08-12] MEDS: KETOROLAC TROMETHAMINE INJ/PF 30 MG/1 ML SDV IV PRN (20:40)
[2019-08-12] MEDS: DIAZEPAM 5 MG TABLET PO SCH (20:41)
[2019-08-12] MEDS ORDERED: ENALAPRILAT DIHYDRATE INJ/PF 2.5 MG/2 ML SDV IV ONE (20:45)
[2019-08-12] MEDS ORDERED: HYDROMORPHONE HCL INJ/PF 2 MG/ML AMPULE IV ONE (20:47)
[2019-08-12] MEDS ORDERED: ONDANSETRON HCL INJ/PF 4 MG/2 ML SDV IV ONE (20:47)
[2019-08-12] MEDS: HYDRALAZINE HCL INJ/PF 20 MG/1 ML SDV IV PRN (22:00)
[2019-08-13] MEDS: HEPARIN SOD (PORCINE) 5,000 UNIT/ML 1 ML VIAL SUBCUT SCH ×4 (01:23→21:20)
[2019-08-13] MEDS ORDERED: AMLODIPINE BESYLATE 10 MG TABLET PO ONE (02:00)
[2019-08-13 03:04] LABS: URINE AMPHETAMINES SCREEN NEGATIVE; URINE BARBITURATES SCREEN NEGATIVE; URINE BENZODIAZEPINES SCREEN NEGATIVE; URINE PHENCYCLIDINE SCREEN NEGATIVE
[2019-08-13 03:05] LABS: URINE METHADONE SCREEN NEGATIVE
[2019-08-13 03:12] LABS: URINE COCAINE SCREEN UNCONFIRMED POSITIVE; URINE MARIJUANA (THC) SCREEN UNCONFIRMED POSITIVE
[2019-08-13] MEDS: KETOROLAC TROMETHAMINE INJ/PF 30 MG/1 ML SDV IV PRN ×3 (03:18→17:30)
[2019-08-13] MEDS: NORMAL SALINE 1000 ML 1,000 ML IV PRN ×3 (04:05→17:33)
[2019-08-13] MEDS: DIAZEPAM 5 MG TABLET PO SCH ×3 (05:07→17:30)
[2019-08-13 05:23] LABS: ABSOLUTE LYMPHOCYTES (AUTO) 0.8 10^3/uL (0.5-4.7); ABSOLUTE MONOCYTES (AUTO) 0.7 10^3/uL (0.1-1.4); BASOPHILS % (AUTO) 0.3 % (0-2); EOSINOPHILS % (AUTO) 0.1 % (0-6); HEMATOCRIT 41.2 % (37.9-51.0); HEMOGLOBIN 14.5 g/dL (13.5-17.0); LYMPHOCYTES % (AUTO) 5.4 % (13-45); MEAN CORPUSCULAR HEMOGLOBIN 33.9 pg (27.0-33.4); MEAN CORPUSCULAR HGB CONC 35.2 g/dL (32.0-36.0); MEAN CORPUSCULAR VOLUME 97 fl (80-97); MONOCYTES % (AUTO) 4.5 % (3-13); PLATELET COUNT 240 10^3/uL (150-450); RED BLOOD COUNT 4.27 10^6/uL (4.35-5.55); RED CELL DISTRIBUTION WIDTH 13.7 % (11.5-14.0); SEGMENTED NEUTROPHILS % (AUTO) 89.7 % (42-78); TOTAL CELLS COUNTED % (AUTO) 100 %; WHITE BLOOD COUNT 15.7 10^3/uL (4.0-10.5)
--- NOTE | 2019-08-13 05:23 | PDOC H&P ---
History of Present Illness Admission Date/PCP: 08/12/19 20:14 [facility] Patient complains of: Abdominal pain History of Present Illness: BEKAH HEIN is a 53 year old male with a past medical history of recurrent alcoholic pancreatitis, hypertension, frequent cocaine, marijuana and tobacco use. He presents with 2 days of abdominal pain, nausea and several episodes of vomiting gastric content. He recognizes the symptoms from previous episodes of acute pancreatitis prompting evaluation emergency room where he is found to have uncontrolled hypertension, LFT over 4000 with unremarkable LFTs and a CT suggesting acute on chronic pancreatitis. He received morphine and referred to the hospitalist for admission. Patient admits to medication lifestyle noncompliance. Past Medical History Cardiac Medical History: Reports: Hyperlipidema, Hypertension Denies: Atrial Fibrillation, Congestive Heart Failure, Coronary Artery Disease, Myocardial Infarction Pulmonary Medical History: Denies: Asthma, Bronchitis, Chronic Obstructive Pulmonary Disease (COPD), Pneumonia Neurological Medical History: Denies: Seizures Endocrine Medical History: Denies: Diabetes Mellitus Type 1, Diabetes Mellitus Type 2, Hyperthyroidism, Hypothyroidism GI Medical History: Reports: Gastroesophageal Reflux Disease Denies: Cirrhosis, Crohn's Disease, Hepatitis, Ulcerative Colitis Musculoskeltal Medical History: Denies: Arthritis, Gout Skin Medical History: Denies: Eczema, Psoriasis Psychiatric Medical History: Reports: Alcohol Dependency, Substance Abuse, Tobacco Dependency Hematology: Denies: Anemia, Bleeding Tendencies Past Surgical History Past Surgical History: Reports: Appendectomy, Herniorrhaphy Social History Information Source: Patient Smoking Status: Current Every Day Smoker Electronic Cigarette use?: No Frequency of Alcohol Use: Heavy - Drinks 1 pint of hard liquor daily Hx Recreational Drug Use: Yes Drugs: Cocaine, Marijuana Hx Prescription Drug Abuse: No Family History Family History: Hypertension, Malignancy. denies: CAD, DM Parental Family History Reviewed: Yes Children Family History Reviewed: Yes Sibling(s) Family History Reviewed.: Yes Medication/Allergy Home Medications: Lisinopril [Prinivil] 20 mg PO DAILY #30 tablet 02/25/19 Hydrocodone/Acetaminophen [Lortab 7.5-325 mg/15 ml Oral Soln] 10 ml PO Q6H PRN #200 ml 04/16/19 Penicillin V Potassium [Penicillin Vk 500 mg Tablet] 500 mg PO QID #28 tablet 04/16/19 Allergies/Adverse Reactions: No Known Allergies Allergy (Verified 08/12/19 15:48) Review of Systems Constitutional: PRESENT: anorexia. ABSENT: chills, fever(s), headache(s), weight gain, weight loss Eyes: ABSENT: visual disturbances Ears: ABSENT: hearing changes Cardiovascular: ABSENT: chest pain, dyspnea on exertion, edema, orthropnea, palpitations Respiratory: ABSENT: cough, hemoptysis Gastrointestinal: PRESENT: as per HPI, abdominal pain, bloating, nausea, vomiting. ABSENT: constipation, diarrhea, hematemesis, hematochezia Genitourinary: ABSENT: dysuria, hematuria Musculoskeletal: ABSENT: joint swelling Integumentary: ABSENT: rash, wounds Neurological: ABSENT: abnormal gait, abnormal speech, confusion, dizziness, focal weakness, syncope Psychiatric: ABSENT: anxiety, depression, homidical ideation, suicidal ideation Endocrine: ABSENT: cold intolerance, heat intolerance, polydipsia, polyuria Hematologic/Lymphatic: ABSENT: easy bleeding, easy bruising Physical Exam Vital Signs: Temp Pulse Resp BP Pulse Ox 98.1 F 86 14 172/100 H 100 08/12/19 23:35 08/13/19 02:00 08/12/19 23:14 08/12/19 23:35 08/12/19 23:35 Intake & Output 08/11/19 08/12/19 08/13/19 11:59 11:59 11:59 Intake Total 2000 Output Total 200 Balance 1800 Weight 76.3 kg General appearance: PRESENT: cooperative, disheveled, mild distress, well- developed, well-nourished Head exam: PRESENT: atraumatic, normocephalic Eye exam: PRESENT: conjunctiva pink, EOMI, PERRLA. ABSENT: scleral icterus Ear exam: PRESENT: normal external ear exam Mouth exam: PRESENT: moist, tongue midline Neck exam: ABSENT: carotid bruit, JVD, lymphadenopathy, thyromegaly Respiratory exam: PRESENT: clear to auscultation malini. ABSENT: rales, rhonchi, wheezes Cardiovascular exam: PRESENT: RRR. ABSENT: diastolic murmur, rubs, systolic murmur Pulses: PRESENT: normal dorsalis pedis pul Vascular exam: PRESENT: normal capillary refill GI/Abdominal exam: PRESENT: hypoactive bowel sounds, soft, tenderness. ABSENT: ascites, distended, firm, mass Rectal exam: PRESENT: deferred Extremities exam: PRESENT: full ROM. ABSENT: calf tenderness, clubbing, pedal edema Neurological exam: PRESENT: alert, awake, oriented to person, oriented to place, oriented to time, oriented to situation, CN II-XII grossly intact. ABSENT: motor sensory deficit Psychiatric exam: PRESENT: appropriate affect, normal mood. ABSENT: homicidal ideation, suicidal ideation Skin exam: PRESENT: dry, intact, warm. ABSENT: cyanosis, rash Results Laboratory Results: 08/12/19 08/12/19 16:10 16:10 WBC 12.7 H RBC 4.57 Hgb 15.4 Hct 44.7 MCV 98 H MCH 33.6 H MCHC 34.4 RDW 13.9 Plt Count 293 Seg Neutrophils % 82.3 H Sodium 135.6 L Potassium 4.0 Chloride 96 L Carbon Dioxide 28 Anion Gap 12 BUN 10 Creatinine 0.95 Est GFR ( Amer) > 60 Glucose 145 H Calcium 10.2 Total Bilirubin 1.1 AST 30 Alkaline Phosphatase 109 Total Protein 8.2 Albumin 4.3 Lipase 4051.4 H 08/12/19 08/12/19 16:10 16:10 Creatine Kinase 88 Troponin I 0.087 Impressions: Chest X-Ray 08/12/19 15:56 IMPRESSION: No acute cardiopulmonary process. Abdomen/Pelvis CT 08/12/19 18:08 IMPRESSION: Acute pancreatitis. Assessment and Plan - Diagnosis (1) Acute on chronic pancreatitis Is this a current diagnosis for this admission?: Yes Plan: Secondary to alcoholism, education, nonnarcotic symptom management secondary to substance abuse history. Bowel rest, follow-up LFTs. (2) Alcohol abuse, continuous drinking behavior Is this a current diagnosis for this admission?: Yes Plan: Thiamine, folate, Valium scheduled, as needed Ativan (3) Hypertension Qualifiers: Hypertension type: unspecified Qualified Code(s): I10 - Essential (primary) hypertension Is this a current diagnosis for this admission?: Yes Plan: Norvasc, clonidine, hydralazine as needed (4) Polysubstance abuse Is this a current diagnosis for this admission?: Yes Plan: Education and supportive care - Time Time Spent with patient: 25-34 minutes - Inpatient Certification Medical Necessity: Need Close Monitoring Due to Risk of Patient Decompensation
[2019-08-13 05:42] LABS: ALBUMIN 3.4 g/dL (3.5-5.0); ALKALINE PHOSPHATASE 82 U/L (38-126); ANION GAP 9 (5-19); ASPARTATE AMINO TRANSFERASE 22 U/L (17-59); BILIRUBIN,DIRECT 0.3 mg/dL (0.0-0.4); BLOOD UREA NITROGEN 6 mg/dL (7-20); CALCIUM 8.9 mg/dL (8.4-10.2); CARBON DIOXIDE 24 mmol/L (22-30); CHLORIDE 100 mmol/L (98-107); GLUCOSE 97 mg/dL (75-110); POTASSIUM 3.5 mmol/L (3.6-5.0)
[2019-08-13] MEDS ORDERED: CLONIDINE HCL 0.2 MG TABLET PO SCH (06:00)
[2019-08-13] MEDS ORDERED: POTASSIUM CHLORIDE 10 MEQ TABLET.ER PO ONE (07:45)
[2019-08-13] MEDS ORDERED: PROMETHAZINE HCL INJ 25 MG/1 ML VIAL IV PRN (08:00)
[2019-08-13] MEDS: ACETAMINOPHEN 325 MG TABLET PO PRN ×3 (08:10→21:23)
[2019-08-13] MEDS ORDERED: MAG HYDROX/AL HYDROX/SIMETH SUSP 30 ML UDCUP PO PRN (08:53)
[2019-08-13] MEDS ORDERED: ONDANSETRON HCL INJ/PF 4 MG/2 ML SDV IV PRN (08:58)
[2019-08-13] MEDS ORDERED: LORAZEPAM 1 MG TABLET PO PRN (09:16)
[2019-08-13] MEDS ORDERED: LORAZEPAM INJ 2 MG/1 ML VIAL IV PRN (09:16)
--- NOTE | 2019-08-13 09:25 | PDOC PROGRESS REPORT ---
Subjective Progress Note for:: 08/13/19 Subjective:: Patient still complains of abdominal pain mostly located in epigastric region down to periumbilical. Still felt a little nauseous but would like to try eating some food. Denies fever or chills. Acknowledged that he drank some alcohol on Saturday. States that he drinks only during the weekends for the most part and occasionally a beer once 3 times during the weekday. Reason For Visit: ACUTE AND CHRONIC ALCOHOLIC PANCREATITIS,COCAINE Physical Exam Vital Signs: Temp Pulse Resp BP Pulse Ox 98.3 F 82 16 154/96 H 97 08/13/19 07:20 08/13/19 07:20 08/13/19 07:20 08/13/19 07:20 08/13/19 07:20 Intake & Output 08/12/19 08/13/19 08/14/19 06:59 06:59 06:59 Intake Total 2000 1000 Output Total 800 Balance 1200 1000 Weight 76.3 kg General appearance: PRESENT: no acute distress, cooperative Neck exam: ABSENT: JVD Respiratory exam: PRESENT: clear to auscultation malini, symmetrical, unlabored. ABSENT: tachypnea, wheezes Cardiovascular exam: PRESENT: RRR, +S1, +S2. ABSENT: tachycardia GI/Abdominal exam: PRESENT: normal bowel sounds, soft, tenderness. ABSENT: distended, firm, guarding, rebound, rigid Neurological exam: PRESENT: alert, awake, oriented to person, oriented to place, oriented to time, oriented to situation Results Laboratory Results: 08/13/19 04:02 08/13/19 04:02 08/12/19 08/12/19 08/13/19 16:10 16:10 04:02 WBC 12.7 H 15.7 H RBC 4.57 4.27 L Hgb 15.4 14.5 Hct 44.7 41.2 MCV 98 H 97 MCH 33.6 H 33.9 H MCHC 34.4 35.2 RDW 13.9 13.7 Plt Count 293 240 Seg Neutrophils % 82.3 H 89.7 H Sodium 135.6 L Potassium 4.0 Chloride 96 L Carbon Dioxide 28 Anion Gap 12 BUN 10 Creatinine 0.95 Est GFR ( Amer) > 60 Glucose 145 H Calcium 10.2 Total Bilirubin 1.1 AST 30 Alkaline Phosphatase 109 Total Protein 8.2 Albumin 4.3 Lipase 4051.4 H 08/13/19 04:02 WBC RBC Hgb Hct MCV MCH MCHC RDW Plt Count Seg Neutrophils % Sodium 133.4 L Potassium 3.5 L Chloride 100 Carbon Dioxide 24 Anion Gap 9 BUN 6 L Creatinine 0.70 Est GFR ( Amer) > 60 Glucose 97 Calcium 8.9 Total Bilirubin 1.0 AST 22 Alkaline Phosphatase 82 Total Protein 7.0 Albumin 3.4 L Lipase 08/12/19 08/12/19 16:10 16:10 Creatine Kinase 88 Troponin I 0.087 Impressions: Chest X-Ray 08/12/19 15:56 IMPRESSION: No acute cardiopulmonary process. Abdomen/Pelvis CT 08/12/19 18:08 IMPRESSION: Acute pancreatitis. Assessment and Plan - Diagnosis (1) Acute on chronic pancreatitis Is this a current diagnosis for this admission?: Yes Plan: Secondary to alcoholism Aggressive IV fluids hydration Pain control primarily with Toradol. Low dose of morphine as needed for breakthrough pain. Nausea control with as needed Zofran and Phenergan Start on clear liquid diet (2) History of alcohol abuse Is this a current diagnosis for this admission?: Yes Plan: CIWA monitoring Thiamine Low-dose Valium empirically to prevent withdrawal GI prophylaxis with Pepcid (3) Essential hypertension Is this a current diagnosis for this admission?: Yes Plan: States he takes lisinopril 20 mg daily We will increase lisinopril to 40 mg daily. Pain may also be contributing to the patient's significantly elevated blood pressures. - Time Time Spent with patient: 15-24 minutes
[2019-08-13] MEDS ORDERED: FAMOTIDINE 20 MG TABLET PO SCH (10:00)
[2019-08-13] MEDS: THIAMINE HCL 100 MG, FOLIC ACID 1 MG in NORMAL SALINE 250 ML IV SCH (10:07)
[2019-08-13] MEDS: LISINOPRIL 10 MG TABLET PO SCH (10:07)
[2019-08-13] MEDS: MORPHINE SULFATE 10 MG/ML INJ IV PRN (13:57)
[2019-08-13] MEDS: FAMOTIDINE INJ/PF 20 MG/2 ML SDV IV SCH (21:20)
[2019-08-14] MEDS: NORMAL SALINE 1000 ML 1,000 ML IV PRN ×4 (00:02→19:49)
[2019-08-14] MEDS: KETOROLAC TROMETHAMINE INJ/PF 30 MG/1 ML SDV IV PRN ×3 (00:02→17:23)
[2019-08-14] MEDS: ACETAMINOPHEN 325 MG TABLET PO PRN ×2 (05:28→13:17)
[2019-08-14] MEDS: HEPARIN SOD (PORCINE) 5,000 UNIT/ML 1 ML VIAL SUBCUT SCH ×3 (05:29→21:22)
[2019-08-14] MEDS: HYDRALAZINE HCL INJ/PF 20 MG/1 ML SDV IV PRN (05:29)
[2019-08-14 05:58] LABS: ANION GAP 10 (5-19); BLOOD UREA NITROGEN 9 mg/dL (7-20); CALCIUM 8.7 mg/dL (8.4-10.2); CARBON DIOXIDE 25 mmol/L (22-30); CHLORIDE 100 mmol/L (98-107); GLUCOSE 90 mg/dL (75-110); POTASSIUM 4.2 mmol/L (3.6-5.0)
[2019-08-14] MEDS: LISINOPRIL 10 MG TABLET PO SCH (09:51)
[2019-08-14] MEDS: FAMOTIDINE INJ/PF 20 MG/2 ML SDV IV SCH ×2 (09:51→21:22)
[2019-08-14] MEDS: THIAMINE HCL 100 MG, FOLIC ACID 1 MG in NORMAL SALINE 250 ML IV SCH (09:51)
[2019-08-14] MEDS: DIAZEPAM 5 MG TABLET PO SCH ×2 (09:52→17:20)
[2019-08-14] MEDS ORDERED: AMLODIPINE BESYLATE 5 MG TABLET PO ONE (13:04)
--- NOTE | 2019-08-14 13:10 | PDOC PROGRESS REPORT ---
Subjective Progress Note for:: 08/14/19 Subjective:: Patient still complains of epigastric pain. Was able to tolerate diet yesterday though still feels nauseous. Reason For Visit: ACUTE AND CHRONIC ETOH PANCREATITIS,COCAINE ABUSE Physical Exam Vital Signs: Temp Pulse Resp BP Pulse Ox 99.0 F 85 17 157/94 H 100 08/14/19 07:16 08/14/19 07:16 08/14/19 07:16 08/14/19 07:16 08/14/19 07:16 Intake & Output 08/13/19 08/14/19 08/15/19 06:59 06:59 06:59 Intake Total 1999 4467.2 251.2 Output Total 800 1970 Balance 1200 2497.2 251.2 Weight 76.3 kg 76.2 kg General appearance: PRESENT: no acute distress, cooperative Neck exam: ABSENT: JVD Respiratory exam: PRESENT: clear to auscultation malini, symmetrical, unlabored. ABSENT: tachypnea, wheezes Cardiovascular exam: PRESENT: RRR, +S1, +S2. ABSENT: tachycardia GI/Abdominal exam: PRESENT: normal bowel sounds, soft, tenderness. ABSENT: distended, firm, guarding, rebound, rigid Neurological exam: PRESENT: alert, awake, oriented to person, oriented to place, oriented to time Results Laboratory Results: 08/13/19 04:02 08/14/19 04:06 08/14/19 04:06 Sodium 135.0 L Potassium 4.2 Chloride 100 Carbon Dioxide 25 Anion Gap 10 BUN 9 Creatinine 0.91 Est GFR ( Amer) > 60 Glucose 90 Calcium 8.7 08/12/19 08/12/19 16:10 16:10 Creatine Kinase 88 Troponin I 0.087 Impressions: Chest X-Ray 08/12/19 15:56 IMPRESSION: No acute cardiopulmonary process. Abdomen/Pelvis CT 08/12/19 18:08 IMPRESSION: Acute pancreatitis. Assessment and Plan - Diagnosis (1) Acute on chronic pancreatitis Is this a current diagnosis for this admission?: Yes Plan: Secondary to alcoholism. Counseled on alcohol cessation. Aggressive IV fluids hydration. Rate increased to 200 cc/hr Pain control primarily with Toradol and Tylenol. Low dose of morphine as needed for breakthrough pain. Nausea control with as needed Zofran and Phenergan Diet escalated to full liquid (2) History of alcohol abuse Is this a current diagnosis for this admission?: Yes Plan: CIWA monitoring Thiamine No evidence of withdrawal at this time. Low-dose Valium empirically to prevent withdrawal GI prophylaxis with Pepcid (3) Essential hypertension Is this a current diagnosis for this admission?: Yes Plan: Uncontrolled. Continue lisinopril 40 mg daily. Amlodipine 5 mg daily added. Pain may also be contributing to the patient's elevated blood pressures. Continue monitoring vital signs - Time Time Spent with patient: 15-24 minutes
[2019-08-14] MEDS: MORPHINE SULFATE 10 MG/ML INJ IV PRN (23:05)
[2019-08-15] MEDS: NORMAL SALINE 1000 ML 1,000 ML IV PRN ×4 (00:58→19:32)
[2019-08-15] MEDS: ACETAMINOPHEN 325 MG TABLET PO PRN ×2 (01:43→19:31)
[2019-08-15] MEDS: KETOROLAC TROMETHAMINE INJ/PF 30 MG/1 ML SDV IV PRN (05:00)
[2019-08-15] MEDS: HEPARIN SOD (PORCINE) 5,000 UNIT/ML 1 ML VIAL SUBCUT SCH ×3 (05:00→21:34)
[2019-08-15 05:56] LABS: ABSOLUTE BASOPHILS # (AUTO) 0.1 10^3/uL (0.0-0.2); ABSOLUTE EOSINOPHILS # (AUTO) 0.2 10^3/uL (0.0-0.6); ABSOLUTE LYMPHOCYTES (AUTO) 1.4 10^3/uL (0.5-4.7); ABSOLUTE MONOCYTES (AUTO) 0.8 10^3/uL (0.1-1.4); ABSOLUTE NEUT (AUTO) 7.6 10^3/uL (1.7-8.2); BASOPHILS % (AUTO) 0.5 % (0-2); EOSINOPHILS % (AUTO) 1.7 % (0-6); HEMATOCRIT 38.2 % (37.9-51.0); HEMOGLOBIN 13.3 g/dL (13.5-17.0); LYMPHOCYTES % (AUTO) 13.9 % (13-45); MEAN CORPUSCULAR HEMOGLOBIN 33.9 pg (27.0-33.4); MEAN CORPUSCULAR HGB CONC 34.9 g/dL (32.0-36.0); MEAN CORPUSCULAR VOLUME 97 fl (80-97); MONOCYTES % (AUTO) 7.6 % (3-13); PLATELET COUNT 219 10^3/uL (150-450); RED BLOOD COUNT 3.93 10^6/uL (4.35-5.55); RED CELL DISTRIBUTION WIDTH 13.6 % (11.5-14.0); SEGMENTED NEUTROPHILS % (AUTO) 76.3 % (42-78); TOTAL CELLS COUNTED % (AUTO) 100 %; WHITE BLOOD COUNT 9.9 10^3/uL (4.0-10.5)
[2019-08-15 06:29] LABS: ANION GAP 11 (5-19); BLOOD UREA NITROGEN 6 mg/dL (7-20); CALCIUM 8.7 mg/dL (8.4-10.2); CARBON DIOXIDE 24 mmol/L (22-30); CHLORIDE 98 mmol/L (98-107); GLUCOSE 97 mg/dL (75-110); POTASSIUM 3.4 mmol/L (3.6-5.0)
[2019-08-15] MEDS ORDERED: AMLODIPINE BESYLATE 5 MG TABLET PO SCH (10:00)
[2019-08-15] MEDS ORDERED: AMLODIPINE BESYLATE 5 MG TABLET PO ONE ×2 (10:28→11:00)
--- NOTE | 2019-08-15 10:40 | PDOC PROGRESS REPORT ---
Subjective Progress Note for:: 08/15/19 Subjective:: Patient doing a little better today. States the pain is about 3/5. Will attempt to be more today. Okay with diet been escalated today. Nausea has improved significantly. Has not had any episodes of vomiting. Reason For Visit: ACUTE AND CHRONIC ETOH PANCREATITIS,COCAINE ABUSE Physical Exam Vital Signs: Temp Pulse Resp BP Pulse Ox 98.2 F 81 20 166/92 H 100 08/15/19 07:55 08/15/19 07:55 08/15/19 07:55 08/15/19 07:55 08/15/19 07:55 Intake & Output 08/14/19 08/15/19 08/16/19 06:59 06:59 06:59 Intake Total 4467.2 4689.2 Output Total 1970 825 Balance 2497.2 3864.2 Weight 76.2 kg 76.4 kg General appearance: PRESENT: no acute distress, cooperative Neck exam: ABSENT: JVD Respiratory exam: PRESENT: clear to auscultation malini, symmetrical, unlabored. ABSENT: tachypnea, wheezes Cardiovascular exam: PRESENT: RRR, +S1, +S2. ABSENT: tachycardia GI/Abdominal exam: PRESENT: normal bowel sounds, soft, tenderness - mild in epigastrium. ABSENT: distended, firm, guarding, rebound, rigid Neurological exam: PRESENT: alert, awake, oriented to person, oriented to place, oriented to time, oriented to situation Psychiatric exam: ABSENT: agitated, anxious Results Laboratory Results: 08/15/19 05:17 08/15/19 05:17 08/15/19 08/15/19 05:17 05:17 WBC 9.9 RBC 3.93 L Hgb 13.3 L Hct 38.2 MCV 97 MCH 33.9 H MCHC 34.9 RDW 13.6 Plt Count 219 Seg Neutrophils % 76.3 Sodium 133.4 L Potassium 3.4 L Chloride 98 Carbon Dioxide 24 Anion Gap 11 BUN 6 L Creatinine 0.72 Est GFR ( Amer) > 60 Glucose 97 Calcium 8.7 08/12/19 08/12/19 16:10 16:10 Creatine Kinase 88 Troponin I 0.087 Impressions: Chest X-Ray 08/12/19 15:56 IMPRESSION: No acute cardiopulmonary process. Abdomen/Pelvis CT 08/12/19 18:08 IMPRESSION: Acute pancreatitis. Assessment and Plan - Diagnosis (1) Acute on chronic pancreatitis Is this a current diagnosis for this admission?: Yes Plan: Secondary to alcoholism. Counseled on alcohol cessation. Aggressive IV fluids hydration. Discontinue Toradol given persistently elevated blood pressures Manage pain with Tylenol and morphine as needed. Nausea control with as needed Zofran and Phenergan Diet escalated to mechanical soft diet (2) History of alcohol abuse Is this a current diagnosis for this admission?: Yes Plan: CIWA monitoring Thiamine No evidence of withdrawal at this time. Discontinue Valium. I will leave on PRN Ativan only for elevated CIWA scores >10. GI prophylaxis with Pepcid (3) Essential hypertension Is this a current diagnosis for this admission?: Yes Plan: Uncontrolled. Continue lisinopril 40 mg daily. Amlodipine increased to 10 mg daily. Toradol discontinued. Low-sodium diet. Pain control. (4) Gastritis Qualifiers: Gastritis type: unspecified gastritis Chronicity: acute Gastritis bleeding: without bleeding Qualified Code(s): K29.00 - Acute gastritis without bleeding Is this a current diagnosis for this admission?: Yes Plan: Suspect patient has a complaint of gastritis. Unknown but suspected alcoholic gastritis. Pepcid. Maalox. - Time Time Spent with patient: 15-24 minutes - Inpatient Certification Based on my medical assessment, after consideration of the patient's comor bidities, presenting symptoms, or acuity I expect that the services needed warrant INPATIENT care.: Yes Medical Necessity: Need For IV Fluids, Need for Pain Control
[2019-08-15] MEDS: MAG HYDROX/AL HYDROX/SIMETH SUSP 30 ML UDCUP PO SCH ×2 (10:54→16:03)
[2019-08-15] MEDS: THIAMINE HCL 100 MG TABLET PO SCH (10:54)
[2019-08-15] MEDS: FAMOTIDINE INJ/PF 20 MG/2 ML SDV IV SCH ×2 (10:55→21:34)
[2019-08-15] MEDS: LISINOPRIL 10 MG TABLET PO SCH (10:55)
[2019-08-15] MEDS: MORPHINE SULFATE 10 MG/ML INJ IV PRN ×2 (11:04→21:35)
[2019-08-15] MEDS ORDERED: POLYETHYLENE GLYCOL 3350 POWDER 17 GM/1 PACKET PO ONE (12:15)
[2019-08-15] MEDS: HYDRALAZINE HCL INJ/PF 20 MG/1 ML SDV IV PRN (15:44)
[2019-08-15] MEDS: POTASSIUM CHLORIDE 10 MEQ TABLET.ER PO SCH ×2 (15:45→21:34)
[2019-08-15] MEDS ORDERED: MORPHINE SULFATE 10 MG/ML INJ ONE (15:58)
[2019-08-15] MEDS ORDERED: MORPHINE SULFATE 10 MG/ML INJ IV ONE ×2 (17:00→17:30)
[2019-08-16] MEDS: NORMAL SALINE 1000 ML 1,000 ML IV PRN (02:26)
[2019-08-16] MEDS: ACETAMINOPHEN 325 MG TABLET PO PRN ×2 (03:27→12:39)
[2019-08-16 05:25] LABS: ABSOLUTE EOSINOPHILS # (AUTO) 0.2 10^3/uL (0.0-0.6); ABSOLUTE MONOCYTES (AUTO) 0.7 10^3/uL (0.1-1.4); ABSOLUTE NEUT (AUTO) 5.4 10^3/uL (1.7-8.2); BASOPHILS % (AUTO) 0.5 % (0-2); HEMOGLOBIN 13.1 g/dL (13.5-17.0); LYMPHOCYTES % (AUTO) 13.5 % (13-45); MEAN CORPUSCULAR HEMOGLOBIN 34.5 pg (27.0-33.4); MEAN CORPUSCULAR HGB CONC 35.4 g/dL (32.0-36.0); MEAN CORPUSCULAR VOLUME 97 fl (80-97); MONOCYTES % (AUTO) 9.7 % (3-13); PLATELET COUNT 231 10^3/uL (150-450); RED CELL DISTRIBUTION WIDTH 13.2 % (11.5-14.0); SEGMENTED NEUTROPHILS % (AUTO) 73.3 % (42-78); TOTAL CELLS COUNTED % (AUTO) 100 %; WHITE BLOOD COUNT 7.4 10^3/uL (4.0-10.5)
[2019-08-16 05:36] LABS: ANION GAP 9 (5-19); BLOOD UREA NITROGEN 5 mg/dL (7-20); CALCIUM 9.3 mg/dL (8.4-10.2); CARBON DIOXIDE 26 mmol/L (22-30); CHLORIDE 100 mmol/L (98-107); CHOLESTEROL 155.69 mg/dL (0-200); GLUCOSE 114 mg/dL (75-110); TRIGLYCERIDES 125 mg/dL (<150)
[2019-08-16] MEDS: MORPHINE SULFATE 10 MG/ML INJ IV PRN (05:36)
[2019-08-16] MEDS: HEPARIN SOD (PORCINE) 5,000 UNIT/ML 1 ML VIAL SUBCUT SCH ×2 (05:36→13:08)
[2019-08-16 05:47] LABS: DIRECT LDL 111 mg/dL (<100)
[2019-08-16] MEDS: MAG HYDROX/AL HYDROX/SIMETH SUSP 30 ML UDCUP PO SCH ×2 (09:44→11:10)
[2019-08-16] MEDS: THIAMINE HCL 100 MG TABLET PO SCH (09:45)
[2019-08-16] MEDS: FAMOTIDINE INJ/PF 20 MG/2 ML SDV IV SCH (09:45)
[2019-08-16] MEDS: LISINOPRIL 10 MG TABLET PO SCH (09:45)
[2019-08-16] MEDS ORDERED: AMLODIPINE BESYLATE 5 MG TABLET PO SCH (10:00)
[2019-08-16] MEDS ORDERED: POLYETHYLENE GLYCOL 3350 POWDER 17 GM/1 PACKET PO SCH (10:00)
--- NOTE | 2019-08-16 12:15 | PDOC DISCHARGE SUMMARY ---
Impression - Admit/DC Date/PCP Admission Date/Primary Care Provider: 08/12/19 20:15 [facility] Discharge Date: 08/16/19 - Discharge Diagnosis (1) Acute on chronic pancreatitis Is this a current diagnosis for this admission?: Yes (2) History of alcohol abuse Is this a current diagnosis for this admission?: Yes (3) Essential hypertension Is this a current diagnosis for this admission?: Yes (4) Gastritis Is this a current diagnosis for this admission?: Yes - Assessment Summary: Patient was admitted for treatment of acute on chronic pancreatitis secondary to alcohol abuse. Pancreatitis evidenced by CT findings, epigastric pain and elevated lipase blood work. Patient was started on aggressive IV fluid hydration and was initially n.p.o. but later his diet was gradually escalated. He was also treated for pain with Toradol initially and Tylenol as well as morphine for breakthrough. Toradol was later discontinued given elevation of his blood pressures. He was continued on morphine and Tylenol and now endorses significant improvement of his pain today. Patient was initially on liquid diet but has been able to tolerate and advanced diet yesterday and this morning as well. Patient endorses significant improvement in pain today and is now stable for discharge. Lipase is down to 500s from 4000s. Lipid panel and triglyceride levels were unremarkable. Of note patient was also treated for gastritis likely secondary to alcohol use and has been started on Pepcid and has also been treated for hypertension given elevation of blood pressures. His lisinopril has been increased to 40 mg daily and he has been started on amlodipine 10 mg daily. Blood pressure still elevated at this time but somewhat improved. I will refrain from increasing his antihypertensive regimen further and give his new regimen a few days to reach maximum antihypertensive effect. Patient is encouraged to check his blood pressures at home and he has been set up to follow-up with his primary care provider on 08/20/2019. - Additional Information Discharge Diet: Other (Comments) - Low-sodium diet Discharge Activity: Activity As Tolerated [facility] - 08/20/19 8:30 am Prescriptions: Amlodipine Besylate [Norvasc 5 mg Tablet] 10 mg PO DAILY 30 Days tablet Famotidine [Pepcid 20 mg Tablet] 20 mg PO BID #20 tablet Lisinopril [Prinivil] 40 mg PO DAILY #60 tablet Acetaminophen [Tylenol Extra Strength 500 mg Tablet] 1 - 2 tab PO Q6HP PRN #20 tab PRN Reason: For Pain Tramadol HCl [Ultram 50 mg Tablet] 50 mg PO BIDP PRN #5 tablet PRN Reason: For Breakthrough Pain Ondansetron HCl [Zofran 4 mg Tablet] 1 - 2 tab PO Q4H PRN #10 tablet PRN Reason: Home Medications: Acetaminophen [Tylenol Extra Strength 500 mg Tablet] 1 - 2 tab PO Q6HP PRN #20 tab 08/16/19 Amlodipine Besylate [Norvasc 5 mg Tablet] 10 mg PO DAILY 30 Days tablet 08/16/19 Famotidine [Pepcid 20 mg Tablet] 20 mg PO BID #20 tablet 08/16/19 Lisinopril [Prinivil] 40 mg PO DAILY #60 tablet 08/16/19 Ondansetron HCl [Zofran 4 mg Tablet] 1 - 2 tab PO Q4H PRN #10 tablet 08/16/19 Tramadol HCl [Ultram 50 mg Tablet] 50 mg PO BIDP PRN #5 tablet 08/16/19 History of Present Illiness History of Present Illness: BEKAH HEIN is a 53 year old male with a past medical history of recurrent alcoholic pancreatitis, hypertension, frequent cocaine, marijuana and tobacco use. He presents with 2 days of abdominal pain, nausea and several episodes of vomiting gastric content. He recognizes the symptoms from previous episodes of acute pancreatitis prompting evaluation emergency room where he is found to have uncontrolled hypertension, LFT over 4000 with unremarkable LFTs and a CT suggesting acute on chronic pancreatitis. He received morphine and referred to the hospitalist for admission. Patient admits to medication lifestyle noncompliance. Physical Exam Vital Signs: Temp Pulse Resp BP Pulse Ox 97.7 F 66 17 169/91 H 100 08/16/19 08:04 08/16/19 08:04 08/16/19 08:04 08/16/19 08:04 08/16/19 08:04 Intake & Output 08/15/19 08/16/19 08/17/19 06:59 06:59 06:59 Intake Total 4689.2 4248 1000 Output Total 825 1500 Balance 3864.2 2748 1000 Weight 76.4 kg 73.1 kg General appearance: PRESENT: no acute distress, cooperative Neck exam: ABSENT: JVD Respiratory exam: PRESENT: clear to auscultation malini GI/Abdominal exam: PRESENT: normal bowel sounds, soft, tenderness - very mild epigastric. ABSENT: distended, firm, guarding, rebound, rigid Musculoskeletal exam: PRESENT: ambulatory Neurological exam: PRESENT: alert, awake Results Laboratory Results: WBC 7.4 10^3/uL (4.0-10.5) 08/16/19 04:51 RBC 3.80 10^6/uL (4.35-5.55) L 08/16/19 04:51 Hgb 13.1 g/dL (13.5-17.0) L 08/16/19 04:51 Hct 37.0 % (37.9-51.0) L 08/16/19 04:51 MCV 97 fl (80-97) 08/16/19 04:51 MCH 34.5 pg (27.0-33.4) H 08/16/19 04:51 MCHC 35.4 g/dL (32.0-36.0) 08/16/19 04:51 RDW 13.2 % (11.5-14.0) 08/16/19 04:51 Plt Count 231 10^3/uL (150-450) 08/16/19 04:51 Lymph % (Auto) 13.5 % (13-45) 08/16/19 04:51 [place] % (Auto) 9.7 % (3-13) 08/16/19 04:51 Eos % (Auto) 3.0 % (0-6) 08/16/19 04:51 Baso % (Auto) 0.5 % (0-2) 08/16/19 04:51 Absolute Neuts (auto) 5.4 10^3/uL (1.7-8.2) 08/16/19 04:51 Absolute Lymphs (auto) 1.0 10^3/uL (0.5-4.7) 08/16/19 04:51 Absolute Monos (auto) 0.7 10^3/uL (0.1-1.4) 08/16/19 04:51 Absolute Eos (auto) 0.2 10^3/uL (0.0-0.6) 08/16/19 04:51 Absolute Basos (auto) 0.0 10^3/uL (0.0-0.2) 08/16/19 04:51 Seg Neutrophils % 73.3 % (42-78) 08/16/19 04:51 Sodium 135.2 mmol/L (137-145) L 08/16/19 04:51 Potassium 4.0 mmol/L (3.6-5.0) 08/16/19 04:51 Chloride 100 mmol/L (98-107) 08/16/19 04:51 Carbon Dioxide 26 mmol/L (22-30) 08/16/19 04:51 Anion Gap 9 (5-19) 08/16/19 04:51 BUN 5 mg/dL (7-20) L 08/16/19 04:51 Creatinine 0.67 mg/dL (0.52-1.25) 08/16/19 04:51 Est GFR ( Amer) > 60 (>60) 08/16/19 04:51 Est GFR (MDRD) Non-Af > 60 (>60) 08/16/19 04:51 Glucose 114 mg/dL (75-110) H 08/16/19 04:51 Calcium 9.3 mg/dL (8.4-10.2) 08/16/19 04:51 Total Bilirubin 1.0 mg/dL (0.2-1.3) 08/13/19 04:02 Direct Bilirubin 0.3 mg/dL (0.0-0.4) 08/13/19 04:02 Neonat Total Bilirubin Not Reportable 08/13/19 04:02 Neonat Direct Bilirubin Not Reportable 08/13/19 04:02 Neonat Indirect Bili Not Reportable 08/13/19 04:02 AST 22 U/L (17-59) 08/13/19 04:02 ALT 12 U/L (<50) 08/13/19 04:02 Alkaline Phosphatase 82 U/L (38-126) 08/13/19 04:02 Creatine Kinase 88 U/L (55-170) 08/12/19 16:10 Troponin I 0.087 ng/mL 08/12/19 16:10 Total Protein 7.0 g/dL (6.3-8.2) 08/13/19 04:02 Albumin 3.4 g/dL (3.5-5.0) L 08/13/19 04:02 Triglycerides 125 mg/dL (<150) 08/16/19 04:51 Cholesterol 155.69 mg/dL (0-200) 08/16/19 04:51 LDL Cholesterol Direct 111 mg/dL (<100) H 08/16/19 04:51 VLDL Cholesterol 25.0 mg/dL (10-31) 08/16/19 04:51 HDL Cholesterol 28 mg/dL (>40) L 08/16/19 04:51 Lipase 557.3 U/L (23-300) H 08/16/19 04:51 Urine Opiates Screen NEGATIVE 08/13/19 02:08 Urine Methadone Screen NEGATIVE 08/13/19 02:08 Ur Barbiturates Screen NEGATIVE 08/13/19 02:08 Ur Phencyclidine Scrn NEGATIVE 08/13/19 02:08 Ur Amphetamines Screen NEGATIVE 08/13/19 02:08 U Benzodiazepines Scrn NEGATIVE 08/13/19 02:08 Urine Cocaine Screen UNCONFIRMED POSITIVE 08/13/19 02:08 U Marijuana (THC) Screen UNCONFIRMED POSITIVE 08/13/19 02:08 08/12/19 16:10 Troponin I 0.087 Impressions: Chest X-Ray 08/12/19 15:56 IMPRESSION: No acute cardiopulmonary process. Abdomen/Pelvis CT 08/12/19 18:08 IMPRESSION: Acute pancreatitis. Plan Time Spent: Less than 30 Minutes Stroke Is this a Stroke Patient?: No Acute Heart Failure - Is this a Heart Failure Patient?: No
[2019-08-16 12:26] VITALS: BP 144/95
== END 2019-08-16 13:13 | disposition home or self-care (01) | DRG 440 ==
LOC: ER 15:27 → EH 20:14 → OBSVTOIN 20:15 → 4W 23:31 → 5 08-15 18:50
PROVIDERS: ADMIT Internal Medicine; ATTEND Internal Medicine
DX: K85.20 Alcohol induced acute pancreatitis without necrosis or infection (principal); K86.0 Alcohol-induced chronic pancreatitis; K29.20 Alcoholic gastritis without bleeding; F10.10 Alcohol abuse, uncomplicated; I10 Essential (primary) hypertension; E78.5 Hyperlipidemia, unspecified; K21.9 Gastro-esophageal reflux disease without esophagitis; F14.90 Cocaine use, unspecified, uncomplicated; F12.90 Cannabis use, unspecified, uncomplicated; F17.210 Nicotine dependence, cigarettes, uncomplicated; Z72.0 Tobacco use; Z91.14 Patient's other noncompliance with medication regimen; Z90.49 Acquired absence of other specified parts of digestive tract; Z79.899 Other long term (current) drug therapy; Z82.49 Family history of ischemic heart disease and other diseases of the circulatory system
CPT/HCPCS: 36415; 71045; 74177; 80048; 80053; 80061; 80307; 82550; 83690; 84484; 85025; 96361; 96374; 96375; 96376; 99285; J0360; J1170; J1200; J1644; J1885; J2270; J2405; J2550; J2765; J3010; J3411; J3490; J7030; J7050; S0028

== ENCOUNTER 2019-10-23 08:26 | Emergency (ER) | payer OTHER ==
[2019-10-23] MEDS ORDERED: NORMAL SALINE 1000 ML 1,000 ML IV ONE (09:13)
[2019-10-23 09:40] LABS: ABSOLUTE LYMPHOCYTES (AUTO) 2.5 10^3/uL (0.5-4.7); ABSOLUTE MONOCYTES (AUTO) 0.8 10^3/uL (0.1-1.4); ABSOLUTE NEUT (AUTO) 7.3 10^3/uL (1.7-8.2); BASOPHILS % (AUTO) 0.2 % (0-2); EOSINOPHILS % (AUTO) 0.2 % (0-6); HEMATOCRIT 40.8 % (37.9-51.0); HEMOGLOBIN 14.5 g/dL (13.5-17.0); LYMPHOCYTES % (AUTO) 23.6 % (13-45); MEAN CORPUSCULAR HEMOGLOBIN 34.8 pg (27.0-33.4); MEAN CORPUSCULAR HGB CONC 35.4 g/dL (32.0-36.0); MEAN CORPUSCULAR VOLUME 98 fl (80-97); MONOCYTES % (AUTO) 7.9 % (3-13); PLATELET COUNT 295 10^3/uL (150-450); RED BLOOD COUNT 4.15 10^6/uL (4.35-5.55); RED CELL DISTRIBUTION WIDTH 14.5 % (11.5-14.0); SEGMENTED NEUTROPHILS % (AUTO) 68.1 % (42-78); TOTAL CELLS COUNTED % (AUTO) 100 %; WHITE BLOOD COUNT 10.7 10^3/uL (4.0-10.5)
[2019-10-23 09:47] LABS: ALKALINE PHOSPHATASE 99 U/L (38-126); ANION GAP 9 (5-19); ASPARTATE AMINO TRANSFERASE 25 U/L (17-59); BILIRUBIN,DIRECT 0.3 mg/dL (0.0-0.4); BILIRUBIN,TOTAL 0.5 mg/dL (0.2-1.3); BLOOD UREA NITROGEN 10 mg/dL (7-20); CALCIUM 9.7 mg/dL (8.4-10.2); CARBON DIOXIDE 28 mmol/L (22-30); CHLORIDE 100 mmol/L (98-107); CREATINE KINASE 125 U/L (55-170); GLUCOSE 132 mg/dL (75-110); POTASSIUM 3.1 mmol/L (3.6-5.0); TOTAL PROTEIN 7.8 g/dL (6.3-8.2)
[2019-10-23 10:00] LABS: VENOUS BLOOD BASE EXCESS 2.3 mmol/L; VENOUS BLOOD PCO2 52.8 mmHg (35-63); VENOUS BLOOD PH 7.36 (7.30-7.42)
[2019-10-23] MEDS ORDERED: FAMOTIDINE INJ/PF 20 MG/2 ML SDV IV ONE (10:30)
[2019-10-23] MEDS ORDERED: DIPHENHYDRAMINE HCL 50 MG/ML VIAL IV ONE (10:30)
[2019-10-23] MEDS ORDERED: METHYLPREDNISOLONE INJ 125 MG/2 ML SDV IV ONE (10:31)
--- NOTE | 2019-10-23 11:16 | RADIOLOGY REPORT (SQ) ---
EXAM DESCRIPTION: CT SOFT TISSUE NECK WITH COMPLETED DATE/TIME: 10/23/2019 10:48 am REASON FOR STUDY: Pain and swelling to the tongue and floor the mout COMPARISON: CT 04/16/2019, 03/12/2011 TECHNIQUE: Post IV contrasted scanning from skull base through lung apices with review of bone, soft tissue and lung windows. Reconstructed coronal and sagittal MPR images reviewed. All images stored on PACS. All CT scanners at this facility use dose modulation, iterative reconstruction, and/or weight based d osing when appropriate to reduce radiation dose to as low as reasonably achievable (ALARA). [facility]: Dose Right [facility]: CareDose [facility]: Dose Right [facility]: Teradose 4D [facility]: MyLifeBrand CONTRAST TYPE AND DOSE: contrast/concentration: Isovue 350.00 mg/ml; Total Contrast Delivered: 75.0 ml; Total Saline Delivered: 55.0 ml RENAL FUNCTION: None required. The patient is less than 50 years old. RADIATION DOSE: CT Rad equipment meets quality standard of care and radiation dose reduction techniq ues were employed. CTDIvol: 15.9 mGy. DLP: 548 mGy-cm. . LIMITATIONS: None. FINDINGS: A 1.5 cm stone is present in the distal submandibular duct, best shown on axial images 37- 42 and coronal image 25. The left submandibular duct is dilated, left submandibular gland is normal size with ductal dilatation within the gland. No right-sided submandibular stones or ductal dilatation. Right submandibular gland unremarkable. SKULL BASE: Intact. MAJOR SALIVARY GLANDS: Parotid glands are unremarkable. Submandibular glands as above LYMPHADENOPATHY: No adenopathy. MUCOSAL MASSES OR ASYMMETRY: No mucosal masses or asymmetry. LARYNX/CORDS: No abnormal findings. VASCULAR STRUCTURES: The major vessels are patent. LUNG APICES: Clear. BONES: Intact. THYROID: Normal size. No masses. PARANASAL SINUSES: Clear. OTHER: No other significant finding. IMPRESSION: 1.5 cm left submandibular duct stone TECHNICAL DOCUMENTATION: JOB ID: [id number] Quality ID # [id number]: Final reports with documentation of one or more dose reduction techniques (e.g., Au tomated exposure control, adjustment of the mA and/or kV according to patient size, use of iterative reconstruction technique) 2010 [employer]- All Rights Reserved Reading location - IP/workstation name: [email or web address]
[2019-10-23] MEDS ORDERED: PIPERACILLIN/TAZOBACTAM 3.375 GM VIAL IV ONE (11:35)
[2019-10-23 12:46] VITALS: BP 176/118
--- NOTE | 2019-10-24 10:30 | ER Document Report ---
Entered by PITER HAND SCRIBE 10/23/19 0912 Acting as scribe for:LESLY BLAKE MD ED General - General Chief Complaint: Swelling of Tongue Stated Complaint: POSSIBLE ALLERGIC REACTION Time Seen by Provider: 10/23/19 09:01 Information source: Patient Notes: This 54 year old male patient presents to the emergency department today with complaints of swelling of the left side of his tongue and left cheek. Patient states the pain and swelling began x4 days ago. Patient states there is pain under the left side of his tongue. Patient states there is not any current problems with his teeth. TRAVEL OUTSIDE OF THE [place] IN LAST 30 DAYS: No - Related Data Allergies/Adverse Reactions: No Known Allergies Allergy (Verified 08/12/19 15:48) Past Medical History - General Information source: Patient - Social History Smoking Status: Current Every Day Smoker Cigarette use (# per day): Yes - 10 Chew tobacco use (# tins/day): No Frequency of alcohol use: Heavy Drug Abuse: Cocaine, Marijuana Family History: Hypertension, Malignancy Patient has suicidal ideation: No Patient has homicidal ideation: No - Past Medical History Cardiac Medical History: Reports: Hx Hypercholesterolemia, Hx Hypertension GI Medical History: Reports: Hx Gastroesophageal Reflux Disease, Hx Ulcer Psychiatric Medical History: Past Surgical History: Reports: Hx Abdominal Surgery - inguinal hernia, Hx Appendectomy, Hx Herniorrhaphy - Immunizations Immunizations up to date: Yes Hx Diphtheria, Pertussis, Tetanus Vaccination: Yes Review of Systems - Review of Systems Constitutional: No symptoms reported EENT: See HPI, Mouth pain, Mouth swelling Cardiovascular: No symptoms reported Respiratory: No symptoms reported Gastrointestinal: No symptoms reported Genitourinary: No symptoms reported Male Genitourinary: No symptoms reported Musculoskeletal: No symptoms reported Skin: No symptoms reported Hematologic/Lymphatic: No symptoms reported Neurological/Psychological: No symptoms reported -: Yes All other systems reviewed and negative Physical Exam - Vital signs Vitals: Resp Pulse Ox 14 98 10/23/19 08:34 10/23/19 08:34 - General General appearance: Appears well, Alert - HEENT Eyes: Normal Pupils: PERRL Mouth/Lips: Other - White flap of tissue under the left anterior tongue. Edema and tenderness with palpation to the left side of the tongue. Teeth missing and teeth are non-tender with palpation. - Respiratory Respiratory status: No respiratory distress Chest status: Nontender Breath sounds: Normal Chest palpation: Normal - Cardiovascular Rhythm: Regular Heart sounds: Normal auscultation Murmur: No - Abdominal Inspection: Normal Distension: No distension Bowel sounds: Normal Tenderness: Nontender - Extremities General upper extremity: Normal inspection. No: Edema General lower extremity: Normal inspection. No: Edema - Neurological Neuro grossly intact: Yes Cognition: Normal Orientation: AAOx4 - Psychological Associated symptoms: Normal affect, Normal mood - Skin Skin Temperature: Warm Skin Moisture: Dry Skin Color: Normal Course - Vital Signs Vital signs: Temp Pulse Resp BP Pulse Ox 98.1 F 12 162/98 H 96 10/23/19 08:35 10/23/19 10:01 10/23/19 10:00 10/23/19 10:01 - Laboratory Result Diagrams: 10/23/19 08:48 10/23/19 08:48 Laboratory results interpreted by me: 10/23/19 10/23/19 08:48 08:48 WBC 10.7 H RBC 4.15 L MCV 98 H MCH 34.8 H RDW 14.5 H Potassium 3.1 L Glucose 132 H - Diagnostic Test Radiology reviewed: Image reviewed, Reports reviewed - Contrasted CT scan of the neck shows a 1.5 cm stone in the distal submandibular duct on the left. The duct is dilated, the gland is normal size. Discharge - Discharge Clinical Impression: Obstruction of submandibular duct, Stone of salivary gland or duct Condition: Stable Disposition: HOME, SELF-CARE Additional Instructions: You have a large stone in your left submandibular duct. This is one of the tubes that drains your salivary gland. Go to the office of [facility] to see either Dr. Zaragoza or Dr. Foss today at 1 PM. Referrals: ERNIE ZARAGOZA MD [ACTIVE STAFF] - 10/23/19 1:00 pm I personally performed the services described in the documentation, reviewed and edited the documentation which was dictated to the scribe in my presence, and it accurately records my words and actions.
== END 2019-10-23 12:45 | disposition home or self-care (01) ==
LOC: ER 08:26
DX: K11.5 Sialolithiasis (principal); F17.210 Nicotine dependence, cigarettes, uncomplicated; E78.00 Pure hypercholesterolemia, unspecified; I10 Essential (primary) hypertension
CPT/HCPCS: 99284; 96361; 96375; 96365; 36415; 87040; 82550; 83605; 85025; 80053; 84484; 82803; 70491; J1200; J2930; J7030; S0028; J2543

== ENCOUNTER 2019-11-29 22:38 | Inpatient (IN) | payer OTHER ==
[2019-11-29] MEDS ORDERED: NORMAL SALINE 1000 ML 1,000 ML IV ONE (22:59)
--- NOTE | 2019-11-29 23:03 | ER Document Report ---
ED General - General Chief Complaint: Overdose Stated Complaint: WEAKNESS Time Seen by Provider: 11/29/19 22:51 Notes: Patient is a 54-year-old male that comes to the emergency department by EMS, family called EMS because patient wouldn't stop vomiting, they state patient looked like he might be vomiting blood, however EMS saw patient vomited and there was no noted blood, patient denies that he was vomiting at all. Patient states that he just feels "tired and worn out". He admits to cocaine use, denies alcohol, denies recreational drugs otherwise. Patient has a history of alcohol abuse, recurrent pancreatitis, tobacco abuse, marijuana use, and the cocaine use. Patient denies that he is prescribed or taking any current medications. TRAVEL OUTSIDE OF THE [place] IN LAST 30 DAYS: No - Related Data Allergies/Adverse Reactions: No Known Allergies Allergy (Verified 08/12/19 15:48) Past Medical History - General Information source: Patient - Social History Smoking Status: Current Every Day Smoker Chew tobacco use (# tins/day): No Frequency of alcohol use: Social Drug Abuse: Cocaine Lives with: Family Family History: Hypertension, Malignancy Patient has homicidal ideation: No - Past Medical History Cardiac Medical History: Reports: Hx Hypercholesterolemia, Hx Hypertension Denies: Hx Atrial Fibrillation, Hx Congestive Heart Failure, Hx Coronary Artery Disease, Hx Heart Attack Pulmonary Medical History: Denies: Hx Asthma, Hx Bronchitis, Hx COPD, Hx Pneumonia Neurological Medical History: Denies: Hx Cerebrovascular Accident, Hx Seizures Endocrine Medical History: Denies: Hx Diabetes Mellitus Type 1, Hx Diabetes Mellitus Type 2, Hx Hyperthyroidism, Hx Hypothyroidism Renal/ Medical History: Denies: Hx Peritoneal Dialysis GI Medical History: Reports: Hx Gastroesophageal Reflux Disease, Hx Ulcer. Denies: Hx Cirrhosis, Hx Crohn's Disease, Hx Hepatitis, Hx Ulcerative Colitis Musculoskeletal Medical History: Denies Hx Arthritis, Denies Hx Gout Skin Medical History: Denies Hx Eczema, Denies Hx Psoriasis Psychiatric Medical History: Infectious Medical History: Denies: Hx Hepatitis Past Surgical History: Reports: Hx Abdominal Surgery - inguinal hernia, Hx Appendectomy, Hx Herniorrhaphy - Immunizations Immunizations up to date: Yes Hx Diphtheria, Pertussis, Tetanus Vaccination: Yes Review of Systems - Review of Systems Constitutional: See HPI EENT: No symptoms reported Cardiovascular: No symptoms reported Respiratory: No symptoms reported Gastrointestinal: See HPI Genitourinary: No symptoms reported Male Genitourinary: No symptoms reported Musculoskeletal: No symptoms reported Skin: No symptoms reported Hematologic/Lymphatic: No symptoms reported Neurological/Psychological: No symptoms reported Physical Exam - Vital signs Vitals: Temp 98.7 F 11/29/19 22:39 - Notes Notes: GENERAL: Patient drowsy but does arouse to verbal stimuli. Falls asleep very rapidly when left alone HEAD: Normocephalic, atraumatic. EYES: Pupils equal but pinpoint. Round and reactive to light. Extraocular movements intact. ENT: Oral mucosa moist, tongue midline. Oropharynx unremarkable. Airway patent. NECK: Full range of motion. Supple. Trachea midline. No lymphadenopathy. LUNGS: Clear to auscultation bilaterally, no wheezes, rales, or rhonchi. No respiratory distress. Non-tender chest wall. HEART: Regular rate and rhythm. No murmur ABDOMEN: Soft, non-tender. Non-distended. EXTREMITIES: Moves all 4 extremities spontaneously. No edema, normal radial and dorsalis pedis pulses bilaterally. No cyanosis. BACK: no cervical, thoracic, lumbar midline tenderness. No saddle anesthesia, normal distal neurovascular exam. NEUROLOGICAL: Drowsy and oriented to person and place but not to events. Normal speech. Cranial nerves II through XII grossly intact. Strength 5/5 in all extremities. PSYCH: Cooperative but slightly irritable SKIN: Warm, dry, normal turgor. No rashes or lesions noted. Course - Re-evaluation Re-evalutation: Patient is arousable to voice, however he is very somnolent, he has pinpoint pupils, and if left alone for a few seconds he quickly falls asleep. While asleep he does not have depressed respirations, he has clear lungs, soft abdomen, I see no blood or evidence of hematemesis. Patient has no complaints other than feeling weak and tired. Patient denied heroin or any narcotics when I asked. Because patient does not have depressed respirations were noted hypoxia patient will not be given Narcan at this time, work-up is pending. 11/30/19 00:07 Patient is now alert, wide-awake, much more coherent, he is much clear history. He states that he had "a couple of shots of alcohol" with his friend megan, went home, started "vomiting without anything coming up". He states he could not stop doing this so family became concerned and called EMS. He states that he did do cocaine at 11 AM on Saturday (yesterday), denies recreational drugs otherwise. He denies having chest pain at any point, he denies headache, he denies current nausea or abdominal pain. He has no current complaints other than feeling thirsty. Chest x-ray unremarkable, EKG nonischemic, CT of the head showing no acute bleed. 11/30/19 00:[address] Mcmanus, cardiology on-call. He states he recommends aspirin, control blood pressure, cycling troponins, admit to the hospitalist. He does not recommend heparin drip unless patient has elevating troponins on repeat because patient is not having chest pain. He states he can be consulted on the patient. Cycle troponin is actually continuing to elevate, now at 1.7. EKG unchanged. Patient evaluated and still has not had any chest pain. I spoke with Dr. Mcmanus again, he recommends heparin and admission. CT of the head did show possible minimal left-sided dural thickening versus chronic subdural which is small. Discussed with Dr. Garcia. Recommendation is to hold heparin until MRI of the brain is performed to rule out ICH first. I called Dr. Mcmanus back, this will be the plan. I discussed with Dr. Saha and he accepts patient to Telemetry full admission. Patient states understanding and agreement with plan. Heparin will be held pending the MRI. - Vital Signs Vital signs: Temp Pulse Resp BP Pulse Ox 98 F 89 14 172/104 H 100 11/30/19 05:38 11/30/19 05:38 11/30/19 05:38 11/30/19 05:38 11/30/19 05:38 - Laboratory Result Diagrams: 11/29/19 23:07 11/29/19 23:07 Laboratory results interpreted by me: 11/29/19 11/29/19 11/29/19 23:07 23:07 23:16 WBC 14.3 H RBC 4.08 L MCV 99 H MCH 34.2 H Seg Neuts % (Manual) 90 H Lymphocytes % (Manual) 6 L Abs Neuts (Manual) 12.9 H BUN 21 H Creatinine 1.72 H Est GFR ( Amer) 50 L Est GFR (MDRD) Non-Af 41 L Glucose 116 H AST 74 H Urine Protein 100 H Urine Glucose (UA) 50 H Urine Ketones TRACE H Urine Blood MODERATE H Discharge - Discharge Clinical Impression: Substance abuse, NSTEMI (non-ST elevated myocardial infarction) Vomiting Qualifiers: Vomiting type: unspecified Vomiting Intractability: non-intractable Nausea presence: unspecified Qualified Code(s): R11.10 - Vomiting, unspecified Condition: Stable Disposition: ADMITTED INPATIENT Admitting Provider: Yifan (Hospitalist) Unit Admitted: Telemetry
[2019-11-29 23:26] LABS: HEMATOCRIT 40.3 % (37.9-51.0); HEMOGLOBIN 13.9 g/dL (13.5-17.0); MEAN CORPUSCULAR HEMOGLOBIN 34.2 pg (27.0-33.4); MEAN CORPUSCULAR HGB CONC 34.5 g/dL (32.0-36.0); MEAN CORPUSCULAR VOLUME 99 fl (80-97); PLATELET COUNT 250 10^3/uL (150-450); RED BLOOD COUNT 4.08 10^6/uL (4.35-5.55); RED CELL DISTRIBUTION WIDTH 13.9 % (11.5-14.0); WHITE BLOOD COUNT 14.3 10^3/uL (4.0-10.5)
[2019-11-29 23:36] LABS: ALBUMIN 4.4 g/dL (3.5-5.0); ALCOHOL 50 mg/dL (NONE DETECTED); ALKALINE PHOSPHATASE 84 U/L (38-126); ANION GAP 14 (5-19); ASPARTATE AMINO TRANSFERASE 74 U/L (17-59); BILIRUBIN,DIRECT 0.1 mg/dL (0.0-0.4); BILIRUBIN,TOTAL 0.4 mg/dL (0.2-1.3); BLOOD UREA NITROGEN 21 mg/dL (7-20); CALCIUM 9.1 mg/dL (8.4-10.2); CARBON DIOXIDE 26 mmol/L (22-30); CHLORIDE 98 mmol/L (98-107); GLUCOSE 116 mg/dL (75-110); POTASSIUM 4.3 mmol/L (3.6-5.0); TOTAL PROTEIN 7.6 g/dL (6.3-8.2)
[2019-11-29 23:37] LABS: APPEARANCE,URINE CLOUDY; BILIRUBIN,URINE NEGATIVE (NEGATIVE); COLOR,URINE YELLOW; GLUCOSE, URINE 50 mg/dL (NEGATIVE); KETONES,URINE TRACE mg/dL (NEGATIVE); LEUKOCYTE ESTERASE,URINE NEGATIVE (NEGATIVE); NITRITE,URINE NEGATIVE (NEGATIVE); PROTEIN,URINE 100 mg/dL (NEGATIVE); URINE SPECIFIC GRAVITY 1.013; UROBILINOGEN,URINE NEGATIVE mg/dL (<2.0)
[2019-11-29 23:43] LABS: ABSOLUTE LYMPHOCYTES# (MANUAL) 0.9 10^3/uL (0.5-4.7); ABSOLUTE MONOCYTES # (MANUAL) 0.6 10^3/uL (0.1-1.4); BASOPHILS % (MANUAL) 0 % (0-2); EOSINOPHILS % (MANUAL) 0 % (0-6); LYMPHOCYTES % (MANUAL) 6 % (13-45); MONOCYTES % (MANUAL) 4 % (3-13); SEGMENTED NEUTROPHILS % (MAN) 90 % (42-78); TOTAL CELLS COUNTED 100
[2019-11-29 23:44] LABS: OVALOCYTES SLIGHT; PLATELET COMMENT ADEQUATE; POIKILOCYTOSIS SLIGHT; TOXIC GRANULATION SLIGHT
[2019-11-29 23:49] LABS: URINE AMPHETAMINES SCREEN NEGATIVE; URINE BARBITURATES SCREEN NEGATIVE; URINE BENZODIAZEPINES SCREEN NEGATIVE; URINE COCAINE SCREEN UNCONFIRMED POSITIVE; URINE MARIJUANA (THC) SCREEN UNCONFIRMED POSITIVE; URINE METHADONE SCREEN NEGATIVE; URINE PHENCYCLIDINE SCREEN NEGATIVE
--- NOTE | 2019-11-30 00:01 | RADIOLOGY REPORT (SQ) ---
EXAM DESCRIPTION: CT HEAD WITHOUT IV CONTRAST COMPLETED DATE/TME: 11/29/2019 22:58 CLINICAL HISTORY: 54 years Male confusion, somnolence COMPARISON: None. TECHNIQUE: Contiguous axial CT images obtained through the brain without IV contrast. This exam was performed according to our department optimization program which includes automated exposure control, adjustment of the mA and/or kv according to patient size and/or use of iterative reconstruction technique. FINDINGS: The ventricles and sulci are prominent consistent with atrophic changes. No mass lesions. No acute hemorrhage. There is mild prominence of the subdural space over the left convexity which may be due to subtle asymmetry. On some of the coronal images there may be small amount of low attenuation. The possibility of a chronic subdural or dural thickening is not excluded.. Atherosclerotic calcifications. No fluid or significant mucosal thickening in the visualized paranasal sinuses. No depressed calvarial fractures. IMPRESSION: No acute intracranial abnormality is identified. Question prominent subdural space on the left versus minimal dural thickening or area of chronic subdural hemorrhage.
--- NOTE | 2019-11-30 00:05 | RADIOLOGY REPORT (SQ) ---
EXAM DESCRIPTION: [facility]: XR CHEST 1 VIEW CLINICAL HISTORY: 54 years Male; borderline hypoxia, weakness; COMPARISON: 08/12/2019 FINDINGS: Lungs: Lungs are clear, with no focal infiltrate, pneumothorax, or pleural effusion. Mediastinum: Mediastinum is within normal limits for this positioning. Bones: Bony structures are unremarkable. IMPRESSION: 1. No acute pulmonary findings.
[2019-11-30] MEDS ORDERED: ASPIRIN 81 MG TABLET, CHEWABLE PO ONE (00:23)
[2019-11-30] MEDS ORDERED: FAMOTIDINE 20 MG TABLET PO ONE (00:23)
[2019-11-30] MEDS ORDERED: HEPARIN SOD (PORCINE) 1,000 UNIT/ML 10 ML VIAL IV ONE (03:51)
[2019-11-30] MEDS ORDERED: HEPARIN SODIUM,PORCINE/D5W 25,000 UNIT/250 ML RTUINJ IV PRN ×2 (03:51→10:30)
[2019-11-30] MEDS ORDERED: HEPARIN SODIUM,PORCINE/D5W 25,000 UNIT/250 ML RTUINJ IV ONE (04:00)
[2019-11-30 04:48] LABS: INTERNATIONAL RATION (INR) 0.99; PROTHROMBIN TIME 13.1 SEC (11.4-15.4)
[2019-11-30 04:49] LABS: PARTIAL THROMBOPLASTIN TIME 28.2 SEC (23.5-35.8)
[2019-11-30] MEDS ORDERED: MAG HYDROX/AL HYDROX/SIMETH SUSP 30 ML UDCUP PO PRN (04:59)
[2019-11-30] MEDS ORDERED: LEVALBUTEROL HCL NEB 0.63 MG/3 ML AMPUL NEB PRN (04:59)
[2019-11-30] MEDS ORDERED: PROMETHAZINE HCL INJ 25 MG/1 ML VIAL IV PRN (04:59)
[2019-11-30] MEDS ORDERED: MAGNESIUM HYDROXIDE SUSP 30 ML UDCUP PO PRN (04:59)
[2019-11-30] MEDS ORDERED: LORAZEPAM INJ 2 MG/1 ML VIAL IV PRN (05:09)
[2019-11-30] MEDS ORDERED: GUAIFENESIN SYRP 200 MG/10 ML UDC PO PRN (05:09)
[2019-11-30] MEDS ORDERED: MORPHINE SULFATE 10 MG/ML INJ IV PRN ×3 (05:09)
[2019-11-30] MEDS ORDERED: NICOTINE 21 MG/24 HR PATCH.TD24 TD PRN (05:09)
[2019-11-30] MEDS ORDERED: HYDRALAZINE HCL INJ/PF 20 MG/1 ML SDV IV PRN (05:09)
[2019-11-30] MEDS ORDERED: ACETAMINOPHEN 325 MG TABLET PO PRN (05:09)
[2019-11-30] MEDS ORDERED: LABETALOL HCL INJ 20 MG/4 ML DISP.SYRIN IV PRN (05:17)
[2019-11-30] MEDS ORDERED: RINGERS SOLUTION,LACTATED 1,000 ML IV PRN (05:19)
--- NOTE | 2019-11-30 05:41 | PDOC H&P ---
History of Present Illness Admission Date/PCP: 11/30/19 04:15 No local PCP Patient complains of: Weakness History of Present Illness: BEKAH HEIN is a 54 year old male who presented the emergency room via EMS with acute weakness. He admits acute moderate generalized weakness accompanied by fatigue, nausea and vomiting developing over the course of one hour prior to his presentation. He denies other associated or accompanying signs and symptoms. He admits prior similar episodes related to his substance abuse. He admits using what he thought was cocaine about 30 minutes prior to the onset of symptoms and he had been consuming alcohol earlier in the day. He admits a history of chronic tobacco and alcohol abuse and also recreational use of cocaine and marijuana. He has not identified any aggravating or ameliorating factors for his weakness. In the emergency room he was initially noted to have pinpoint pupils and to be somewhat slow in responding however his responsiveness improved rapidly without being specifically treated. A CT scan of his head showed an area of possible chronic subdural hematoma and his cardiac enzymes showed a troponin of 1.01 which mary ellen to 1.7 without ischemic or injury changes on patient's EKG. his serum creatinine was noted to be elevated to 1.7 which is significantly higher than his last recorded reading. He was subsequently admitted to the hospital on the telemetry unit for further evaluation and treatment at the request of Dr. Mcmanus. Past Medical History Cardiac Medical History: Reports: Hyperlipidema, Hypertension Denies: Atrial Fibrillation, Congestive Heart Failure, Coronary Artery Disease, Myocardial Infarction Pulmonary Medical History: Denies: Asthma, Bronchitis, Chronic Obstructive Pulmonary Disease (COPD), Pneumonia EENT Medical History: Denies: Cataracts, Ears - Hearing aids Neurological Medical History: Denies: Hemorrhagic CVA, Ischemic CVA, Seizures Endocrine Medical History: Denies: Diabetes Mellitus Type 1, Diabetes Mellitus Type 2, Hyperthyroidism, Hypothyroidism Renal/ Medical History: Denies: Chronic Kidney Disease, Nephrolithiasis Malignancy Medical History: Reports: None GI Medical History: Reports: Gastroesophageal Reflux Disease, Other - Alcoholic pancreatitis Denies: Cirrhosis, Crohn's Disease, Hepatitis, Peptic Ulcer Disease, Ulcerative Colitis Musculoskeltal Medical History: Denies: Arthritis, Gout Skin Medical History: Denies: Eczema, Psoriasis Psychiatric Medical History: Reports: Alcohol Dependency, Substance Abuse, Tobacco Dependency Traumatic Medical History: Reports: None Hematology: Denies: Anemia, Bleeding Tendencies Infectious Medical History: Reports: None Past Surgical History Past Surgical History: Reports: Appendectomy, Herniorrhaphy Social History Information Source: Patient Lives with: Family Smoking Status: Current Every Day Smoker Electronic Cigarette use?: No Frequency of Alcohol Use: Heavy - Drinks at least 1 pint of hard liquor daily Hx Recreational Drug Use: Yes Drugs: Cocaine, Marijuana Hx Prescription Drug Abuse: No - Advance Directive Resuscitation Status: Full Code Surrogate healthcare decision maker:: Taniya Babin Family History Family History: Hypertension, Malignancy. denies: CAD, DM Parental Family History Reviewed: Yes Children Family History Reviewed: No Sibling(s) Family History Reviewed.: Yes Medication/Allergy Home Medications: Acetaminophen [Tylenol Extra Strength 500 mg Tablet] 1 - 2 tab PO Q6HP PRN #20 tab 08/16/19 Amlodipine Besylate [Norvasc 5 mg Tablet] 10 mg PO DAILY 30 Days tablet 08/16/19 Famotidine [Pepcid 20 mg Tablet] 20 mg PO BID #20 tablet 08/16/19 Lisinopril [Prinivil] 40 mg PO DAILY #60 tablet 08/16/19 Ondansetron HCl [Zofran 4 mg Tablet] 1 - 2 tab PO Q4H PRN #10 tablet 08/16/19 Tramadol HCl [Ultram 50 mg Tablet] 50 mg PO BIDP PRN #5 tablet 08/16/19 Allergies/Adverse Reactions: No Known Allergies Allergy (Verified 08/12/19 15:48) Review of Systems Constitutional: PRESENT: as per HPI, fatigue, weakness Eyes: ABSENT: visual disturbances, other - Eye pain Ears: ABSENT: hearing changes, other - Ear pain Nose, Mouth, and Throat: ABSENT: headache(s), sore throat Cardiovascular: ABSENT: chest pain, palpitations Respiratory: ABSENT: cough, dyspnea Gastrointestinal: ABSENT: abdominal pain, constipation, diarrhea, nausea, vo miting Genitourinary: ABSENT: difficulty urinating, dysuria, hematuria Musculoskeletal: PRESENT: as per HPI, muscle weakness - Generalized. ABSENT: b ack pain, joint swelling Integumentary: ABSENT: pruritus, rash Neurological: ABSENT: confusion, convulsions, focal weakness, memory loss, syncope Psychiatric: ABSENT: anxiety, depression Endocrine: ABSENT: cold intolerance, heat intolerance, polydipsia, polyphagia, polyuria Hematologic/Lymphatic: ABSENT: easy bleeding, easy bruising Allergic/Immunologic: ABSENT: seasonal rhinorrhea Physical Exam Vital Signs: Temp Pulse Resp BP Pulse Ox 98.7 F 11 L 149/101 H 100 11/29/19 22:39 11/30/19 03:01 11/30/19 03:00 11/30/19 03:01 Intake & Output 11/28/19 11/29/19 11/30/19 23:59 23:59 23:59 Intake Total 1000 Balance 1000 Weight 77.27 kg General appearance: PRESENT: no acute distress, cooperative Head exam: PRESENT: atraumatic, normocephalic Eye exam: PRESENT: conjunctiva pink. ABSENT: conjunctival injection, scleral icterus Ear exam: PRESENT: normal external ear exam. ABSENT: bleeding, drainage Mouth exam: PRESENT: dry mucosa, neck supple Teeth exam: PRESENT: poor dentation Neck exam: ABSENT: JVD, thyromegaly, tracheal deviation Respiratory exam: PRESENT: prolonged expiratory phas - Minimally prolonged expiratory phase noted throughout all cross, symmetrical, unlabored, wheezes - Minimal expiratory wheezes noted throughout all cross Cardiovascular exam: PRESENT: RRR. ABSENT: clicks, gallop, rubs Pulses: PRESENT: normal radial pulses, normal dorsalis pedis pul Vascular exam: PRESENT: normal capillary refill. ABSENT: pallor GI/Abdominal exam: PRESENT: normal bowel sounds, soft Rectal exam: PRESENT: deferred Extremities exam: ABSENT: joint swelling, pedal edema Musculoskeletal exam: ABSENT: deformity, dislocation Neurological exam: PRESENT: alert, oriented to person, oriented to place, oriented to time, oriented to situation, CN II-XII grossly intact. ABSENT: motor sensory deficit Psychiatric exam: PRESENT: appropriate affect, normal mood Skin exam: PRESENT: dry, intact, warm. ABSENT: jaundice, rash, urticaria Results Laboratory Results: 11/29/19 23:07 11/29/19 23:07 11/29/19 11/29/19 11/29/19 23:07 23:07 23:16 WBC 14.3 H RBC 4.08 L Hgb 13.9 Hct 40.3 MCV 99 H MCH 34.2 H MCHC 34.5 RDW 13.9 Plt Count 250 Seg Neutrophils % Not Reportable Sodium 137.8 Potassium 4.3 Chloride 98 Carbon Dioxide 26 Anion Gap 14 BUN 21 H Creatinine 1.72 H Est GFR ( Amer) 50 L Glucose 116 H Calcium 9.1 Total Bilirubin 0.4 AST 74 H Alkaline Phosphatase 84 Total Protein 7.6 Albumin 4.4 Lipase 104.9 Urine Color YELLOW Urine Appearance CLOUDY Urine pH 5.0 Ur Specific [place] 1.013 Urine Protein 100 H Urine Glucose (UA) 50 H Urine Ketones TRACE H Urine Blood MODERATE H Urine Nitrite NEGATIVE Ur Leukocyte Esterase NEGATIVE Urine WBC (Auto) 20 Urine RBC (Auto) 3 11/29/19 11/30/19 23:07 02:04 Troponin I 1.010 1.700 Impressions: Chest X-Ray 11/29/19 22:58 IMPRESSION: 1. No acute pulmonary findings. Head CT 11/29/19 22:58 IMPRESSION: No acute intracranial abnormality is identified. Question prominent subdural space on the left versus minimal dural thickening or area of chronic subdural hemorrhage. Assessment and Plan - Diagnosis (1) Generalized weakness Is this a current diagnosis for this admission?: Yes (2) Acute kidney injury Is this a current diagnosis for this admission?: Yes (3) Elevated troponin I level Is this a current diagnosis for this admission?: Yes (4) Abnormal CT scan of head Is this a current diagnosis for this admission?: Yes (5) Essential hypertension Is this a current diagnosis for this admission?: Yes (6) GERD (gastroesophageal reflux disease) Qualifiers: Esophagitis presence: with esophagitis Qualified Code(s): K21.0 - Gastro- esophageal reflux disease with esophagitis Is this a current diagnosis for this admission?: Yes (7) Polysubstance abuse Is this a current diagnosis for this admission?: Yes (8) Tobacco use disorder, severe, dependence Is this a current diagnosis for this admission?: Yes (9) Alcohol abuse, continuous drinking behavior Is this a current diagnosis for this admission?: Yes - Plan Summary Summary: Patient will be admitted to observation status on the telemetry unit where he will receive usual supportive and symptomatic cares. He will receive and IV fluid bolus and his renal function studies will be followed. He will have serial cardiac enzymes obtained. Dr. Mcmanus was consulted by the emergency room physician and asked that the patient be admitted to telemetry and initially planned to place him on heparin therapy due to his elevated troponin levels. However because of his possible chronic subdural hematoma he is elected to not place him on heparin therapy until the CT scan of the head abnormality is checked with an MRI. His blood pressure will be controlled with intravenous hydralazine and/or labetalol as required. Patient will receive morphine sulfate 2 to 4 mg IV every 2 hours on an as-needed basis should he develop chest pain. He will receive Ativan 1 mg IV every 4 hours as needed for anxiety or restlessness. He will be maintained on a cardiac diet. Dr. Mcmanus will be consulted for a formal cardiology evaluation. Smoking cessation is advised and counseled briefly at the bedside. A nicotine replacement patch will be available for the patient's use, if desired. - Time Time Spent with patient: 15-24 minutes Smoking Cessation Education: 3 to 10 minutes Medications reviewed and adjusted accordingly: Yes - Inpatient Certification Based on my medical assessment, after consideration of the patient's comorbidities, presenting symptoms, or acuity I expect that the services needed warrant INPATIENT care.: No I certify that my determination is in accordance with my understanding of Medicare's requirements for reasonable and necessary INPATIENT services [42 CFR 412.3e].: No Medical Necessity: Significant Comorbidiites Make Outpatient Treatment Too Risky, Need Close Monitoring Due to Risk of Patient Decompensation, Need For IV Fluids, Need For Continuous Telemetry Monitoring, Risk of Complication if Not Cared For in Hospital, Risk of Diagnosis Which Will Require Inpatient Eval/Care/Monitoring
[2019-11-30] MEDS ORDERED: HEPARIN SOD (PORCINE) 5,000 UNIT/ML 1 ML VIAL SUBCUT SCH (06:00)
[2019-11-30] MEDS ORDERED: HEPARIN SOD (PORCINE) 1,000 UNIT/ML 10 ML VIAL IV PRN ×2 (06:53→10:30)
--- NOTE | 2019-11-30 07:15 | EKG REPORT ---
SEVERITY:- BORDERLINE ECG - SINUS RHYTHM PROBABLE LEFT ATRIAL ABNORMALITY : Confirmed by: Bandar Nunez MD 30-Nov-2019 07:15:10
--- NOTE | 2019-11-30 07:17 | EKG REPORT ---
SEVERITY:- ABNORMAL ECG - SINUS RHYTHM PROBABLE LEFT ATRIAL ABNORMALITY PROBABLE LEFT VENTRICULAR HYPERTROPHY BORDERLINE T ABNORMALITIES, INFERIOR LEADS : Confirmed by: Bandar Nunez MD 30-Nov-2019 07:16:04
[2019-11-30 08:11] LABS: HEMATOCRIT 36.9 % (37.9-51.0); HEMOGLOBIN 13.1 g/dL (13.5-17.0); MEAN CORPUSCULAR HEMOGLOBIN 34.4 pg (27.0-33.4); MEAN CORPUSCULAR HGB CONC 35.4 g/dL (32.0-36.0); MEAN CORPUSCULAR VOLUME 97 fl (80-97); PLATELET COUNT 221 10^3/uL (150-450); RED CELL DISTRIBUTION WIDTH 13.9 % (11.5-14.0); WHITE BLOOD COUNT 10.5 10^3/uL (4.0-10.5)
[2019-11-30 08:31] LABS: ANION GAP 10 (5-19); BLOOD UREA NITROGEN 21 mg/dL (7-20); CALCIUM 8.3 mg/dL (8.4-10.2); CARBON DIOXIDE 26 mmol/L (22-30); CHLORIDE 97 mmol/L (98-107); CREATINE KINASE 622 U/L (55-170); GLUCOSE 91 mg/dL (75-110); POTASSIUM 3.7 mmol/L (3.6-5.0)
[2019-11-30 08:42] LABS: CREATINE KINASE MB 13.7 ng/mL (<4.55)
[2019-11-30 08:46] LABS: TROPONIN I 2.36 ng/mL
[2019-11-30] MEDS: FAMOTIDINE 20 MG TABLET PO SCH ×2 (09:03→22:21)
[2019-11-30] MEDS: DOCUSATE SODIUM 100 MG CAPSULE PO SCH ×2 (09:03→18:19)
--- NOTE | 2019-11-30 09:19 | RADIOLOGY REPORT (SQ) ---
EXAM DESCRIPTION: MRI HEAD WITHOUT IMAGES COMPLETED DATE/TIME: 11/30/2019 8:39 am REASON FOR STUDY: Abnormal findings on head CT scan COMPARISON: CT of the head without contrast from 11/29/2019. TECHNIQUE: Multiplanar imaging includes non-contrasted T1, T2, FLAIR, and diffusion with ADC map seq uences. Images stored on PACS. LIMITATIONS: None. FINDINGS: The sella turcica, corpus callosum and craniocervical junction are normal in appearance. There is no restricted diffusion on the DWI. The mild areas of high FLAIR signal within the supraten torial periventricular white matter are nonspecific but are favored to represent the sequela of chron ic microvascular ischemia. There is no acute intracranial hemorrhage, extra-axial fluid collection, mass, mass effect or midline shift. The sapp-white matter differentiation is preserved. There is no effacement of the cerebral sulci or basal subarachnoid cisterns. The caliber the ventricles is concordant with the degree of love lcation. The intracranial vascular flow voids are preserved. There is no susceptibility artifact on the gradi ent sequence. The globes, extraocular muscles and optic nerve sheath complexes are symmetric in appearance. There is no abnormal signal within the paranasal sinuses. IMPRESSION: No acute intracranial abnormality. EVIDENCE OF ACUTE STROKE: NO. TECHNICAL DOCUMENTATION: JOB ID: [id number] 2010 [employer]- All Rights Reserved Reading location - IP/workstation name: [email or web address]
--- NOTE | 2019-11-30 09:56 | PDOC CONSULTATION ---
Consultation Consult Date: 11/30/19 Provider Consulted: STONEY SIMS Consult reason:: Elevated troponin History of Present Illness Admission Date/PCP: 11/30/19 04:15 Patient complains of: No complaints. History of Present Illness: BEKAH HEIN is a 54 year old male Who presented to the emergency room with altered mental status. Reports polysubstance abuse. 1. Alcohol 2. Cocaine 3. Marijuana He does not report use of injectable drugs. He presented with pinpoint pupils and was having altered sensorium with good improvement in mental status. Initial CT scan was suspicious for subdural hematoma. Subsequently brain MRI showed no acute findings. Elevated troponin is noted. Patient does not endorse any chest pain. Continues to smoke cigarettes. Uses cocaine. Most recent use was this Saturday. Uses marijuana fairly frequently. No prior cardiac history is reported. No familial illnesses reported to me. Past Medical History Cardiac Medical History: Reports: Hyperlipidema, Hypertension Denies: Atrial Fibrillation, Congestive Heart Failure, Coronary Artery Disease, Myocardial Infarction Pulmonary Medical History: Denies: Asthma, Bronchitis, Chronic Obstructive Pulmonary Disease (COPD), Pneumonia EENT Medical History: Denies: Cataracts, Ears - Hearing aids Neurological Medical History: Denies: Hemorrhagic CVA, Ischemic CVA, Seizures Endocrine Medical History: Denies: Diabetes Mellitus Type 1, Diabetes Mellitus Type 2, Hyperthyroidism, Hypothyroidism Renal/ Medical History: Denies: Chronic Kidney Disease, Nephrolithiasis Malignancy Medical History: Reports: None GI Medical History: Reports: Gastroesophageal Reflux Disease, Other - Alcoholic pancreatitis Denies: Cirrhosis, Crohn's Disease, Hepatitis, Peptic Ulcer Disease, Ulcerative Colitis Musculoskeltal Medical History: Denies: Arthritis, Gout Skin Medical History: Denies: Eczema, Psoriasis Psychiatric Medical History: Reports: Alcohol Dependency, Substance Abuse, Tobacco Dependency Traumatic Medical History: Reports: None Hematology: Denies: Anemia, Bleeding Tendencies Infectious Medical History: Reports: None Past Surgical History Past Surgical History: Reports: Appendectomy, Herniorrhaphy Social History Lives with: Family Smoking Status: Current Every Day Smoker Cigarettes Packs Per Day: 0.5 Electronic Cigarette use?: No Last Time Smoked: yesterday Frequency of Alcohol Use: Heavy - Drinks at least 1 pint of hard liquor daily Hx Recreational Drug Use: Yes Drugs: Cocaine, Marijuana Hx Prescription Drug Abuse: No - Advance Directive Resuscitation Status: Full Code Family History Family History: Hypertension, Malignancy Parental Family History Reviewed: Yes - No familial illnesses reported to me Children Family History Reviewed: No Sibling(s) Family History Reviewed.: No Medication/Allergy Home Medications: Famotidine [Pepcid 20 mg Tablet] 20 mg PO BID #20 tablet 08/16/19 RX: Lisinopril [Prinivil] 40 mg PO DAILY #60 tablet 08/16/19 Ondansetron HCl [Zofran 4 mg Tablet] 4 mg PO Q4HP PRN 11/30/19 RX: Amlodipine Besylate [Norvasc 5 mg Tablet] 10 mg PO MO@1000 11/30/19 Allergies/Adverse Reactions: No Known Allergies Allergy (Verified 08/12/19 15:48) Review of Systems Cardiovascular: ABSENT: as per HPI, chest pain, dyspnea on exertion, edema, orthropnea, palpitations, other Respiratory: ABSENT: as per HPI, cough, dyspnea, hemoptysis, sputum, other Physical Exam Vital Signs: Temp Pulse Resp BP Pulse Ox 99.0 F 92 18 154/89 H 100 11/30/19 08:47 11/30/19 08:47 11/30/19 08:47 11/30/19 08:47 11/30/19 08:47 Intake & Output 11/29/19 11/30/19 12/01/19 06:59 06:59 06:59 Intake Total 1000 Output Total 0 Balance 1000 Weight 74.4 kg General appearance: PRESENT: no acute distress, cooperative, well-developed, well-nourished Head exam: PRESENT: atraumatic, normocephalic Eye exam: PRESENT: conjunctiva pink, EOMI Mouth exam: PRESENT: moist Respiratory exam: PRESENT: clear to auscultation malini, symmetrical, unlabored Cardiovascular exam: PRESENT: RRR, +S1, +S2 Pulses: PRESENT: normal radial pulses GI/Abdominal exam: PRESENT: soft Rectal exam: PRESENT: deferred Musculoskeletal exam: PRESENT: normal inspection Neurological exam: PRESENT: alert, awake, oriented to person, oriented to place, oriented to time, oriented to situation Psychiatric exam: PRESENT: appropriate affect Skin exam: PRESENT: dry, intact, normal color Results Laboratory Results: 11/30/19 07:45 11/30/19 07:45 11/29/19 11/29/19 11/29/19 23:07 23:07 23:16 WBC 14.3 H RBC 4.08 L Hgb 13.9 Hct 40.3 MCV 99 H MCH 34.2 H MCHC 34.5 RDW 13.9 Plt Count 250 Seg Neutrophils % Not Reportable Sodium 137.8 Potassium 4.3 Chloride 98 Carbon Dioxide 26 Anion Gap 14 BUN 21 H Creatinine 1.72 H Est GFR ( Amer) 50 L Glucose 116 H Calcium 9.1 Magnesium Total Bilirubin 0.4 AST 74 H Alkaline Phosphatase 84 Total Protein 7.6 Albumin 4.4 Lipase 104.9 TSH Urine Color YELLOW Urine Appearance CLOUDY Urine pH 5.0 Ur Specific [place] 1.013 Urine Protein 100 H Urine Glucose (UA) 50 H Urine Ketones TRACE H Urine Blood MODERATE H Urine Nitrite NEGATIVE Ur Leukocyte Esterase NEGATIVE Urine WBC (Auto) 20 Urine RBC (Auto) 3 11/30/19 11/30/19 11/30/19 02:04 02:04 07:45 WBC RBC Hgb Hct MCV MCH MCHC RDW Plt Count Seg Neutrophils % Sodium 133.3 L Potassium 3.7 Chloride 97 L Carbon Dioxide 26 Anion Gap 10 BUN 21 H Creatinine 1.22 Est GFR ( Amer) > 60 Glucose 91 Calcium 8.3 L Magnesium 1.7 Total Bilirubin AST Alkaline Phosphatase Total Protein Albumin Lipase TSH 0.27 L Urine Color Urine Appearance Urine pH Ur Specific [place] Urine Protein Urine Glucose (UA) Urine Ketones Urine Blood Urine Nitrite Ur Leukocyte Esterase Urine WBC (Auto) Urine RBC (Auto) 11/30/19 07:45 WBC 10.5 RBC 3.80 L Hgb 13.1 L Hct 36.9 L MCV 97 MCH 34.4 H MCHC 35.4 RDW 13.9 Plt Count 221 Seg Neutrophils % Sodium Potassium Chloride Carbon Dioxide Anion Gap BUN Creatinine Est GFR ( Amer) Glucose Calcium Magnesium Total Bilirubin AST Alkaline Phosphatase Total Protein Albumin Lipase TSH Urine Color Urine Appearance Urine pH Ur Specific [place] Urine Protein Urine Glucose (UA) Urine Ketones Urine Blood Urine Nitrite Ur Leukocyte Esterase Urine WBC (Auto) Urine RBC (Auto) 11/29/19 11/30/19 11/30/19 23:07 02:04 07:45 Creatine Kinase CK-MB (CK-2) 13.70 H Troponin I 1.010 1.700 2.360 11/30/19 07:45 Creatine Kinase 622 H CK-MB (CK-2) Troponin I EKG Comments: Twelve-lead EKG. 11/29/2019 (2247) Sinus rhythm, left atrial abnormality, left ventricular hypertrophy with repol arization abnormality. QTC is 454 ms Cardiac troponin 1.01 1.7 2.36 Chest x-ray 11/29/2019 No acute pulmonary findings Impressions: Chest X-Ray 11/29/19 22:58 IMPRESSION: 1. No acute pulmonary findings. Head CT 11/29/19 22:58 IMPRESSION: No acute intracranial abnormality is identified. Question prominent subdural space on the left versus minimal dural thickening or area of chronic subdural hemorrhage. Assessment & Plan - Diagnosis (1) Polysubstance abuse Is this a current diagnosis for this admission?: Yes Plan: Patient continues to use cocaine. He needs substance abuse counseling He also smokes cigarettes and uses alcohol. Polysubstance abuse which increases risk of cardiovascular illness. (2) Essential hypertension Is this a current diagnosis for this admission?: Yes Plan: With reported cocaine abuse would recommend nonselective beta-maya or calcium blockers for treatment of hypertension. Low-dose diuretic will also help. (3) NSTEMI (non-ST elevated myocardial infarction) Is this a current diagnosis for this admission?: Yes Plan: Probable underlying atherosclerotic coronary artery disease. Presenting with non-ST segment elevation myocardial infarction in the setting of cocaine abuse. I suspect plaque rupture which resulted in this. Would recommend aspirin 81 mg daily Would recommend statin Nonselective beta-maya or calcium channel blockers No indication for stress testing and no further cardiac work-up at this point given ongoing substance abuse.
[2019-11-30] MEDS ORDERED: NICOTINE 7 MG/24 HR PATCH.TD24 TD PRN (10:08)
[2019-11-30 10:16] LABS: ABSOLUTE LYMPHOCYTES (AUTO) 1.5 10^3/uL (0.5-4.7); ABSOLUTE MONOCYTES (AUTO) 0.5 10^3/uL (0.1-1.4); BASOPHILS % (AUTO) 0.2 % (0-2); EOSINOPHILS % (AUTO) 0.1 % (0-6); HEMATOCRIT 34.9 % (37.9-51.0); HEMOGLOBIN 12.5 g/dL (13.5-17.0); LYMPHOCYTES % (AUTO) 18.9 % (13-45); MEAN CORPUSCULAR HEMOGLOBIN 34.6 pg (27.0-33.4); MEAN CORPUSCULAR HGB CONC 35.8 g/dL (32.0-36.0); MEAN CORPUSCULAR VOLUME 97 fl (80-97); MONOCYTES % (AUTO) 6.7 % (3-13); PLATELET COUNT 215 10^3/uL (150-450); RED BLOOD COUNT 3.62 10^6/uL (4.35-5.55); RED CELL DISTRIBUTION WIDTH 13.4 % (11.5-14.0); SEGMENTED NEUTROPHILS % (AUTO) 74.1 % (42-78); TOTAL CELLS COUNTED % (AUTO) 100 %; WHITE BLOOD COUNT 8.1 10^3/uL (4.0-10.5)
[2019-11-30 10:22] LABS: INTERNATIONAL RATION (INR) 1.01; PROTHROMBIN TIME 13.3 SEC (11.4-15.4)
[2019-11-30] MEDS: DILTIAZEM HCL 60 MG TABLET PO SCH ×2 (10:34→22:21)
[2019-11-30] MEDS: SPIRONOLACTONE 25 MG TABLET PO SCH (10:35)
[2019-11-30] MEDS: ASPIRIN 81 MG TABLET, CHEWABLE PO SCH (10:35)
[2019-11-30 13:44] LABS: APPEARANCE,URINE CLEAR; BILIRUBIN,URINE NEGATIVE (NEGATIVE); COLOR,URINE YELLOW; GLUCOSE, URINE 50 mg/dL (NEGATIVE); KETONES,URINE 20 mg/dL (NEGATIVE); LEUKOCYTE ESTERASE,URINE NEGATIVE (NEGATIVE); NITRITE,URINE NEGATIVE (NEGATIVE); PROTEIN,URINE NEGATIVE (NEGATIVE); URINE SPECIFIC GRAVITY 1.015; UROBILINOGEN,URINE NEGATIVE mg/dL (<2.0)
[2019-11-30 14:30] LABS: CREATINE KINASE MB 10.4 ng/mL (<4.55); TROPONIN I 1.9 ng/mL
--- NOTE | 2019-11-30 15:38 | Progress Note ---
Provider Note Provider Note: The patient is a 54-year-old male with a past medical history of hypertension, hyperlipidemia, alcohol dependency, substance abuse, and tobacco dependency who was admitted early this morning by the commodities clerk after presenting to the emergency department with a complaint of acute weakness and found to have a NSTEMI. Overnight events, vital signs, laboratory results, imaging reports, and orders reviewed. Agree with the plan of care as established by the previous provider. In addition, have started daily aspirin and statin therapy at the recommendation of cardiology. Have started p.o. diltiazem. Avoiding beta blockers secondary to recent/regular cocaine use. Start daily nicoderm patch.
[2019-11-30] MEDS ORDERED: ATORVASTATIN CALCIUM 20 MG TABLET PO SCH (22:00)
[2019-12-01 07:17] LABS: BLOOD UREA NITROGEN 14 mg/dL (7-20); CALCIUM 8.9 mg/dL (8.4-10.2); CHOLESTEROL 153.41 mg/dL (0-200); GLUCOSE 109 mg/dL (75-110); POTASSIUM 3.2 mmol/L (3.6-5.0); TRIGLYCERIDES 113 mg/dL (<150)
[2019-12-01 07:23] LABS: CARBON DIOXIDE 32 mmol/L (22-30); CHLORIDE 97 mmol/L (98-107)
[2019-12-01 07:25] LABS: ANION GAP 4 (5-19)
[2019-12-01 07:28] LABS: DIRECT LDL 93 mg/dL (<100)
[2019-12-01] MEDS ORDERED: POTASSIUM CHLORIDE 10 MEQ TABLET.ER PO ONE (09:30)
[2019-12-01] MEDS: DOCUSATE SODIUM 100 MG CAPSULE PO SCH (10:26)
[2019-12-01] MEDS: SPIRONOLACTONE 25 MG TABLET PO SCH (10:26)
[2019-12-01] MEDS: FAMOTIDINE 20 MG TABLET PO SCH (10:26)
[2019-12-01] MEDS: DILTIAZEM HCL 60 MG TABLET PO SCH (10:26)
[2019-12-01] MEDS: ASPIRIN 81 MG TABLET, CHEWABLE PO SCH (10:26)
--- NOTE | 2019-12-01 12:59 | PDOC PROGRESS REPORT ---
Subjective Progress Note for:: 12/01/19 Subjective:: Patient is standing up in the room. He reports that he is feeling great. Does not report any chest pain. He was initiated on heparin infusion ACS protocol on account of non-ST segment elevation myocardial infarction with recent cocaine abuse. He did not complain of chest pain Reason For Visit: NSTEMI Physical Exam Vital Signs: Temp Pulse Resp BP Pulse Ox 98.5 F 72 18 142/93 H 100 12/01/19 08:11 12/01/19 08:11 12/01/19 08:11 12/01/19 08:11 12/01/19 08:11 Intake & Output 11/30/19 12/01/19 12/02/19 06:59 06:59 06:59 Intake Total 1000 1832 Output Total 0 1625 Balance 1000 207 Weight 74.4 kg 75.2 kg General appearance: PRESENT: no acute distress, cooperative, well-developed, well-nourished Head exam: PRESENT: atraumatic, normocephalic Eye exam: PRESENT: conjunctiva pink, EOMI Mouth exam: PRESENT: moist Respiratory exam: PRESENT: clear to auscultation malini, symmetrical, unlabored Cardiovascular exam: PRESENT: RRR, +S1, +S2 Pulses: PRESENT: normal radial pulses GI/Abdominal exam: PRESENT: soft Rectal exam: PRESENT: deferred Musculoskeletal exam: PRESENT: normal inspection Neurological exam: PRESENT: alert, awake, oriented to person, oriented to place, oriented to time, oriented to situation Psychiatric exam: PRESENT: appropriate affect Skin exam: PRESENT: dry, intact, normal color Results Laboratory Results: 11/30/19 10:05 12/01/19 05:49 11/30/19 12/01/19 13:29 05:49 Sodium 132.9 L Potassium 3.2 L Chloride 97 L Carbon Dioxide 32 H Anion Gap 4 L BUN 14 Creatinine 0.91 Est GFR ( Amer) > 60 Glucose 109 Calcium 8.9 Triglycerides 113 Cholesterol 153.41 LDL Cholesterol Direct 93 VLDL Cholesterol 23.0 HDL Cholesterol 40 Urine Color YELLOW Urine Appearance CLEAR Urine pH 6.0 Ur Specific [place] 1.015 Urine Protein NEGATIVE Urine Glucose (UA) 50 H Urine Ketones 20 H Urine Blood NEGATIVE Urine Nitrite NEGATIVE Ur Leukocyte Esterase NEGATIVE Urine WBC (Auto) 1 Urine RBC (Auto) 1 11/29/19 11/30/19 11/30/19 23:07 02:04 07:45 Creatine Kinase CK-MB (CK-2) 13.70 H Troponin I 1.010 1.700 2.360 11/30/19 11/30/19 11/30/19 07:45 13:49 13:49 Creatine Kinase 622 H 609 H CK-MB (CK-2) 10.40 H Troponin I 1.900 Impressions: Chest X-Ray 11/29/19 22:58 IMPRESSION: 1. No acute pulmonary findings. Head CT 11/29/19 22:58 IMPRESSION: No acute intracranial abnormality is identified. Question prominent subdural space on the left versus minimal dural thickening or area of chronic subdural hemorrhage. Head MRI 11/30/19 00:00 IMPRESSION: No acute intracranial abnormality. EVIDENCE OF ACUTE STROKE: NO. Assessment & Plan - Diagnosis (1) Polysubstance abuse Is this a current diagnosis for this admission?: Yes Plan: Cocaine tobacco and marijuana abuse Patient needs substance abuse counseling. (2) Essential hypertension Is this a current diagnosis for this admission?: Yes Plan: Continue present regimen for blood pressure control Blood pressure may improve after cessation of cocaine use. (3) NSTEMI (non-ST elevated myocardial infarction) Is this a current diagnosis for this admission?: Yes Plan: Medical therapy with aspirin statin and calcium channel blockers preferably for treatment of hypertension Since troponins are downgoing and patient is chest pain-free will go ahead and discontinue heparin infusion Outpatient evaluation is preferred and cessation of drug habit is necessary.
[2019-12-01 13:55] VITALS: BP 129/98
--- NOTE | 2019-12-01 14:47 | PDOC DISCHARGE SUMMARY ---
Impression - Admit/DC Date/PCP Admission Date/Primary Care Provider: 11/30/19 04:15 Discharge Date: 12/01/19 - Discharge Diagnosis (1) Abnormal CT scan of head Is this a current diagnosis for this admission?: Yes (2) Acute kidney injury Is this a current diagnosis for this admission?: Yes (3) Alcohol abuse, continuous drinking behavior Is this a current diagnosis for this admission?: Yes (4) Elevated troponin I level Is this a current diagnosis for this admission?: Yes (5) Essential hypertension Is this a current diagnosis for this admission?: Yes (6) GERD (gastroesophageal reflux disease) Is this a current diagnosis for this admission?: Yes (7) Generalized weakness Is this a current diagnosis for this admission?: Yes (8) NSTEMI (non-ST elevated myocardial infarction) Is this a current diagnosis for this admission?: Yes (9) Polysubstance abuse Is this a current diagnosis for this admission?: Yes (10) Tobacco use disorder, severe, dependence Is this a current diagnosis for this admission?: Yes - Additional Information Resuscitation Status: Full Code Discharge Diet: Cardiac Discharge Activity: Activity As Tolerated, Balance Activity w/Rest Referrals: STONEY SIMS MD [ACTIVE STAFF] - 12/11/19 10:15 am (Bring ID card and all medications that you take in the bottles.) Prescriptions: Spironolactone [Aldactone 25 mg Tablet] 25 mg PO DAILY #30 tablet Aspirin [Aspirin 81 mg Chewable Tablet] 81 mg PO DAILY #90 tab.chew Diltiazem HCl [Cardizem 60 mg Tablet] 60 mg PO Q12 #60 tablet Atorvastatin Calcium [Lipitor 20 mg Tablet] 20 mg PO QHS #30 tablet Nicotine [Nicoderm 21 mg/24 Hr Transderm Patch] 1 each TD DAILYP PRN #30 patch.td24 PRN Reason: Home Medications: Famotidine [Pepcid 20 mg Tablet] 20 mg PO BID #20 tablet 08/16/19 Lisinopril [Prinivil] 40 mg PO DAILY #60 tablet 08/16/19 Acetaminophen [Tylenol 325 mg Tablet] 650 mg PO Q4HP PRN tablet 12/01/19 Aspirin [Aspirin 81 mg Chewable Tablet] 81 mg PO DAILY #90 tab.chew 12/01/19 Atorvastatin Calcium [Lipitor 20 mg Tablet] 20 mg PO QHS #30 tablet 12/01/19 Diltiazem HCl [Cardizem 60 mg Tablet] 60 mg PO Q12 #60 tablet 12/01/19 Famotidine [Pepcid 20 mg Tablet] 20 mg PO Q12 tablet 12/01/19 Nicotine [Nicoderm 21 mg/24 Hr Transderm Patch] 1 each TD DAILYP PRN #30 patch.td24 12/01/19 Spironolactone [Aldactone 25 mg Tablet] 25 mg PO DAILY #30 tablet 12/01/19 History of Present Illiness History of Present Illness: Per H&P by Dr. Saha: BEKAH HEIN is a 54 year old male who presented the emergency room via EMS with acute weakness. He admits acute moderate generalized weakness accompanied by fatigue, nausea and vomiting developing over the course of one hour prior to his presentation. He denies other associated or accompanying signs and symptoms. He admits prior similar episodes related to his substance abuse. He admits using what he thought was cocaine about 30 minutes prior to the onset of symptoms and he had been consuming alcohol earlier in the day. He admits a history of chronic tobacco and alcohol abuse and also recreational use of cocaine and marijuana. He has not identified any aggravating or ameliorating factors for his weakness. In the emergency room he was initially noted to have pinpoint pupils and to be somewhat slow in responding however his responsiveness improved rapidly without being specifically treated. A CT scan of his head showed an area of possible chronic subdural hematoma and his cardiac enzymes showed a troponin of 1.01 which mary ellen to 1.7 without ischemic or injury changes on patient's EKG. his serum creatinine was noted to be elevated to 1.7 which is significantly higher than his last recorded reading. He was subsequently admitted to the hospital on the telemetry unit for further evaluation and treatment at the request of Dr. Sims. Hospital Course Hospital Course: Patient was admitted to [facility] on continuous cardiac telemetry. Head CT revealed possible chronic subdural hematoma and therefore aspirin and heparin therapy were temporarily placed on hold until follow up MRI confirmed benign findings. Fortunately, MRI was negative. Cardiology was consulted and recommended starting heparin drip. Also advised medication management with aspirin, statin, calcium channel maya therapy. Adequate blood pressure control was obtained with twice daily diltiazem. Patient's troponins were monitored; 1.010-> 2.360-> 1.900. Patient remained chest pain free and asymptomatic throughout the remainder of his admission. Discussed with Cardiology on day of discharge. Patient is cleared for d/c on the above mention medication regiment with close cardiology follow up to complete cardiac evaluation. Patient was educated on the importance of smoking cessation, discontinuing illicit drug use, and medication compliance. He is advised to follow up with his primary care provider at the earliest available appointment (reduced office visits currently r/t COVID19) and to follow up with Dr. Sims within 1-2 weeks. He is instructed to return to the emergency department as needed for concerning symptoms. Physical Exam Vital Signs: Temp Pulse Resp BP Pulse Ox 98.5 F 72 18 142/93 H 100 12/01/19 08:11 12/01/19 08:11 12/01/19 08:11 12/01/19 08:11 12/01/19 08:11 Intake & Output 11/30/19 12/01/19 12/02/19 06:59 06:59 06:59 Intake Total 1000 1832 Output Total 0 1625 Balance 1000 207 Weight 74.4 kg 75.2 kg General appearance: PRESENT: no acute distress, cooperative, well-developed, well-nourished Head exam: PRESENT: atraumatic, normocephalic Eye exam: PRESENT: conjunctiva pink, EOMI, PERRLA. ABSENT: scleral icterus Mouth exam: PRESENT: moist, tongue midline Teeth exam: PRESENT: poor dentation Respiratory exam: PRESENT: clear to auscultation malini, symmetrical, unlabored. ABSENT: rales, rhonchi, wheezes Cardiovascular exam: PRESENT: RRR, +S1, +S2. ABSENT: diastolic murmur, rubs, systolic murmur Pulses: PRESENT: normal dorsalis pedis pul Vascular exam: PRESENT: normal capillary refill GI/Abdominal exam: PRESENT: normal bowel sounds, soft. ABSENT: distended, guard ing, mass, organolmegaly, rebound, tenderness Rectal exam: PRESENT: deferred Extremities exam: PRESENT: full ROM. ABSENT: calf tenderness, clubbing, pedal edema Musculoskeletal exam: PRESENT: ambulatory Neurological exam: PRESENT: alert, awake, oriented to person, oriented to place, oriented to time, oriented to situation, CN II-XII grossly intact. ABSENT: motor sensory deficit Psychiatric exam: PRESENT: appropriate affect, normal mood. ABSENT: homicidal ideation, suicidal ideation Skin exam: PRESENT: dry, intact, warm. ABSENT: cyanosis, rash Results Laboratory Results: WBC 8.1 10^3/uL (4.0-10.5) 11/30/19 10:05 RBC 3.62 10^6/uL (4.35-5.55) L 11/30/19 10:05 Hgb 12.5 g/dL (13.5-17.0) L 11/30/19 10:05 Hct 34.9 % (37.9-51.0) L 11/30/19 10:05 MCV 97 fl (80-97) 11/30/19 10:05 MCH 34.6 pg (27.0-33.4) H 11/30/19 10:05 MCHC 35.8 g/dL (32.0-36.0) 11/30/19 10:05 RDW 13.4 % (11.5-14.0) 11/30/19 10:05 Plt Count 215 10^3/uL (150-450) 11/30/19 10:05 Lymph % (Auto) 18.9 % (13-45) 11/30/19 10:05 [place] % (Auto) 6.7 % (3-13) 11/30/19 10:05 Eos % (Auto) 0.1 % (0-6) 11/30/19 10:05 Baso % (Auto) 0.2 % (0-2) 11/30/19 10:05 Absolute Neuts (auto) 6.0 10^3/uL (1.7-8.2) 11/30/19 10:05 Absolute Lymphs (auto) 1.5 10^3/uL (0.5-4.7) 11/30/19 10:05 Absolute Monos (auto) 0.5 10^3/uL (0.1-1.4) 11/30/19 10:05 Absolute Eos (auto) 0.0 10^3/uL (0.0-0.6) 11/30/19 10:05 Absolute Basos (auto) 0.0 10^3/uL (0.0-0.2) 11/30/19 10:05 Total Counted 100 11/29/19 23:07 Seg Neutrophils % 74.1 % (42-78) 11/30/19 10:05 Seg Neuts % (Manual) 90 % (42-78) H 11/29/19 23:07 Lymphocytes % (Manual) 6 % (13-45) L 11/29/19 23:07 Monocytes % (Manual) 4 % (3-13) 11/29/19 23:07 Eosinophils % (Manual) 0 % (0-6) 11/29/19 23:07 Basophils % (Manual) 0 % (0-2) 11/29/19 23:07 Abs Neuts (Manual) 12.9 10^3/uL (1.7-8.2) H 11/29/19 23:07 Abs Lymphs (Manual) 0.9 10^3/uL (0.5-4.7) 11/29/19 23:07 Abs Monocytes (Manual) 0.6 10^3/uL (0.1-1.4) 11/29/19 23:07 Absolute Eos (Manual) 0.0 10^3/uL (0.0-0.6) 11/29/19 23:07 Abs Basophils (Manual) 0.0 10^3/uL (0.0-0.2) 11/29/19 23:07 Toxic Granulation SLIGHT 11/29/19 23:07 Platelet Comment ADEQUATE 11/29/19 23:07 Poikilocytosis SLIGHT 11/29/19 23:07 Ovalocytes SLIGHT 11/29/19 23:07 PT 13.3 SEC (11.4-15.4) 11/30/19 10:05 INR 1.01 11/30/19 10:05 APTT 43.3 SEC (23.5-35.8) H 12/01/19 05:49 Sodium 132.9 mmol/L (137-145) L 12/01/19 05:49 Potassium 3.2 mmol/L (3.6-5.0) L 12/01/19 05:49 Chloride 97 mmol/L (98-107) L 12/01/19 05:49 Carbon Dioxide 32 mmol/L (22-30) H 12/01/19 05:49 Anion Gap 4 (5-19) L 12/01/19 05:49 BUN 14 mg/dL (7-20) 12/01/19 05:49 Creatinine 0.91 mg/dL (0.52-1.25) 12/01/19 05:49 Est GFR ( Amer) > 60 (>60) 12/01/19 05:49 Est GFR (MDRD) Non-Af > 60 (>60) 12/01/19 05:49 Glucose 109 mg/dL (75-110) 12/01/19 05:49 Calcium 8.9 mg/dL (8.4-10.2) 12/01/19 05:49 Magnesium 1.7 mg/dL (1.6-2.3) 11/30/19 02:04 Total Bilirubin 0.4 mg/dL (0.2-1.3) 11/29/19 23:07 Direct Bilirubin 0.1 mg/dL (0.0-0.4) 11/29/19 23:07 Neonat Total Bilirubin Not Reportable 11/29/19 23:07 Neonat Direct Bilirubin Not Reportable 11/29/19 23:07 Neonat Indirect Bili Not Reportable 11/29/19 23:07 AST 74 U/L (17-59) H 11/29/19 23:07 ALT 25 U/L (<50) 11/29/19 23:07 Alkaline Phosphatase 84 U/L (38-126) 11/29/19 23:07 Creatine Kinase 609 U/L (55-170) H 11/30/19 13:49 CK-MB (CK-2) 10.40 ng/mL (<4.55) H 11/30/19 13:49 Troponin I 1.900 ng/mL 11/30/19 13:49 Total Protein 7.6 g/dL (6.3-8.2) 11/29/19 23:07 Albumin 4.4 g/dL (3.5-5.0) 11/29/19 23:07 Triglycerides 113 mg/dL (<150) 12/01/19 05:49 Cholesterol 153.41 mg/dL (0-200) 12/01/19 05:49 LDL Cholesterol Direct 93 mg/dL (<100) 12/01/19 05:49 VLDL Cholesterol 23.0 mg/dL (10-31) 12/01/19 05:49 HDL Cholesterol 40 mg/dL (>40) 12/01/19 05:49 Lipase 104.9 U/L (23-300) 11/29/19 23:07 TSH 0.27 uIU/mL (0.47-4.68) L 11/30/19 02:04 Urine Color YELLOW 11/30/19 13:29 Urine Appearance CLEAR 11/30/19 13:29 Urine pH 6.0 (5.0-9.0) 11/30/19 13:29 Ur Specific [place] 1.015 11/30/19 13:29 Urine Protein NEGATIVE mg/dL (NEGATIVE) 11/30/19 13:29 Urine Glucose (UA) 50 mg/dL (NEGATIVE) H 11/30/19 13:29 Urine Ketones 20 mg/dL (NEGATIVE) H 11/30/19 13:29 Urine Blood NEGATIVE (NEGATIVE) 11/30/19 13:29 Urine Nitrite NEGATIVE (NEGATIVE) 11/30/19 13:29 Urine Bilirubin NEGATIVE (NEGATIVE) 11/30/19 13:29 Urine Urobilinogen NEGATIVE mg/dL (<2.0) 11/30/19 13:29 Ur Leukocyte Esterase NEGATIVE (NEGATIVE) 11/30/19 13:29 Urine WBC (Auto) 1 /HPF 11/30/19 13:29 Urine RBC (Auto) 1 /HPF 11/30/19 13:29 U Hyaline Cast (Auto) 3 /LPF 11/29/19 23:16 Urine Bacteria (Auto) TRACE /HPF 11/30/19 13:29 Urine WBC Clumps FEW /HPF 11/29/19 23:16 Squamous Epi Cells Auto 3 /HPF 11/29/19 23:16 Urine Mucus (Auto) RARE /LPF 11/30/19 13:29 Urine Ascorbic Acid NEGATIVE (NEGATIVE) 11/30/19 13:29 Urine Opiates Screen NEGATIVE 11/29/19 23:16 Urine Methadone Screen NEGATIVE 11/29/19 23:16 Ur Barbiturates Screen NEGATIVE 11/29/19 23:16 Ur Phencyclidine Scrn NEGATIVE 11/29/19 23:16 Ur Amphetamines Screen NEGATIVE 11/29/19 23:16 U Benzodiazepines Scrn NEGATIVE 11/29/19 23:16 Urine Cocaine Screen UNCONFIRMED POSITIVE 11/29/19 23:16 U Marijuana (THC) Screen UNCONFIRMED POSITIVE 11/29/19 23:16 Serum Alcohol 50 mg/dL (NONE DETECTED) 11/29/19 23:07 11/29/19 11/30/19 11/30/19 23:07 02:04 07:45 CK-MB (CK-2) 13.70 H Troponin I 1.010 1.700 2.360 11/30/19 13:49 CK-MB (CK-2) 10.40 H Troponin I 1.900 Impressions: Chest X-Ray 11/29/19 22:58 IMPRESSION: 1. No acute pulmonary findings. Head CT 11/29/19 22:58 IMPRESSION: No acute intracranial abnormality is identified. Question prominent subdural space on the left versus minimal dural thickening or area of chronic subdural hemorrhage. Head MRI 11/30/19 00:00 IMPRESSION: No acute intracranial abnormality. EVIDENCE OF ACUTE STROKE: NO. Stroke Is this a Stroke Patient?: No Acute Heart Failure - Is this a Heart Failure Patient?: No
== END 2019-12-01 14:30 | disposition home or self-care (01) | DRG 281 ==
LOC: ER 22:38 → OBSVTOIN 11-30 04:15 → INTOOBSV 11-30 04:15 → EH 11-30 04:15 → 3W 11-30 05:20
PROVIDERS: ADMIT Emergency Medicine; ATTEND Registered Nurse
DX: I21.4 Non-ST elevation (NSTEMI) myocardial infarction (principal); N17.9 Acute kidney failure, unspecified; Y90.2 Blood alcohol level of 40-59 mg/100 ml; I10 Essential (primary) hypertension; R53.1 Weakness; F17.210 Nicotine dependence, cigarettes, uncomplicated; F14.10 Cocaine abuse, uncomplicated; F12.10 Cannabis abuse, uncomplicated; E78.5 Hyperlipidemia, unspecified; K21.0 Gastro-esophageal reflux disease with esophagitis; F10.20 Alcohol dependence, uncomplicated; E78.00 Pure hypercholesterolemia, unspecified; Z79.899 Other long term (current) drug therapy; Z91.14 Patient's other noncompliance with medication regimen
CPT/HCPCS: 36415; 70450; 70551; 71045; 80048; 80053; 80061; 80307; 81001; 82550; 82553; 83690; 83735; 84443; 84484; 85025; 85027; 85610; 85730; 93005; 93010; 96360; 96361; 99285; J0360; J1644; J3490; J7030

== ENCOUNTER → 2019-12-14 | Outpatient (CLI) | payer OTHER | LOC: SP 09:47 | PROVIDERS: ATTEND Internal Medicine | DX: I10 Essential (primary) hypertension (principal) | CPT/HCPCS: 93306 ==

== ENCOUNTER 2019-12-18 17:02 | Emergency (ER) | payer OTHER ==
[2019-12-18] MEDS ORDERED: ONDANSETRON HCL INJ/PF 4 MG/2 ML SDV IV ONE (17:16)
--- NOTE | 2019-12-18 17:18 | ER Document Report ---
ED Medical Screen (RME) - General Chief Complaint: Upper Abdominal Pain Stated Complaint: UPPER ABDOMINAL PAIN Time Seen by Provider: 12/18/19 17:14 Primary Care Provider: STONEY SIMS MD [Primary Care Provider] - Follow up as needed Mode of Arrival: Wheelchair Information source: Patient Notes: 54-year-old male with history of pancreatitis presents today with complaints of epigastric pain and vomiting since yesterday. Reports he is not had any ETOH to drink since Saturday. Reports he drank gin at that time. He reports he is gone from drinking 5 days a week to 2 days a week. Only drinks on the weekends. Denies fever and diarrhea. Complains of severe epigastric pain. I have greeted and performed a rapid initial assessment of this patient. A comprehensive ED assessment and evaluation of the patient, analysis of test results and completion of the medical decision making process will be conducted by additional ED providers. TRAVEL OUTSIDE OF THE [place] IN LAST 30 DAYS: No - Related Data Allergies/Adverse Reactions: No Known Allergies Allergy (Verified 08/12/19 15:48) Past Medical History - Social History Frequency of alcohol use: Occasional Drug Abuse: None - Past Medical History Cardiac Medical History: Reports: Hx Hypercholesterolemia, Hx Hypertension Denies: Hx Atrial Fibrillation, Hx Congestive Heart Failure, Hx Coronary Artery Disease, Hx Heart Attack Pulmonary Medical History: Denies: Hx Asthma, Hx Bronchitis, Hx COPD, Hx Pneumonia Neurological Medical History: Denies: Hx Cerebrovascular Accident, Hx Seizures Endocrine Medical History: Denies: Hx Diabetes Mellitus Type 1, Hx Diabetes Mellitus Type 2, Hx Hyperthyroidism, Hx Hypothyroidism Renal/ Medical History: Denies: Hx Peritoneal Dialysis GI Medical History: Reports: Hx Gastroesophageal Reflux Disease, Hx Ulcer. Denies: Hx Cirrhosis, Hx Crohn's Disease, Hx Hepatitis, Hx Ulcerative Colitis Musculoskeltal Medical History: Denies Hx Arthritis, Denies Hx Gout Skin Medical History: Denies Hx Eczema, Denies Hx Psoriasis Psychiatric Medical History: Infectious Medical History: Denies: Hx Hepatitis Past Surgical History: Reports: Hx Abdominal Surgery - inguinal hernia, Hx Appendectomy, Hx Herniorrhaphy - Immunizations Immunizations up to date: Yes Hx Diphtheria, Pertussis, Tetanus Vaccination: Yes Physical Exam - Vital signs Vitals: Temp Pulse Resp BP Pulse Ox 98.6 F 72 18 168/105 H 99 12/18/19 17:06 12/18/19 17:06 12/18/19 17:06 12/18/19 17:06 12/18/19 17:06 Course - Vital Signs Vital signs: Temp Pulse Resp BP Pulse Ox 98.6 F 72 18 168/105 H 99 12/18/19 17:13 12/18/19 17:06 12/18/19 17:06 12/18/19 17:06 12/18/19 17:06 Doctor's Discharge - Discharge Referrals: STONEY SIMS MD [Primary Care Provider] - Follow up as needed
[2019-12-18] MEDS ORDERED: LIDOCAINE 2% VISCOUS SOLN 15 ML UDCUP PO ONE (18:09)
[2019-12-18] MEDS ORDERED: MAG HYDROX/AL HYDROX/SIMETH SUSP 30 ML UDCUP PO ONE (18:09)
[2019-12-18] MEDS ORDERED: METOCLOPRAMIDE HCL ORAL SOLN 10 MG/10 ML UDCUP PO ONE (18:09)
[2019-12-18 18:13] LABS: ABSOLUTE LYMPHOCYTES (AUTO) 1.2 10^3/uL (0.5-4.7); ABSOLUTE MONOCYTES (AUTO) 0.4 10^3/uL (0.1-1.4); ABSOLUTE NEUT (AUTO) 9.3 10^3/uL (1.7-8.2); BASOPHILS % (AUTO) 0.2 % (0-2); HEMATOCRIT 42.8 % (37.9-51.0); HEMOGLOBIN 14.9 g/dL (13.5-17.0); LYMPHOCYTES % (AUTO) 11.1 % (13-45); MEAN CORPUSCULAR HEMOGLOBIN 33.8 pg (27.0-33.4); MEAN CORPUSCULAR HGB CONC 34.9 g/dL (32.0-36.0); MEAN CORPUSCULAR VOLUME 97 fl (80-97); MONOCYTES % (AUTO) 3.6 % (3-13); PLATELET COUNT 283 10^3/uL (150-450); RED BLOOD COUNT 4.41 10^6/uL (4.35-5.55); RED CELL DISTRIBUTION WIDTH 13.9 % (11.5-14.0); SEGMENTED NEUTROPHILS % (AUTO) 85.1 % (42-78); TOTAL CELLS COUNTED % (AUTO) 100 %; WHITE BLOOD COUNT 10.9 10^3/uL (4.0-10.5)
[2019-12-18 18:24] LABS: APPEARANCE,URINE CLEAR; BILIRUBIN,URINE NEGATIVE (NEGATIVE); COLOR,URINE AMBER; GLUCOSE, URINE NEGATIVE (NEGATIVE); KETONES,URINE 80 mg/dL (NEGATIVE); LEUKOCYTE ESTERASE,URINE NEGATIVE (NEGATIVE); NITRITE,URINE NEGATIVE (NEGATIVE); PROTEIN,URINE >=500 mg/dL (NEGATIVE); URINE SPECIFIC GRAVITY 1.035
[2019-12-18 18:34] LABS: ALBUMIN 4.5 g/dL (3.5-5.0); ALKALINE PHOSPHATASE 86 U/L (38-126); AMYLASE 217 U/L (30-110); ANION GAP 11 (5-19); ASPARTATE AMINO TRANSFERASE 29 U/L (17-59); BILIRUBIN,DIRECT 0.2 mg/dL (0.0-0.4); BILIRUBIN,TOTAL 1.1 mg/dL (0.2-1.3); BLOOD UREA NITROGEN 11 mg/dL (7-20); CALCIUM 9.9 mg/dL (8.4-10.2); CARBON DIOXIDE 25 mmol/L (22-30); CHLORIDE 99 mmol/L (98-107); GLUCOSE 130 mg/dL (75-110); POTASSIUM 4.3 mmol/L (3.6-5.0); TOTAL PROTEIN 8.2 g/dL (6.3-8.2)
[2019-12-18 18:35] LABS: ALCOHOL < 10 mg/dL (NONE DETECTED)
[2019-12-18] MEDS ORDERED: MORPHINE SULFATE 10 MG/ML INJ IV ONE (22:19)
[2019-12-18] MEDS ORDERED: NORMAL SALINE 1000 ML 1,000 ML IV ONE (22:20)
[2019-12-18] MEDS ORDERED: PROMETHAZINE HCL INJ 25 MG/1 ML VIAL IV ONE (22:24)
--- NOTE | 2019-12-18 22:37 | ER Document Report ---
Entered by THANH DAVIES SCRIBE 12/18/19 2226 Acting as scribe for:ASIF KENDRICK IV, MD ED GI/ - General Chief Complaint: Upper Abdominal Pain Stated Complaint: UPPER ABDOMINAL PAIN Time Seen by Provider: 12/18/19 17:14 Primary Care Provider: STONEY SIMS MD [ACTIVE STAFF] - Follow up as needed Mode of Arrival: Wheelchair Information source: Patient Notes: This 54 year old male patient with a history of pancreatitis presents to the ED today with complaints of epigastric pain with associated nausea/vomiting since yesterday. Patient states that he used to drink ETOH every day, but now he only drinks on the weekends. He reports that his last drink was gin x5 days ago. Denies fever or diarrhea. TRAVEL OUTSIDE OF THE [place] IN LAST 30 DAYS: No - Related Data Allergies/Adverse Reactions: No Known Allergies Allergy (Verified 08/12/19 15:48) Past Medical History - General Information source: Patient - Social History Smoking Status: Current Every Day Smoker Cigarette use (# per day): Yes Chew tobacco use (# tins/day): No Smoking Education Provided: No Frequency of alcohol use: Occasional Drug Abuse: None Lives with: Spouse/Significant other Family History: Reviewed & Not Pertinent, Hypertension, Malignancy Patient has suicidal ideation: No Patient has homicidal ideation: No - Past Medical History Cardiac Medical History: Reports: Hx Hypercholesterolemia, Hx Hypertension GI Medical History: Reports: Hx Gastroesophageal Reflux Disease, Hx Pancreatitis, Hx Ulcer Psychiatric Medical History: Past Surgical History: Reports: Hx Appendectomy, Hx Herniorrhaphy, Hx Inguinal Hernia - Immunizations Immunizations up to date: Yes Hx Diphtheria, Pertussis, Tetanus Vaccination: Yes Review of Systems - Review of Systems Constitutional: See HPI. denies: Fever EENT: No symptoms reported Cardiovascular: No symptoms reported Respiratory: No symptoms reported Gastrointestinal: Abdominal pain, Nausea, Vomiting. denies: Diarrhea Genitourinary: No symptoms reported Male Genitourinary: No symptoms reported Musculoskeletal: No symptoms reported Skin: No symptoms reported Hematologic/Lymphatic: No symptoms reported Neurological/Psychological: No symptoms reported -: Yes All other systems reviewed and negative Physical Exam - Vital signs Vitals: Temp Pulse Resp BP Pulse Ox 98.6 F 72 18 168/105 H 99 12/18/19 17:06 12/18/19 17:06 12/18/19 17:06 12/18/19 17:06 12/18/19 17:06 Interpretation: Hypertensive - General General appearance: Alert In distress: None - Respiratory Respiratory status: No respiratory distress Chest status: Nontender Breath sounds: Normal Chest palpation: Normal - Cardiovascular Rhythm: Regular Heart sounds: Normal auscultation Murmur: No Friction rub: No Gallop: None auscultated - Abdominal Inspection: Normal Distension: No distension Bowel sounds: Normal Tenderness: Tender - Tenderness to palpation in the epigastric region, Other - Abdomen soft Organomegaly: No organomegaly - Back Back: Normal, Nontender - Extremities General upper extremity: Normal inspection General lower extremity: Normal inspection - Neurological Neuro grossly intact: Yes Orientation: AAOx4 - Psychological Associated symptoms: Normal affect, Normal mood - Skin Skin Temperature: Warm Skin Moisture: Dry Skin Color: Normal Course - Re-evaluation Re-evalutation: 12/19/19 00:59 Patient states he is feeling better at this time. Results of ED MSE discussed with patient. All questions were answered prior to discharge. Emergency signs and symptoms, reasons to return to the emergency department discussed with patient. 12/19/19 01:01 - Vital Signs Vital signs: Temp Pulse Resp BP Pulse Ox 98.6 F 72 18 168/105 H 99 12/18/19 17:13 12/18/19 17:06 12/18/19 17:06 12/18/19 17:06 12/18/19 17:06 - Laboratory Result Diagrams: 12/18/19 17:16 12/18/19 17:35 Laboratory results interpreted by me: 12/18/19 12/18/19 12/18/19 17:16 17:35 17:35 WBC 10.9 H MCH 33.8 H Lymph % (Auto) 11.1 L Absolute Neuts (auto) 9.3 H Seg Neutrophils % 85.1 H Sodium 134.5 L Glucose 130 H Amylase 217 H Lipase 1173.9 H Urine Protein >=500 H Urine Ketones 80 H Urine Urobilinogen 2.0 H Urine Ascorbic Acid 40 H - Diagnostic Test Radiology reviewed: Reports reviewed - EKG Interpretation by Me Additional EKG results interpreted by me: 12/19/19 01:00 EKG obtained on 12/18/2019 at 2233 hrs. was interpreted by this MD. Findings: Sinus bradycardia with a rate of 57, normal axis, P waves preceding QRS complexes, QRS complexes appear narrow, there are no obvious patterns of ST segment elevation or depression present to suggest acute myocardial ischemia or infarction. Impression: Sinus bradycardia with nonspecific ST segments. Discharge - Discharge Clinical Impression: Acute on chronic pancreatitis, Substance abuse Condition: Good Disposition: HOME, SELF-CARE Additional Instructions: Pancreatitis Pancreatitis is an inflammation of the pancreas, an organ at the back of yo ur abdomen. The pancreas produces insulin and enzymes that digest your food. Pancreatitis can be caused by gallstones in the bile duct, by alcohol or viruses, or by excess fat or calcium in the blood stream. Occasionally, pancreatitis occurs when a stomach ulcer maxwell through into the pancreas. We try to find the cause of pancreatitis, but some tests can't be done until the pancreas heals. The usual symptoms of pancreatitis are pain in the pit of the stomach that goes straight through to the back, vomiting, and low-grade fever. Severe cases require hospital admission, but many patients with mild pancreatitis do well at home. You will probably need medicine for pain and for vomiting. Sometimes we prescribe medicine to decrease stomach acid secretion and to decrease flow of pa ncreatic juices. Start with a diet of clear liquids (soda pop, juices). When the pain is decreasing, you can add some simple starches (potato, toast, applesauce). Avoid proteins and fats until you are completely painfree. When you're better, your doctor may suggest treatment to prevent future pancreatitis (such as gallbladder removal). Avoid alcohol forever. Get immediate treatment for any future episodes. Contact your doctor at once or return here if you have increasing pain, satinder rtness of breath, general swelling, increasing size of the abdomen, continued vomiting, muscle spasms, or other new symptoms. Return to the Emergency Department without delay if any worse. HOME CARE INSTRUCTIONS & INFORMATION: Thank you for choosing us for your medical needs. We hope you're satisfied with the care you received. After you leave, you must properly care for your problem and, at the same time, observe its progress. Any condition can change. Some illnesses can change rapidly over hours or days. If your condition worsens, return to the Emergency Department or see your physician promptly. ABOUT YOUR X-RAYS AND EKG'S: If you had an EKG or X-rays taken, they have been read by the Emergency Physician. The X-rays and EKG's will also be read by a Radiologist or Range Mechanic within 24 hours. If discrepancies are noted, you will be notified by telephone. Please be certain the ED has a correct telephone number & address where you can be reached. Also, realize that some fractures or abnormalities do not show up on initial X-rays. If your symptoms continue, see your physician. ABOUT YOUR LABORATORY TEST: If you had laboratory tests, the results have been reviewed by the Emergency Physician. Some test results (for example cultures) may not be available for several days. You will be contacted if any test result shows you need additional treatment. Please be certain the ED has a correct telephone number and address where you can be reached. ABOUT YOUR MEDICATIONS: You will receive instructions on how to take your medicine on the prescription label you receive. Additional information may be provided by the Pharmacy. If you have questions afterwards, call the ED for clarification or further instructions. Some prescribed medications may cause drowsiness. Do not perform tasks such as driving a car or operating machinery without consulting your Pharmacist. If you feel you need a refill of pain medication, your condition will need re-evaluation. Please do not call for a refill of any medication. ABOUT YOUR SIGNATURE: Signature of this document acknowledges to followin. Understanding that you received emergency treatment and that you may be released before al medical problems are known or treated. Please be certain the ED has a correct phone number & address where you can be reached. 2. Acknowledgement that you will arrange for follow-up care as recommended. 3. Authorization for the Emergency Physician to provide information to your follow-up Physician in order to maximize your care. AT ANY TIME, IF YOUR SYMPTOMS CHANGE SIGNIFICANTLY OR WORSEN OR YOU DEVELOP NEW SYMPTOMS, RETURN TO THE EMERGENCY DEPARTMENT IMMEDIATELY FOR RE-EVALUATION. OUR GOAL IS TO PROVIDE EXCELLENT MEDICAL CARE! WE HOPE THAT WE HAVE MET YOUR EXPECTATIONS DURING YOUR EMERGENCY DEPARTMENT VISIT AND THAT YOU FEEL YOU HAVE RECEIVED EXCELLENT CARE! Prescriptions: Hydrocodone/Acetaminophen [[place] 5-325 mg Tablet] 1 tab PO Q6HP PRN #12 tablet PRN Reason: pain Ondansetron [Zofran Odt 4 mg Tablet] 4 mg PO Q8HP PRN #12 tab.rapdis PRN Reason: nausea Referrals: STONEY SIMS MD [ACTIVE STAFF] - Follow up as needed I personally performed the services described in the documentation, reviewed and edited the documentation which was dictated to the scribe in my presence, and it accurately records my words and actions.
[2019-12-18] MEDS ORDERED: HYDROMORPHONE HCL INJ/PF 2 MG/ML AMPULE IV ONE (23:22)
--- NOTE | 2019-12-19 00:09 | RADIOLOGY REPORT (SQ) ---
EXAM DESCRIPTION: CT ABDOMEN PELVIS WITH IV CONTRAST COMPLETED DATE/TME: 12/18/2019 22:30 CLINICAL HISTORY: 54 years Male, epigastric pain Comparison:Sep 07 2019. 07/24/2018 Technique: IV contrast. Coronal and sagittal reformat. This exam was performed according to our departmental dose-optimization program, which includes automated exposure control, adjustment of the mA and/or kV according to patient size and/or use of iterative reconstruction technique. [facility]: Dose Right [facility]: CareDose [facility]: Dose Right [facility]: Teradose 4D [facility]: HealthSouk LIMITATIONS: Arm position. Findings: 2.8 cm chronic prominence of the pancreatic head, calcifications associated with the pancreatic head and pancreatic body, 0.6 cm diameter enlargement of the pancreatic duct, moderate peripancreatic and periduodenal soft tissue inflammation. Atherosclerotic vascular disease. Low attenuation diffuse bowel wall thickening suggestive of prior infectious/inflammatory insult. 0.8 cm likely benign chronic nodularity of the right adrenal gland. No ascites. No pneumoperitoneum. No evidence of appendicitis. Appendix not definitively discerned/appendectomy. No gross evidence of gallbladder inflammation, hepatobiliary obstruction, or portal vein defect. No bowel obstruction. No hydronephrosis or hydroureter. No renal/ureteral stone. No evidence of abdominal aortic aneurysm. Inferior thorax, liver, gallbladder, spleen, adrenals, renal system, gastrointestinal tract, pelvic organs, lymphatics, vasculature, and musculoskeleton appear otherwise unremarkable. IMPRESSION: 2.8 cm chronic prominence of the pancreatic head, calcifications associated with the pancreatic head and pancreatic body, 0.6 cm diameter enlargement of the pancreatic duct, moderate peripancreatic and periduodenal soft tissue inflammation. Suspect acute pancreatitis/duodenitis with underlying chronic pancreatitis.
[2019-12-19 00:33] LABS: URINE AMPHETAMINES SCREEN NEGATIVE; URINE BARBITURATES SCREEN NEGATIVE; URINE BENZODIAZEPINES SCREEN NEGATIVE; URINE METHADONE SCREEN NEGATIVE; URINE PHENCYCLIDINE SCREEN NEGATIVE
[2019-12-19 00:35] LABS: URINE COCAINE SCREEN UNCONFIRMED POSITIVE; URINE MARIJUANA (THC) SCREEN UNCONFIRMED POSITIVE
[2019-12-19] MEDS ORDERED: HYDROCODONE/ACETAMINOPHEN 5-325 MG (6 TAB/ER DISP) PO PRN (00:58)
[2019-12-19] MEDS ORDERED: ONDANSETRON ODT 4 MG TAB (6 TAB/ER DISP) PO PRN (00:59)
[2019-12-19 01:14] VITALS: BP 169/94
--- NOTE | 2019-12-19 08:44 | EKG REPORT ---
SEVERITY:- BORDERLINE ECG - SINUS RHYTHM PROBABLE LEFT ATRIAL ABNORMALITY : Confirmed by: Marly Ko MD 19-Dec-2019 08:43:50
== END 2019-12-19 01:14 | disposition home or self-care (01) ==
LOC: ER 17:02
DX: K85.90 Acute pancreatitis without necrosis or infection, unspecified (principal); R10.10 Upper abdominal pain, unspecified; F19.10 Other psychoactive substance abuse, uncomplicated; F17.210 Nicotine dependence, cigarettes, uncomplicated; E78.00 Pure hypercholesterolemia, unspecified; I10 Essential (primary) hypertension
CPT/HCPCS: 93005; 99284; 96361; 96374; 96375; 36415; 80307 ×2; 82150; 83690; 85025; 80053; 81001; 74177; 93010; J3490; J2270; J1170; J2550; J7030

== ENCOUNTER → 2020-02-12 | Outpatient (CLI) | payer OTHER ==
--- NOTE | 2020-02-12 10:27 | ER [facility] ASSESSMENT REPORT ---
Intake - In the Last 14 days Have you traveled outside [place]?: No Have you been in close contact with someone CONFIRMED: Yes Worked in Healthcare?: No - Symptoms Subjective Fever(Saxis feverish): Yes Chills: No Muscule Aches: No Runny Nose: No Sore Throat: No Cough (New or worsening chronic cough): Yes Shortness of breath: No Nausea or Vomiting: Yes Headache: No Abdominal Pain: No Diarrhea(3 or more loose stools in last 24 hours): No - Do you have any of the following Chronic lung disease: Asthma or emphysema or COPD: Yes Chronic Lung Disease Comment: bronchitis Cystic Fibrosis: No Diabetes: No High Blood Pressure: Yes Cardiovascular Disease: Yes Chronic Kidney Disease: No Chronic Liver Disease: No Chronic blood disorder like Sickle Cell Disease: No Weak immune system due to disease or medication: No Neurologic condition that limits movement: No Developmental delay - Moderate to Severe: No Recent (within past 2 weeks) or current : No Morbid Obesity (>100 pounds over ideal weight): No - Objective Temperature: 98.1 F Pulse Rate: 72 Respiratory Rate: 18 Blood Pressure: 148/87 O2 Sat by Pulse Oximetry: 96 Objective: Given above, testing performed: If Testing Performed: Test Specimen Type Sent to General - General Information source: Patient Notes: Patient presents to the [facility] for screening for the coronavirus. Patient reports having a family member tested positive recently. Patient reports having cough, nausea and fever. - Related Data Allergies/Adverse Reactions: No Known Allergies Allergy (Verified 08/12/19 15:48) Past Medical History - General Information source: Patient - Social History Smoking Status: Current Every Day Smoker Family History: Reviewed & Not Pertinent, Hypertension, Malignancy - Past Medical History Cardiac Medical History: Reports: Hx Hypercholesterolemia, Hx Hypertension Denies: Hx Atrial Fibrillation, Hx Congestive Heart Failure, Hx Coronary Artery Disease, Hx Heart Attack Pulmonary Medical History: Reports: Hx Bronchitis Denies: Hx Asthma, Hx COPD, Hx Pneumonia Neurological Medical History: Denies: Hx Cerebrovascular Accident, Hx Seizures Endocrine Medical History: Denies: Hx Diabetes Mellitus Type 1, Hx Diabetes Mellitus Type 2, Hx Hyperthyroidism, Hx Hypothyroidism Renal/ Medical History: Denies: Hx Peritoneal Dialysis GI Medical History: Reports: Hx Gastroesophageal Reflux Disease, Hx Pancreatitis, Hx Ulcer. Denies: Hx Cirrhosis, Hx Crohn's Disease, Hx Hepatitis, Hx Ulcerative Colitis Musculoskeletal Medical History: Denies Hx Arthritis, Denies Hx Gout Skin Medical History: Denies Hx Eczema, Denies Hx Psoriasis Psychiatric Medical History: Infectious Medical History: Denies: Hx Hepatitis Past Surgical History: Reports: Hx Abdominal Surgery - inguinal hernia, Hx Appendectomy, Hx Herniorrhaphy, Hx Inguinal Hernia Physical Exam - Notes Notes: The patient was evaluated during the global Covid 19 pandemic, and that diagnosis was suspected/considered upon their initial presentation. Their evaluation, treatment and testing was consistent with current guidelines for patients who present with complaints or symptoms that may be related to Covid 19. Full physical exam could not be performed due to covid 19 isolation protocols. Constitutional: Nontoxic appearance, no acute distress Eyes: Nonicteric, extraocular movements intact, sclera clear Cardiovascular: Heart rate and rhythm regular, no JVD Respiratory: Breath sounds clear bilaterally, nonlabored breathing, no use of accessory muscles, no tachypnea Gastrointestinal: Abdomen not distended Muculoskeletal: Moves all extremities well Skin: Normal color Neuro: Awake alert oriented, normal speech Psych: Normal mood and affect Diagnostic Results Laboratory Results: Patient presents with upper respiratory symptoms worrisome for possible Covid 19. Patient does not have emergency worrying symptoms such as difficulty breathing, shortness of breath, chest pain, pressure, confusion or cyanosis. Patient appears suitable for discharge as they are not of an advanced age, do not have any chronic medical conditions such as diabetes, CAD, immune deficiency, or chronic kidney disease. Patient's vital signs are stable and patient is nontoxic in appearance. Good return precautions have been discussed with patient, patient verbalized understanding and is agreeable with discharge plan of care at this time. Patient Education/Counseling Counseling/Education: Patient was provided with discharge information including: As a person under investigation for Covid 19, the [place] department of Health and Human Services, division of public health advises you to adhere to the following guidance until your test results are reported to you. If your test result is positive, you will receive additional information from your provider and your local health department at that time. Remain at home until you are cleared by the health provider or public health au thorities. Keep a log of visitors to your home, notify any visitors to your home of your isolation status. If you plan to move to a new address or leave the county, notify the local health department in your County. Call your doctor or seek care if you have an urgent medical need. Before seeking medical care, call ahead to get instructions from the provider before arriving at the medical office clinic or hospital. Notify them that you are being tested for the virus that causes Covid 19 so that arrangements can be made, as necessary, to prevent transmission to others in the healthcare setting. Next, notify the local health department in your county. If a medical emergency arises and you need to call 911, inform the first responders that you are being tested for the virus that causes Covid 19. Next, notify the local health department in your county. [facility] Discharge - Discharge Clinical Impression: Encounter for screening laboratory testing for COVID-19 virus Condition: Stable Disposition: Home; Selfcare
[2020-02-12 10:51] VITALS: BP 148/87
== END ==
LOC: RDC 09:46
PROVIDERS: ATTEND Nurse Practitioner Family
DX: U07.1 COVID-19 (principal); R50.9 Fever, unspecified; R05 Cough; R11.0 Nausea; I10 Essential (primary) hypertension; E78.00 Pure hypercholesterolemia, unspecified; F17.200 Nicotine dependence, unspecified, uncomplicated; K21.9 Gastro-esophageal reflux disease without esophagitis
CPT/HCPCS: 87635; 99201; 99211; C9803

== ENCOUNTER 2020-03-20 15:04 | Emergency (ER) | payer OTHER ==
[2020-03-20] MEDS ORDERED: NORMAL SALINE 1000 ML 1,000 ML IV ONE ×2 (15:34→18:19)
[2020-03-20] MEDS ORDERED: ONDANSETRON HCL INJ/PF 4 MG/2 ML SDV IV ONE (15:34)
[2020-03-20 16:30] LABS: ABSOLUTE LYMPHOCYTES (AUTO) 1.1 10^3/uL (0.5-4.7); ABSOLUTE MONOCYTES (AUTO) 0.7 10^3/uL (0.1-1.4); ABSOLUTE NEUT (AUTO) 9.1 10^3/uL (1.7-8.2); BASOPHILS % (AUTO) 0.3 % (0-2); HEMATOCRIT 46.8 % (37.9-51.0); HEMOGLOBIN 16.2 g/dL (13.5-17.0); LYMPHOCYTES % (AUTO) 10.4 % (13-45); MEAN CORPUSCULAR HEMOGLOBIN 34.3 pg (27.0-33.4); MEAN CORPUSCULAR HGB CONC 34.6 g/dL (32.0-36.0); MEAN CORPUSCULAR VOLUME 99 fl (80-97); MONOCYTES % (AUTO) 6.3 % (3-13); PLATELET COUNT 265 10^3/uL (150-450); RED BLOOD COUNT 4.73 10^6/uL (4.35-5.55); RED CELL DISTRIBUTION WIDTH 14.6 % (11.5-14.0); TOTAL CELLS COUNTED % (AUTO) 100 %
[2020-03-20 16:54] LABS: ALBUMIN 4.2 g/dL (3.5-5.0); ALKALINE PHOSPHATASE 99 U/L (38-126); ANION GAP 11 (5-19); ASPARTATE AMINO TRANSFERASE 28 U/L (17-59); BILIRUBIN,DIRECT 0.2 mg/dL (0.0-0.4); BILIRUBIN,TOTAL 1.1 mg/dL (0.2-1.3); BLOOD UREA NITROGEN 9 mg/dL (7-20); CALCIUM 9.6 mg/dL (8.4-10.2); CARBON DIOXIDE 29 mmol/L (22-30); CHLORIDE 96 mmol/L (98-107); GLUCOSE 148 mg/dL (75-110); POTASSIUM 3.8 mmol/L (3.6-5.0); TOTAL PROTEIN 7.8 g/dL (6.3-8.2)
--- NOTE | 2020-03-20 18:08 | ER Document Report ---
ED GI/ - General Chief Complaint: Abdominal Pain Stated Complaint: ABDOMINAL PAIN/VOMITING Time Seen by Provider: 03/20/20 18:00 TRAVEL OUTSIDE OF THE [place] IN LAST 30 DAYS: No - HPI Notes: 03/20/20 18:21 54-year-old male presents with abdominal pain. Patient reports that this is his pancreatitis related pain. This is now his third episode of pancreatitis, last episode about 4 months ago. He states is from alcohol use, he last drank on Saturday. He states the pain developed yesterday. It is constant and hurts really bad. He has not been able to sleep due to the pain. He has had some vomiting, no hematemesis. He reports that 3 weeks ago he tested positive for COVID, he states that he did not really have any symptoms associated with it, currently denies cough/fever/shortness of breath. - Related Data Allergies/Adverse Reactions: No Known Allergies Allergy (Verified 03/20/20 16:25) Past Medical History - General Information source: Patient - Social History Smoking Status: Unknown if Ever Smoked Chew tobacco use (# tins/day): No Frequency of alcohol use: Heavy Drug Abuse: None Family History: Reviewed & Not Pertinent, Hypertension, Malignancy - Past Medical History Cardiac Medical History: Reports: Hx Hypercholesterolemia, Hx Hypertension Denies: Hx Atrial Fibrillation, Hx Congestive Heart Failure, Hx Coronary Artery Disease, Hx Heart Attack Pulmonary Medical History: Reports: Hx Bronchitis Denies: Hx Asthma, Hx COPD, Hx Pneumonia Neurological Medical History: Denies: Hx Cerebrovascular Accident, Hx Seizures Endocrine Medical History: Denies: Hx Diabetes Mellitus Type 1, Hx Diabetes Mellitus Type 2, Hx Hyperthyroidism, Hx Hypothyroidism Renal/ Medical History: Denies: Hx Peritoneal Dialysis GI Medical History: Reports: Hx Gastroesophageal Reflux Disease, Hx Pancreatitis, Hx Ulcer. Denies: Hx Cirrhosis, Hx Crohn's Disease, Hx Hepatitis, Hx Ulcerative Colitis Musculoskeletal Medical History: Denies Hx Arthritis, Denies Hx Gout Skin Medical History: Denies Hx Eczema, Denies Hx Psoriasis Psychiatric Medical History: Infectious Medical History: Denies: Hx Hepatitis Past Surgical History: Reports: Hx Abdominal Surgery - inguinal hernia, Hx Appendectomy, Hx Herniorrhaphy, Hx Inguinal Hernia - Immunizations Immunizations up to date: Yes Hx Diphtheria, Pertussis, Tetanus Vaccination: Yes Review of Systems - Review of Systems Constitutional: denies: Fever EENT: No symptoms reported Cardiovascular: denies: Chest pain Respiratory: denies: Cough, Short of breath Gastrointestinal: Abdominal pain, Nausea Male Genitourinary: No symptoms reported Musculoskeletal: No symptoms reported Skin: No symptoms reported Hematologic/Lymphatic: No symptoms reported Neurological/Psychological: No symptoms reported Physical Exam - Vital signs Vitals: Temp Pulse Resp BP Pulse Ox 98.1 F 57 L 16 167/102 H 96 03/20/20 16:01 03/20/20 16:01 03/20/20 16:01 03/20/20 16:01 03/20/20 16:01 - General General appearance: Appears well In distress: None - HEENT Head: Normocephalic, Atraumatic Eyes: No: Scleral icterus Extraocular movements intact: Yes Pupils: PERRL - Respiratory Breath sounds: Normal - Cardiovascular Rhythm: Regular Heart sounds: Normal auscultation - Abdominal Distension: No distension Bowel sounds: Normal Tenderness: Tender - Epigastric and left upper quadrant. No: Guarding, Rebound - Extremities General upper extremity: Normal inspection General lower extremity: Normal inspection - Neurological Neuro grossly intact: Yes Cognition: Normal Orientation: AAOx4 - Psychological Associated symptoms: Normal affect - Skin Skin Temperature: Warm Course - Re-evaluation Re-evalutation: 54-year-old male with epigastric/left upper quadrant pain x4 days. He has a history of alcoholic induced pancreatitis, states his pain is similar. He does have some tenderness to these areas, his abdomen is overall non-peritoneal. He is afebrile and nontoxic appearing. Given that this is a recurrent episode in a semi-short timeframe, will obtain CT abdomen to assess for sequela of pancreatitis such as abscess or necrosis or pseudo-cyst. Will treat with pain and give 2 L of fluid. Check labs. Reportedly was positive for COVID 3 weeks ago, he currently does not display any symptoms related to this, his lungs are clear, consider he has resolved this infection. 03/20/20 19:49 Mild leukocytosis Electrolytes okay. T bili and LFTs within normal limits. Lipase is elevated as expected. CT abdomen pelvis has resulted. Images and report reviewed. Per radiology, evidence of acute on chronic pancreatitis. No pseudocyst or abscess identified. Will p.o. trial patient with oral pain medication at this time. 03/20/20 20:04 Patient reportedly told nursing that he had some nausea returning, therefore did not want to take oral pain medications. Have reordered nausea and pain medications IV, will reassess after. 03/20/20 21:57 Into reassess patient. He is much more comfortable appearing. Discussed with him pancreatitis management at home. He is agreeable to now try oral medications. Discussed with him alcohol cessation. 03/20/20 22:54 Patient stable at time of discharge - Vital Signs Vital signs: Temp Pulse Resp BP Pulse Ox 98.3 F 66 16 164/105 H 99 03/20/20 23:05 03/20/20 23:05 03/20/20 23:05 03/20/20 23:05 03/20/20 23:05 - Laboratory Result Diagrams: 03/20/20 15:55 03/20/20 15:55 Laboratory results interpreted by me: 03/20/20 03/20/20 03/20/20 15:55 15:55 15:55 WBC 11.0 H MCV 99 H MCH 34.3 H RDW 14.6 H Lymph % (Auto) 10.4 L Absolute Neuts (auto) 9.1 H Seg Neutrophils % 83.0 H Sodium 135.8 L Chloride 96 L Glucose 148 H Lipase 3873.2 H Urine Protein Urine Ketones 03/20/20 18:30 WBC MCV MCH RDW Lymph % (Auto) Absolute Neuts (auto) Seg Neutrophils % Sodium Chloride Glucose Lipase Urine Protein 100 H Urine Ketones 20 H - Diagnostic Test Radiology reviewed: Image reviewed, Reports reviewed Discharge - Discharge Clinical Impression: Pancreatitis, alcoholic, acute Qualifiers: Acute pancreatitis complication: no infection or necrosis Qualified Code(s): K85.20 - Alcohol induced acute pancreatitis without necrosis or infection Disposition: HOME, SELF-CARE Instructions: Pancreatitis ([facility]) Additional Instructions: Please use pain medication, along with ibuprofen and Tylenol for pain. Diet as tolerated, be sure to drink plenty of fluids. Please do not drink alcohol while you have pancreatitis. Please follow-up with your primary care doctor. Return to the emergency department for any concerning or worsening symptoms. Prescriptions: Oxycodone HCl [Oxycontin Ir 5 Mg Tablet] 1 - 2 mg PO Q4H PRN #15 tablet PRN Reason: For Pain Promethazine HCl [Phenergan 25 mg Tablet] 1 - 2 tab PO Q6H PRN #15 tablet PRN Reason:
[2020-03-20] MEDS ORDERED: MORPHINE SULFATE 10 MG/ML INJ IV ONE ×2 (18:21→20:03)
[2020-03-20 19:11] LABS: APPEARANCE,URINE SLIGHTLY-CLOUDY; BILIRUBIN,URINE NEGATIVE (NEGATIVE); COLOR,URINE YELLOW; GLUCOSE, URINE NEGATIVE (NEGATIVE); KETONES,URINE 20 mg/dL (NEGATIVE); LEUKOCYTE ESTERASE,URINE NEGATIVE (NEGATIVE); NITRITE,URINE NEGATIVE (NEGATIVE); PROTEIN,URINE 100 mg/dL (NEGATIVE); URINE SPECIFIC GRAVITY 1.024; UROBILINOGEN,URINE NEGATIVE mg/dL (<2.0)
--- NOTE | 2020-03-20 19:32 | RADIOLOGY REPORT (SQ) ---
EXAM DESCRIPTION: CT ABD/PELVIS WITH IV ONLY IMAGES COMPLETED DATE/TIME: 03/20/2020 6:00 pm REASON FOR STUDY: pancreatitis, eval sequela. Diffuse abdominal pain. History of hernia repair. COMPARISON: CT abdomen and pelvis, 12/18/2019. TECHNIQUE: CT scan of the abdomen and pelvis performed using helical scanning technique with dynamic intravenous contrast injection. No oral contrast. Images reviewed with lung, soft tissue, and bone windows. Reconstructed coronal and sagittal MPR images reviewed. Delayed images for evaluation of the urinary system also acquired. All images stored on PACS. All CT scanners at this facility use dose modulation, iterative reconstruction, and/or weight based d osing when appropriate to reduce radiation dose to as low as reasonably achievable (ALARA). [facility]: Dose Right [facility]: CareDose [facility]: Dose Right [facility]: Teradose 4D [facility]: adSage CONTRAST TYPE AND DOSE: contrast/concentration: Isovue 350.00 mmol/ml; Total Contrast Delivered: 100 .0 ml; Total Saline Delivered: 72.0 ml RENAL FUNCTION: GFR > 60. RADIATION DOSE: CT Rad equipment meets quality standard of care and radiation dose reduction techniq ues were employed. CTDIvol: 5.2 - 6.9 mGy. DLP: 636 mGy-cm.. LIMITATIONS: None. FINDINGS: LOWER CHEST: No significant findings. No nodules or infiltrates. LIVER: The liver has normal size and contour. There is moderate diffuse hepatic steatosis. No focal hepatic mass. Hepatic and portal veins are patent. No biliary ductal dilation. SPLEEN: Normal size. No focal lesions. PANCREAS: There is diffuse enlargement of the pancreas with new surrounding peripancreatic inflammati on. No focal fluid collection to suggest abscess. There are calcifications in the head of the pancr eas with prominent pancreatic duct in the body measuring up to 4 mm diameter. No pancreatic mass. GALLBLADDER: No identified stones by CT criteria. No inflammatory changes to suggest cholecystitis. ADRENAL GLANDS: No significant masses or asymmetry. RIGHT KIDNEY AND URETER: No solid masses. No significant calcifications. No hydronephrosis or hyd roureter. LEFT KIDNEY AND URETER: No solid masses. No significant calcifications. No hydronephrosis or hydr oureter. AORTA AND VESSELS: No aneurysm. No dissection. Renal arteries, SMA, celiac without stenosis. RETROPERITONEUM: No retroperitoneal adenopathy, hemorrhage or masses. BOWEL AND PERITONEAL CAVITY: No masses or inflammatory changes. No free fluid or peritoneal masses. APPENDIX: Not visualized. PELVIS: No mass. No free fluid. Normal bladder. ABDOMINAL WALL: No masses. No hernias. BONES: No significant or acute findings. OTHER: No other significant finding. IMPRESSION: 1. Interval development of diffuse enlargement of the pancreas with surrounding peripancreatic fluid, suggestive of acute on chronic pancreatitis. No pseudocyst or focal drainable abscess. 2. Moderate hepatic steatosis. TECHNICAL DOCUMENTATION: JOB ID: [id number] Quality ID # [id number]: Final reports with documentation of one or more dose reduction techniques (e.g., Au tomated exposure control, adjustment of the mA and/or kV according to patient size, use of iterative reconstruction technique) 2010 [employer]- All Rights Reserved Reading location - IP/workstation name: [email or web address]
[2020-03-20] MEDS ORDERED: OXYCODONE HCL IR 5 MG TABLET PO ONE ×2 (19:44→22:34)
[2020-03-20] MEDS ORDERED: PROMETHAZINE HCL INJ 25 MG/1 ML VIAL IV ONE (20:03)
[2020-03-20 23:00] VITALS: BP 164/105
== END 2020-03-20 23:05 | disposition home or self-care (01) ==
LOC: ER 15:04
DX: K85.20 Alcohol induced acute pancreatitis without necrosis or infection (principal); K86.0 Alcohol-induced chronic pancreatitis; K76.0 Fatty (change of) liver, not elsewhere classified; R10.13 Epigastric pain; R10.12 Left upper quadrant pain; R10.816 Epigastric abdominal tenderness; R10.812 Left upper quadrant abdominal tenderness; R11.2 Nausea with vomiting, unspecified; I10 Essential (primary) hypertension; Z86.19 Personal history of other infectious and parasitic diseases
CPT/HCPCS: 96376; 99285; 96361; 96374; 96375; 36415; 83690; 85025; 80053; 81001; 74177; J2270; J2550; J2405; J7030

== ENCOUNTER → 2020-04-08 | Outpatient (CLI) | payer OTHER ==
[2020-04-08 11:34] LABS: ABSOLUTE LYMPHOCYTES (AUTO) 1.7 10^3/uL (0.5-4.7); ABSOLUTE MONOCYTES (AUTO) 0.4 10^3/uL (0.1-1.4); ABSOLUTE NEUT (AUTO) 5.4 10^3/uL (1.7-8.2); BASOPHILS % (AUTO) 0.6 % (0-2); EOSINOPHILS % (AUTO) 0.3 % (0-6); HEMATOCRIT 44.7 % (37.9-51.0); HEMOGLOBIN 15.5 g/dL (13.5-17.0); LYMPHOCYTES % (AUTO) 23.1 % (13-45); MEAN CORPUSCULAR HEMOGLOBIN 34.1 pg (27.0-33.4); MEAN CORPUSCULAR HGB CONC 34.7 g/dL (32.0-36.0); MEAN CORPUSCULAR VOLUME 98 fl (80-97); MONOCYTES % (AUTO) 4.7 % (3-13); PLATELET COUNT 313 10^3/uL (150-450); RED BLOOD COUNT 4.56 10^6/uL (4.35-5.55); RED CELL DISTRIBUTION WIDTH 14.4 % (11.5-14.0); SEGMENTED NEUTROPHILS % (AUTO) 71.3 % (42-78); TOTAL CELLS COUNTED % (AUTO) 100 %; WHITE BLOOD COUNT 7.5 10^3/uL (4.0-10.5)
[2020-04-08 11:46] LABS: APPEARANCE,URINE CLEAR; BILIRUBIN,URINE NEGATIVE (NEGATIVE); COLOR,URINE YELLOW; GLUCOSE, URINE NEGATIVE (NEGATIVE); KETONES,URINE NEGATIVE (NEGATIVE); LEUKOCYTE ESTERASE,URINE NEGATIVE (NEGATIVE); NITRITE,URINE NEGATIVE (NEGATIVE); PROTEIN,URINE 100 mg/dL (NEGATIVE); URINE SPECIFIC GRAVITY 1.017
[2020-04-08 12:03] LABS: ALKALINE PHOSPHATASE 83 U/L (38-126); ANION GAP 7 (5-19); ASPARTATE AMINO TRANSFERASE 27 U/L (17-59); BILIRUBIN,DIRECT 0.3 mg/dL (0.0-0.4); BILIRUBIN,TOTAL 0.6 mg/dL (0.2-1.3); BLOOD UREA NITROGEN 8 mg/dL (7-20); CALCIUM 9.5 mg/dL (8.4-10.2); CARBON DIOXIDE 27 mmol/L (22-30); CHLORIDE 106 mmol/L (98-107); CHOLESTEROL 164.08 mg/dL (0-200); GLUCOSE 124 mg/dL (75-110); POTASSIUM 4.4 mmol/L (3.6-5.0); TOTAL PROTEIN 7.3 g/dL (6.3-8.2); TRIGLYCERIDES 139 mg/dL (<150)
[2020-04-08 12:27] LABS: DIRECT LDL 100 mg/dL (<100)
== END ==
LOC: CCC 10:43
PROVIDERS: ATTEND Family Medicine
DX: Z13.9 Encounter for screening, unspecified (principal)
CPT/HCPCS: 36415; 80053; 80061; 81001; 83036; 84153; 84443; 85025

== ENCOUNTER 2020-05-16 17:48 | Emergency (ER) | payer OTHER, SELFPAY ==
[2020-05-16] MEDS ORDERED: ONDANSETRON 4 MG TAB.RAPDIS PO ONE (19:06)
[2020-05-16] MEDS ORDERED: ACETAMINOPHEN 325 MG TABLET PO ONE ×2 (19:06→20:24)
--- NOTE | 2020-05-16 19:08 | ER Document Report ---
ED Medical Screen (RME) - General Chief Complaint: Vomiting Stated Complaint: FEVER/VOMITING/CHILLS Time Seen by Provider: 05/16/20 19:01 TRAVEL OUTSIDE OF THE [place] IN LAST 30 DAYS: No - HPI Notes: 05/16/20 19:06 54-year-old male to the emergency department with complaints of new onset nausea vomiting,, fevers, chills, generalized fatigue since yesterday has gotten worse today. He states that home is temperature is 102. He states that he has not taken anything for the fever. He states he does not think that he has been around anybody is tested positive for Covid. He has been tested once during the pandemic and that was 3 months ago. He states that he also stopped drinking about a week ago. He states that he was drinking 1 pint of liquor a day. Denies any other complaints. Patient is febrile in the emergency department. I performed a brief medical screening exam on the patient determined that the patient needs further evaluation and management by main side provider. I have placed initial orders to help expedite care. - Related Data Allergies/Adverse Reactions: No Known Allergies Allergy (Verified 03/20/20 16:25) Past Medical History - Social History Frequency of alcohol use: None Drug Abuse: None - Past Medical History Cardiac Medical History: Reports: Hx Hypercholesterolemia, Hx Hypertension Denies: Hx Atrial Fibrillation, Hx Congestive Heart Failure, Hx Coronary Artery Disease, Hx Heart Attack Pulmonary Medical History: Reports: Hx Bronchitis Denies: Hx Asthma, Hx COPD, Hx Pneumonia Neurological Medical History: Denies: Hx Cerebrovascular Accident, Hx Seizures Endocrine Medical History: Denies: Hx Diabetes Mellitus Type 1, Hx Diabetes Mellitus Type 2, Hx Hyperthyroidism, Hx Hypothyroidism Renal/ Medical History: Denies: Hx Peritoneal Dialysis GI Medical History: Reports: Hx Gastroesophageal Reflux Disease, Hx Pancreatitis, Hx Ulcer. Denies: Hx Cirrhosis, Hx Crohn's Disease, Hx Hepatitis, Hx Ulcerative Colitis Musculoskeltal Medical History: Denies Hx Arthritis, Denies Hx Gout Skin Medical History: Denies Hx Eczema, Denies Hx Psoriasis Psychiatric Medical History: Infectious Medical History: Denies: Hx Hepatitis Past Surgical History: Reports: Hx Abdominal Surgery - inguinal hernia, Hx Appendectomy, Hx Herniorrhaphy, Hx Inguinal Hernia - Immunizations Immunizations up to date: Yes Hx Diphtheria, Pertussis, Tetanus Vaccination: Yes Physical Exam - Vital signs Vitals: Temp Pulse Resp BP Pulse Ox 101.8 F H 100 18 138/77 H 96 05/16/20 17:52 05/16/20 17:52 05/16/20 17:52 05/16/20 17:52 05/16/20 17:52 Course - Vital Signs Vital signs: Temp Pulse Resp BP Pulse Ox 101.8 F H 100 18 138/77 H 96 05/16/20 17:52 05/16/20 17:52 05/16/20 17:52 05/16/20 17:52 05/16/20 17:52
--- NOTE | 2020-05-16 20:15 | RADIOLOGY REPORT (SQ) ---
EXAM DESCRIPTION: [facility]: XR CHEST 1 VIEW CLINICAL HISTORY: 54 years Male; cough fever; COMPARISON: 11/29/2019 FINDINGS: Lungs: Lungs are clear, with no focal infiltrate, pneumothorax, or pleural effusion. Mediastinum: Mediastinum is within normal limits for this positioning. Bones: Bony structures are unremarkable. IMPRESSION: 1. No acute pulmonary findings.
--- NOTE | 2020-05-16 20:25 | ER Document Report ---
ED Fever - General Chief Complaint: Vomiting Stated Complaint: FEVER/VOMITING/CHILLS Time Seen by Provider: 05/16/20 19:01 Notes: CHIEF COMPLAINT: Fever today HPI: 54-year-old male presenting for evaluation of fever and myalgia today. Slight dry cough. No shortness of breath no chest pain. Patient felt fine yesterday woke up today with body ache with a progressive fever at home. He denies nausea vomiting or diarrhea denies dysuria. He denies any abdominal pain at all. ROS: See HPI - all other systems were reviewed and are otherwise negative Constitutional: Positive fever Eyes: no drainage, no blurred vision ENT: no runny nose, no sore throat Cardiovascular: no chest pain Resp: no SOB, no cough GI: no vomiting, no diarrhea, no abdominal pain : no dysuria Integumentary: no rash Allergy: no hives Musculoskeletal: Positive myalgia Neurological: no numbness/tingling, no weakness MEDICATIONS: I agree with the patient medications as charted by the RN. ALLERGIES: I agree with the allergies as charted by the RN. PAST MEDICAL HISTORY/PAST SURGICAL HISTORY: Reviewed and agree as charted by RN. SOCIAL HISTORY: Reviewed and agree as charted by RN. FAMILY HISTORY: No significant familial comorbid conditions directly related to patient complaint EXAM: Reviewed vital signs as charted by RN. CONSTITUTIONAL: Alert and oriented and responds appropriately to questions. Well-appearing; well-nourished HEAD: Normocephalic; atraumatic EYES: PERRL; Conjunctivae clear, sclerae non-icteric ENT: normal nose; no rhinorrhea; moist mucous membranes; pharynx without lesions noted, no uvula edema or deviation, no tonsillar hypertrophy, phonation normal NECK: Supple without meningismus; non-tender; no cervical lymphadenopathy, no masses CARD: RRR; no murmurs, no clicks, no rubs, no gallops; symmetric distal pulses RESP: Normal chest excursion without splinting or tachypnea; breath sounds clear and equal bilaterally; no wheezes, no rhonchi, no rales, pulse oximetry 96% on room air not hypoxic ABD/GI: Normal bowel sounds; non-distended; soft, absolutely no abdominal pain on palpation, no rebound, no guarding; no palpable organomegaly or masses. BACK: The back appears normal and is non-tender to palpation, there is no CVA tenderness EXT: Normal ROM in all joints; non-tender to palpation; no cyanosis, no effusions, no edema SKIN: Normal color for age and race; warm; dry; good turgor; no acute lesions noted NEURO: Moves all extremities equally; Motor and sensory function intact PSYCH: The patient's mood and manner are appropriate. Grooming and personal hygiene are appropriate. MDM: 54-year-old male presenting for fever and myalgia today. Slight dry cough. Initial screening lab work through the triage process. Chest x-ray does not show evidence of pneumonia. He has no abdominal pain on exam. Will treat fever, obtain flu and Covid testing TRAVEL OUTSIDE OF THE [place] IN LAST 30 DAYS: No - Related Data Allergies/Adverse Reactions: No Known Allergies Allergy (Verified 03/20/20 16:25) Past Medical History - Social History Smoking Status: Current Every Day Smoker Frequency of alcohol use: None Drug Abuse: None Family History: Reviewed & Not Pertinent, Hypertension, Malignancy - Past Medical History Cardiac Medical History: Reports: Hx Hypercholesterolemia, Hx Hypertension Denies: Hx Atrial Fibrillation, Hx Congestive Heart Failure, Hx Coronary A rtery Disease, Hx Heart Attack Pulmonary Medical History: Reports: Hx Bronchitis Denies: Hx Asthma, Hx COPD, Hx Pneumonia Neurological Medical History: Denies: Hx Cerebrovascular Accident, Hx Seizures Endocrine Medical History: Denies: Hx Diabetes Mellitus Type 1, Hx Diabetes Mellitus Type 2, Hx Hyperthyroidism, Hx Hypothyroidism Renal/ Medical History: Denies: Hx Peritoneal Dialysis GI Medical History: Reports: Hx Gastroesophageal Reflux Disease, Hx Pancreatitis, Hx Ulcer. Denies: Hx Cirrhosis, Hx Crohn's Disease, Hx Hepatitis, Hx Ulcerative Colitis Musculoskeletal Medical History: Denies Hx Arthritis, Denies Hx Gout Skin Medical History: Denies Hx Eczema, Denies Hx Psoriasis Psychiatric Medical History: Infectious Medical History: Denies: Hx Hepatitis Past Surgical History: Reports: Hx Abdominal Surgery - inguinal hernia, Hx Appendectomy, Hx Herniorrhaphy, Hx Inguinal Hernia - Immunizations Immunizations up to date: Yes Hx Diphtheria, Pertussis, Tetanus Vaccination: Yes Physical Exam - Vital signs Vitals: Temp Pulse Resp BP Pulse Ox 101.8 F H 100 18 138/77 H 96 05/16/20 17:52 05/16/20 17:52 05/16/20 17:52 05/16/20 17:52 05/16/20 17:52 Course - Re-evaluation Re-evalutation: 05/16/20 23:47 Patient's lab work does not show acute abnormalities other than a mild leukocytosis. Urine does not show evidence of infection. Negative flu negative chest x-ray for pneumonia. Likely a viral etiology. Patient did have Covid testing done and will be considered a person under investigation for COVID-19. Will be discharged home with symptomatic treatment Motrin Tylenol for fever hydrate well, return for worsening symptoms. Has no abdominal pain on repeat exam. No posterior neck pain or nuchal rigidity suggesting meningitis at this time - Vital Signs Vital signs: Temp Pulse Resp BP Pulse Ox 98.1 F 100 15 134/86 H 96 05/16/20 23:15 05/16/20 17:52 05/16/20 23:01 05/16/20 23:00 05/16/20 22:59 - Laboratory Result Diagrams: 05/16/20 20:50 05/16/20 20:50 Laboratory results interpreted by me: 05/16/20 05/16/20 05/16/20 20:50 20:50 23:00 WBC 15.8 H RBC 4.14 L MCH 34.2 H RDW 14.1 H Lymph % (Auto) 10.0 L Absolute Neuts (auto) 12.9 H Seg Neutrophils % 81.2 H Sodium 130.4 L Glucose 133 H Urine Protein 100 H Discharge - Discharge Clinical Impression: Fever in adult, Person under investigation for COVID-19 Condition: Stable Disposition: HOME, SELF-CARE Instructions: COVID-19 Guidance for Persons Under Investigation Additional Instructions: Take Motrin or Tylenol consistently for fever. Hydrate well at home. You are considered a person under investigation for COVID-19 at this time, self quarantine at home pending her test results which may take 2 to 5 days. You should hear from someone at the hospital about your results. If you have worsening shortness of breath or onset of abdominal pain return for reevaluation Forms: Return to Work
[2020-05-16] MEDS ORDERED: NORMAL SALINE 1000 ML 1,000 ML IV ONE (20:31)
[2020-05-16 21:39] LABS: ABSOLUTE BASOPHILS # (AUTO) 0.1 10^3/uL (0.0-0.2); ABSOLUTE LYMPHOCYTES (AUTO) 1.6 10^3/uL (0.5-4.7); ABSOLUTE MONOCYTES (AUTO) 1.3 10^3/uL (0.1-1.4); ABSOLUTE NEUT (AUTO) 12.9 10^3/uL (1.7-8.2); BASOPHILS % (AUTO) 0.3 % (0-2); HEMATOCRIT 40.2 % (37.9-51.0); HEMOGLOBIN 14.2 g/dL (13.5-17.0); MEAN CORPUSCULAR HEMOGLOBIN 34.2 pg (27.0-33.4); MEAN CORPUSCULAR HGB CONC 35.2 g/dL (32.0-36.0); MEAN CORPUSCULAR VOLUME 97 fl (80-97); MONOCYTES % (AUTO) 8.5 % (3-13); PLATELET COUNT 244 10^3/uL (150-450); RED BLOOD COUNT 4.14 10^6/uL (4.35-5.55); RED CELL DISTRIBUTION WIDTH 14.1 % (11.5-14.0); SEGMENTED NEUTROPHILS % (AUTO) 81.2 % (42-78); TOTAL CELLS COUNTED % (AUTO) 100 %; WHITE BLOOD COUNT 15.8 10^3/uL (4.0-10.5)
[2020-05-16 21:53] LABS: A TYPE INFLUENZA AG NEGATIVE (NEGATIVE); B INFLUENZA AG NEGATIVE (NEGATIVE)
[2020-05-16 21:55] LABS: ALBUMIN 3.5 g/dL (3.5-5.0); ALKALINE PHOSPHATASE 82 U/L (38-126); ANION GAP 7 (5-19); ASPARTATE AMINO TRANSFERASE 23 U/L (17-59); BILIRUBIN,DIRECT 0.3 mg/dL (0.0-0.4); BILIRUBIN,TOTAL 0.6 mg/dL (0.2-1.3); BLOOD UREA NITROGEN 9 mg/dL (7-20); CALCIUM 9.2 mg/dL (8.4-10.2); CARBON DIOXIDE 25 mmol/L (22-30); CHLORIDE 98 mmol/L (98-107); GLUCOSE 133 mg/dL (75-110); POTASSIUM 3.7 mmol/L (3.6-5.0); TOTAL PROTEIN 6.7 g/dL (6.3-8.2)
[2020-05-16 23:23] LABS: APPEARANCE,URINE CLEAR; BILIRUBIN,URINE NEGATIVE (NEGATIVE); COLOR,URINE YELLOW; GLUCOSE, URINE NEGATIVE (NEGATIVE); KETONES,URINE NEGATIVE (NEGATIVE); LEUKOCYTE ESTERASE,URINE NEGATIVE (NEGATIVE); NITRITE,URINE NEGATIVE (NEGATIVE); PROTEIN,URINE 100 mg/dL (NEGATIVE); URINE SPECIFIC GRAVITY 1.005; UROBILINOGEN,URINE NEGATIVE mg/dL (<2.0)
[2020-05-16 23:56] VITALS: BP 134/91
== END 2020-05-17 00:04 | disposition home or self-care (01) ==
LOC: ER 17:48
DX: R50.9 Fever, unspecified (principal); R11.10 Vomiting, unspecified; M79.10 Myalgia, unspecified site; Z20.828 Contact with and (suspected) exposure to other viral communicable diseases; F17.200 Nicotine dependence, unspecified, uncomplicated; E78.00 Pure hypercholesterolemia, unspecified; I10 Essential (primary) hypertension
CPT/HCPCS: 99284; 96360; 36415; 87040; 83605; 83690; 85025; 87635; 80053; 81001; 87804; 71045; S0119; J7030; C9803

== ENCOUNTER 2020-05-25 15:33 | Emergency (ER) | payer SELFPAY ==
[2020-05-25] MEDS ORDERED: CHLORPROMAZINE HCL INJ 25 MG/1 ML AMPULE IV ONE ×2 (16:11→22:00)
--- NOTE | 2020-05-25 16:14 | ER Document Report ---
ED Medical Screen (RME) - General Chief Complaint: Other Stated Complaint: HICCUPS Time Seen by Provider: 05/25/20 15:54 TRAVEL OUTSIDE OF THE [place] IN LAST 30 DAYS: No - HPI Notes: 05/25/20 16:11 Patient is a 54-year-old male with history of hypertension here with complaint of hiccups lasting for 5 days. Reports that 5 days ago he had a fever of 102 degrees with associated cough and fatigue. He did test negative for Covid and for influenza last time he was here. States that he feels better today but still complains of hiccups. Patient drank 1 pint of liquor per day until 2 weeks ago when he quit because he got a new job. [id number] smoking history. Denies chest pain shortness of breath nausea vomiting diarrhea. I performed a brief medical screening exam on the patient determined that the patient needs further evaluation and management by main side provider. I have placed initial orders to help expedite care. - Related Data Allergies/Adverse Reactions: No Known Allergies Allergy (Verified 05/25/20 15:49) Past Medical History - Social History Frequency of alcohol use: Occasional Drug Abuse: Cocaine - Past Medical History Cardiac Medical History: Reports: Hx Hypercholesterolemia, Hx Hypertension Denies: Hx Atrial Fibrillation, Hx Congestive Heart Failure, Hx Coronary Artery Disease, Hx Heart Attack Pulmonary Medical History: Reports: Hx Bronchitis Denies: Hx Asthma, Hx COPD, Hx Pneumonia Neurological Medical History: Denies: Hx Cerebrovascular Accident, Hx Seizures Endocrine Medical History: Denies: Hx Diabetes Mellitus Type 1, Hx Diabetes Mellitus Type 2, Hx Hyperthyroidism, Hx Hypothyroidism Renal/ Medical History: Denies: Hx Peritoneal Dialysis GI Medical History: Reports: Hx Gastroesophageal Reflux Disease, Hx Pancreatitis, Hx Ulcer. Denies: Hx Cirrhosis, Hx Crohn's Disease, Hx Hepatitis, Hx Ulcerative Colitis Musculoskeltal Medical History: Denies Hx Arthritis, Denies Hx Gout Skin Medical History: Denies Hx Eczema, Denies Hx Psoriasis Psychiatric Medical History: Infectious Medical History: Denies: Hx Hepatitis Past Surgical History: Reports: Hx Abdominal Surgery - inguinal hernia, Hx Appendectomy, Hx Herniorrhaphy, Hx Inguinal Hernia - Immunizations Immunizations up to date: Yes Hx Diphtheria, Pertussis, Tetanus Vaccination: Yes Physical Exam - Vital signs Vitals: Temp Pulse Resp BP Pulse Ox 98.4 F 96 16 147/73 H 98 05/25/20 15:37 05/25/20 15:37 05/25/20 15:37 05/25/20 15:37 05/25/20 15:37 Course - Vital Signs Vital signs: Temp Pulse Resp BP Pulse Ox 98.4 F 96 16 147/73 H 98 05/25/20 15:37 05/25/20 15:37 05/25/20 15:37 05/25/20 15:37 05/25/20 15:37
--- NOTE | 2020-05-25 16:26 | RADIOLOGY REPORT (SQ) ---
EXAM DESCRIPTION: CHEST 2 VIEWS IMAGES COMPLETED DATE/TIME: 05/25/2020 4:16 pm REASON FOR STUDY: hiccups for over 5 days COMPARISON: 05/16/2020 EXAM PARAMETERS: NUMBER OF VIEWS: two views TECHNIQUE: Digital Frontal and Lateral radiographic views of the chest acquired. RADIATION DOSE: NA LIMITATIONS: none FINDINGS: LUNGS AND PLEURA: Patchy left perihilar right lower lobe airspace disease consistent with pneumonia. No effusions. MEDIASTINUM AND HILAR STRUCTURES: No masses or contour abnormalities. HEART AND VASCULAR STRUCTURES: Heart normal size. No evidence for failure. BONES: No acute findings. HARDWARE: None in the chest. OTHER: No other significant finding. IMPRESSION: Findings suspicious for atypical pneumonia or viral pneumonitis with left perihilar and right basilar infiltrate. TECHNICAL DOCUMENTATION: JOB ID: [id number] 2010 [employer]- All Rights Reserved Reading location - IP/workstation name: [email or web address]
[2020-05-25 17:00] LABS: ABSOLUTE EOSINOPHILS # (AUTO) 0.1 10^3/uL (0.0-0.6); ABSOLUTE LYMPHOCYTES (AUTO) 0.9 10^3/uL (0.5-4.7); ABSOLUTE MONOCYTES (AUTO) 1.6 10^3/uL (0.1-1.4); ABSOLUTE NEUT (AUTO) 11.8 10^3/uL (1.7-8.2); BASOPHILS % (AUTO) 0.1 % (0-2); EOSINOPHILS % (AUTO) 0.5 % (0-6); HEMATOCRIT 34.7 % (37.9-51.0); HEMOGLOBIN 12.5 g/dL (13.5-17.0); LYMPHOCYTES % (AUTO) 6.2 % (13-45); MEAN CORPUSCULAR HEMOGLOBIN 34.6 pg (27.0-33.4); MEAN CORPUSCULAR HGB CONC 36.2 g/dL (32.0-36.0); MEAN CORPUSCULAR VOLUME 96 fl (80-97); MONOCYTES % (AUTO) 11.3 % (3-13); PLATELET COUNT 504 10^3/uL (150-450); RED BLOOD COUNT 3.63 10^6/uL (4.35-5.55); RED CELL DISTRIBUTION WIDTH 14.9 % (11.5-14.0); SEGMENTED NEUTROPHILS % (AUTO) 81.9 % (42-78); TOTAL CELLS COUNTED % (AUTO) 100 %; WHITE BLOOD COUNT 14.4 10^3/uL (4.0-10.5)
[2020-05-25 17:15] LABS: ALBUMIN 3.1 g/dL (3.5-5.0); ALKALINE PHOSPHATASE 131 U/L (38-126); ANION GAP 9 (5-19); ASPARTATE AMINO TRANSFERASE 74 U/L (17-59); BILIRUBIN,DIRECT 0.3 mg/dL (0.0-0.4); BILIRUBIN,TOTAL 0.7 mg/dL (0.2-1.3); BLOOD UREA NITROGEN 16 mg/dL (7-20); CALCIUM 8.5 mg/dL (8.4-10.2); CARBON DIOXIDE 30 mmol/L (22-30); CHLORIDE 91 mmol/L (98-107); GLUCOSE 150 mg/dL (75-110); POTASSIUM 3.4 mmol/L (3.6-5.0); TOTAL PROTEIN 6.5 g/dL (6.3-8.2)
--- NOTE | 2020-05-25 18:47 | ER Document Report ---
ED General - General Chief Complaint: Other Stated Complaint: HICCUPS Time Seen by Provider: 05/25/20 15:54 TRAVEL OUTSIDE OF THE [place] IN LAST 30 DAYS: No - HPI Notes: 54-year-old male presents with hiccups. Patient states he has had hiccups for the past 5 days. About 5 days ago he was seen in the emergency department for fever of 102, cough and fatigue. His Covid test was negative at the time. He states that most of his symptoms have resolved, he still however has a cough. He states that he will have a strong forceful cough for about a minute and then resolves, this occurs several times throughout the day. No vomiting or diarrhea, no abdominal pain. He states he recently quit drinking. - Related Data Allergies/Adverse Reactions: No Known Allergies Allergy (Verified 05/25/20 15:49) Past Medical History - General Information source: Patient - Social History Smoking Status: Current Every Day Smoker Frequency of alcohol use: Occasional Drug Abuse: Cocaine Family History: Reviewed & Not Pertinent, Hypertension, Malignancy Patient has homicidal ideation: No - Past Medical History Cardiac Medical History: Reports: Hx Hypercholesterolemia, Hx Hypertension Denies: Hx Atrial Fibrillation, Hx Congestive Heart Failure, Hx Coronary Artery Disease, Hx Heart Attack Pulmonary Medical History: Reports: Hx Bronchitis Denies: Hx Asthma, Hx COPD, Hx Pneumonia Neurological Medical History: Denies: Hx Cerebrovascular Accident, Hx Seizures Endocrine Medical History: Denies: Hx Diabetes Mellitus Type 1, Hx Diabetes Mellitus Type 2, Hx Hyperthyroidism, Hx Hypothyroidism Renal/ Medical History: Denies: Hx Peritoneal Dialysis GI Medical History: Reports: Hx Gastroesophageal Reflux Disease, Hx Pancreatitis, Hx Ulcer. Denies: Hx Cirrhosis, Hx Crohn's Disease, Hx Hepatitis, Hx Ulcerative Colitis Musculoskeletal Medical History: Denies Hx Arthritis, Denies Hx Gout Skin Medical History: Denies Hx Eczema, Denies Hx Psoriasis Psychiatric Medical History: Infectious Medical History: Denies: Hx Hepatitis Past Surgical History: Reports: Hx Abdominal Surgery - inguinal hernia, Hx Appendectomy, Hx Herniorrhaphy, Hx Inguinal Hernia - Immunizations Immunizations up to date: Yes Hx Diphtheria, Pertussis, Tetanus Vaccination: Yes Review of Systems - Review of Systems Constitutional: denies: Fever EENT: See HPI Cardiovascular: denies: Chest pain Respiratory: Cough. denies: Short of breath Gastrointestinal: denies: Abdominal pain, Diarrhea, Vomiting Genitourinary: No symptoms reported Male Genitourinary: No symptoms reported Musculoskeletal: No symptoms reported Skin: No symptoms reported Hematologic/Lymphatic: No symptoms reported Neurological/Psychological: No symptoms reported Physical Exam - Vital signs Vitals: Temp Pulse Resp BP Pulse Ox 98.4 F 96 16 147/73 H 98 05/25/20 15:37 05/25/20 15:37 05/25/20 15:37 05/25/20 15:37 05/25/20 15:37 - General General appearance: Appears well, Alert In distress: None - HEENT Head: Normocephalic, Atraumatic Extraocular movements intact: Yes Pupils: PERRL Neck: Supple Notes: Intermittent hiccuping throughout exam - Respiratory Breath sounds: Rhonchi - At bases - Cardiovascular Rhythm: Regular Heart sounds: Normal auscultation - Abdominal Distension: No distension Tenderness: Nontender - Extremities General upper extremity: Normal ROM General lower extremity: Normal ROM - Neurological Neuro grossly intact: Yes Cognition: Normal Orientation: AAOx4 - Psychological Associated symptoms: Normal affect - Skin Skin Temperature: Warm Course - Re-evaluation Re-evalutation: 54-year-old male presents with hiccups x5 days, preceded by a viral type syndrome with fever, cough, fatigue. Covid and flu negative at that time. On exam he is well-appearing, nontoxic, hemodynamically stable and afebrile. He is intermittently hiccuping throughout exam. He does have some coarse rhonchi at the lung bases. Through the triage process he had a chest x-ray done which shows bilateral infiltrates concerning for an atypical/viral pneumonia. This could certainly be a reason that he is having hiccups secondary to diaphragmatic irritation. He had Thorazine ordered through triage as well. Will check EKG for QTC interval. Will start treatment with Rocephin, add azithromycin after EKG done. He would likely need to have Covid retesting done. 05/25/20 22:51 And to reassess patient, he is no longer hiccuping. Discussed with him plan to discharge on [facility], Covid testing to be obtained to return precautions given, patient stable time of discharge. - Vital Signs Vital signs: Temp Pulse Resp BP Pulse Ox 98.4 F 96 15 134/83 H 98 05/25/20 21:01 05/25/20 15:37 05/25/20 21:01 05/25/20 21:01 05/25/20 21:01 - Laboratory Result Diagrams: 05/25/20 16:41 05/25/20 16:41 Laboratory results interpreted by me: 05/25/20 05/25/20 16:41 16:41 WBC 14.4 H RBC 3.63 L Hgb 12.5 L Hct 34.7 L MCH 34.6 H MCHC 36.2 H RDW 14.9 H Plt Count 504 H Lymph % (Auto) 6.2 L Absolute Neuts (auto) 11.8 H Absolute Monos (auto) 1.6 H Seg Neutrophils % 81.9 H Sodium 129.6 L Potassium 3.4 L Chloride 91 L Glucose 150 H AST 74 H ALT 100 H Alkaline Phosphatase 131 H Albumin 3.1 L - Diagnostic Test Radiology reviewed: Image reviewed, Reports reviewed - EKG Interpretation by Me Additional EKG results interpreted by me: EKG is interpreted by me. Normal sinus rhythm, rate 76. Narrow QRS. QTc 441. No ST segment elevation. Discharge - Discharge Clinical Impression: Atypical pneumonia Disposition: HOME, SELF-CARE Additional Instructions: Please begin azithromycin for pneumonia. Please continue to self quarantine at home until your repeat Covid test has resulted. Return to the emergency department for any concerning worsening symptoms. Prescriptions: Azithromycin 250 mg PO ASDIR PRN 5 Days #6 tablet PRN Reason:
[2020-05-25] MEDS ORDERED: CEFTRIAXONE INJ 1000 MG VIAL IV ONE ×2 (19:01→22:00)
[2020-05-25] MEDS ORDERED: NORMAL SALINE 1000 ML 1,000 ML IV ONE (19:02)
[2020-05-25] MEDS ORDERED: CEFTRIAXONE 1 GM/D5W RTU 1 GM/50 ML RTUPB IV ONE (21:19)
[2020-05-25 23:26] VITALS: BP 122/73
--- NOTE | 2020-05-26 07:06 | EKG REPORT ---
SEVERITY:- NORMAL ECG - SINUS RHYTHM : Confirmed by: Bandar Nunez MD 26-May-2020 07:05:45
[2020-05-26] MEDS ORDERED: LIDOCAINE HCL 1% INJ (FOR 1 GM VIAL) INJ SCH (10:00)
[2020-05-26] MEDS ORDERED: CEFTRIAXONE INJ 1000 MG VIAL IM SCH (10:00)
== END 2020-05-25 23:30 | disposition home or self-care (01) ==
LOC: ER 15:33
DX: J18.8 Other pneumonia, unspecified organism (principal); R06.6 Hiccough; R50.9 Fever, unspecified; R53.83 Other fatigue; F17.200 Nicotine dependence, unspecified, uncomplicated; Z20.828 Contact with and (suspected) exposure to other viral communicable diseases
CPT/HCPCS: 93005; 99285; 96361; 96375; 96365; 36415; 85025; 87635; 80053; 71046; 93010; J3230; J0696; J7030; C9803

== ENCOUNTER 2020-07-29 13:06 | Emergency (ER) | payer SELFPAY ==
[2020-07-29] MEDS ORDERED: ONDANSETRON 4 MG TAB.RAPDIS PO ONE (14:29)
[2020-07-29] MEDS ORDERED: NORMAL SALINE 1000 ML 1,000 ML IV ONE (14:30)
--- NOTE | 2020-07-29 14:31 | ER Document Report ---
ED Medical Screen (RME) - General Stated Complaint: VOMITING BLOOD, ABDOMINAL PAIN Time Seen by Provider: 07/29/20 14:24 Notes: Patient is a 54-year-old male who presents emergency department with a chief complaint of nausea and vomiting. States that he has been vomiting since yesterday and it is brown/coffee-ground. Patient states that he drinks 2-3 shots every day. Has history of pancreatitis. States that he has some tenderness to his mid upper abdomen. Exam: Tender mid upper abdomen. I have greeted and performed a rapid initial assessment of this patient. A comprehensive ED assessment and evaluation of the patient, analysis of test results and completion of medical decision making process will be conducted by an additional ED providers. TRAVEL OUTSIDE OF THE [place] IN LAST 30 DAYS: No - Related Data Allergies/Adverse Reactions: No Known Allergies Allergy (Verified 05/25/20 15:49) Past Medical History - Past Medical History Cardiac Medical History: Reports: Hx Hypercholesterolemia, Hx Hypertension Denies: Hx Atrial Fibrillation, Hx Congestive Heart Failure, Hx Coronary Artery Disease, Hx Heart Attack Pulmonary Medical History: Reports: Hx Bronchitis Denies: Hx Asthma, Hx COPD, Hx Pneumonia Neurological Medical History: Denies: Hx Cerebrovascular Accident, Hx Seizures Endocrine Medical History: Denies: Hx Diabetes Mellitus Type 1, Hx Diabetes Mellitus Type 2, Hx Hyperthyroidism, Hx Hypothyroidism Renal/ Medical History: Denies: Hx Peritoneal Dialysis GI Medical History: Reports: Hx Gastroesophageal Reflux Disease, Hx Pancreatitis, Hx Ulcer. Denies: Hx Cirrhosis, Hx Crohn's Disease, Hx Hepatitis, Hx Ulcerative Colitis Musculoskeltal Medical History: Denies Hx Arthritis, Denies Hx Gout Skin Medical History: Denies Hx Eczema, Denies Hx Psoriasis Psychiatric Medical History: Infectious Medical History: Denies: Hx Hepatitis Past Surgical History: Reports: Hx Abdominal Surgery - inguinal hernia, Hx Appendectomy, Hx Herniorrhaphy, Hx Inguinal Hernia - Immunizations Immunizations up to date: Yes Hx Diphtheria, Pertussis, Tetanus Vaccination: Yes Physical Exam - Vital signs Vitals: Temp Pulse Resp BP Pulse Ox 98.2 F 82 16 180/72 H 99 07/29/20 13:15 07/29/20 13:15 07/29/20 13:15 07/29/20 13:15 07/29/20 13:15 Course - Vital Signs Vital signs: Temp Pulse Resp BP Pulse Ox 98.2 F 82 16 180/72 H 99 07/29/20 13:15 07/29/20 13:15 07/29/20 13:15 07/29/20 13:15 07/29/20 13:15
[2020-07-29] MEDS ORDERED: ONDANSETRON 4 MG TAB.RAPDIS ONE (16:42)
[2020-07-29 17:15] LABS: ABSOLUTE LYMPHOCYTES (AUTO) 1.2 10^3/uL (0.5-4.7); ABSOLUTE MONOCYTES (AUTO) 0.6 10^3/uL (0.1-1.4); ABSOLUTE NEUT (AUTO) 10.3 10^3/uL (1.7-8.2); BASOPHILS % (AUTO) 0.2 % (0-2); HEMATOCRIT 46.8 % (37.9-51.0); MEAN CORPUSCULAR HEMOGLOBIN 33.5 pg (27.0-33.4); MEAN CORPUSCULAR HGB CONC 34.3 g/dL (32.0-36.0); MEAN CORPUSCULAR VOLUME 98 fl (80-97); MONOCYTES % (AUTO) 5.1 % (3-13); PLATELET COUNT 304 10^3/uL (150-450); RED BLOOD COUNT 4.78 10^6/uL (4.35-5.55); RED CELL DISTRIBUTION WIDTH 13.9 % (11.5-14.0); SEGMENTED NEUTROPHILS % (AUTO) 84.7 % (42-78); TOTAL CELLS COUNTED % (AUTO) 100 %; WHITE BLOOD COUNT 12.2 10^3/uL (4.0-10.5)
[2020-07-29 17:33] LABS: ALBUMIN 4.4 g/dL (3.5-5.0); ALKALINE PHOSPHATASE 106 U/L (38-126); ANION GAP 9 (5-19); ASPARTATE AMINO TRANSFERASE 23 U/L (17-59); BILIRUBIN,DIRECT 0.2 mg/dL (0.0-0.4); BILIRUBIN,TOTAL 0.9 mg/dL (0.2-1.3); BLOOD UREA NITROGEN 14 mg/dL (7-20); CALCIUM 10.3 mg/dL (8.4-10.2); CARBON DIOXIDE 31 mmol/L (22-30); CHLORIDE 96 mmol/L (98-107); GLUCOSE 131 mg/dL (75-110); POTASSIUM 3.8 mmol/L (3.6-5.0); TOTAL PROTEIN 8.1 g/dL (6.3-8.2)
--- NOTE | 2020-07-29 17:44 | ER Document Report ---
ED General - General Chief Complaint: Vomiting Stated Complaint: VOMITING BLOOD, ABDOMINAL PAIN Time Seen by Provider: 07/29/20 14:24 TRAVEL OUTSIDE OF THE [place] IN LAST 30 DAYS: No - HPI Notes: 54-year-old male presents with abdominal pain. Patient has epigastric abdominal pain, he states he has a history of pancreatitis and this feels the same. He has not taken anything for pain. It does not radiate. He consumes alcohol daily and did consume alcohol last night. He states that 3 days ago he had vomiting after he ate clam chowder at work. He had an episode of vomiting today which he describes as black with jellyfish. He denies diarrhea, he states his stools are brown, he has never had any black stools or blood in his stools. - Related Data Allergies/Adverse Reactions: No Known Allergies Allergy (Verified 07/29/20 15:41) Home Medications: liprinosil, sparinolactone (for BP) Past Medical History - General Information source: Patient - Social History Smoking Status: Current Every Day Smoker Chew tobacco use (# tins/day): No Frequency of alcohol use: Social Drug Abuse: None Family History: Reviewed & Not Pertinent, Hypertension, Malignancy Patient has homicidal ideation: No - Past Medical History Cardiac Medical History: Reports: Hx Hypercholesterolemia, Hx Hypertension Denies: Hx Atrial Fibrillation, Hx Congestive Heart Failure, Hx Coronary Artery Disease, Hx Heart Attack Pulmonary Medical History: Reports: Hx Bronchitis Denies: Hx Asthma, Hx COPD, Hx Pneumonia Neurological Medical History: Denies: Hx Cerebrovascular Accident, Hx Seizures Endocrine Medical History: Denies: Hx Diabetes Mellitus Type 1, Hx Diabetes Mellitus Type 2, Hx Hyperthyroidism, Hx Hypothyroidism Renal/ Medical History: Denies: Hx Peritoneal Dialysis GI Medical History: Reports: Hx Gastroesophageal Reflux Disease, Hx Pancreatitis, Hx Ulcer. Denies: Hx Cirrhosis, Hx Crohn's Disease, Hx Hepatitis, Hx Ulcerative Colitis Musculoskeletal Medical History: Denies Hx Arthritis, Denies Hx Gout Skin Medical History: Denies Hx Eczema, Denies Hx Psoriasis Psychiatric Medical History: Infectious Medical History: Denies: Hx Hepatitis Past Surgical History: Reports: Hx Abdominal Surgery - inguinal hernia, Hx Appendectomy, Hx Herniorrhaphy, Hx Inguinal Hernia - Immunizations Immunizations up to date: Yes Hx Diphtheria, Pertussis, Tetanus Vaccination: Yes Review of Systems - Review of Systems Constitutional: denies: Fever EENT: No symptoms reported Cardiovascular: denies: Chest pain Respiratory: denies: Short of breath Gastrointestinal: See HPI Genitourinary: No symptoms reported Male Genitourinary: No symptoms reported Musculoskeletal: No symptoms reported Skin: No symptoms reported Hematologic/Lymphatic: No symptoms reported Neurological/Psychological: No symptoms reported Physical Exam - Vital signs Vitals: Temp 98.2 F 07/29/20 13:07 - General General appearance: Appears well, Alert In distress: None - HEENT Head: Normocephalic, Atraumatic Eyes: No: Scleral icterus Extraocular movements intact: Yes Pupils: PERRL - Respiratory Breath sounds: Normal - Cardiovascular Rhythm: Regular Heart sounds: Normal auscultation - Abdominal Distension: No distension Bowel sounds: Normal Tenderness: Tender - Epigastric - Extremities General upper extremity: Normal ROM General lower extremity: Normal ROM - Neurological Neuro grossly intact: Yes Cognition: Normal Orientation: AAOx4 - Psychological Associated symptoms: Normal affect - Skin Skin Temperature: Warm Course - Re-evaluation Re-evalutation: 54-year-old male here with epigastric pain, history of pancreatitis and daily alcohol use. Well-appearing, hemodynamically stable, mild tenderness, abdomen overall nonperitoneal. Based on his description, I do not think this represents a true GI bleed at this time. He had labs done prior to my evaluation which shows a normal hemoglobin, which is actually higher than his recent values. We will treat him symptomatically as pancreatitis. It has been sometime since his last CT, will obtain CT to rule out pseudocyst or abscess. 07/29/20 20:11 CT abdomen has resulted. Per radiology there is no drainable. Pancreatic collection. I wanted to update patient on the results. He states that the morphine had initially relieved his pain, however pain is starting to return, he is agreeable to trial oral medication at this time. 07/29/20 21:38 Patient reports he is feeling much better. He is actually sleeping on arrival into his room. He has had no further vomiting while the emergency department. Discussed with him continued symptomatic control at home. Return precautions given, stable at time of discharge. - Vital Signs Vital signs: Temp Pulse Resp BP Pulse Ox 98.1 F 78 14 197/116 H 99 07/29/20 21:55 07/29/20 21:55 07/29/20 21:55 07/29/20 21:55 07/29/20 21:55 - Laboratory Results Result Diagrams: 07/29/20 16:37 07/29/20 16:37 Laboratory Results Interpreted: 07/29/20 07/29/20 16:37 16:37 WBC 12.2 H MCV 98 H MCH 33.5 H Lymph % (Auto) 10.0 L Absolute Neuts (auto) 10.3 H Seg Neutrophils % 84.7 H Sodium 136.0 L Chloride 96 L Carbon Dioxide 31 H Glucose 131 H Calcium 10.3 H Lipase 1990.6 H Critical Laboratory Results Reviewed: No Critical Results - Radiology Results Critical Radiology Results Reviewed: No Critical Results Discharge - Discharge Clinical Impression: Acute on chronic pancreatitis Disposition: HOME, SELF-CARE Additional Instructions: Use [place] as needed for severe pain. You may take Tylenol and ibuprofen. Be sure to drink plenty of fluids. Please abstain from alcohol use. Return to the emergency department for any concerning worsening symptoms.
[2020-07-29] MEDS ORDERED: RINGERS SOLUTION,LACTATED 1,000 ML IV ONE (17:47)
[2020-07-29] MEDS ORDERED: MORPHINE SULFATE 10 MG/ML INJ IV ONE (17:47)
[2020-07-29] MEDS ORDERED: FAMOTIDINE INJ/PF 20 MG/2 ML SDV IV ONE (17:47)
--- NOTE | 2020-07-29 18:42 | RADIOLOGY REPORT (SQ) ---
EXAM DESCRIPTION: CT ABD/PELVIS WITH IV ONLY IMAGES COMPLETED DATE/TIME: 07/29/2020 6:29 pm REASON FOR STUDY: Pancreatitis, evaluate abscess or pseudocyst COMPARISON: 03/20/2020 TECHNIQUE: CT scan of the abdomen and pelvis performed using helical scanning technique with dynamic intravenous contrast injection. No oral contrast. Images reviewed with lung, soft tissue, and bone windows. Reconstructed coronal and sagittal MPR images reviewed. Delayed images for evaluation of the urinary system also acquired. All images stored on PACS. All CT scanners at this facility use dose modulation, iterative reconstruction, and/or weight based d osing when appropriate to reduce radiation dose to as low as reasonably achievable (ALARA). [facility]: Dose Right [facility]: CareDose [facility]: Dose Right [facility]: Teradose 4D [facility]: [employer] CONTRAST TYPE AND DOSE: contrast/concentration: Isovue 350.00 mmol/ml; Total Contrast Delivered: 83. 0 ml; Total Saline Delivered: 37.0 ml RENAL FUNCTION: Not reported. RADIATION DOSE: CT Rad equipment meets quality standard of care and radiation dose reduction techniq ues were employed. CTDIvol: 3.5 mGy. DLP: 373 mGy-cm.. LIMITATIONS: Limiting motion artifact on initial post contrast scanning through the abdomen. FINDINGS: LOWER CHEST: No significant findings. No nodules or infiltrates. LIVER: Normal size. No masses. No dilated ducts. SPLEEN: Normal size. No focal lesions. PANCREAS: Heavy calcification in the pancreatic head and neck consistent with chronic pancreatitis. There is mild fat stranding about this region of the pancreas but no drainable collection. 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 GALLBLADDER: No identified stones by CT criteria. No inflammatory changes to suggest cholecystitis. ADRENAL GLANDS: No significant masses or asymmetry. RIGHT KIDNEY AND URETER: No solid masses. No significant calcification. No hydronephrosis or hydroure ter. LEFT KIDNEY AND URETER: No solid masses. No significant calcification. No hydronephrosis or hydrouret er. AORTA AND VESSELS: No aneurysm. No dissection. Renal arteries, SMA, celiac without stenosis. No evid ence of venous thrombus. Patent portal, superior mesenteric veins. RETROPERITONEUM: No retroperitoneal adenopathy, hemorrhage or masses. BOWEL AND PERITONEAL CAVITY: No masses or inflammatory changes. No free fluid or peritoneal masses. APPENDIX: Not visualized. PELVIS: No mass. No free fluid. Normal bladder. ABDOMINAL WALL: No masses. No hernias. BONES: No significant or acute findings. OTHER: No other significant finding. IMPRESSION: 1. Acute on chronic pancreatitis. No drainable peripancreatic collections. TECHNICAL DOCUMENTATION: JOB ID: [id number] Quality ID # [id number]: Final reports with documentation of one or more dose reduction techniques (e.g., Au tomated exposure control, adjustment of the mA and/or kV according to patient size, use of iterative reconstruction technique) 2010 [employer]- All Rights Reserved Reading location - IP/workstation name: [email or web address]
[2020-07-29] MEDS ORDERED: OXYCODONE HCL IR 5 MG TABLET PO ONE (20:11)
[2020-07-29] MEDS ORDERED: HYDROCODONE/ACETAMINOPHEN 5-325 MG (6 TAB/ER DISP) PO PRN (21:38)
[2020-07-29 22:02] VITALS: BP 197/116
== END 2020-07-29 21:55 | disposition home or self-care (01) ==
LOC: ER 13:06
DX: K85.80 Other acute pancreatitis without necrosis or infection (principal); R10.13 Epigastric pain; R11.10 Vomiting, unspecified; F17.200 Nicotine dependence, unspecified, uncomplicated; E78.00 Pure hypercholesterolemia, unspecified; I10 Essential (primary) hypertension
CPT/HCPCS: 99285; 96361; 96374; 96375; 86900; 86901; 36415; 86850; 83690; 85025; 80053; 74177; S0119; J2270; J7030; J7120; S0028